=== PATIENT | male | born 1945 | race Caucasian/White ===

== ENCOUNTER 2025-06-20 08:16 | Inpatient (IN) ==
--- NOTE | 2025-06-13 14:26 | Anesthesiology Consultation ---
Date of Service June 13, 2025 Assessment & Plan (1) Encounter for pre-operative examination: - Check BSG DOS - Infectious disease screening: Per assessment on 06/13/25- No known recent infectious disease contacts. 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 Nothing further needed at this time. Chart Review Chart Review: Acceptable Risk for Surgery and Patient NOT seen in Pre Admission Testing History Surgery Operation Date: 06/20/25 09:55 Proposed Procedures p Exploratory Laparotomy, Removal of Infected Mesh, Hernia Repair, Possible Bowel Resection - Arben Dhaliwal MD Height/Weight Height: 5 ft 8 in Weight: 88.451 kg Allergies Allergy/AdvReac Type Severity Reaction Status Date / Time adhesive tape Allergy Unknown Rash with Verified 06/13/25 10:23 extended use Medications Home Medications Medication Instructions Recorded Confirmed Last Taken aspirin 325 mg tablet 325 mg PO QAM 01/21/23 06/13/25 01/25/23 06:00 metformin 500 mg tablet 500 mg PO QAM 01/21/23 06/13/25 01/24/23 22:00 pantoprazole 40 mg tablet,delayed 40 mg PO QAM 01/21/23 06/13/25 01/24/23 06:00 release ascorbic acid (vitamin C) 1,000 mg 1,000 mg PO Q2D 06/13/25 06/13/25 Unknown tablet (Vitamin C) cyanocobalamin (vitamin B-12) 1,000 mcg PO QAM 06/13/25 06/13/25 Unknown 1,000 mcg tablet (Vitamin B-12) empagliflozin 25 mg tablet 25 mg PO QAM 06/13/25 06/13/25 Unknown (Jardiance) losartan 25 mg tablet 25 mg PO QAM 06/13/25 06/13/25 Unknown rosuvastatin 20 mg tablet 20 mg PO QAM 06/13/25 06/13/25 Unknown sildenafil 25 mg tablet 20 mg PO UD PRN sexual activity 06/13/25 06/13/25 Unknown vit C 250 mg-vit E 90 mg-zinc 40 2 tab PO QAM 06/13/25 06/13/25 Unknown mg-copper 1 [id number] capsule (PreserVision AREDS-2) Past Medical History Medical History AAA (abdominal aortic aneurysm) Monitored by PCP US Aorta 08/31/24: Mild aneurysmal dilitation of the proximal abdominal aorta (measures approximately 3.2cm x 2.7 cm) Abd/Pelvis CT 05/17/25: "Aorta: Atherosclerotic changes of the abdominal aorta without aneurysm." 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 (Age 27) "Surgery took care of it" per patient History of colonoscopy History of esophagogastroduodenoscopy (EGD) History of hernia surgery x2 History of surgery (05/2024) Left ulnar nerve repair History of wisdom tooth extraction Social History Smoking Status: Former smoker Do You Dip or Chew Tobacco: No (hx when I was younger social, no current) Smoking End Date: 17 yr ago Hx Alcohol Use: Yes Alcohol type: beer and hard liquor alcohol intake frequency: a few times a month Hx Substance Use: No substance use type: does not use Testing Laboratory Results 06/03/25 WBC H/H PLATELETS SODIUM 141 POTASSIUM 4.8 CHLORIDE 101 CO2 24 BUN 16 CREATININE 0.9 GLUCOSE 143 Electrocardiogram Date: 06/01/25 Findings: + NSR @ (85)
--- NOTE | 2025-06-20 08:42 | History & Physical Bridge Note ---
Date of Service June 20, 2025 History & Physical Bridge Note I have examined the patient, reviewed the History & Physical and in the interval since the performance of the History & Physical I have noted the following changes of clinical significance: no changes noted
[2025-06-20] MEDS: LR 15ML/HR IV SCH (09:14)
[2025-06-20] MEDS ORDERED: MIDAZOLAM HCL 1 MG/ML 2ML VIAL ONE (10:42)
[2025-06-20] MEDS ORDERED: ONDANSETRON INJ 2 MG/ML 2 ML VIAL IV PRN (10:44)
[2025-06-20] MEDS ORDERED: ATROPINE SULFATE 0.1 MG/ML 10ML SYR IV PRN (10:44)
[2025-06-20] MEDS ORDERED: PROMETHAZINE HCL 6.25 MG in SODIUM CHLORIDE 0.9% 50 ML IV PRN (10:44)
[2025-06-20] MEDS ORDERED: LIDOCAINE 2% 2 ML VIAL/AMP(20MG/ML) INFIL ONE (10:51)
[2025-06-20] MEDS ORDERED: PROPOFOL IV EMULSION 10 MG/ML 20 ML VIAL IV ONE (10:51)
[2025-06-20] MEDS ORDERED: ROCURONIUM BROMIDE 10 MG/ML 5 ML VIAL IV ONE ×2 (10:51→11:48)
[2025-06-20] MEDS ORDERED: MoRPHine SULFATE 2 MG/ML CARP ONE (11:17)
[2025-06-20] MEDS ORDERED: DEXAMETHASONE SOD INJ 4 MG/ML VIAL ONE (11:19)
[2025-06-20] MEDS ORDERED: KETOROLAC 30 MG/ML VIAL ONE (11:19)
[2025-06-20] MEDS ORDERED: ONDANSETRON INJ 2 MG/ML 2 ML VIAL ONE (11:19)
[2025-06-20] MEDS ORDERED: SUGAMMADEX SODIUM 200 MG/2 ML VIAL IV ONE (11:34)
--- NOTE | 2025-06-20 12:15 | Post Operative Brief Note ---
Immediate Post Op Note Date of Surgery June 20, 2025 Pre & Post Diagnosis Operation Date: 06/20/25 09:55 Pre-Op Diagnosis: Umbilical Bleeding, Abdominal Wall Mass Post-Op Diagnosis: Umbilical Bleeding, Abdominal Wall Mass I identified the patient and participated in the time-out.: Yes Procedure Operation Date: 06/20/25 09:55 Actual Procedures p Exploratory Laparotomy, Removal of Infected Mesh, Hernia Repair, Bowel Resection(Not Applicable) - Arben Dhaliwal MD Surgeon Arben Dhaliwal MD Development Chemist HARVINDER Mills assisted with tissue retraction, camera op, closure Estimated Blood Loss 10 Findings Consistent with Post-Op Diagnosis
--- NOTE | 2025-06-20 12:21 | Operative Report ---
Post Operative Report Pre & Post Diagnosis Operation Date: 06/20/25 09:55 Pre-Op Diagnosis: Umbilical Bleeding, Abdominal Wall Mass Post-Op Diagnosis: Umbilical Bleeding, Abdominal Wall Mass I identified the patient and participated in the time-out.: Yes Procedure Operation Date: 06/20/25 09:55 Actual Procedures p Exploratory Laparotomy, Removal of Infected Mesh, Hernia Repair, Bowel Resection(Not Applicable) - Arben Dhaliwal MD Surgeon Arben Dhaliwal MD Dictating Transcribing Machine Servicer HARVINDER Mills assisted with tissue retraction, camera op, closure Estimated Blood Loss 10 Findings Consistent with Post-Op Diagnosis loop of bowel adhesed to and eroded through old hernia mesh to the umbilicus resulting in small fistula. Mesh was entirely explanted. Small bowel resection with reanastomosis. hernia repaired with #1 Prolene suture. Specimens Small bowel; explanted mesh Drains none Anesthesia Type General Complications none Description of Procedure patient was taken the operating room, placed supine on the operating table. A timeout was performed, perioperative antibiotics were administered, ST boots were placed. After adequate anesthesia and analgesia was obtained, the abdomen was prepped and draped in a normal sterile fashion. Midline incision was made encompassing the umbilicus and was carried down to the level of the fascia. The umbilical stalk was detached from the fascia and a tract was noted with brownish fluid within it. The fascia was opened below the umbilicus into the preperitoneal space and then subsequently into the peritoneum. We slowly worked cephalad. A loop of small bowel was densely adherent to the undersurface of the mesh just at the umbilical site. This was carefully dissected off of the anterior abdominal wall/mesh with the Metzenbaum scissors and Kitners. It was noted that the loop of bowel had eroded into the mesh. As this was detached, the fistulous tract was identified. The bowel was completely freed from the mesh above. Once this was complete, there was the area of the fistula and another loop of small bowel with a small serosal tear. The small serosal tear was oversewn with interrupted 3-0 silk sutures. Decision was made to resect the small bowel loop with a fistulous tract. This was done with JOLIE stapler. The mesentery was taken with the LigaSure device. A [id number] functional end-to-end anastomosis was created with the JOLIE stapler. The common channel was closed with a TA stapler. The resulting mesenteric defect was closed with 3-0 silk suture. A crotch stitch was placed of 3-0 silk. The wound was zeinab irrigated suctioned free. At this point attention was turned to the anterior abdominal wall. The entire mesh was explanted. Again the wound was zeinab irrigated suctioned free, hemostasis was excellent. The fascia was then reapproximated with a running #1 Prolene suture. The subcutaneous tissue was irrigated. The skin was reapproximated with surgical clips. Betadine soaked packing was placed. Dressings were applied. A binder was applied. He tolerated the procedure without complication, was transferred in stable condition to the PACU. All instrument, needle, sponge counts were correct at the end of the case. My vet assistant was necessary throughout the procedure for tissue retraction, possible camera operation, and closure of the wounds. I understand that section 1842(b)(7)(D) of the Social Security act generally prohibits Medicare physician fee schedule payment for the services of assistants at surgery in teaching hospitals when qualified residents are available to furnish such services. I certify that the services for which payment is claimed were medically necessary and that no qualified resident was available to perform the services. I further understand that these services are subject to postpayment review by the Medicare carrier. I attest to the content of the Intraoperative Record and any orders documented therein. Any exceptions are noted below.
[2025-06-20] MEDS: cefOXitin SOD 1,000 MG VIAL ONE (12:24)
[2025-06-20] MEDS: BUPIVACAINE/EPINEPHRINE 0.25% 1:200,000 30 ML VIAL ONE (12:40)
--- NOTE | 2025-06-20 12:40 | XRay Report ---
KUB HISTORY: INSTRUMENT COUNT COMPARISON STUDY: None FINDINGS: Frontal views of the abdomen and pelvis were obtained in the operating room. Skin jin o verlie the left pelvis. No other radiopaque foreign body or special forces medical sergeant seen at the abdomen or pel vis. There are a few small calcifications at the left abdomen. IMPRESSION: No retained foreign body seen. ACT 112: Negative or not required by law. The above report was generated using voice recognition software. It may contain grammatical, syntax o r spelling errors. Electronically signed by: Arjun Hines M.D. 06/20/2025 12:39 PM
--- NOTE | 2025-06-20 13:25 | Anesthesiology Progress Note ---
Date of Service June 20, 2025 Anesthesia Post Procedure Vital Signs Vital Signs: Temp Pulse Resp BP Pulse Ox O2 Del Method O2 Flow Rate 06/20/25 13:19 36.4 C L 83 18 155/85 H 94 Nasal Cannula 4 06/20/25 13:10 85 24 155/84 H 89 L Nasal Cannula 2 06/20/25 13:00 87 17 171/84 H 86 L Room Air 06/20/25 12:50 90 15 177/97 H 94 Oxymask 6 06/20/25 12:40 36.0 C L 93 H 15 183/99 H 94 Oxymask 10 06/20/25 08:38 36.7 C 62 18 175/94 H 99 Room Air Pain Intensity Abdomen: Pain Intensity: 4 Transfer of Care Handoff Completed per policy Notes Mental Status: alert / awake / arousable Patient Amnestic to Procedure: Yes Nausea / Vomiting: adequately controlled Pain: adequately controlled Airway Patency, RR, SpO2: stable & adequate BP & HR: stable & adequate Hydration State: stable & adequate Anesthetic Complications: no major complications apparent
[2025-06-20] MEDS ORDERED: KETOROLAC 30 MG/ML VIAL IV PRN (14:16)
[2025-06-20] MEDS ORDERED: PROMETHAZINE 12.5 MG/50.5 ML BAG IV PRN (14:16)
[2025-06-20] MEDS ORDERED: MoRPHine SULFATE 2 MG/ML CARP IV PRN (14:16)
[2025-06-20] MEDS: PIPERACILLIN/TAZOBACTAM 4.5 GM/100 ML BAG IV SCH (15:11)
--- NOTE | 2025-06-20 16:17 | Hospitalist Consultation ---
Date of Consultation June 20, 2025 Assessment & Plan (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: (2) DM type 2 (diabetes mellitus, type 2): (3) HTN (hypertension): (4) HLD (hyperlipidemia): Plan This is a 80 y/o male with DM2, diabetic retinopathy, dyslipidemia, GERD, Christiansen's esophagus, HTN, and other history as outlined below who underwent exploratory laparotomy with removal of infected mesh, hernia repair, and bowel resection today by Dr. Dhaliwal and for who we have been consulted to assist with post-operative medical management. Currently pt has no specific complaints. Initial post-operative nausea seems to have improved. #Infected mesh s/p removal, hernia repair, and bowel resection - POD #0 - Pain control, diet per primary service - Labs in AM - CBC, BMP - Agree with continuing IV Zosyn as ordered #Type 2 Diabetes - Holding oral meds for now - Insulin sliding scale - BSG ACHS #Dyslipidemia - Chronic, resume statin once tolerating po #Hypertension - Chronic, resume losartan, monitor BP #GERD - Continue daily PPI DVT prophylaxis: Lovenox Current diet: clear liquids Pt seen and reviewed with collaborating physician, Dr. Johnson. Plan of care discussed and as outlined above. Thank you for this consultation. We will continue to follow this patient with you. A member of the [facility] team is available 28/04. Please don't hesitate to reach out with questions. I spent a total of 68 minutes coordinating, documenting, and providing care for this patient excluding time spent in the performance of separately billed services or time spent by another provider/QHP. Jose Rafael Chavez PA-C Supervising Physician Co-Signing Physician Notes Attending addendum: The patient was seen and examined in medical floor he is status post exploratory laparotomy, removal of infected mesh, hernia repair and bowel resection on 06/20/2025 He has been complaining of some abdominal pain and nausea but no vomiting Denies any chest pain, palpitation or shortness of breath and he mentioned that he gets dehydrated easily On examination Lying in bed with minimal distress Hemodynamically stable with tachycardia of 100/min and requiring 4 L to maintain saturation without any shortness of breath at rest Chestdecreased breath sounds bilaterally without any crackles and wheezing Abdomendistended, tender and bowel sound sluggish HeartS1-S2, regular CNSalert, awake and oriented x 3 His preop labs and imaging studies reviewed Status post laparotomy and removal of infected mesh, hernia repair and bowel resection Management will be as per surgeon Will give cautious amount of intravenous fluid with LR at 80 cc an hour for 2 L His other medical conditions remained stable as managed accordingly as above Agree with assessment and plan as outlined above by Oanh Chavez PA-C and take the full responsibility of care in the hospital Dr Juan Johnson History of Present Illness Reason for Consultation: Post-operative medical management Requesting Physician: Dr. Arben Dhaliwal Attending Physician: Arben Dhaliwal MD History of Present Illness This is a 80 y/o male with DM2, diabetic retinopathy, dyslipidemia, GERD, Christiansen's esophagus, HTN, and other history as outlined below who underwent exploratory laparotomy with removal of infected mesh, hernia repair, and bowel resection today by Dr. Dhaliwal and for who we have been consulted to assist with post-operative medical management. Pt originally had hernia repair at umbilicus done with mesh 15 years ago, but has had issues with drainage from umbilicus over the last several years. He underwent an operation to remove granulation tissue from the area in 2020 but the mesh was left intact. However, he has continued to have drainage from the area so saw Dr. Dhaliwal as an outpatient and had a CT scan showing a small collection at the umbilicus c/w a chronic mesh inf ection for which he underwent today's procedure. His outpatient PCP notes were reviewed to assist with the medical history. His diabetes is managed as an outpatient with metformin and empagliflozin with his last A1c being 8.2 on 02/22/25. Pt reports his blood sugars at home are usually well-controlled (120s). Currently, his main complaint is generalized fatigue. Current incisional pain is 2/10. He had some nausea initially after surgery but reports this has improved, no vomiting. Tolerating sips of water. Denies chest pain, palpitations, dyspnea, CHEW, dizziness. Allergies Allergy/AdvReac Type Severity Reaction Status Date / Time adhesive tape Allergy Unknown Rash with Verified 06/20/25 08:36 extended use Home Medications Medication Instructions Recorded Confirmed Type aspirin 325 mg tablet 325 mg PO QAM 01/21/23 06/20/25 History metformin 500 mg tablet 500 mg PO QAM 01/21/23 06/20/25 History pantoprazole 40 mg tablet,delayed 40 mg PO QAM 01/21/23 06/20/25 History release ascorbic acid (vitamin C) 1,000 mg 1,000 mg PO Q2D 06/13/25 06/20/25 History tablet (Vitamin C) cyanocobalamin (vitamin B-12) 1,000 mcg PO QAM 06/13/25 06/20/25 History 1,000 mcg tablet (Vitamin B-12) empagliflozin 25 mg tablet 25 mg PO QAM 06/13/25 06/20/25 History (Jardiance) losartan 25 mg tablet 25 mg PO QAM 06/13/25 06/20/25 History rosuvastatin 20 mg tablet 20 mg PO QAM 06/13/25 06/20/25 History sildenafil 25 mg tablet 20 mg PO UD PRN sexual activity 06/13/25 06/20/25 History vit C 250 mg-vit E 90 mg-zinc 40 2 tab PO QAM 06/13/25 06/20/25 History mg-copper 1 [id number] capsule (PreserVision AREDS-2) Patient History Medical History (Updated 06/20/25 @ 17:05 by Abigail Chavez PA-C) Ulnar neuropathy at elbow of left upper extremity Carpal tunnel syndrome, left History of Lyme disease x2 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14, no hx locking HLD (hyperlipidemia) Hx borderline AAA (abdominal aortic aneurysm) Monitored by PCP US Aorta 08/31/24: Mild aneurysmal dilitation of the proximal abdominal aorta (measures approximately 3.2cm x 2.7 cm) Abd/Pelvis CT 05/17/25: "Aorta: Atherosclerotic changes of the abdominal aorta without aneurysm." Surgical History History of surgery (05/2024) Left ulnar nerve repair History of wisdom tooth extraction History of hernia surgery x2 History of appendectomy (2011) "Nicked my intestine"- monitored/no additional surgery History of esophagogastroduodenoscopy (EGD) History of colonoscopy 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 (Age 27) "Surgery took care of it" per patient Social History Smoking Status: Former smoker Tobacco Type: Cigarettes, Pipe and Cigars Smoking End Date: 17 yr ago; Second Hand Exposure: Yes (hx); Do You Dip or Chew Tobacco: No (hx when I was younger social, no current); Hx Alcohol Use: Yes Alcohol type: beer and hard liquor Hx Substance Use: No Preferred Language: Korean Communication Ability: Effective Precision Assembly Inspector Required: No Beliefs That Will Affect Care: Zoroastrianism Zoroastrianism Beliefs: Mandaeism Current Living Situation: Spouse Feels Safe at Home: Yes Assistive Devices: Hearing Aid - Bilateral and Other Assistive Devices Comment: readers Review of Systems Review of Systems: All systems reviewed & are unremarkable except as noted in Subjective Physical Exam Physical Exam: General: awake, alert, NAD HEENT: no scleral icterus, moist mucus membranes Neck: supple, trachea midline Heart: RRR Lungs: CTA bilaterally, no W/R/R Abdomen: abdominal binder in place, hypoactive bowel sounds Extremities: no pedal edema, distal pulses intact and equal Neurologic: Ox3, no confusion or dysarthria, moving all extremities, no focal deficits Results & Data Results & Data Vital Signs (Past 12 Hours) Vital Signs Temp Pulse Pulse Resp BP BP Pulse Ox 06/20/25 16:07 36.4 C L 94 H 20 147/82 H 96 06/20/25 15:10 36.8 C 92 H 22 150/88 H 94 06/20/25 14:43 36.3 C L 90 22 147/79 H 94 06/20/25 14:00 06/20/25 14:00 36.8 C 90 22 154/82 H 91 06/20/25 13:50 86 14 155/90 H 93 06/20/25 13:35 81 17 147/89 H 93 06/20/25 13:20 36.4 C L 83 18 155/85 H 94 06/20/25 13:10 85 24 155/84 H 89 L 06/20/25 13:00 87 17 171/84 H 86 L 06/20/25 12:50 90 15 177/97 H 94 06/20/25 12:40 36.0 C L 93 H 15 183/99 H 94 06/20/25 08:38 36.7 C 62 18 175/94 H 99 O2 Del Method O2 Flow Rate 06/20/25 16:07 Nasal Cannula 4 06/20/25 15:10 Nasal Cannula 4 06/20/25 14:43 Nasal Cannula 4 06/20/25 14:00 Nasal Cannula 4 06/20/25 14:00 Nasal Cannula 4 06/20/25 13:50 Nasal Cannula 4 06/20/25 13:35 Nasal Cannula 4 06/20/25 13:20 Nasal Cannula 4 06/20/25 13:10 Nasal Cannula 2 06/20/25 13:00 Room Air 06/20/25 12:50 Oxymask 6 06/20/25 12:40 Oxymask 10 06/20/25 08:38 Room Air Laboratory Results 06/20/25 06/20/25 08:19 09:17 POC Glucose 145 H Blood Type A Positive Antibody Screen NEGATIVE Medications Administered Lactated Ringer's (Lr) 1,000 mls @ 15 mls/hr IV .Q24H AVRIL Stop: 06/21/25 05:59 Last Infusion: 06/20/25 10:45 Dose: Infused Documented By: Admin: 06/20/25 09:14 Dose: 15 mls/hr Documented By: MITRA Cefazolin Sodium (Ancef 2000mg) 2,000 mg in 15 mls @ 3.75 mls/min IV PREOP AVRIL; Protocol Stop: 06/20/25 18:00 Last Admin: 06/20/25 10:48 Dose: 3.75 mls/min Documented By: JAMIN Piperacillin Sod/Tazobactam Sod (Zosyn) 4.5 gm in 100 mls @ 25 mls/hr IV Q8H AVRIL; Protocol Stop: 06/24/25 14:59 Last Admin: 06/20/25 15:11 Dose: 25 mls/hr Documented By: CSE Discontinued Medications Bupivacaine HCl/Epinephrine Bitart (Bupivacaine/Epinephrine 0.25% 1:200,000 30 Ml Vial) Confirm Administered Dose 30 ml .ROUTE .STK-MED ONE Stop: 06/20/25 11:03 Last Admin: 06/20/25 12:40 Dose: 10 ml Documented By: SHEILA Cefoxitin Sodium (Cefoxitin Sod 1,000 Mg Vial) Confirm Administered Dose 2,000 mg .ROUTE .STK-MED ONE Stop: 06/20/25 10:41 Last Admin: 06/20/25 12:24 Dose: 2,000 mg Documented By: GHADA (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 (2) DM type 2 (diabetes mellitus, type 2) Diabetes mellitus complication detail: with diabetic retinopathy Diabetes mellitus complication status: with ophthalmic complications Diabetes mellitus residential insulin use: without meterman use Diabetes mellitus macular edema: macular edema presence unspecified Diabetic retinopathy severity: with unspecified retinopathy severity Laterality: unspecified laterality Qualified Code(s): E11.319 - Type 2 diabetes mellitus with unspecified diabetic retinopathy without macular edema (3) HTN (hypertension) Hypertension type: unspecified Qualified Code(s): I10 - Essential (primary) hypertension (4) HLD (hyperlipidemia) Hyperlipidemia type: unspecified Qualified Code(s): E78.5 - Hyperlipidemia, unspecified
[2025-06-20] MEDS ORDERED: GLUCOSE 40% GEL 15 GM TUBE PO PRN (16:27)
[2025-06-20] MEDS ORDERED: GLUCAGON FOR INJ 1 MG VIAL SQ PRN (16:27)
[2025-06-20] MEDS ORDERED: CARBOHYDRATES FOR HYPOGLYCEMIA PO PRN (16:27)
[2025-06-20] MEDS ORDERED: DEXTROSE 50% 50 ML SYRINGE IV PRN (16:27)
[2025-06-20] MEDS ORDERED: GLUCOSE 10 TAB/TUBE PO PRN (16:27)
[2025-06-20] MEDS: INSULIN ASPART PER UNIT CHARGE SC SCH (17:17)
[2025-06-20] MEDS: LACTATED RINGER'S 1,000 ML IV SCH (19:27)
[2025-06-20] MEDS: ONDANSETRON INJ 2 MG/ML 2 ML VIAL IV PRN (20:45)
[2025-06-20] MEDS: MoRPHine SULFATE 4 MG/ML 1 ML CARP\\VIAL IV PRN (21:31)
[2025-06-20] MEDS: SODIUM CHLORIDE 0.9% 250 ML IV ONE (23:29)
[2025-06-21 00:18] LABS: Hematocrit (blood only) 39.1 % (42.0-52.0); Hemoglobin 12.5 g/dl (14.0-18.0); Immature Granulocytes # (auto) 0.05 K/uL (0.01-0.20); Immature Granulocytes % (auto) 0.4 %; Mean Corpuscular Hemoglobin 30.0 pg (25.0-34.0); Mean Corpuscular Volume 93.8 fL (80.0-100.0); Platelet Count 317 K/uL (130-400); RDW Standard Deviation 44.7 fL (36.4-46.3); Red Blood Count 4.17 M/uL (4.70-6.10); White Blood Count 11.52 K/ul (4.8-10.8)
--- NOTE | 2025-06-21 00:49 | Communication Note ---
Date of Service: June 21, 2025 I was called by the nurse earlier this evening the patient was noted to be hypotensive with a blood pressure of 76/55. She noted that the patient was asymptomatic at that time. Review of chart shows the patient underwent surgery today having undergone an exploratory laparotomy with removal of infected mesh, a bowel resection, and a hernia repair by Dr. Dhaliwal of [facility] surgery. Given the patient's recent surgery I opted to give the patient a 250 cc fluid bolus of normal saline solution and increase his maintenance fluids which were currently running at 80 cc/h to 100 cc/h. After this modality the patient's blood pressure improved to 96/65. Shortly thereafter the nurse notified me that the patient was complaining of difficulty breathing. I reported to the bedside to evaluate the patient. The patient notes that he is having abdominal pain at his surgical incision making it difficult for him to take deep breaths. He did report some radiation of this discomfort into his chest. He also notes that he is having episodes of sweats as well as nausea without vomiting. Patient does report he does not have any history of blood clots and does not take any anticoagulants. On physical exam the patient's abdomen has mild distention and is noted to have expected tenderness from his postoperative state. On auscultation his lungs are clear to auscultation bilaterally without wheezing or rhonchi. Breath sounds were slightly decreased at the bases. I performed a chest x-ray that did not show any evidence of pneumothorax. There also did not appear to be evidence of pneumonia. I did appreciate bilateral basilar atelectasis (I suspect the patient is not taking deep breaths secondary to postoperative pain). An EKG showed sinus tachycardia without changes indicative of acute ischemia. Most recent vitals included a blood pressure of 96/65 and a pulse of 122 which was regular. The patient was noted to be afebrile. His pulse ox was 99% but he was requiring 5 L of oxygen via nasal cannula. (The patient notes he does not use oxygen at home). In light of the events noted above we will obtain a PRP and magnesium as well as a troponin level. In addition, if the patient's creatinine is acceptable we will check a CT scan of the chest to evaluate for possible pulmonary embolism.
--- NOTE | 2025-06-21 01:53 | XRay Report ---
EXAM: XR chest 1V portable CLINICAL HISTORY: SOB TECHNIQUE: An X-ray image of the chest was obtained in the AP projection. COMPARISON: No prior studies are available for comparison. FINDINGS: There is suboptimal inspiratory effort with low lung volumes. Pulmonary Parenchyma: There is a blunted left costophrenic angle, which represents minimal effusion. There is decreased aeration of the left lower zone adjacent to the pleural effusion, which may be due to compression and/or small areas of atelectasis. Otherwise, the lungs are clear bilaterally, without evidence of consolidation, collapse, or focal opacities. No pulmonary nodules are identified. Heart and Mediastinum: The size and shape of the heart are normal. There is no mediastinal widening or masses. There is no hilar or mediastinal lymphadenopathy. Bony Thorax: The bony thorax appears intact without fractures or deformities. Soft Tissues: The soft tissues overlying the chest wall are unremarkable. IMPRESSION: There is a mild left pleural effusion with associated compression findings. Electronically signed by Dustin Simms 06-21-2025 01:52 AM
[2025-06-21 03:25] LABS: Anion Gap 21.0 (3-11); Blood Urea Nitrogen 27.0 mg/dl (6-23); Calcium 8.2 mg/dl (8.6-10.3); Carbon Dioxide 17.0 mmol/L (21-32); Chloride 100.0 mmol/L (98-107); Creatinine Clr Calc Pharmacy 34.1 ml/min; Glucose 381.0 mg/dl (70-99(Fasting)); Magnesium 1.8 mg/dl (1.7-2.4); Potassium 4.4 mmol/L (3.5-5.1); Sodium 138.0 mmol/L (136-145)
--- NOTE | 2025-06-21 03:31 | Communication Note ---
Date of Service: June 21, 2025 Please see previous communication note Initial plan was for patient to undergo CT scan of the chest to evaluate for PE, however results of creatinine have finally come back and his creatinine is elevated at 1.9. Patient was revisited at bedside and appears to be resting comfortably in bed and does not appear to be in any distress, therefore we will hold on getting a CT scan at this time and continue with close clinical monitoring Patient also noted to have elevated blood glucose levels in excess of 300. I have messaged the hospitalist service and asked them to assist with management of this condition as they are on medical consult for this patient. In addition, patient's troponin level noted to be not elevated
[2025-06-21] MEDS: INSULIN ASPART PER UNIT CHARGE SC SCH ×2 (04:47→12:01)
[2025-06-21] MEDS: INSULIN HUMAN REGULAR PER UNIT 4 UNITS in SYRINGE 3.96 ML IV ONE (04:47)
--- NOTE | 2025-06-21 06:57 | Surgery Progress Note ---
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 for now Incentive spirometry and flutter valve for aggressive pulmonary toilet PT/OT evaluation Appreciate medical input for medical issues Admission and Anticipated Discharge Date Admission Date: June 20, 2025 Subjective POD#1 s/p ex lap, removal of infected mesh, bowel resection Some pain and low blood pressures overnight. Blood pressure responded to fluid bolus. Still tachycardic. Complains of significant pain in his abdomen. some nausea. No flatus. Physical Exam Physical Exam: NAD, A&O x 3 NCAT, no scleral icterus Abdomen: Soft, mild TTP, dressing C/D/I Binder in place Results & Data Vital Signs (Past 12 Hours) Vital Signs Temp Pulse Resp BP Pulse Ox O2 Del Method O2 Flow Rate 06/21/25 05:52 36.4 C L 119 H 20 105/73 98 Nasal Cannula 4 06/21/25 02:13 36.4 C L 132 H 20 117/84 96 Nasal Cannula 4 06/20/25 23:59 36.4 C L 122 H 20 96/65 L 99 Nasal Cannula 5 06/20/25 23:07 36.4 C L 118 H 14 76/55 L 96 Nasal Cannula 4 06/20/25 19:25 36.8 C 98 H 14 116/81 94 Room Air Laboratory Results 06/21/25 06/21/25 06/21/25 Range/Units 04:37 04:33 02:31 WBC (4.8-10.8) K/ul RBC (4.70-6.10) M/uL Hgb (14.0-18.0) g/dl Hct (42.0-52.0) % MCV (80.0-100.0) fL MCH (25.0-34.0) pg MCHC (32.0-36.0) g/dL RDW Std Deviation (36.4-46.3) fL RDW Coeff of Jessica (11.5-14.5) % Plt Count (130-400) K/uL MPV (9.4-12.4) fL Immature Gran % (Auto) % Neut % (Auto) % Lymph % (Auto) % Twiggs % (Auto) % Eos % (Auto) % Baso % (Auto) % Neut # (Auto) (1.40-6.50) K/uL Lymph # (Auto) (1.20-3.40) K/uL Twiggs # (Auto) (0.11-0.59) K/uL Eos # (Auto) (0.00-0.50) K/uL Baso # (Auto) (0.00-0.20) K/uL Immature Gran # (Auto) (0.01-0.20) K/uL Sodium 138 (136-145) mmol/L Potassium 4.4 (3.5-5.1) mmol/L Chloride 100 (98-107) mmol/L Carbon Dioxide 17 L (21-32) mmol/L Anion Gap 21 H (3-11) BUN 27 H (6-23) mg/dl Creatinine 1.93 H (0.6-1.4) mg/dl Est Cr Clr Drug Dosing 34.1 ml/min eGFR 35.00 BUN/Creatinine Ratio 14.0 (10-20) Glucose 381 H* (70-99(Fasting)) mg/dl POC Glucose 371 H* 315 H* (70-99) mg/dl Calcium 8.2 L (8.6-10.3) mg/dl Magnesium 1.8 (1.7-2.4) mg/dl Troponin I High Sens 12.2 (0-20) pg/ml Blood Type Antibody Screen 06/20/25 06/20/25 06/20/25 Range/Units 23:35 20:43 20:42 WBC 11.52 H (4.8-10.8) K/ul RBC 4.17 L (4.70-6.10) M/uL Hgb 12.5 L (14.0-18.0) g/dl Hct 39.1 L (42.0-52.0) % MCV 93.8 (80.0-100.0) fL MCH 30.0 (25.0-34.0) pg MCHC 32.0 (32.0-36.0) g/dL RDW Std Deviation 44.7 (36.4-46.3) fL RDW Coeff of Jessica 13.1 (11.5-14.5) % Plt Count 317 (130-400) K/uL MPV 10.7 (9.4-12.4) fL Immature Gran % (Auto) 0.4 % Neut % (Auto) 67.8 % Lymph % (Auto) 24.1 % Twiggs % (Auto) 7.3 % Eos % (Auto) 0.1 % Baso % (Auto) 0.3 % Neut # (Auto) 7.81 H (1.40-6.50) K/uL Lymph # (Auto) 2.78 (1.20-3.40) K/uL Twiggs # (Auto) 0.84 H (0.11-0.59) K/uL Eos # (Auto) 0.01 (0.00-0.50) K/uL Baso # (Auto) 0.03 (0.00-0.20) K/uL Immature Gran # (Auto) 0.05 (0.01-0.20) K/uL Sodium (136-145) mmol/L Potassium (3.5-5.1) mmol/L Chloride (98-107) mmol/L Carbon Dioxide (21-32) mmol/L Anion Gap (3-11) BUN (6-23) mg/dl Creatinine (0.6-1.4) mg/dl Est Cr Clr Drug Dosing ml/min eGFR BUN/Creatinine Ratio (10-20) Glucose (70-99(Fasting)) mg/dl POC Glucose 324 H* 339 H* (70-99) mg/dl Calcium (8.6-10.3) mg/dl Magnesium (1.7-2.4) mg/dl Troponin I High Sens (0-20) pg/ml Blood Type Antibody Screen 06/20/25 06/20/25 06/20/25 Range/Units 16:19 09:17 08:19 WBC (4.8-10.8) K/ul RBC (4.70-6.10) M/uL Hgb (14.0-18.0) g/dl Hct (42.0-52.0) % MCV (80.0-100.0) fL MCH (25.0-34.0) pg MCHC (32.0-36.0) g/dL RDW Std Deviation (36.4-46.3) fL RDW Coeff of Jessica (11.5-14.5) % Plt Count (130-400) K/uL MPV (9.4-12.4) fL Immature Gran % (Auto) % Neut % (Auto) % Lymph % (Auto) % Twiggs % (Auto) % Eos % (Auto) % Baso % (Auto) % Neut # (Auto) (1.40-6.50) K/uL Lymph # (Auto) (1.20-3.40) K/uL Twiggs # (Auto) (0.11-0.59) K/uL Eos # (Auto) (0.00-0.50) K/uL Baso # (Auto) (0.00-0.20) K/uL Immature Gran # (Auto) (0.01-0.20) K/uL Sodium (136-145) mmol/L Potassium (3.5-5.1) mmol/L Chloride (98-107) mmol/L Carbon Dioxide (21-32) mmol/L Anion Gap (3-11) BUN (6-23) mg/dl Creatinine (0.6-1.4) mg/dl Est Cr Clr Drug Dosing ml/min eGFR BUN/Creatinine Ratio (10-20) Glucose (70-99(Fasting)) mg/dl POC Glucose 205 H 145 H (70-99) mg/dl Calcium (8.6-10.3) mg/dl Magnesium (1.7-2.4) mg/dl Troponin I High Sens (0-20) pg/ml Blood Type A Positive Antibody Screen NEGATIVE (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
[2025-06-21] MEDS ORDERED: MoRPHine SULFATE 2 MG/ML CARP IV PRN (07:00)
[2025-06-21] MEDS ORDERED: PHARMACY GLYCEMIC MGMT CONSULT PRN (07:56)
[2025-06-21] MEDS: ACETAMINOPHEN 1,000 MG/100 ML VIAL IV SCH (08:04)
[2025-06-21] MEDS: ROSUVASTATIN CALCIUM 20 MG TAB PO SCH (08:06)
[2025-06-21] MEDS: KETOROLAC 30 MG/ML VIAL IV SCH (08:06)
[2025-06-21] MEDS ORDERED: STAT IV Infusion **Titration per Protocol STA (08:07)
[2025-06-21] MEDS: ENOXAPARIN INJ 40 MG/0.4 ML SYR SQ SCH (08:07)
[2025-06-21] MEDS ORDERED: PENDING D5 1/2NS+20mEq KCL IVF SCH (08:15)
[2025-06-21] MEDS ORDERED: PENDING 1/2NSS+20mEq KCL IVF SCH (08:15)
[2025-06-21] MEDS: LANTUS PER UNIT CHARGE SQ SCH (08:16)
[2025-06-21 08:20] LABS: Hematocrit (blood only) 39.5 % (42.0-52.0); Hemoglobin 12.5 g/dl (14.0-18.0); Mean Corpuscular Hemoglobin 29.6 pg (25.0-34.0); Mean Corpuscular Volume 93.4 fL (80.0-100.0); Platelet Count 286 K/uL (130-400); RDW Standard Deviation 45.1 fL (36.4-46.3); Red Blood Count 4.23 M/uL (4.70-6.10); White Blood Count 13.78 K/ul (4.8-10.8)
[2025-06-21 08:43] LABS: Anion Gap 19.0 (3-11); Blood Urea Nitrogen 32.0 mg/dl (6-23); Calcium 8.4 mg/dl (8.6-10.3); Carbon Dioxide 19.0 mmol/L (21-32); Chloride 101.0 mmol/L (98-107); Creatinine Clr Calc Pharmacy 26.0 ml/min; Glucose 305.0 mg/dl (70-99(Fasting)); Potassium 4.4 mmol/L (3.5-5.1); Sodium 139.0 mmol/L (136-145)
[2025-06-21 08:45] LABS: Magnesium 1.7 mg/dl (1.7-2.4)
[2025-06-21 08:46] LABS: Immature Granulocytes # (auto) 0.05 K/uL (0.01-0.20); Immature Granulocytes % (auto) 0.4 %; Polychromasia 1+
[2025-06-21] MEDS ORDERED: VANCOMYCIN CONSULT ACTIVE PRN (08:46)
[2025-06-21 08:53] LABS: Base Excess VBG -8.1 mEq/L; HCO3 VBG 20 mmol/L; Oxygen Saturation VBG 67.9 %; PCO2 VBG 50 mmHg (38-50); PO2 VBG 43 mmHg; pH VBG 7.21 (7.36-7.41)
[2025-06-21] MEDS: LACTATED RINGER'S 1,000 ML IV ONE (08:58)
[2025-06-21] MEDS ORDERED: LOSARTAN POTASSIUM 25 MG TAB PO SCH (09:00)
[2025-06-21] MEDS: MAGNESIUM SULFATE / D5W 1 GM/100 ML BAG IV SCH (09:02)
[2025-06-21] MEDS: PANTOprazole 40 MG/10 ML SYR IV SCH (09:09)
[2025-06-21 09:30] LABS: Hemoglobin A1C 7.7 % (4.5-5.6)
[2025-06-21] MEDS ORDERED: Nursing to Pharmacy Communication SCH (09:30)
--- NOTE | 2025-06-21 09:30 | Hospitalist Progress Note ---
Date of Service June 21, 2025 Assessment & Plan (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: (2) DM type 2 (diabetes mellitus, type 2): (3) HTN (hypertension): (4) HLD (hyperlipidemia): Plan Mr. Vaca is a 80 y/o male with DM2, diabetic retinopathy, dyslipidemia, GERD, Hcristiansen's esophagus, HTN, and other history as outlined below who underwent exploratory laparotomy with removal of infected mesh, hernia repair, and bowel resection today by Dr. Dhaliwal and for who we have been consulted to assist with post-operative medical management. Patient with noted hyperglycemia, lactic acidosis, and ongoing nausea. Given current metabolic abnormalities, relative hypotension/tachycardia, and increased nursing needs, will transfer to PCU. #Sepsis 2/2 infected mesh (WBC, tachycardia, lactic acidosis) POA #Metabolic acidosis #Infected mesh s/p removal, hernia repair, and bowel resection - POD #1 - Pain control, diet per primary service Noted GAP on labs, lactate 6.9 this am Plan to bolus LR x 1, reassess response to fluids Continue maintenance IVF Continue abx, broaden coverage at this time with vanc/zosyn MRSA nare ordered trend lactate Ordered Blood cultures given c/f sepsis No intraoperative cultures obtained at this time General surgery following #JACINTA baseline Cr. 0.9 likely iso hemodynamic changes given acute illness, perioperative setting hold losartan monitor I&Os consider nephrology if uptrending + drop in UOP #Relative hypotension #Sinus tachycardia #Hypertension hold home losartan iso relatively low BP and JACINTA, resume as able #acute hypergylcemia #Type 2 Diabetes Hold oral meds, A1C 7.7% in lieu of multiple metabolic abnormalities, will order insulin drip and follow labs q4 as high risk for complication to unfold once glucose and abnormalities better controlled, will transition to basal bolus currently NPO glycemic pharm on consult aggressive lyte replacement #Dyslipidemia - Chronic, resume statin once tolerating po #GERD - Continue daily PPI--transitioned to IV given inability to take po DVT prophylaxis: Lovenox Current diet: NPO I spent a total of 65 minutes coordinating, documenting, and providing care for this patient excluding time spent in the performance of separately billed services Admission and Anticipated Discharge Date Admission Date: June 20, 2025 Subjective ongoing nausea and generally feeling poorly denies fevers or chills reports some subjective improvement from what he felt yesterday prior to presenting to ED denies chest pain, sob, palpitations notable tachycardia and relative hypotension on VS Physical Exam Constitutional: weak in appearance, general pallor Respiratory: normal respiratory effort, lungs clear to auscultation Cardiovascular: tachycardic, no murmurs Gastrointestinal (Abdomen): abdominal binder in place Results & Data Results & Data Vital Signs (Past 12 Hours) Vital Signs Temp Pulse Resp BP Pulse Ox O2 Del Method O2 Flow Rate 06/21/25 07:00 36.6 C 113 H 19 108/77 99 Nasal Cannula 06/21/25 05:52 36.4 C L 119 H 20 105/73 98 Nasal Cannula 4 06/21/25 02:13 36.4 C L 132 H 20 117/84 96 Nasal Cannula 4 06/20/25 23:59 36.4 C L 122 H 20 96/65 L 99 Nasal Cannula 5 06/20/25 23:07 36.4 C L 118 H 14 76/55 L 96 Nasal Cannula 4 Laboratory Results Short CBC 06/20/25 06/21/25 Range/Units 23:35 07:09 WBC 11.52 H 13.78 H (4.8-10.8) K/ul Hgb 12.5 L 12.5 L (14.0-18.0) g/dl Hct 39.1 L 39.5 L (42.0-52.0) % Plt Count 317 286 (130-400) K/uL [facility] 06/21/25 06/21/25 02:31 07:09 Sodium 138 139 Potassium 4.4 4.4 Chloride 100 101 Carbon Dioxide 17 L 19 L BUN 27 H 32 H Creatinine 1.93 H 2.53 H D Glucose 381 H* 305 H* Calcium 8.2 L 8.4 L Medications Administered Home Medications Medication Instructions Recorded Confirmed Last Taken aspirin 325 mg tablet 325 mg PO QAM 01/21/23 06/20/25 06/15/25 metformin 500 mg tablet 500 mg PO QAM 01/21/23 06/20/25 06/17/25 pantoprazole 40 mg tablet,delayed 40 mg PO QAM 01/21/23 06/20/25 06/17/25 release ascorbic acid (vitamin C) 1,000 mg 1,000 mg PO Q2D 06/13/25 06/20/25 1 Week Ago tablet (Vitamin C) ~06/13/25 cyanocobalamin (vitamin B-12) 1,000 mcg PO QAM 06/13/25 06/20/25 06/17/25 1,000 mcg tablet (Vitamin B-12) empagliflozin 25 mg tablet 25 mg PO QAM 06/13/25 06/20/25 06/13/25 (Jardiance) losartan 25 mg tablet 25 mg PO QAM 06/13/25 06/20/25 06/17/25 rosuvastatin 20 mg tablet 20 mg PO QAM 06/13/25 06/20/25 06/17/25 sildenafil 25 mg tablet 20 mg PO UD PRN sexual activity 06/13/25 06/20/25 1 Week Ago ~06/13/25 vit C 250 mg-vit E 90 mg-zinc 40 2 tab PO QAM 06/13/25 06/20/25 1 Week Ago mg-copper 1 [id number] ~06/13/25 capsule (PreserVision AREDS-2) Active Medications Generic Name Dose Route Start Last Admin Trade Name Brandie PRN Reason Stop Dose Admin Enoxaparin Sodium 40 mg 06/21/25 08:30 06/21/25 08:07 Enoxaparin Inj 40 Mg/0.4 Ml Syr SQ 07/21/25 08:29 40 mg Q24H AVRIL Administration Piperacillin Sod/Tazobactam Sod 4.5 gm in 100 mls @ 25 mls/hr 06/20/25 15:00 06/21/25 06:12 Zosyn IV 06/24/25 14:59 25 mls/hr Q8H AVRIL Administration Protocol Lactated Ringer's 1,000 mls @ 100 mls/hr 06/20/25 19:15 06/21/25 08:59 Lr IV 06/21/25 16:03 0 mls/hr .Q10H AVRIL Infusion Acetaminophen 1,000 mg in 100 mls @ 400 mls/hr 06/21/25 07:00 06/21/25 08:20 Ofirmev IV 06/24/25 06:59 Infused Q8H AVRIL Infusion Pantoprazole Sodium 40 mg in 10 mls @ 5 mls/min 06/21/25 09:00 06/21/25 09:09 Protonix IV 07/21/25 08:59 5 mls/min BID AVRIL Administration Magnesium Sulfate/Dextrose 1 gm in 100 mls @ 50 mls/hr 06/21/25 09:00 06/21/25 09:02 Magnesium Sulfate / D5w IV 06/21/25 12:59 50 mls/hr Q2H AVRIL Administration Lactated Ringer's 1,000 mls @ 999 mls/hr 06/21/25 08:45 06/21/25 08:58 Lr IV 06/21/25 09:45 999 mls/hr .Q1H1M ONE Administration Ketorolac Tromethamine 15 mg 06/21/25 07:00 06/21/25 08:06 Ketorolac 30 Mg/Ml Vial IV 06/26/25 06:59 15 mg Q6H AVRIL Administration Ondansetron HCl 4 mg 06/20/25 14:16 06/21/25 08:16 Ondansetron Inj 2 Mg/Ml 2 Ml Vial IV 07/20/25 14:15 4 mg Q4H PRN Administration Nausea And Vomiting Oxycodone/Acetaminophen 2 tab 06/20/25 14:16 06/20/25 22:38 Oxycodone/Acetaminophen 5mg/325mg Tab PO 07/04/25 14:15 2 tab Q4H PRN Administration Severe Pain (Scale 7, 8, 9,10) Rosuvastatin Calcium 20 mg 06/21/25 09:00 06/21/25 08:06 Rosuvastatin Calcium 20 Mg Tab PO 07/21/25 08:59 20 mg QAM AVRIL Administration (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 (2) DM type 2 (diabetes mellitus, type 2) Diabetes mellitus complication detail: with diabetic retinopathy Diabetes mellitus complication status: with ophthalmic complications 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
[2025-06-21] MEDS: VANCOMYCIN HCL 1,750 MG in SODIUM CHLORIDE 0.9% 500 ML IV ONE (09:53)
[2025-06-21] MEDS: INSULIN HUMAN REGULAR IV BOLUS 8 UNITS in SYRINGE 0 ML IV ONE (09:53)
[2025-06-21] MEDS: INSULIN REGULAR 250 UNITS in SODIUM CHLORIDE 0.9% 247.5 ML IV SCH (09:54)
[2025-06-21] MEDS: SODIUM CHLOR 0.45% + 20MEQ KCL 20 MEQ/1,000 ML BAG IV SCH (10:30)
--- NOTE | 2025-06-21 10:58 | Pharmacy Report ---
Pharmacy PK ABX Note - Date of Service June 21, 2025 - Assessment and Plan Assessment 80 year old M receiving vancomycin and Zosyn for treatment of sepsis secondary to infected mesh of abdominal wall--s/p mesh removal, hernia repair, and bowel resection (POD #1). * Pertinent microbiologic data includes: MRSA Nasal Swab is pending and blood cultures have been ordered. * Patient with JACINTA (SCr 2.53mg/dL today and baseline SCr 0.9mg/dL) leukocytosis, lactic/metabolic acidosis, and tachycardia. Day # 1 of antimicrobial therapy. Plan Vancomycin * Loading dose: 1750 mg IV x 1 * Maintenance dose: Further dosing will be based on vancomycin levels due to JACINTA * Regimen is predicted to achieve target AUC/JASPREET of 400-600 mg/L.hr * Random level ordered for: 06/22 with AM labs. Pharmacy will continue to follow and will adjust dose/frequency as necessary. Thank you. Pharmacy has transitioned to AUC monitoring for vancomycin. AUC/JASPREET is the preferred PK/PD target and is associated with decreased risk of nephrotoxicity compared to traditional trough targets.
[2025-06-21] MEDS: D5W AND 1/2NSS + 20MEQ KCL 20 MEQ/1,000 ML BAG IV SCH (11:58)
[2025-06-21] MEDS: MoRPHine SULFATE 4 MG/ML 1 ML CARP\\VIAL IV PRN (13:49)
--- NOTE | 2025-06-21 13:57 | Ultrasound Report ---
DOPPLER ULTRASOUND OF THE MESENTERIC VESSELS CLINICAL HISTORY: Concern for bowel ischemia. COMPARISON STUDY: KUB June 20, 2025. TECHNIQUE: Color and duplex Doppler sonography of the abdominal aorta and major mesenteric vessels wa s attempted. FINDINGS: The abdominal aorta was partially obscured. Peak systolic velocity within visualized portio n of the proximal abdominal aorta was 42 cm/s. The celiac axis and superior mesenteric artery were no t visualized due to suboptimal penetration. Incidental note is made of increased hepatic echogenicity . There is trace perihepatic ascites. No gallstones are identified within the gallbladder. There is n o biliary ductal dilatation. IMPRESSION: 1. Nondiagnostic evaluation of the mesenteric vessels due to suboptimal penetration. 2. Hepatic steatosis with trace perihepatic ascites. ACT 112: Negative or not required by law. Electronically signed by: Rafael Alfredo M.D. 06/21/2025 1:56 PM
--- NOTE | 2025-06-21 14:37 | Pharmacy Report ---
Pharmacy Glycemic Short Note 2 - Date of Service June 21, 2025 - Glycemic Short BSG Results (Last 24 hours): 06/20/25 06/20/25 06/20/25 16:19 20:42 20:43 Glucose POC Glucose 205 H 339 H* 324 H* 06/21/25 06/21/25 06/21/25 02:31 04:33 04:37 Glucose 381 H* POC Glucose 315 H* 371 H* 06/21/25 06/21/25 06/21/25 07:09 07:32 07:34 Glucose 305 H* POC Glucose 321 H* 320 H* 06/21/25 06/21/25 06/21/25 09:51 10:58 11:56 Glucose POC Glucose 297 H 205 H 157 H 06/21/25 06/21/25 12:54 14:00 Glucose POC Glucose 165 H 135 H OUTPATIENT ANTIDIABETIC REGIMEN: * empagliflozin 25mg PO Q AM * metformin ER 500mg PO daily HbA1c: 7.7% on 06/21/25 ASSESSMENT: * Jose Ramon is a 80 year old male who was admitted yesterday for sepsis secondary to infected mesh of abdominal wall--s/p mesh removal, hernia repair, and bowel resection (POD #1). Patient with noted hyperglycemia and metabolic acidosis (AG 21 and CO2 17 on 06/20 and AG 19 and CO2 19 with labs this morning). * An insulin drip was started for DKA and pharmacy was consulted to assist with glycemic management this morning. Prior to starting the insulin drip, BSG was 315mg/dL.. Lantus 6 units x 1 was given and 4 units regular insulin iv x 1 was also given. At ~1000 this morning, BSG was still 297mg/dL. An 8 unit regular insulin bolus was given followed by the insulin drip at 8.8units/hr. * Patient remains NPO, and BSGs have been trending down. Pending fluids containing KCL have been ordered. PLAN FOR INPATIENT GLYCEMIC CONTROL: * Hold outpatient oral diabetes medications * Basal insulin * Lantus 6 units SQ x 1 this morning (ordered by provider), then regular insulin drip was started at 8.8units/hr * Bolus insulin * NovoLog per scale ACHS or Q6hrs while NPO * Goal Range: Low 150 mg/dL - High 250 mg/dL * Correction Factor: -- mg/dL/unit * Nutritional / Prandial insulin per carb ratio of 1 unit per -- grams CHO consumed-- None for now since NPO but RN to use "insulin infusion adjustment calculator" to calculate dose when he is ordered a diet.
[2025-06-21 15:04] LABS: Anion Gap 13.0 (3-11); Blood Urea Nitrogen 38.0 mg/dl (6-23); Calcium 8.2 mg/dl (8.6-10.3); Carbon Dioxide 23.0 mmol/L (21-32); Chloride 102.0 mmol/L (98-107); Creatinine Clr Calc Pharmacy 20.2 ml/min; Glucose 170.0 mg/dl (70-99(Fasting)); Magnesium 2.1 mg/dl (1.7-2.4); Potassium 4.6 mmol/L (3.5-5.1); Sodium 138.0 mmol/L (136-145)
[2025-06-21 15:21] LABS: Appearance Urine Clear (Clear); Bacteria Urine Automated None Seen (None Seen); Cast Urine Automated 0-2 /lpf (0-2); Epithelial Cell Urine Auto 0-2 /hpf (0-2); Glucose Urine UA 1+ (Negative); RBC Urine Automated >20 /hpf (0-2); WBC Urine Automated 0-5 /hpf (0-5)
--- NOTE | 2025-06-21 15:43 | Communication Note ---
Date of Service: June 21, 2025 Went to see patient, discussed with patient and . Had a previous discussion with Dr. Patel earlier in the day about patient condition and labor atory values. On exam, he is resting comfortably in bed. Abdomen is soft and nontender to palpation. Incision is clean, dry, intact with jin in place, has Betadine soaked packing in the base of the wound. No bruise or chills. Vitals are stable. Pulse slightly tachycardic in the 90-100 range. Lactate down to 5.3. Mesenteric ultrasound was inconclusive. I do not believe he has ischemic bowel based on his exam. Most likely combination of dehydration, poorly controlled diabetes, weak pulmonary compensatory mechanisms for acidosis. Patient is in PCU currently. Will continue to monitor with serial exams and labs.
[2025-06-21] MEDS: DKA GOAL RANGE 150-250 mg/dl ONE (16:08)
[2025-06-21 20:14] LABS: Anion Gap 15.0 (3-11); Calcium 8.1 mg/dl (8.6-10.3); Carbon Dioxide 18.0 mmol/L (21-32); Chloride 103.0 mmol/L (98-107); Magnesium 2.0 mg/dl (1.7-2.4); Potassium 5.1 mmol/L (3.5-5.1); Sodium 136.0 mmol/L (136-145)
[2025-06-21 20:20] LABS: Blood Urea Nitrogen 42.0 mg/dl (6-23); Creatinine Clr Calc Pharmacy 18.7 ml/min; Glucose 128.0 mg/dl (70-99(Fasting))
[2025-06-22 01:03] LABS: Anion Gap 14.0 (3-11); Blood Urea Nitrogen 45.0 mg/dl (6-23); Calcium 7.9 mg/dl (8.6-10.3); Carbon Dioxide 20.0 mmol/L (21-32); Chloride 101.0 mmol/L (98-107); Creatinine Clr Calc Pharmacy 16.2 ml/min; Glucose 153.0 mg/dl (70-99(Fasting)); Magnesium 1.9 mg/dl (1.7-2.4); Potassium 5.9 mmol/L (3.5-5.1); Sodium 135.0 mmol/L (136-145)
[2025-06-22] MEDS ORDERED: STAT IV/IM STA (01:38)
[2025-06-22] MEDS ORDERED: HYDROmorphone INJ 0.5 MG/0.5 ML SYR IV PRN ×2 (01:45)
[2025-06-22] MEDS: CALCIUM GLUCONATE 1,000 MG/60 ML BAG IV STA (01:58)
[2025-06-22] MEDS: INSULIN HUMAN REGULAR PER UNIT 10 UNITS in SYRINGE 9.9 ML IV ONE (02:21)
[2025-06-22] MEDS: DEXTROSE 50% 50 ML SYRINGE IV ONE (02:21)
[2025-06-22] MEDS: SODIUM BICARBONATE 8.4% 150 MEQ in DEXTROSE 5% 1,000 ML IV SCH (02:25)
--- NOTE | 2025-06-22 02:55 | Communication Note ---
Date of Service: June 22, 2025 I was asked by the hospitalist and water resource project manager service to help evaluate this patient due to persistent lactic acidosis. I was notified at approximate 1:55 AM and reported to bedside immediately. This patient had a recent surgical procedure by Dr. Rigoberto Dhaliwal of [facility] surgery. The patient underwent an exploratory laparotomy with removal of infected mesh, hernia repair, and bowel resection on 06/20/2025. On the evening of his surgery postoperatively this provider was notified the patient was hypotensive and tachycardic. The patient's blood pressure was in the 70s and he was given a fluid bolus and had his intravenous fluids increased to a maintenance rate of 100 cc/h. Patient's blood pressure responded nicely to this maneuver and he became normotensive. A chest x-ray was also performed which showed the patient did not have any evidence of pneumonia but it was noted the patient had a mild left pleural effusion. Laboratories at that time included a CBC were white blood cell count was 11.5. His hemoglobin and hematocrit were 12.5 and 39.1. Platelet count was normal. Chemistry profile showed a sodium and potassium within normal range and his BUN and creatinine were 27 and 1.9. The patient did have persistent tachycardia throughout the evening and throughout most of postoperative day #1. In addition, the patient was noted to have hyperglycemia with blood glucose levels greater than 300s for which the hospitalist service assisted with management of this condition by uterine DKA protocol and intravenous insulin. On postop day #1 the patient was seen by his primary surgeon, Dr. Dhaliwal and a mesenteric ultrasound was performed in order to evaluate for potential ischemic bowel. This study was inconclusive but is felt by Dr. Dhaliwal that the patient did not have ischemic bowel based on his clinical exam and his ongoing issues were likely due to a combination of dehydration, poor pulmonary status to compe nsate for acidosis, and poorly controlled diabetes. Patient was transferred to the PCU for closer monitoring. This provider was notified as noted above the patient had persistent lactic acidosis. At the bedside the water resource project manager service was present and they performed a intra-abdominal bladder pressure via Brooks catheter which was not elevated making the likelihood of abdominal compartment syndrome less likely. Repeat chest x-ray was performed that showed bilateral basilar atelectasis and a left pleural effusion. Patient has had repeat laboratory levels performed the patient was noted to have a chemistry profile with a sodium of 135 and a hyperkalemia with a potassium of 5.9. The patient's BUN and creatinine had risen to 45 and 4.0. The patient did have a persistent elevated lactic acid level which is now 4.4 (the patient's peak value was earlier today at 7.3). Nursing staff did perform a bladder scan at the bedside which revealed minimal urine in the patient's bladder. Patient's Brooks catheter was flushed and irrigated and appeared to be patent. He did have approximately 10 cc of urine which was blood-tinged. Upon visiting the patient at the bedside he says he is slightly short of breath and he does note that he has some minor abdominal pain but does not come plan of any overt abdominal pain at this time. He has not had any nausea or vomiting. On physical exam the patient is noted to be normotensive with a blood pressure of 115/78. His previously noted tachycardia has improved somewhat and his heart rate is now around 100. His respirations are 26 and do not appear labored. He has been afebrile. His pulse ox is 94% on 2 L. The patient's abdomen was examined and his mildly distended. His surgical incision is clean, dry, and intact. Patient has expected postoperative pain with palpation but he does not have pain out of proportion to physical exam. The patient did have palpable femoral popliteal pulses bilaterally and he had faint DP pulses. The patient also had faint radial pulses. The patient's feet and hands are cool but not mottled. The patient is mentating well and is alert and oriented x 3. This patient has a persistent lactic acidosis with unclear explanation. His medications were reviewed and he is not receiving any nephrotoxic medications at this time. He did have an ARB ordered for hypertension but this was discontinued prior to being administered. The patient does take metformin as an outpatient for his diabetes but this was reportedly held approximately 4 days prior to surgery and has not been resumed. The patient did have Toradol ordered for postoperative pain and it appears that the patient only received 1 dose of 15 mg on the morning of 06/21/2025 and this medication has since been discontinued. The cause of patient's persistent metabolic acidosis is uncertain at this time. Will proceed by continuing intravenous fluids for hydration/support. Will continue to avoid nephrotoxic medications. Will plan on getting a CT scan of the abdomen pelvis at this time without intravenous contrast. I discussed the case with the water resource project manager staff as well as the hospitalist. Nephrology has been consulted due to the patient's worsening renal function. The case was discussed with the attending surgeon on-call, Dr. Corado did not have any additional recommendations other than was noted above. He did note that with his current clinical picture ischemic bowel is unlikely as his lactic acid, although elevated has not gotten markedly worse and the patient does not have pain out of proportion to physical exam. Will continue with plan as outlined above monitor the patient closely with additional recommendations to follow. Addenedum: CT scan of the abdomen pelvis was completed without IV contrast (IV contrast could not be used due to worsening renal function). The CT scan shows some scattered intraperitoneal air predominantly along the anterior abdominal wall concerning for pneumoperitoneum. There is also a fluid collection in the left lower quadrant. The clinical significance of this fluid collection is uncertainpossible etiologies include hematoma, seroma, or fluid from anastomotic leak. Case was discussed with Dr. Corado who recommends continued supportive care with intravenous fluids, n.p.o. status, and antibiotics.CBC results noted. Patient's white blood cell count is stable at 13.3. Hemoglobin and hematocrit are 10.4 and 31.7 which is decreased from previous values but does not appear to be an overly precipitous drop and may have some element of hemodilution. Will continue with supportive care as outlined above.
--- NOTE | 2025-06-22 03:01 | Communication Note ---
Date of Service: June 22, 2025 80 YOM POD #2 from exploratory laparotomy with removal of infected mesh, hernia repair, and removal of a small bowel loop that was noted to eroded into the mesh with fistulas track. Patient was recovering on the medical surgical unit until early in the morning on the where he was noted to be hypotensive, tachycardic, with elevated blood sugars, and HCO3 level of 17. He was resuscitated with fluid with improvement in his blood pressures and started on DKA protocol insulin infusion. As the day progressed, patient was noted with worsening of renal function with HARNESS BRUSHER 2.35 now to 4.05 anuric, hyperkalemia, and lactic acidosis. He was evaluated today as well with mesenteric Doppler secondary to acidosis- this was non conclusive but surgical note reports exam not consistent with such. - I was asked by hospitalist Dr. Dailey to assist with evaluation of patient as he was concerned with his hyperkalemia and renal function as well as acidosis. Surgical PA-Gautam Sanchez was also present for review of case. - patient was evaluated with Dr. Dailey and labs reviewed. Potassium containing fluids were removed, and recommend placing on isotonic bicarb for fluid in regards to renal protection as well as hyperkalemia - Patient examined- abd soft but tender around incisions, bladder scan was without urine in bladder, he is warm and perfused, and he is also mentating well - Bladder pressure was requested and performed with ICU nurses- bladder pressure was 13 he was noted with some hematuria following this as well as dried blood around his meatus- likely from previous placement. - Following bladder pressure- we did get 30 cc return, which is what was placed, and he was irrigated with another 50 cc of sterile water and that was irrigated without resistance as well as all volume returned. - Medications reviewed- patient was previously on Metformin and he reports that he thinks he stopped that about 3 days prior to surgical procedure. - Surgical charting as well as postoperative charting reviewed- only noted one period yesterday evening that he had hypotension and this was remedied with volume resuscitation - Following above review and discussion with surgical PA, further discussion was had with surgeon higher education administrator to review any other unexpected complications or rule outs at this time - - CT non con abd/pelvis obtained to rule out any obstructive pathology from a renal perspective as well as look surgical area- defer interpretation and mgmt to surgical experts - Patient IVF have been changed, treatment for his hyperkalemia has been undertaken and volume challenge will be provided - He is not requiring vasopressors at this time, acid base status acceptable, - will follow up repeat labs and urine output with the hospitalist. - If status changes ICU will be available for assistance and transfer to ICU if warranted. It is possible that his lactic acidosis may be associated with metformin, however this would be diagnosis of exclusion and has been downtrending slowly. Continue with IVF support at this time. His increasing renal function is concerning for possibly ATN in setting of hypotension, does not appear to have abdominal compartment syndrome based on abdominal exam as well as bladder pressure and parker catheter does not appear to be obstructed. Nephrology consultation is in place by primary team. Hyperkalemia has been treated, and will follow repeat labs as above. If this becomes refractory would need to discuss real time with nephrology. Supportive care as you are doing for now. Kailash URIARTE (ACNP-BC)
--- NOTE | 2025-06-22 03:19 | XRay Report ---
EXAM: XR chest 1V portable CLINICAL HISTORY: Sob. TECHNIQUE: An X-ray image of the chest is obtained in AP projection. COMPARISON: 06/20/2025 X-ray. FINDINGS: Again evident suboptimal inspiratory effort with low lung volumes. Pulmonary Parenchyma: There is a blunted left costophrenic angle, with lateralization of the diaphragm apex , which represents mild effusion. ( increased compared to the previous ). There is decreased aeration of the left lower zone adjacent to the pleural effusion, which may be due to compression and/or small areas of atelectasis. Otherwise, the lungs are clear bilaterally, without evidence of consolidation, collapse, or focal opacities. No pulmonary nodules are identified. Heart and Mediastinum: Limited assessment of the cardiac size given an AP projection (yet grossly unchanged). There is no mediastinal widening or masses. There is no hilar or mediastinal lymphadenopathy. Bony Thorax: The bony thorax appears intact without fractures or deformities. Soft Tissues: The soft tissues overlying the chest wall are unremarkable. Monitor leads noted. IMPRESSION: Mild left pleural effusion with associated compression findings ( progressive finding / the effusion increased compared to previous ). Electronically signed by Dustin Simms 06-22-2025 03:19 AM
--- NOTE | 2025-06-22 03:49 | CT Scan Report ---
EXAM: CT abd pelvis wo con CLINICAL HISTORY: lactic acidosis TECHNIQUE: Contiguous axial images were obtained from the level of the diaphragm to the lower pole of kidneys without intravenous contrast. Coronal and sagittal reconstructions were likewise performed and indicated to increase the sensitivity for detecting clinically relevant pathology. CT scan was performed according to ALARA (as low as reasonably achievable). COMPARISON: None. FINDINGS: Mild bilateral pleural effusion with basal subsegmental collapse of both lower lobes are seen. Evaluation of the abdominal and pelvic visceral organs is limited without intravenous contrast. Hepatomegaly with hepatic steatosis. The unenhanced spleen, pancreas, and adrenal glands are grossly unremarkable. The gallbladder is present. The kidneys are normal in size and attenuation without obvious calcification. There is no hydronephrosis or perinephric stranding. The visualized ureters are normal in caliber. The aorta is normal in caliber. No aggressive appearing osseous lesions are identified. Fluid filled mildly dilated small bowel loops are seen in upper quadrant - maximum diameter measures up to 2.8 cm. Multiple scattered intraperitoneal air are noted; predominantly along the anterior abdomen - suggestive of pneumoperitoneum. Air foci also seen in abdominal wall anteriorly in the midline with soft tissue thickening and surgical clip in midline suggesting post op changes (laparotomy). Evidence of hypoattenuating fluid collection, measuring about 16 x 6 cm is noted involving left lower quadrant, abuts the adjacent pelvic bowel loops ( bowel loops are not separable from the collection- post-contrast evaluation suggested)- could be hemorrhagic collection or extravasated contrast. Few curvilinear structures seen amongst the bowel loops and fluid, could be surgical sutures. Possibility of anastomotic dehiscence. Mild hypodense fluid /ascites noted in lower abdomen and pelvis. Mild soft tissue thickening with air foci are noted adjacent to the umbilicus in the ventral abdominal wall- possibility of recent intervention changes likely. IMPRESSION: 1. Mild bilateral pleural effusion with basal subsegmental collapse of both lower lobes are seen. 2. Fluid filled mildly dilated small bowel loops are seen in upper quadrant - maximum diameter measures up to 2.8 cm. 3. Multiple scattered intraperitoneal air are noted; predominantly along the anterior abdomen - suggestive of pneumoperitoneum.- possibility of changes of recent intervention /hollow viscus perforation- kindly correlate clinically. 4. Evidence of hypoattenuating fluid collection, measuring about 16 x 6 cm is noted involving left lower quadrant, abuts the adjacent pelvic bowel loops ( bowel loops are not separable from the collection- post-contrast evaluation suggested)- could be hemorrhagic collection or extravasated contrast. Few curvilinear structures seen amongst the bowel loops and fluid, could be surgical sutures. Possibility of anastomotic dehiscence. Advised clinical correlation. 5. Mild hypodense fluid /ascites noted in lower abdomen and pelvis. 6. Mild soft tissue thickening with air foci are noted adjacent to the umbilicus in the ventral abdominal wall- possibility of recent intervention changes likely. Electronically signed by Neal Pennington 06-22-2025 03:48 AM
[2025-06-22 04:24] LABS: Hematocrit (blood only) 31.7 % (42.0-52.0); Hemoglobin 10.4 g/dl (14.0-18.0); Mean Corpuscular Hemoglobin 29.9 pg (25.0-34.0); Mean Corpuscular Volume 91.1 fL (80.0-100.0); Platelet Count 202 K/uL (130-400); RDW Standard Deviation 44.7 fL (36.4-46.3); Red Blood Count 3.48 M/uL (4.70-6.10); White Blood Count 13.35 K/ul (4.8-10.8)
[2025-06-22 04:40] LABS: Anion Gap 15.0 (3-11); Blood Urea Nitrogen 49.0 mg/dl (6-23); Calcium 8.1 mg/dl (8.6-10.3); Carbon Dioxide 20.0 mmol/L (21-32); Chloride 100.0 mmol/L (98-107); Creatinine Clr Calc Pharmacy 14.9 ml/min; Glucose 172.0 mg/dl (70-99(Fasting)); Magnesium 1.9 mg/dl (1.7-2.4); Potassium 5.2 mmol/L (3.5-5.1); Sodium 135.0 mmol/L (136-145)
[2025-06-22 05:09] LABS: Immature Granulocytes # (auto) 0.16 K/uL (0.01-0.20); Immature Granulocytes % (auto) 1.2 %; Polychromasia 1+
[2025-06-22 06:15] LABS: Base Excess VBG -6.4 mEq/L; HCO3 VBG 22 mmol/L; Oxygen Saturation VBG < 60.0 %; PCO2 VBG 55 mmHg (38-50); PO2 VBG < 20 mmHg; pH VBG 7.21 (7.36-7.41)
[2025-06-22 06:49] LABS: Anion Gap 14.0 (3-11); Blood Urea Nitrogen 48.0 mg/dl (6-23); Calcium 8.0 mg/dl (8.6-10.3); Carbon Dioxide 23.0 mmol/L (21-32); Chloride 99.0 mmol/L (98-107); Creatinine Clr Calc Pharmacy 14.3 ml/min; Glucose 177.0 mg/dl (70-99(Fasting)); Magnesium 1.9 mg/dl (1.7-2.4); Potassium 5.7 mmol/L (3.5-5.1); Sodium 136.0 mmol/L (136-145)
--- NOTE | 2025-06-22 08:15 | Pharmacy Report ---
Pharmacy PK ABX Note - Date of Service June 22, 2025 - Assessment and Plan Assessment 80 year old M receiving vancomycin and Zosyn for treatment of sepsis secondary to infected mesh of abdominal wall--s/p mesh removal, hernia repair, and bowel resection (POD #2). * Pertinent microbiologic data includes: MRSA Nasal Swab negative and blood cultures pending. * Patient with JACINTA (SCr 4.60 mg/dL today and baseline SCr 0.9mg/dL) leukocytosis, lactic/metabolic acidosis. Day # 2 of antimicrobial therapy. Plan Vancomycin * Loading dose: 1750 mg IV x 1 (06/21 at 1000) * Random level 06/22 AM was 16.9 * Due to unstable renal function, will dose by levels for further dosing * To maintain goal trough of 15-20, will give dose of 750mg x1 this morning (~8 mg/kg - conservative dosing due to SCr continuing to climb) * Random level ordered for: 06/23 with AM labs Pharmacy will continue to follow and will adjust dose/frequency as necessary. Thank you. Pharmacy has transitioned to AUC monitoring for vancomycin. AUC/JASPREET is the pre ferred PK/PD target and is associated with decreased risk of nephrotoxicity compared to traditional trough targets.
[2025-06-22] MEDS ORDERED: ONDANSETRON INJ 2 MG/ML 2 ML VIAL ONE (08:23)
[2025-06-22] MEDS ORDERED: SUCCINYLCHOLINE CHLORIDE 20 MG/ML 10 ML VIAL IV ONE (08:23)
[2025-06-22] MEDS ORDERED: DEXAMETHASONE SOD INJ 4 MG/ML VIAL ONE (08:23)
[2025-06-22] MEDS ORDERED: PROPOFOL IV EMULSION 10 MG/ML 20 ML VIAL IV ONE (08:23)
[2025-06-22] MEDS ORDERED: ROCURONIUM BROMIDE 10 MG/ML 5 ML VIAL IV ONE (08:23)
--- NOTE | 2025-06-22 08:38 | Communication Note ---
Date of Service: June 22, 2025 Was notified as his labs were getting worse last night. Minimal urine output. K was 5.9, cr 4.05. Patient vitals were ok. Notified ICU. Was evaluated by ICU. Surgery was also notified. ICU Checked bladder pressure and was ok. Changed fluid to bicarb drip, gave ginger gluconate and iv insulin and dextrose. repeat labs k 5.2 but cr worsening. Nephrology already consulted. C abd/pelvis possibly hematoma. Surgery aware of the ct findings . Close follow up of labs. Notified Am providers
--- NOTE | 2025-06-22 08:44 | Surgery Progress Note ---
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 He has worsened overnight in terms of distention and tenderness. Although he has not gotten any narcotic pain medication overnight, his abdominal exam is concerning. Given his laboratory picture as well as his clinical picture, he will require exploratory laparotomy to look for any bowel ischemia or leak. I have discussed this with the ICU staff as well as the patient and his . We are all in agreement. Will take him to the operating room for exploratory laparotomy with washout possible bowel resection at the earliest convenience. Admission and Anticipated Discharge Date Admission Date: June 20, 2025 Subjective POD #2 s/p exploratory laparotomy with removal of infected mesh and small bowel resection and reanastomosis. He continues to do and feel poorly overnight. No fevers or chills. Increasing pain in his abdomen. Of note, he only had IV Tylenol for pain control overnight. Continues with acute kidney injury, creatinine of 4, and uric currently. On IV fluids and insulin drip. Sugars are controlled. Lactate has decreased to 3.6 from a high of 7.3. White blood cell count 13. A CT scan was done overnight which demonstrates a small amount of fluid surrounding the prior anastomosis, consistent with either seroma, hematoma, or possible leak. Physical Exam Physical Exam: Patient in mild distress, breathing quite shallow, alert and oriented x 3 NCAT, no scleral icterus Lungs: Clear to auscultation, diminished at bases Heart regular rate and rhythm Abdomen: Soft, distended, tender to palpation diffusely Incision C/D/I with jin Results & Data Vital Signs (Past 12 Hours) Vital Signs Temp Pulse Pulse Resp BP Pulse Ox O2 Del Method 06/22/25 07:29 36.4 C L 98 H 24 111/77 90 Nasal Cannula 06/22/25 03:34 106 H 26 H 105/71 92 Nasal Cannula 06/22/25 01:16 36.8 C 101 H 26 H 115/78 92 Nasal Cannula 06/22/25 00:16 22 90 Nasal Cannula 06/21/25 22:45 36.4 C L 101 H 18 117/80 90 Nasal Cannula 06/21/25 22:00 100 H O2 Flow Rate 06/22/25 07:29 4 06/22/25 03:34 4 06/22/25 01:16 4 06/22/25 00:16 4 06/21/25 22:45 06/21/25 22:00 Laboratory Results 06/22/25 06/22/25 06/22/25 Range/Units 08:07 07:27 06:31 WBC (4.8-10.8) K/ul RBC (4.70-6.10) M/uL Hgb (14.0-18.0) g/dl Hct (42.0-52.0) % MCV (80.0-100.0) fL MCH (25.0-34.0) pg MCHC (32.0-36.0) g/dL RDW Std Deviation (36.4-46.3) fL RDW Coeff of Jessica (11.5-14.5) % Plt Count (130-400) K/uL MPV (9.4-12.4) fL Immature Gran % (Auto) % Neut % (Auto) % Lymph % (Auto) % [place] % (Auto) % Eos % (Auto) % Baso % (Auto) % Neut # (Auto) (1.40-6.50) K/uL Lymph # (Auto) (1.20-3.40) K/uL [place] # (Auto) (0.11-0.59) K/uL Eos # (Auto) (0.00-0.50) K/uL Baso # (Auto) (0.00-0.20) K/uL Immature Gran # (Auto) (0.01-0.20) K/uL Polychromasia VBG pH (7.36-7.41) VBG pCO2 (38-50) mmHg VBG pO2 mmHg VBG HCO3 mmol/L VBG O2 Saturation % VBG Base Excess mEq/L Sodium (136-145) mmol/L Potassium (3.5-5.1) mmol/L Chloride (98-107) mmol/L Carbon Dioxide (21-32) mmol/L Anion Gap (3-11) BUN (6-23) mg/dl Creatinine (0.6-1.4) mg/dl Est Cr Clr Drug Dosing ml/min eGFR BUN/Creatinine Ratio (10-20) Glucose (70-99(Fasting)) mg/dl POC Glucose 189 H 200 H (70-99) mg/dl Estimat Average Glucose mg/dl Hemoglobin A1c (4.5-5.6) % Lactate 3.6 H* (0.4-2.0) mmol/L Calcium (8.6-10.3) mg/dl Phosphorus (2.5-4.9) mg/dl Magnesium (1.7-2.4) mg/dl Troponin I High Sens (0-20) pg/ml Urine Color Urine Appearance (Clear) Urine pH (4.5-7.5) Ur Specific [place] (1.000-1.030) Urine Protein (Negative) Urine Glucose (UA) (Negative) Urine Ketones (Negative) Urine Blood (Negative) Urine Nitrite (Negative) Urine Bilirubin (Negative) Urine Urobilinogen (Negative) Ur Leukocyte Esterase (Negative) Urine WBC (Auto) (0-5) /hpf Urine RBC (Auto) (0-2) /hpf U Hyaline Cast (Auto) (0-2) /lpf U Epithel Cells (Auto) (0-2) /hpf Urine Bacteria (Auto) (None Seen) Urine Comment Nasal Screen MRSA (PCR) (Negative) Random Vancomycin (10-20) mcg/ml 06/22/25 06/22/25 06/22/25 Range/Units 05:53 05:33 05:11 WBC (4.8-10.8) K/ul RBC (4.70-6.10) M/uL Hgb (14.0-18.0) g/dl Hct (42.0-52.0) % MCV (80.0-100.0) fL MCH (25.0-34.0) pg MCHC (32.0-36.0) g/dL RDW Std Deviation (36.4-46.3) fL RDW Coeff of Jessica (11.5-14.5) % Plt Count (130-400) K/uL MPV (9.4-12.4) fL Immature Gran % (Auto) % Neut % (Auto) % Lymph % (Auto) % [place] % (Auto) % Eos % (Auto) % Baso % (Auto) % Neut # (Auto) (1.40-6.50) K/uL Lymph # (Auto) (1.20-3.40) K/uL [place] # (Auto) (0.11-0.59) K/uL Eos # (Auto) (0.00-0.50) K/uL Baso # (Auto) (0.00-0.20) K/uL Immature Gran # (Auto) (0.01-0.20) K/uL Polychromasia VBG pH 7.21 L (7.36-7.41) VBG pCO2 55 H (38-50) mmHg VBG pO2 < 20 mmHg VBG HCO3 22 mmol/L VBG O2 Saturation < 60.0 % VBG Base Excess -6.4 mEq/L Sodium 136 (136-145) mmol/L Potassium 5.7 H (3.5-5.1) mmol/L Chloride 99 (98-107) mmol/L Carbon Dioxide 23 (21-32) mmol/L Anion Gap 14 H (3-11) BUN 48 H (6-23) mg/dl Creatinine 4.60 H* (0.6-1.4) mg/dl Est Cr Clr Drug Dosing 14.3 ml/min eGFR 12.34 BUN/Creatinine Ratio 10.4 (10-20) Glucose 177 H (70-99(Fasting)) mg/dl POC Glucose 185 H (70-99) mg/dl Estimat Average Glucose mg/dl Hemoglobin A1c (4.5-5.6) % Lactate 4.4 H* (0.4-2.0) mmol/L Calcium 8.0 L (8.6-10.3) mg/dl Phosphorus 4.0 (2.5-4.9) mg/dl Magnesium 1.9 (1.7-2.4) mg/dl Troponin I High Sens (0-20) pg/ml Urine Color Urine Appearance (Clear) Urine pH (4.5-7.5) Ur Specific [place] (1.000-1.030) Urine Protein (Negative) Urine Glucose (UA) (Negative) Urine Ketones (Negative) Urine Blood (Negative) Urine Nitrite (Negative) Urine Bilirubin (Negative) Urine Urobilinogen (Negative) Ur Leukocyte Esterase (Negative) Urine WBC (Auto) (0-5) /hpf Urine RBC (Auto) (0-2) /hpf U Hyaline Cast (Auto) (0-2) /lpf U Epithel Cells (Auto) (0-2) /hpf Urine Bacteria (Auto) (None Seen) Urine Comment Nasal Screen MRSA (PCR) (Negative) Random Vancomycin (10-20) mcg/ml 06/22/25 06/22/25 06/22/25 Range/Units 04:33 04:05 03:30 WBC 13.35 H (4.8-10.8) K/ul RBC 3.48 L (4.70-6.10) M/uL Hgb 10.4 L (14.0-18.0) g/dl Hct 31.7 L (42.0-52.0) % MCV 91.1 (80.0-100.0) fL MCH 29.9 (25.0-34.0) pg MCHC 32.8 (32.0-36.0) g/dL RDW Std Deviation 44.7 (36.4-46.3) fL RDW Coeff of Jessica 13.5 (11.5-14.5) % Plt Count 202 (130-400) K/uL MPV 11.2 (9.4-12.4) fL Immature Gran % (Auto) 1.2 % Neut % (Auto) 68.3 % Lymph % (Auto) 20.8 % [place] % (Auto) 9.3 % Eos % (Auto) 0.0 % Baso % (Auto) 0.4 % Neut # (Auto) 9.11 H (1.40-6.50) K/uL Lymph # (Auto) 2.78 (1.20-3.40) K/uL [place] # (Auto) 1.24 H (0.11-0.59) K/uL Eos # (Auto) 0.00 (0.00-0.50) K/uL Baso # (Auto) 0.06 (0.00-0.20) K/uL Immature Gran # (Auto) 0.16 (0.01-0.20) K/uL Polychromasia 1+ VBG pH 7.26 L (7.36-7.41) VBG pCO2 (38-50) mmHg VBG pO2 mmHg VBG HCO3 mmol/L VBG O2 Saturation % VBG Base Excess mEq/L Sodium 135 L (136-145) mmol/L Potassium 5.2 H (3.5-5.1) mmol/L Chloride 100 (98-107) mmol/L Carbon Dioxide 20 L (21-32) mmol/L Anion Gap 15 H (3-11) BUN 49 H (6-23) mg/dl Creatinine 4.43 H D (0.6-1.4) mg/dl Est Cr Clr Drug Dosing 14.9 ml/min eGFR 12.91 BUN/Creatinine Ratio 11.1 (10-20) Glucose 172 H (70-99(Fasting)) mg/dl POC Glucose 179 H 204 H (70-99) mg/dl Estimat Average Glucose mg/dl Hemoglobin A1c (4.5-5.6) % Lactate (0.4-2.0) mmol/L Calcium 8.1 L (8.6-10.3) mg/dl Phosphorus 3.8 (2.5-4.9) mg/dl Magnesium 1.9 (1.7-2.4) mg/dl Troponin I High Sens 28.3 H (0-20) pg/ml Urine Color Urine Appearance (Clear) Urine pH (4.5-7.5) Ur Specific [place] (1.000-1.030) Urine Protein (Negative) Urine Glucose (UA) (Negative) Urine Ketones (Negative) Urine Blood (Negative) Urine Nitrite (Negative) Urine Bilirubin (Negative) Urine Urobilinogen (Negative) Ur Leukocyte Esterase (Negative) Urine WBC (Auto) (0-5) /hpf Urine RBC (Auto) (0-2) /hpf U Hyaline Cast (Auto) (0-2) /lpf U Epithel Cells (Auto) (0-2) /hpf Urine Bacteria (Auto) (None Seen) Urine Comment Nasal Screen MRSA (PCR) (Negative) Random Vancomycin 16.9 (10-20) mcg/ml 06/22/25 06/22/25 06/22/25 Range/Units 02:38 01:26 00:25 WBC (4.8-10.8) K/ul RBC (4.70-6.10) M/uL Hgb (14.0-18.0) g/dl Hct (42.0-52.0) % MCV (80.0-100.0) fL MCH (25.0-34.0) pg MCHC (32.0-36.0) g/dL RDW Std Deviation (36.4-46.3) fL RDW Coeff of Jessica (11.5-14.5) % Plt Count (130-400) K/uL MPV (9.4-12.4) fL Immature Gran % (Auto) % Neut % (Auto) % Lymph % (Auto) % [place] % (Auto) % Eos % (Auto) % Baso % (Auto) % Neut # (Auto) (1.40-6.50) K/uL Lymph # (Auto) (1.20-3.40) K/uL [place] # (Auto) (0.11-0.59) K/uL Eos # (Auto) (0.00-0.50) K/uL Baso # (Auto) (0.00-0.20) K/uL Immature Gran # (Auto) (0.01-0.20) K/uL Polychromasia VBG pH 7.26 L (7.36-7.41) VBG pCO2 (38-50) mmHg VBG pO2 mmHg VBG HCO3 mmol/L VBG O2 Saturation % VBG Base Excess mEq/L Sodium 135 L (136-145) mmol/L Potassium 5.9 H (3.5-5.1) mmol/L Chloride 101 (98-107) mmol/L Carbon Dioxide 20 L (21-32) mmol/L Anion Gap 14 H (3-11) BUN 45 H (6-23) mg/dl Creatinine 4.05 H D (0.6-1.4) mg/dl Est Cr Clr Drug Dosing 16.2 ml/min eGFR 14.38 BUN/Creatinine Ratio 11.1 (10-20) Glucose 153 H (70-99(Fasting)) mg/dl POC Glucose 254 H 153 H (70-99) mg/dl Estimat Average Glucose mg/dl Hemoglobin A1c (4.5-5.6) % Lactate (0.4-2.0) mmol/L Calcium 7.9 L (8.6-10.3) mg/dl Phosphorus 3.4 (2.5-4.9) mg/dl Magnesium 1.9 (1.7-2.4) mg/dl Troponin I High Sens 29.0 H D (0-20) pg/ml Urine Color Urine Appearance (Clear) Urine pH (4.5-7.5) Ur Specific [place] (1.000-1.030) Urine Protein (Negative) Urine Glucose (UA) (Negative) Urine Ketones (Negative) Urine Blood (Negative) Urine Nitrite (Negative) Urine Bilirubin (Negative) Urine Urobilinogen (Negative) Ur Leukocyte Esterase (Negative) Urine WBC (Auto) (0-5) /hpf Urine RBC (Auto) (0-2) /hpf U Hyaline Cast (Auto) (0-2) /lpf U Epithel Cells (Auto) (0-2) /hpf Urine Bacteria (Auto) (None Seen) Urine Comment Nasal Screen MRSA (PCR) (Negative) Random Vancomycin (10-20) mcg/ml 06/21/25 06/21/25 06/21/25 Range/Units Unknown 23:39 22:37 WBC (4.8-10.8) K/ul RBC (4.70-6.10) M/uL Hgb (14.0-18.0) g/dl Hct (42.0-52.0) % MCV (80.0-100.0) fL MCH (25.0-34.0) pg MCHC (32.0-36.0) g/dL RDW Std Deviation (36.4-46.3) fL RDW Coeff of Jessica (11.5-14.5) % Plt Count (130-400) K/uL MPV (9.4-12.4) fL Immature Gran % (Auto) % Neut % (Auto) % Lymph % (Auto) % [place] % (Auto) % Eos % (Auto) % Baso % (Auto) % Neut # (Auto) (1.40-6.50) K/uL Lymph # (Auto) (1.20-3.40) K/uL [place] # (Auto) (0.11-0.59) K/uL Eos # (Auto) (0.00-0.50) K/uL Baso # (Auto) (0.00-0.20) K/uL Immature Gran # (Auto) (0.01-0.20) K/uL Polychromasia VBG pH (7.36-7.41) VBG pCO2 (38-50) mmHg VBG pO2 mmHg VBG HCO3 mmol/L VBG O2 Saturation % VBG Base Excess mEq/L Sodium (136-145) mmol/L Potassium (3.5-5.1) mmol/L Chloride (98-107) mmol/L Carbon Dioxide (21-32) mmol/L Anion Gap (3-11) BUN (6-23) mg/dl Creatinine (0.6-1.4) mg/dl Est Cr Clr Drug Dosing ml/min eGFR BUN/Creatinine Ratio (10-20) Glucose (70-99(Fasting)) mg/dl POC Glucose 168 H (70-99) mg/dl Estimat Average Glucose mg/dl Hemoglobin A1c (4.5-5.6) % Lactate 4.4 H* 4.1 H* (0.4-2.0) mmol/L Calcium (8.6-10.3) mg/dl Phosphorus (2.5-4.9) mg/dl Magnesium (1.7-2.4) mg/dl Troponin I High Sens (0-20) pg/ml Urine Color Urine Appearance (Clear) Urine pH (4.5-7.5) Ur Specific [place] (1.000-1.030) Urine Protein (Negative) Urine Glucose (UA) (Negative) Urine Ketones (Negative) Urine Blood (Negative) Urine Nitrite (Negative) Urine Bilirubin (Negative) Urine Urobilinogen (Negative) Ur Leukocyte Esterase (Negative) Urine WBC (Auto) (0-5) /hpf Urine RBC (Auto) (0-2) /hpf U Hyaline Cast (Auto) (0-2) /lpf U Epithel Cells (Auto) (0-2) /hpf Urine Bacteria (Auto) (None Seen) Urine Comment Nasal Screen MRSA (PCR) (Negative) Random Vancomycin (10-20) mcg/ml 06/21/25 06/21/25 06/21/25 Range/Units 22:36 21:30 20:45 WBC (4.8-10.8) K/ul RBC (4.70-6.10) M/uL Hgb (14.0-18.0) g/dl Hct (42.0-52.0) % MCV (80.0-100.0) fL MCH (25.0-34.0) pg MCHC (32.0-36.0) g/dL RDW Std Deviation (36.4-46.3) fL RDW Coeff of Jessica (11.5-14.5) % Plt Count (130-400) K/uL MPV (9.4-12.4) fL Immature Gran % (Auto) % Neut % (Auto) % Lymph % (Auto) % [place] % (Auto) % Eos % (Auto) % Baso % (Auto) % Neut # (Auto) (1.40-6.50) K/uL Lymph # (Auto) (1.20-3.40) K/uL [place] # (Auto) (0.11-0.59) K/uL Eos # (Auto) (0.00-0.50) K/uL Baso # (Auto) (0.00-0.20) K/uL Immature Gran # (Auto) (0.01-0.20) K/uL Polychromasia VBG pH (7.36-7.41) VBG pCO2 (38-50) mmHg VBG pO2 mmHg VBG HCO3 mmol/L VBG O2 Saturation % VBG Base Excess mEq/L Sodium (136-145) mmol/L Potassium (3.5-5.1) mmol/L Chloride (98-107) mmol/L Carbon Dioxide (21-32) mmol/L Anion Gap (3-11) BUN (6-23) mg/dl Creatinine (0.6-1.4) mg/dl Est Cr Clr Drug Dosing ml/min eGFR BUN/Creatinine Ratio (10-20) Glucose (70-99(Fasting)) mg/dl POC Glucose 175 H 185 H (70-99) mg/dl Estimat Average Glucose mg/dl Hemoglobin A1c (4.5-5.6) % Lactate 4.6 H* (0.4-2.0) mmol/L Calcium (8.6-10.3) mg/dl Phosphorus (2.5-4.9) mg/dl Magnesium (1.7-2.4) mg/dl Troponin I High Sens (0-20) pg/ml Urine Color Urine Appearance (Clear) Urine pH (4.5-7.5) Ur Specific [place] (1.000-1.030) Urine Protein (Negative) Urine Glucose (UA) (Negative) Urine Ketones (Negative) Urine Blood (Negative) Urine Nitrite (Negative) Urine Bilirubin (Negative) Urine Urobilinogen (Negative) Ur Leukocyte Esterase (Negative) Urine WBC (Auto) (0-5) /hpf Urine RBC (Auto) (0-2) /hpf U Hyaline Cast (Auto) (0-2) /lpf U Epithel Cells (Auto) (0-2) /hpf Urine Bacteria (Auto) (None Seen) Urine Comment Nasal Screen MRSA (PCR) (Negative) Random Vancomycin (10-20) mcg/ml 06/21/25 06/21/25 06/21/25 Range/Units 20:31 19:35 19:25 WBC (4.8-10.8) K/ul RBC (4.70-6.10) M/uL Hgb (14.0-18.0) g/dl Hct (42.0-52.0) % MCV (80.0-100.0) fL MCH (25.0-34.0) pg MCHC (32.0-36.0) g/dL RDW Std Deviation (36.4-46.3) fL RDW Coeff of Jessica (11.5-14.5) % Plt Count (130-400) K/uL MPV (9.4-12.4) fL Immature Gran % (Auto) % Neut % (Auto) % Lymph % (Auto) % [place] % (Auto) % Eos % (Auto) % Baso % (Auto) % Neut # (Auto) (1.40-6.50) K/uL Lymph # (Auto) (1.20-3.40) K/uL [place] # (Auto) (0.11-0.59) K/uL Eos # (Auto) (0.00-0.50) K/uL Baso # (Auto) (0.00-0.20) K/uL Immature Gran # (Auto) (0.01-0.20) K/uL Polychromasia VBG pH 7.36 (7.36-7.41) VBG pCO2 (38-50) mmHg VBG pO2 mmHg VBG HCO3 mmol/L VBG O2 Saturation % VBG Base Excess mEq/L Sodium 136 (136-145) mmol/L Potassium 5.1 (3.5-5.1) mmol/L Chloride 103 (98-107) mmol/L Carbon Dioxide 18 L (21-32) mmol/L Anion Gap 15 H (3-11) BUN 42 H (6-23) mg/dl Creatinine 3.51 H (0.6-1.4) mg/dl Est Cr Clr Drug Dosing 18.7 ml/min eGFR 17.07 BUN/Creatinine Ratio 12.0 (10-20) Glucose 128 H (70-99(Fasting)) mg/dl POC Glucose 147 H 150 H (70-99) mg/dl Estimat Average Glucose mg/dl Hemoglobin A1c (4.5-5.6) % Lactate (0.4-2.0) mmol/L Calcium 8.1 L (8.6-10.3) mg/dl Phosphorus 3.3 (2.5-4.9) mg/dl Magnesium 2.0 (1.7-2.4) mg/dl Troponin I High Sens (0-20) pg/ml Urine Color Urine Appearance (Clear) Urine pH (4.5-7.5) Ur Specific [place] (1.000-1.030) Urine Protein (Negative) Urine Glucose (UA) (Negative) Urine Ketones (Negative) Urine Blood (Negative) Urine Nitrite (Negative) Urine Bilirubin (Negative) Urine Urobilinogen (Negative) Ur Leukocyte Esterase (Negative) Urine WBC (Auto) (0-5) /hpf Urine RBC (Auto) (0-2) /hpf U Hyaline Cast (Auto) (0-2) /lpf U Epithel Cells (Auto) (0-2) /hpf Urine Bacteria (Auto) (None Seen) Urine Comment Nasal Screen MRSA (PCR) (Negative) Random Vancomycin (10-20) mcg/ml 06/21/25 06/21/25 06/21/25 Range/Units 19:18 18:55 18:04 WBC (4.8-10.8) K/ul RBC (4.70-6.10) M/uL Hgb (14.0-18.0) g/dl Hct (42.0-52.0) % MCV (80.0-100.0) fL MCH (25.0-34.0) pg MCHC (32.0-36.0) g/dL RDW Std Deviation (36.4-46.3) fL RDW Coeff of Jessica (11.5-14.5) % Plt Count (130-400) K/uL MPV (9.4-12.4) fL Immature Gran % (Auto) % Neut % (Auto) % Lymph % (Auto) % [place] % (Auto) % Eos % (Auto) % Baso % (Auto) % Neut # (Auto) (1.40-6.50) K/uL Lymph # (Auto) (1.20-3.40) K/uL [place] # (Auto) (0.11-0.59) K/uL Eos # (Auto) (0.00-0.50) K/uL Baso # (Auto) (0.00-0.20) K/uL Immature Gran # (Auto) (0.01-0.20) K/uL Polychromasia VBG pH (7.36-7.41) VBG pCO2 (38-50) mmHg VBG pO2 mmHg VBG HCO3 mmol/L VBG O2 Saturation % VBG Base Excess mEq/L Sodium (136-145) mmol/L Potassium (3.5-5.1) mmol/L Chloride (98-107) mmol/L Carbon Dioxide (21-32) mmol/L Anion Gap (3-11) BUN (6-23) mg/dl Creatinine (0.6-1.4) mg/dl Est Cr Clr Drug Dosing ml/min eGFR BUN/Creatinine Ratio (10-20) Glucose (70-99(Fasting)) mg/dl POC Glucose 132 H 109 H 120 H (70-99) mg/dl Estimat Average Glucose mg/dl Hemoglobin A1c (4.5-5.6) % Lactate (0.4-2.0) mmol/L Calcium (8.6-10.3) mg/dl Phosphorus (2.5-4.9) mg/dl Magnesium (1.7-2.4) mg/dl Troponin I High Sens (0-20) pg/ml Urine Color Urine Appearance (Clear) Urine pH (4.5-7.5) Ur Specific [place] (1.000-1.030) Urine Protein (Negative) Urine Glucose (UA) (Negative) Urine Ketones (Negative) Urine Blood (Negative) Urine Nitrite (Negative) Urine Bilirubin (Negative) Urine Urobilinogen (Negative) Ur Leukocyte Esterase (Negative) Urine WBC (Auto) (0-5) /hpf Urine RBC (Auto) (0-2) /hpf U Hyaline Cast (Auto) (0-2) /lpf U Epithel Cells (Auto) (0-2) /hpf Urine Bacteria (Auto) (None Seen) Urine Comment Nasal Screen MRSA (PCR) (Negative) Random Vancomycin (10-20) mcg/ml 06/21/25 06/21/25 06/21/25 Range/Units 17:03 16:00 14:58 WBC (4.8-10.8) K/ul RBC (4.70-6.10) M/uL Hgb (14.0-18.0) g/dl Hct (42.0-52.0) % MCV (80.0-100.0) fL MCH (25.0-34.0) pg MCHC (32.0-36.0) g/dL RDW Std Deviation (36.4-46.3) fL RDW Coeff of Jessica (11.5-14.5) % Plt Count (130-400) K/uL MPV (9.4-12.4) fL Immature Gran % (Auto) % Neut % (Auto) % Lymph % (Auto) % [place] % (Auto) % Eos % (Auto) % Baso % (Auto) % Neut # (Auto) (1.40-6.50) K/uL Lymph # (Auto) (1.20-3.40) K/uL [place] # (Auto) (0.11-0.59) K/uL Eos # (Auto) (0.00-0.50) K/uL Baso # (Auto) (0.00-0.20) K/uL Immature Gran # (Auto) (0.01-0.20) K/uL Polychromasia VBG pH (7.36-7.41) VBG pCO2 (38-50) mmHg VBG pO2 mmHg VBG HCO3 mmol/L VBG O2 Saturation % VBG Base Excess mEq/L Sodium (136-145) mmol/L Potassium (3.5-5.1) mmol/L Chloride (98-107) mmol/L Carbon Dioxide (21-32) mmol/L Anion Gap (3-11) BUN (6-23) mg/dl Creatinine (0.6-1.4) mg/dl Est Cr Clr Drug Dosing ml/min eGFR BUN/Creatinine Ratio (10-20) Glucose (70-99(Fasting)) mg/dl POC Glucose 134 H 122 H 146 H (70-99) mg/dl Estimat Average Glucose mg/dl Hemoglobin A1c (4.5-5.6) % Lactate (0.4-2.0) mmol/L Calcium (8.6-10.3) mg/dl Phosphorus (2.5-4.9) mg/dl Magnesium (1.7-2.4) mg/dl Troponin I High Sens (0-20) pg/ml Urine Color Urine Appearance (Clear) Urine pH (4.5-7.5) Ur Specific [place] (1.000-1.030) Urine Protein (Negative) Urine Glucose (UA) (Negative) Urine Ketones (Negative) Urine Blood (Negative) Urine Nitrite (Negative) Urine Bilirubin (Negative) Urine Urobilinogen (Negative) Ur Leukocyte Esterase (Negative) Urine WBC (Auto) (0-5) /hpf Urine RBC (Auto) (0-2) /hpf U Hyaline Cast (Auto) (0-2) /lpf U Epithel Cells (Auto) (0-2) /hpf Urine Bacteria (Auto) (None Seen) Urine Comment Nasal Screen MRSA (PCR) (Negative) Random Vancomycin (10-20) mcg/ml 06/21/25 06/21/25 06/21/25 Range/Units 14:22 14:15 14:00 WBC (4.8-10.8) K/ul RBC (4.70-6.10) M/uL Hgb (14.0-18.0) g/dl Hct (42.0-52.0) % MCV (80.0-100.0) fL MCH (25.0-34.0) pg MCHC (32.0-36.0) g/dL RDW Std Deviation (36.4-46.3) fL RDW Coeff of Jessica (11.5-14.5) % Plt Count (130-400) K/uL MPV (9.4-12.4) fL Immature Gran % (Auto) % Neut % (Auto) % Lymph % (Auto) % [place] % (Auto) % Eos % (Auto) % Baso % (Auto) % Neut # (Auto) (1.40-6.50) K/uL Lymph # (Auto) (1.20-3.40) K/uL [place] # (Auto) (0.11-0.59) K/uL Eos # (Auto) (0.00-0.50) K/uL Baso # (Auto) (0.00-0.20) K/uL Immature Gran # (Auto) (0.01-0.20) K/uL Polychromasia VBG pH 7.21 L (7.36-7.41) VBG pCO2 (38-50) mmHg VBG pO2 mmHg VBG HCO3 mmol/L VBG O2 Saturation % VBG Base Excess mEq/L Sodium 138 (136-145) mmol/L Potassium 4.6 (3.5-5.1) mmol/L Chloride 102 (98-107) mmol/L Carbon Dioxide 23 (21-32) mmol/L Anion Gap 13 H (3-11) BUN 38 H (6-23) mg/dl Creatinine 3.26 H D (0.6-1.4) mg/dl Est Cr Clr Drug Dosing 20.2 ml/min eGFR 18.66 BUN/Creatinine Ratio 11.7 (10-20) Glucose 170 H (70-99(Fasting)) mg/dl POC Glucose 135 H (70-99) mg/dl Estimat Average Glucose mg/dl Hemoglobin A1c (4.5-5.6) % Lactate 5.3 H* (0.4-2.0) mmol/L Calcium 8.2 L (8.6-10.3) mg/dl Phosphorus 3.1 D (2.5-4.9) mg/dl Magnesium 2.1 (1.7-2.4) mg/dl Troponin I High Sens (0-20) pg/ml Urine Color Urine Appearance (Clear) Urine pH (4.5-7.5) Ur Specific [place] (1.000-1.030) Urine Protein (Negative) Urine Glucose (UA) (Negative) Urine Ketones (Negative) Urine Blood (Negative) Urine Nitrite (Negative) Urine Bilirubin (Negative) Urine Urobilinogen (Negative) Ur Leukocyte Esterase (Negative) Urine WBC (Auto) (0-5) /hpf Urine RBC (Auto) (0-2) /hpf U Hyaline Cast (Auto) (0-2) /lpf U Epithel Cells (Auto) (0-2) /hpf Urine Bacteria (Auto) (None Seen) Urine Comment Nasal Screen MRSA (PCR) (Negative) Random Vancomycin (10-20) mcg/ml 06/21/25 06/21/25 06/21/25 Range/Units 12:54 12:15 11:56 WBC (4.8-10.8) K/ul RBC (4.70-6.10) M/uL Hgb (14.0-18.0) g/dl Hct (42.0-52.0) % MCV (80.0-100.0) fL MCH (25.0-34.0) pg MCHC (32.0-36.0) g/dL RDW Std Deviation (36.4-46.3) fL RDW Coeff of Jessica (11.5-14.5) % Plt Count (130-400) K/uL MPV (9.4-12.4) fL Immature Gran % (Auto) % Neut % (Auto) % Lymph % (Auto) % [place] % (Auto) % Eos % (Auto) % Baso % (Auto) % Neut # (Auto) (1.40-6.50) K/uL Lymph # (Auto) (1.20-3.40) K/uL [place] # (Auto) (0.11-0.59) K/uL Eos # (Auto) (0.00-0.50) K/uL Baso # (Auto) (0.00-0.20) K/uL Immature Gran # (Auto) (0.01-0.20) K/uL Polychromasia VBG pH (7.36-7.41) VBG pCO2 (38-50) mmHg VBG pO2 mmHg VBG HCO3 mmol/L VBG O2 Saturation % VBG Base Excess mEq/L Sodium (136-145) mmol/L Potassium (3.5-5.1) mmol/L Chloride (98-107) mmol/L Carbon Dioxide (21-32) mmol/L Anion Gap (3-11) BUN (6-23) mg/dl Creatinine (0.6-1.4) mg/dl Est Cr Clr Drug Dosing ml/min eGFR BUN/Creatinine Ratio (10-20) Glucose (70-99(Fasting)) mg/dl POC Glucose 165 H 157 H (70-99) mg/dl Estimat Average Glucose mg/dl Hemoglobin A1c (4.5-5.6) % Lactate (0.4-2.0) mmol/L Calcium (8.6-10.3) mg/dl Phosphorus (2.5-4.9) mg/dl Magnesium (1.7-2.4) mg/dl Troponin I High Sens (0-20) pg/ml Urine Color Yellow Urine Appearance Clear (Clear) Urine pH 5.5 (4.5-7.5) Ur Specific [place] 1.015 (1.000-1.030) Urine Protein Trace H (Negative) Urine Glucose (UA) 1+ H (Negative) Urine Ketones 2+ H (Negative) Urine Blood 2+ H (Negative) Urine Nitrite Negative (Negative) Urine Bilirubin Negative (Negative) Urine Urobilinogen Negative (Negative) Ur Leukocyte Esterase Negative (Negative) Urine WBC (Auto) 0-5 (0-5) /hpf Urine RBC (Auto) >20 H (0-2) /hpf U Hyaline Cast (Auto) 0-2 (0-2) /lpf U Epithel Cells (Auto) 0-2 (0-2) /hpf Urine Bacteria (Auto) None Seen (None Seen) Urine Comment Nasal Screen MRSA (PCR) Negative (Negative) Random Vancomycin (10-20) mcg/ml 06/21/25 06/21/25 06/21/25 Range/Units 10:58 10:46 09:51 WBC (4.8-10.8) K/ul RBC (4.70-6.10) M/uL Hgb (14.0-18.0) g/dl Hct (42.0-52.0) % MCV (80.0-100.0) fL MCH (25.0-34.0) pg MCHC (32.0-36.0) g/dL RDW Std Deviation (36.4-46.3) fL RDW Coeff of Jessica (11.5-14.5) % Plt Count (130-400) K/uL MPV (9.4-12.4) fL Immature Gran % (Auto) % Neut % (Auto) % Lymph % (Auto) % [place] % (Auto) % Eos % (Auto) % Baso % (Auto) % Neut # (Auto) (1.40-6.50) K/uL Lymph # (Auto) (1.20-3.40) K/uL [place] # (Auto) (0.11-0.59) K/uL Eos # (Auto) (0.00-0.50) K/uL Baso # (Auto) (0.00-0.20) K/uL Immature Gran # (Auto) (0.01-0.20) K/uL Polychromasia VBG pH (7.36-7.41) VBG pCO2 (38-50) mmHg VBG pO2 mmHg VBG HCO3 mmol/L VBG O2 Saturation % VBG Base Excess mEq/L Sodium (136-145) mmol/L Potassium (3.5-5.1) mmol/L Chloride (98-107) mmol/L Carbon Dioxide (21-32) mmol/L Anion Gap (3-11) BUN (6-23) mg/dl Creatinine (0.6-1.4) mg/dl Est Cr Clr Drug Dosing ml/min eGFR BUN/Creatinine Ratio (10-20) Glucose (70-99(Fasting)) mg/dl POC Glucose 205 H 297 H (70-99) mg/dl Estimat Average Glucose mg/dl Hemoglobin A1c (4.5-5.6) % Lactate 7.3 H* (0.4-2.0) mmol/L Calcium (8.6-10.3) mg/dl Phosphorus (2.5-4.9) mg/dl Magnesium (1.7-2.4) mg/dl Troponin I High Sens (0-20) pg/ml Urine Color Urine Appearance (Clear) Urine pH (4.5-7.5) Ur Specific [place] (1.000-1.030) Urine Protein (Negative) Urine Glucose (UA) (Negative) Urine Ketones (Negative) Urine Blood (Negative) Urine Nitrite (Negative) Urine Bilirubin (Negative) Urine Urobilinogen (Negative) Ur Leukocyte Esterase (Negative) Urine WBC (Auto) (0-5) /hpf Urine RBC (Auto) (0-2) /hpf U Hyaline Cast (Auto) (0-2) /lpf U Epithel Cells (Auto) (0-2) /hpf Urine Bacteria (Auto) (None Seen) Urine Comment Nasal Screen MRSA (PCR) (Negative) Random Vancomycin (10-20) mcg/ml 06/21/25 06/21/25 06/21/25 Range/Units 08:33 08:33 07:34 WBC (4.8-10.8) K/ul RBC (4.70-6.10) M/uL Hgb (14.0-18.0) g/dl Hct (42.0-52.0) % MCV (80.0-100.0) fL MCH (25.0-34.0) pg MCHC (32.0-36.0) g/dL RDW Std Deviation (36.4-46.3) fL RDW Coeff of Jessica (11.5-14.5) % Plt Count (130-400) K/uL MPV (9.4-12.4) fL Immature Gran % (Auto) % Neut % (Auto) % Lymph % (Auto) % [place] % (Auto) % Eos % (Auto) % Baso % (Auto) % Neut # (Auto) (1.40-6.50) K/uL Lymph # (Auto) (1.20-3.40) K/uL [place] # (Auto) (0.11-0.59) K/uL Eos # (Auto) (0.00-0.50) K/uL Baso # (Auto) (0.00-0.20) K/uL Immature Gran # (Auto) (0.01-0.20) K/uL Polychromasia VBG pH Cancelled 7.21 L (7.36-7.41) VBG pCO2 50 (38-50) mmHg VBG pO2 43 mmHg VBG HCO3 20 mmol/L VBG O2 Saturation 67.9 % VBG Base Excess -8.1 mEq/L Sodium (136-145) mmol/L Potassium (3.5-5.1) mmol/L Chloride (98-107) mmol/L Carbon Dioxide (21-32) mmol/L Anion Gap (3-11) BUN (6-23) mg/dl Creatinine (0.6-1.4) mg/dl Est Cr Clr Drug Dosing ml/min eGFR BUN/Creatinine Ratio (10-20) Glucose (70-99(Fasting)) mg/dl POC Glucose 320 H* (70-99) mg/dl Estimat Average Glucose mg/dl Hemoglobin A1c (4.5-5.6) % Lactate (0.4-2.0) mmol/L Calcium (8.6-10.3) mg/dl Phosphorus (2.5-4.9) mg/dl Magnesium (1.7-2.4) mg/dl Troponin I High Sens (0-20) pg/ml Urine Color Urine Appearance (Clear) Urine pH (4.5-7.5) Ur Specific [place] (1.000-1.030) Urine Protein (Negative) Urine Glucose (UA) (Negative) Urine Ketones (Negative) Urine Blood (Negative) Urine Nitrite (Negative) Urine Bilirubin (Negative) Urine Urobilinogen (Negative) Ur Leukocyte Esterase (Negative) Urine WBC (Auto) (0-5) /hpf Urine RBC (Auto) (0-2) /hpf U Hyaline Cast (Auto) (0-2) /lpf U Epithel Cells (Auto) (0-2) /hpf Urine Bacteria (Auto) (None Seen) Urine Comment Nasal Screen MRSA (PCR) (Negative) Random Vancomycin (10-20) mcg/ml 06/21/25 06/21/25 Range/Units 07:32 07:09 WBC (4.8-10.8) K/ul RBC (4.70-6.10) M/uL Hgb (14.0-18.0) g/dl Hct (42.0-52.0) % MCV (80.0-100.0) fL MCH (25.0-34.0) pg MCHC (32.0-36.0) g/dL RDW Std Deviation (36.4-46.3) fL RDW Coeff of Jessica (11.5-14.5) % Plt Count (130-400) K/uL MPV (9.4-12.4) fL Immature Gran % (Auto) 0.4 % Neut % (Auto) 60.5 % Lymph % (Auto) 28.3 % [place] % (Auto) 10.4 % Eos % (Auto) 0.1 % Baso % (Auto) 0.3 % Neut # (Auto) 8.34 H (1.40-6.50) K/uL Lymph # (Auto) 3.90 H (1.20-3.40) K/uL [place] # (Auto) 1.44 H (0.11-0.59) K/uL Eos # (Auto) 0.01 (0.00-0.50) K/uL Baso # (Auto) 0.04 (0.00-0.20) K/uL Immature Gran # (Auto) 0.05 (0.01-0.20) K/uL Polychromasia 1+ VBG pH (7.36-7.41) VBG pCO2 (38-50) mmHg VBG pO2 mmHg VBG HCO3 mmol/L VBG O2 Saturation % VBG Base Excess mEq/L Sodium (136-145) mmol/L Potassium (3.5-5.1) mmol/L Chloride (98-107) mmol/L Carbon Dioxide (21-32) mmol/L Anion Gap (3-11) BUN (6-23) mg/dl Creatinine (0.6-1.4) mg/dl Est Cr Clr Drug Dosing ml/min eGFR BUN/Creatinine Ratio (10-20) Glucose (70-99(Fasting)) mg/dl POC Glucose 321 H* (70-99) mg/dl Estimat Average Glucose 174 mg/dl Hemoglobin A1c 7.7 H (4.5-5.6) % Lactate (0.4-2.0) mmol/L Calcium (8.6-10.3) mg/dl Phosphorus 4.9 (2.5-4.9) mg/dl Magnesium 1.7 (1.7-2.4) mg/dl Troponin I High Sens (0-20) pg/ml Urine Color Urine Appearance (Clear) Urine pH (4.5-7.5) Ur Specific [place] (1.000-1.030) Urine Protein (Negative) Urine Glucose (UA) (Negative) Urine Ketones (Negative) Urine Blood (Negative) Urine Nitrite (Negative) Urine Bilirubin (Negative) Urine Urobilinogen (Negative) Ur Leukocyte Esterase (Negative) Urine WBC (Auto) (0-5) /hpf Urine RBC (Auto) (0-2) /hpf U Hyaline Cast (Auto) (0-2) /lpf U Epithel Cells (Auto) (0-2) /hpf Urine Bacteria (Auto) (None Seen) Urine Comment Nasal Screen MRSA (PCR) (Negative) Random Vancomycin (10-20) mcg/ml Diagnostic Findings ADDENDUM Addendum Report EXAM: CT abd pelvis wo con ADDENDUM: [facility] ER was called at [phone] at 03:58 AM EST, 06/22/2025, and ALEXANDRA Davis was informed regarding the presence of critical medical findings in the report and she confirmed that they have received the report. Electronically signed by Neal Pennington 06-22-2025 04:08 AM ADDENDUM END ADDENDUM Addendum Report EXAM: CT abd pelvis wo con ADDENDUM: [facility] ER was called at [phone] at 03:58 AM EST, 06/22/2025, and ALEXANDRA Davis was informed regarding the presence of critical medical findings in the report and she confirmed that they have received the report. Electronically signed by Neal Pennington 06-22-2025 04:08 AM ADDENDUM END EXAM: CT abd pelvis wo con CLINICAL HISTORY: lactic acidosis TECHNIQUE: Contiguous axial images were obtained from the level of the diaphragm to the lower pole of kidneys without intravenous contrast. Coronal and sagittal reconstructions were likewise performed and indicated to increase the sensitivity for detecting clinically relevant pathology. CT scan was performed according to ALARA (as low as reasonably achievable). COMPARISON: None. FINDINGS: Mild bilateral pleural effusion with basal subsegmental collapse of both lower lobes are seen. Evaluation of the abdominal and pelvic visceral organs is limited without intravenous contrast. Hepatomegaly with hepatic steatosis. The unenhanced spleen, pancreas, and adrenal glands are grossly unremarkable. The gallbladder is present. The kidneys are normal in size and attenuation without obvious calcification. There is no hydronephrosis or perinephric stranding. The visualized ureters are normal in caliber. The aorta is normal in caliber. No aggressive appearing osseous lesions are identified. Fluid filled mildly dilated small bowel loops are seen in upper quadrant - maximum diameter measures up to 2.8 cm. Multiple scattered intraperitoneal air are noted; predominantly along the anterior abdomen - suggestive of pneumoperitoneum. Air foci also seen in abdominal wall anteriorly in the midline with soft tissue thickening and surgical clip in midline suggesting post op changes (laparotomy). Evidence of hypoattenuating fluid collection, measuring about 16 x 6 cm is noted involving left lower quadrant, abuts the adjacent pelvic bowel loops ( bowel loops are not separable from the collection- post-contrast evaluation suggested)- could be hemorrhagic collection or extravasated contrast. Few curvilinear structures seen amongst the bowel loops and fluid, could be surgical sutures. Possibility of anastomotic dehiscence. Mild hypodense fluid /ascites noted in lower abdomen and pelvis. Mild soft tissue thickening with air foci are noted adjacent to the umbilicus in the ventral abdominal wall- possibility of recent intervention changes likely. IMPRESSION: 1. Mild bilateral pleural effusion with basal subsegmental collapse of both lower lobes are seen. 2. Fluid filled mildly dilated small bowel loops are seen in upper quadrant - maximum diameter measures up to 2.8 cm. 3. Multiple scattered intraperitoneal air are noted; predominantly along the anterior abdomen - suggestive of pneumoperitoneum.- possibility of changes of recent intervention /hollow viscus perforation- kindly correlate clinically. 4. Evidence of hypoattenuating fluid collection, measuring about 16 x 6 cm is noted involving left lower quadrant, abuts the adjacent pelvic bowel loops ( bowel loops are not separable from the collection- post-contrast evaluation suggested)- could be hemorrhagic collection or extravasated contrast. Few curvilinear structures seen amongst the bowel loops and fluid, could be surgical sutures. Possibility of anastomotic dehiscence. Advised clinical correlation. 5. Mild hypodense fluid /ascites noted in lower abdomen and pelvis. 6. Mild soft tissue thickening with air foci are noted adjacent to the umbilicus in the ventral abdominal wall- possibility of recent intervention changes likely. Electronically signed by Neal Pennington 06-22-2025 03:48 AM (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
--- NOTE | 2025-06-22 08:45 | Anesthesiology Consultation ---
Date of Service June 22, 2025 Assessment & Plan Chart Review Chart Review: Acceptable Risk for Surgery and Patient NOT seen in Pre Admission Testing Consults Requested none ASA [id number] Proposed Anesthesia Anesthesia Type: General Anesthesia Line Insertion: Arterial line History Surgery Operation Date: 06/20/25 09:55 Proposed Procedures p Exploratory Laparotomy, Removal of Infected Mesh, Hernia Repair, Possible Bowel Resection - Arben Dhaliwal MD Operation Date: 06/22/25 07:00 Proposed Procedures p Exploratory Laparotomy, Washout of Abdomen, Possible Bowel Resection - Arben Dhaliwal MD Height/Weight Height: 5 ft 8 in Weight: 88.451 kg Allergies Allergy/AdvReac Type Severity Reaction Status Date / Time adhesive tape Allergy Unknown Rash with Verified 06/20/25 08:36 extended use Medications Home Medications Medication Instructions Recorded Confirmed Last Taken aspirin 325 mg tablet 325 mg PO QAM 01/21/23 06/20/25 06/15/25 metformin 500 mg tablet 500 mg PO QAM 01/21/23 06/20/25 06/17/25 pantoprazole 40 mg tablet,delayed 40 mg PO QAM 01/21/23 06/20/25 06/17/25 release ascorbic acid (vitamin C) 1,000 mg 1,000 mg PO Q2D 06/13/25 06/20/25 1 Week Ago tablet (Vitamin C) ~06/13/25 cyanocobalamin (vitamin B-12) 1,000 mcg PO QAM 06/13/25 06/20/25 06/17/25 1,000 mcg tablet (Vitamin B-12) empagliflozin 25 mg tablet 25 mg PO QAM 06/13/25 06/20/25 06/13/25 (Jardiance) losartan 25 mg tablet 25 mg PO QAM 06/13/25 06/20/25 06/17/25 rosuvastatin 20 mg tablet 20 mg PO QAM 06/13/25 06/20/25 06/17/25 sildenafil 25 mg tablet 20 mg PO UD PRN sexual activity 06/13/25 06/20/25 1 Week Ago ~06/13/25 vit C 250 mg-vit E 90 mg-zinc 40 2 tab PO QAM 06/13/25 06/20/25 1 Week Ago mg-copper 1 [id number] ~06/13/25 capsule (PreserVision AREDS-2) Active Medications Generic Name Dose Route Start Last Admin Trade Name Freq PRN Reason Stop Dose Admin Piperacillin Sod/Tazobactam Sod 4.5 gm in 100 mls @ 25 mls/hr 06/20/25 15:00 06/22/25 07:35 Zosyn IV 06/24/25 14:59 25 mls/hr Q8H AVRIL Administration Protocol Acetaminophen 1,000 mg in 100 mls @ 400 mls/hr 06/21/25 07:00 06/22/25 08:28 Ofirmev IV 06/24/25 06:59 Infused Q8H AVRIL Infusion Insulin Human Regular 250 250 mls @ 1 mls/hr 06/21/25 09:00 06/21/25 20:49 units/ Sodium Chloride IV 07/21/25 08:59 1 units/hr .Q24H AVRIL 1 mls/hr Titration Protocol 1 UNITS/HR Pantoprazole Sodium 40 mg in 10 mls @ 5 mls/min 06/21/25 09:00 06/21/25 19:45 Protonix IV 07/21/25 08:59 5 mls/min BID AVRIL Administration Sodium Bicarbonate 150 meq/ 1,150 mls @ 150 mls/hr 06/22/25 02:00 06/22/25 02:25 Dextrose IV 06/25/25 01:59 150 mls/hr .Q7H40M AVRIL Administration Insulin Aspart 0 units 06/21/25 11:30 06/22/25 08:39 Insulin Aspart Per Unit Charge SC 07/21/25 11:29 Not Given ACHS AVRIL Ondansetron HCl 4 mg 06/20/25 14:16 06/21/25 08:16 Ondansetron Inj 2 Mg/Ml 2 Ml Vial IV 07/20/25 14:15 4 mg Q4H PRN Administration Nausea And Vomiting Oxycodone/Acetaminophen 2 tab 06/20/25 14:16 06/20/25 22:38 Oxycodone/Acetaminophen 5mg/325mg Tab PO 07/04/25 14:15 2 tab Q4H PRN Administration Severe Pain (Scale 7, 8, 9,10) Rosuvastatin Calcium 20 mg 06/21/25 09:00 06/21/25 08:06 Rosuvastatin Calcium 20 Mg Tab PO 07/21/25 08:59 20 mg QAM AVRIL Administration NPO Date Last Intake of Fluids: 06/19/25 Time Last Intake of Fluids: 22:00 Date Last Intake of Solids: 06/19/25 Time Last Intake of Solids: 07:00 Past Medical History Medical History Ulnar neuropathy at elbow of left upper extremity Carpal tunnel syndrome, left History of Lyme disease x2 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14, no hx locking HLD (hyperlipidemia) Hx borderline AAA (abdominal aortic aneurysm) Monitored by PCP US Aorta 08/31/24: Mild aneurysmal dilitation of the proximal abdominal aorta (measures approximately 3.2cm x 2.7 cm) Abd/Pelvis CT 05/17/25: "Aorta: Atherosclerotic changes of the abdominal aorta without aneurysm." ASCVD GERD Anemia JACINTA/ARF Exercise / Class Metabolic Activity III < 4 Walking/Shop/Light housework Past Surgical History Surgical History History of surgery (05/2024) Left ulnar nerve repair History of wisdom tooth extraction History of hernia surgery x2 History of appendectomy (2011) "Nicked my intestine"- monitored/no additional surgery History of esophagogastroduodenoscopy (EGD) History of colonoscopy 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 (Age 27) "Surgery took care of it" per patient Past Anesthesia History No Hx of Anesthesia Complications and No Family Hx of Anesthesia Complications History of PONV No Hx of PONV and No Hx of Motion Sickness Social History Smoking Status: Former smoker Do You Dip or Chew Tobacco: No (hx when I was younger social, no current) Smoking End Date: 17 yr ago Hx Alcohol Use: Yes Alcohol type: beer and hard liquor alcohol intake frequency: a few times a month Hx Substance Use: No substance use type: does not use Physical Exam Vital Signs Last Vital Signs Temp 36.4 C L 06/22/25 07:29 Pulse 98 H 06/22/25 07:29 Resp 24 06/22/25 07:29 BP 111/77 06/22/25 07:29 Pulse Ox 90 06/22/25 07:29 O2 Del Method Nasal Cannula 06/22/25 07:29 O2 Flow Rate 4 06/22/25 07:29 Testing Laboratory Results 06/22/25 04:05 06/22/25 05:53 Hemoglobin A1c 7.7 % (4.5-5.6) H 06/21/25 07:09 Urine Color Yellow 06/21/25 12:15 Urine Appearance Clear (Clear) 06/21/25 12:15 Urine pH 5.5 (4.5-7.5) 06/21/25 12:15 Ur Specific [place] 1.015 (1.000-1.030) 06/21/25 12:15 Urine Protein Trace (Negative) H 06/21/25 12:15 Urine Glucose (UA) 1+ (Negative) H 06/21/25 12:15 Urine Ketones 2+ (Negative) H 06/21/25 12:15 Urine Nitrite Negative (Negative) 06/21/25 12:15 Ur Leukocyte Esterase Negative (Negative) 06/21/25 12:15 Urine WBC (Auto) 0-5 /hpf (0-5) 06/21/25 12:15 Urine RBC (Auto) >20 /hpf (0-2) H 06/21/25 12:15 U Hyaline Cast (Auto) 0-2 /lpf (0-2) 06/21/25 12:15 U Epithel Cells (Auto) 0-2 /hpf (0-2) 06/21/25 12:15 Urine Bacteria (Auto) None Seen (None Seen) 06/21/25 12:15 Blood Type A Positive 06/20/25 08:19 Antibody Screen NEGATIVE 06/20/25 08:19 06/22/25 06/22/25 06/22/25 07:27 06:31 05:33 POC Glucose 189 H 200 H 185 H 06/22/25 06/22/25 06/22/25 04:33 03:30 02:38 POC Glucose 179 H 204 H 254 H 06/22/25 06/21/25 06/21/25 01:26 23:39 22:36 POC Glucose 153 H 168 H 175 H 06/21/25 21:30 POC Glucose 185 H Electrocardiogram Date: 06/22/25 Findings: + NSR @ (@ 100) Chest X-Ray Date: 06/22/25 Findings: + pleural effusion (mild left pleural effusion) Echocardiogram Date: 06/21/25 EF: 55% LV Function: normal RWMA: + none Other Findings: + LVH (mild) Valvular Disease: + AI (mild) mild TR Other Testing 11/06/2022-Carotid U/S-<50% B/L
[2025-06-22] MEDS ORDERED: CISATRACURIUM BESYLATE IV SOLN 2 MG/ML 10 ML VIAL IV ONE (08:49)
[2025-06-22] MEDS ORDERED: ENOXAPARIN INJ 30 MG/0.3 ML SYR SQ SCH (09:00)
[2025-06-22] MEDS: cefOXitin SOD 1,000 MG VIAL ONE (10:18)
[2025-06-22 10:42] LABS: Alanine Aminotransferase 27.0 U/L (7-52); Albumin Globulin Ratio 1.4 (0.9-2); Albumin Level 3.1 gm/dl (3.4-5.0); Alkaline Phosphatase 41.0 U/L (34-104); Anion Gap 14.0 (3-11); Bilirubin,Total 1.7 mg/dl (0.2-1.0); Blood Urea Nitrogen 51.0 mg/dl (6-23); Calcium 7.7 mg/dl (8.6-10.3); Carbon Dioxide 23.0 mmol/L (21-32); Chloride 96.0 mmol/L (98-107); Creatinine Clr Calc Pharmacy 13.8 ml/min; Globulin 2.2 gm/dl (2.5-4.0); Glucose 265.0 mg/dl (70-99(Fasting)); Potassium 6.0 mmol/L (3.5-5.1); Sodium 133.0 mmol/L (136-145); Total Protein 5.3 gm/dl (6.0-8.3)
[2025-06-22] MEDS ORDERED: CALCIUM CHLORIDE 10% 10 ML SYR IV ONE (10:42)
--- NOTE | 2025-06-22 10:55 | Nephrology Consultation ---
Date of Consultation June 22, 2025 Assessment & Plan (1) JACINTA (acute kidney injury): Severe stage 3 JACINTA oliguric type from Classic severe ATN. At baseline creat is normal 0.9 as of 05/30 on pre op labs. Then POD 1 was already doubled at 1.9 and then creat has again more than doubled in 24 hrs time period from 1..[address] abdomen few hrs ago showed normal appearing kidneys--no Obstruction. However also has sig Pl eff. he is about 4-5 liters +ve so far. needing lot of o2 also. has high K and lactic acidosis. Given the total picture plan is to do HD catheter either in OR or immediately after and possibly do dialysis later today after he comes form OR. However things are still fluid as we dont know how he will be post op. Case Discussed and plan made regarding post op ICU care and possible dialysis. I will be in touch with ICU throughout the day as well as RN and my Dialysis Nurse. High risk of mortality given Sig issues including JACINTA and post op complications. serial lactic acid check as well as serial LFT to assess for ischemic hepatitis ( Shock liver) dialysis orders will be devised post op based on Clinical status at that time . Currently BP is fine without pressors---will not take any UF. No heparin and no meds otherwise. do 3hrs on 2 k bath. (2) Infected prosthetic mesh of abdominal wall: Reviewed Surgery note preop post op and current status. Plan Case complexity high. Case Discussed with hospitalist and ICU and plan made regarding post op ICU care and possible dialysis. I will be in touch with ICU throughout the day as well as RN and my Dialysis Nurse. High risk of mortality given Sig issues including JACINTA and post op complications. total time spent 81 Mins including bedside visit pre and post surgery History of Present Illness Reason for Consultation: Severe JACINTA from ATN Attending Physician: Arben Dhaliwal MD History of Present Illness 80/M with DM2, normal baseline creat as of 05/2025 on pre op labs, diabetic retinopathy, dyslipidemia, GERD, Christiansen's esophagus, HTN, and other history as outlined below who underwent exploratory laparotomy with removal of infected mesh, hernia repair, and bowel resection on 06/20/2025. Creat was 1.94 POD= 1 and since then been rising and is now 5.4 today with Oliguria. His Condition has declined Post op and now went to OR again. He has worsened overnight in terms of distention and tenderness. also elevated lactic Acid. taken to OR for exploratory laparotomy to look for any bowel ischemia or leak. As of now BP is fine but minimal to no urine output. Post op will be in ICU. baseline creat is normal 0.9 as of 05/30 on pre op labs. Then POD 1 was already doubled at 1.9 and then creat has again more than doubled in 24 hrs time period from 1..[address] abdomen few hrs ago showed normal appearing kidneys. However also has Pl eff. he is about 4-5 liters +ve so far. needing lot of o2 also. Now in ICU post surgery--currently intubated and sedated ROS--Not possible to obtain. patient is too sick. Physical Exam Physical Exam: General: just came from OR-currently intubated and sedated HEENT: no icterus, moist mucus membranes Neck: supple, trachea midline Heart: RRR Lungs: CTA bilaterally, no W/R/R--on vent Abdomen: Diffusely binder in place Extremities: No edema, Neurologic:sedated and on vent Allergies Allergy/AdvReac Type Severity Reaction Status Date / Time adhesive tape Allergy Unknown Rash with Verified 06/20/25 08:36 extended use Home Medications Medication Instructions Recorded Confirmed Type aspirin 325 mg tablet 325 mg PO QAM 01/21/23 06/20/25 History metformin 500 mg tablet 500 mg PO QAM 01/21/23 06/20/25 History pantoprazole 40 mg tablet,delayed 40 mg PO QAM 01/21/23 06/20/25 History release ascorbic acid (vitamin C) 1,000 mg 1,000 mg PO Q2D 06/13/25 06/20/25 History tablet (Vitamin C) cyanocobalamin (vitamin B-12) 1,000 mcg PO QAM 06/13/25 06/20/25 History 1,000 mcg tablet (Vitamin B-12) empagliflozin 25 mg tablet 25 mg PO QAM 06/13/25 06/20/25 History (Jardiance) losartan 25 mg tablet 25 mg PO QAM 06/13/25 06/20/25 History rosuvastatin 20 mg tablet 20 mg PO QAM 06/13/25 06/20/25 History sildenafil 25 mg tablet 20 mg PO UD PRN sexual activity 06/13/25 06/20/25 History vit C 250 mg-vit E 90 mg-zinc 40 2 tab PO QAM 06/13/25 06/20/25 History mg-copper 1 az-fscara-wnlivs capsule (PreserVision AREDS-2) Patient History Medical History Ulnar neuropathy at elbow of left upper extremity Carpal tunnel syndrome, left History of Lyme disease x2 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14, no hx locking HLD (hyperlipidemia) Hx borderline AAA (abdominal aortic aneurysm) Monitored by PCP US Aorta 08/31/24: Mild aneurysmal dilitation of the proximal abdominal aorta (measures approximately 3.2cm x 2.7 cm) Abd/Pelvis CT 05/17/25: "Aorta: Atherosclerotic changes of the abdominal aorta without aneurysm." Surgical History History of surgery (05/2024) Left ulnar nerve repair History of wisdom tooth extraction History of hernia surgery x2 History of appendectomy (2011) "Nicked my intestine"- monitored/no additional surgery History of esophagogastroduodenoscopy (EGD) History of colonoscopy 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 (Age 27) "Surgery took care of it" per patient Social History Smoking Status: Former smoker Tobacco Type: Cigarettes, Pipe and Cigars Smoking End Date: 17 yr ago; Second Hand Exposure: Yes (hx); Do You Dip or Chew Tobacco: No (hx when I was younger social, no current); Hx Alcohol Use: Yes Alcohol type: beer and hard liquor Hx Substance Use: No Preferred Language: Arabic Communication Ability: Effective Social Work Therapist Required: No Beliefs That Will Affect Care: Cheondoism Cheondoism Beliefs: Spiritism Current Living Situation: Spouse Feels Safe at Home: Yes Assistive Devices: Walker Assistive Devices Comment: readers Results & Data Vital Signs (Past 12 Hours) Vital Signs Temp Pulse Resp BP Pulse Ox O2 Del Method O2 Flow Rate 06/22/25 09:18 93 Nasal Cannula 7 06/22/25 08:38 36.7 C 105 H 28 H 115/76 91 Nasal Cannula 6 06/22/25 07:29 36.4 C L 98 H 24 111/77 90 Nasal Cannula 4 06/22/25 03:34 106 H 26 H 105/71 92 Nasal Cannula 4 06/22/25 01:16 36.8 C 101 H 26 H 115/78 92 Nasal Cannula 4 06/22/25 00:16 22 90 Nasal Cannula 4 Laboratory Results CBC, UA and renal panel Diagnostic Findings CXR and CT abdomen (2) Infected prosthetic mesh of abdominal wall Encounter type: initial encounter Qualified Code(s): T85.79XA - Infection and inflammatory reaction due to other internal prosthetic devices, implants and grafts, initial encounter
--- NOTE | 2025-06-22 11:13 | Post Operative Brief Note ---
Immediate Post Op Note Date of Surgery June 22, 2025 Pre & Post Diagnosis Operation Date: 06/22/25 07:00 Pre-Op Diagnosis: sepsis Post-Op Diagnosis: Anastomotic leak I identified the patient and participated in the time-out.: Yes Procedure Operation Date: 06/22/25 07:00 Actual Procedures p Exploratory Laparotomy, Washout of Abdomen, small Bowel Resection(Not Applicable) - Arben Dhaliwal MD Surgeon Arben Dhaliwal MD Criminal Intelligence Specialist HARVINDER Mills assisted with tissue retraction, camera op, closure Estimated Blood Loss 10 Findings Consistent with Post-Op Diagnosis Drains Josse-Connolly Drain (19fr) Anesthesia Type General
[2025-06-22] MEDS ORDERED: ATROPINE SULFATE 0.1 MG/ML 10ML SYR IV PRN (11:21)
--- NOTE | 2025-06-22 11:21 | Operative Report ---
Post Operative Report Pre & Post Diagnosis Operation Date: 06/22/25 07:00 Pre-Op Diagnosis: sepsis Post-Op Diagnosis: Anastomotic leak I identified the patient and participated in the time-out.: Yes Procedure Operation Date: 06/22/25 07:00 Actual Procedures p Exploratory Laparotomy, Washout of Abdomen, small Bowel Resection(Not Applicable) - Arben Dhaliwal MD Surgeon Arben Dhaliwal MD [employer] Manager HARVINDER Mills assisted with tissue retraction, camera op, closure Estimated Blood Loss 10 Findings Consistent with Post-Op Diagnosis anastomotic leak at the base of the anastomosis and the small bowel leading to large hematoma and contamination of the abdominal cavity. The old anastomosis was resected and a new anastomosis was created. No bleeding was noted within the abdomen. The abdomen was washed out with 10 Liters of warm saline. Specimens small bowel; mesentery; cultures of abdominal fluid Drains 19 Icelandic round KRISTA Anesthesia Type General Complications none Description of Procedure patient was taken the operating room, placed supine on the operating table. Timeouts performed, perioperative antibiotics were administered, SCD boots were placed. After adequate anesthesia and analgesia was obtained, the abdomen was prepped and draped in a normal sterile fashion. A-line and central line have been placed. The jin were taken out of the prior incision and the incision was length ened with a 15 blade scalpel. The fascia stitches were clipped and removed, opening the fascia. The fascia was opened to the fullest extent. Entering the abdominal cavity we encountered murky dark fluid as well as gelatinous blood clots. These were removed and suctioned free. They seem to be more pronounced on the left. A large amount of gelatinous old blood was removed from the left side of the abdomen. We began to run the bowel. At the level of the prior anastomosis, at the base of the anastomosis, the staple line had failed and was completely open. Most likely this occurred from a hematoma within the bowel pressing on the staple line. Using JOLIE 80 stapler, site was selected proximally and distally to the anastomosis. The proximal site was proximal to the second loop of bowel that had a serosal tear during the last operation. This site looked okay, but was included within the resection. The bowel was transected in its locations. The mesentery was taken with the LigaSure device. Sent off the field for specimen. Point, we went quadrant by quadrant through the abdomen and meticulously checked the bowel. The bowel was run from ligament of Treitz down to the terminal ileum. The abdomen was copiously washed out and suctioned free with over 10 L of warm saline. We then inspected the 2 sites of bowel. There was no ischemia noted there is no bleeding noted. Although the patient had required small boluses of vasopressin, he was not on a vasopressor drip, and the decision was made to proceed with anastomosis of the small bowel. This was created in a [id number] functional end-to-end fashion with the JOLIE 80 stapler used to create the anastomosis. The common opening was then closed with the TA stapler. The mesenteric defect was reapproximated with 2-0 Vicryl suture. A crotch stitch timesx 2 was placed at the base of the anastomosis of 3-0 silk. Again the abdomen was copiously irrigated and suctioned free. The anastomosis was inspected for any evidence of ischemia or bleeding. No evidence was noted. It was reduced back into the abdominal cavity. NG tube placement was checked and was noted to be in good position. A 19 Icelandic round KRISTA drain was placed through separate stab incision and secured with a 3-0 nylon suture. The fascia was closed with a running #1 Prolene suture. The skin was closed with surgical clips interspersed with Betadine soaked packing. Dressings were applied. He tolerated the procedure in stable condition and was transferred to the ICU intubated. My librarian assistant was necessary throughout the procedure for tissue retraction, possible camera operation, and closure of the wounds. I understand that section 1842(b)(7)(D) of the Social Security act generally prohibits Medicare physician fee schedule payment for the services of assistants at surgery in teaching hospitals when qualified residents are available to furnish such services. I certify that the services for which payment is claimed were medically necessary and that no qualified resident was available to perform the services. I further understand that these services are subject to postpayment review by the Medicare carrier. I attest to the content of the Intraoperative Record and any orders documented therein. Any exceptions are noted below.
[2025-06-22] MEDS ORDERED: STAT IV Infusion **Titration per Protocol STA ×3 (11:35→15:00)
[2025-06-22] MEDS ORDERED: PROPOFOL BOLUS FROM BAG IV PRN (11:35)
--- NOTE | 2025-06-22 11:35 | Procedure Note ---
Procedure Note Date of Service June 22, 2025 Procedure date: Noted above Procedure: Central venous access Pre-procedure indication: Sepsis, need for vasoactive medication administration Post-procedure Diagnosis: same as above Prior to Procedure: Informed Consent: The risks, benefits, indications, potential complications, and alternatives were explained to the patient prior to arrival and operating room and verbal informed consent obtained. Attending Staff: Lanny Hope DO Resident/APC: Not applicable Skin Prep: Chlorhexidine Anesthesia: 4 mL 1% lidocaine without epinephrine The identity of the patient was confirmed and a bedside time out was performed. Description of Procedure: After sterile prep and sterile drape utilizing standard sterile technique the superficial skin of the left internal jugular area was anesthetized. The target vessel was identified and entered with an 18- gauge needle. Dark venous blood return was noted. A guidewire was inserted through the needle and into the vessel. The needle was withdrawn and a skin ellie was made. A tissue dilator was advanced via Seldinger technique and removed. A triple lumen catheter was inserted via Seldinger technique and the guidewire removed. All ports viviana and flushed easily. A Biopatch was placed, and the catheter was secured via silk suture. A sterile dressing was then applied. Complications: None Estimated blood loss: Trace Patient tolerated the procedure well. Procedure Date: Noted Above Procedure: Procedural Ultrasound Indication: Central venous access Attending: Lanny Hope DO Resident/Physician Family Day Carer: Not applicable Artery visualized: Yes Vein visualized: Yes Compressible Vein: Yes Vein patent: Yes Guidewire or Short Catheter seen in vein prior to dilation: Yes Line confirmed in Vein with ultrasound: Yes Lung Sliding on side of attempt (if applicable): NA If no lung sliding or not obtained has CXR been ordered: Yes Impression: Successful central venous access placement Images obtained are saved for permanent record Procedure date: Noted above Procedure: Central venous access Pre-procedure indication: Need for vasoactive medication administration Post-procedure Diagnosis: same as above Prior to Procedure: Informed Consent: The risks, benefits, indications, potential complications, and alternatives were explained to the patient prior to arrival in the operating room and verbal informed consent obtained. Attending Staff: Lanny Hope DO Resident/APC: Not applicable Skin Prep: Chlorhexidine Anesthesia: 4 mL 1% lidocaine without epinephrine The identity of the patient was confirmed and a bedside time out was performed. Description of Procedure: After sterile prep and sterile drape utilizing standard sterile technique the superficial skin of the right subclavian area was anesthetized. 3 needle passes were attempted unable to locate blood vessel despite extreme reverse Trendelenburg, additional provider attempted and further attempts were discontinued Complications: Aborted right sided triple-lumen subclavian catheter attempts Estimated blood loss: Trace Patient tolerated the procedure well. [facility] [place] Codes (Charges) Tubes, Drains, and Vasc Access Procedure 1: Tubes, Drains, and Vasc Access: [id number] Insertion Of Non-tunneled Catheter Age 7 Yrs> (Left-sided procedure) Procedure 2: Tubes, Drains, and Vasc Access: [id number] Insertion Of Non-tunneled Catheter Age 7 Yrs> (Right-sided aborted procedure) Coding CPT Codes Tubes, Drains, and Vasc Access - Tubes, Drains, and Vasc Access: [id number] Insertion Of Non-tunneled Catheter Age 7 Yrs> ([id number]) Tubes, Drains, and Vasc Access - Tubes, Drains, and Vasc Access: [id number] Insertion Of Non-tunneled Catheter Age 7 Yrs> ([id number]) Additional Codes Date of Service ([email or web address])
[2025-06-22] MEDS ORDERED: VASOPRESSIN 20 UNIT/ML VIAL ONE (11:47)
[2025-06-22] MEDS ORDERED: SODIUM CHLORIDE 0.9% 1,000 ML IV PRN (11:50)
--- NOTE | 2025-06-22 11:59 | Anesthesiology Progress Note ---
Date of Service June 22, 2025 Anesthesia Post Procedure Vital Signs Vital Signs: Temp Pulse Pulse Resp BP BP BP 06/22/25 11:45 115/79 06/22/25 11:45 89 16 06/22/25 11:40 132/74 06/22/25 11:40 132/74 06/22/25 11:36 92 H 25 H 06/22/25 11:35 172/79 H 06/22/25 11:35 172/79 H 06/22/25 11:34 165/76 H 06/22/25 09:18 06/22/25 08:38 36.7 C 105 H 28 H 115/76 06/22/25 07:29 36.4 C L 98 H 24 111/77 06/22/25 03:34 106 H 26 H 105/71 06/22/25 01:16 36.8 C 101 H 26 H 115/78 06/22/25 00:16 22 06/21/25 22:45 36.4 C L 101 H 18 117/80 06/21/25 22:00 100 H 06/21/25 20:02 06/21/25 19:23 36.6 C 90 18 111/79 06/21/25 15:00 36.5 C 101 H 22 107/75 06/21/25 14:56 06/21/25 14:18 101 H 06/21/25 14:00 36.5 C 100 H 20 110/74 06/21/25 12:00 36.3 C L 90 20 104/72 Pulse Ox O2 Del Method O2 Flow Rate 06/22/25 11:45 06/22/25 11:45 95 06/22/25 11:40 06/22/25 11:40 06/22/25 11:36 06/22/25 11:35 06/22/25 11:35 06/22/25 11:34 06/22/25 09:18 93 Nasal Cannula 7 06/22/25 08:38 91 Nasal Cannula 6 06/22/25 07:29 90 Nasal Cannula 4 06/22/25 03:34 92 Nasal Cannula 4 06/22/25 01:16 92 Nasal Cannula 4 06/22/25 00:16 90 Nasal Cannula 4 06/21/25 22:45 90 Nasal Cannula 06/21/25 22:00 06/21/25 20:02 Nasal Cannula 4 06/21/25 19:23 92 Nasal Cannula 06/21/25 15:00 92 Nasal Cannula 4 06/21/25 14:56 Nasal Cannula 4 06/21/25 14:18 06/21/25 14:00 92 Nasal Cannula 4 06/21/25 12:00 90 Nasal Cannula 2 Pain Intensity Abdomen: Pain Intensity: 8 Transfer of Care Handoff Completed per policy Notes Mental Status: see notes below Patient Amnestic to Procedure: Yes Nausea / Vomiting: see Notes below Pain: see Notes below Airway Patency, RR, SpO2: see Notes below BP & HR: stable & adequate and see Notes below Hydration State: stable & adequate and see Notes below Anesthetic Complications: no major complications apparent Notes: Pt is critical;pt was taken back to OR for exploratory laparotomy;pt is septic and H/D unstable; Pt was kept intubated and taken back to ICU and placed on a mechanical ventilator.Report was given to Dr Hope.
[2025-06-22 12:01] LABS: iSTAT Art Bld Gas Base Excess -5.0 meg/L (-9-1.8)
[2025-06-22 12:23] LABS: Base Excess VBG -6.1 mEq/L; HCO3 VBG 21 mmol/L; Oxygen Saturation VBG 95.4 %; PCO2 VBG 47 mmHg (38-50); PO2 VBG 70 mmHg; pH VBG 7.26 (7.36-7.41)
[2025-06-22] MEDS: HEPARIN SOD 5,000 UNIT/0.5 ML VIAL SQ SCH (12:26)
[2025-06-22] MEDS: PROPOFOL IV EMULSION 10 MG/ML 100 ML VIAL IV ONE (12:27)
[2025-06-22] MEDS: fentaNYL citrate 2,500 MCG/250 ML BAG IV SCH (12:34)
--- NOTE | 2025-06-22 12:38 | Hospitalist Progress Note ---
Date of Service June 22, 2025 Assessment & Plan (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: (2) DM type 2 (diabetes mellitus, type 2): (3) HTN (hypertension): (4) HLD (hyperlipidemia): Plan Mr. Vaca is a 80 y/o male with DM2, diabetic retinopathy, dyslipidemia, GERD, Christiansen's esophagus, HTN, and other history as outlined below who underwent exploratory laparotomy with removal of infected mesh, hernia repair, and bowel resection 06/[address] Dhaliwal and for who we have been consulted to assist with post-operative medical management. #Sepsis 2/2 infected mesh (WBC, tachycardia, lactic acidosis) POA #Metabolic acidosis #Infected mesh s/p removal, hernia repair, and bowel resection 06/20 -Developed worsening abd pain, rising lactate on 06/21 -CT AP 06/22 b/l small effusions, fluid filled bowels, 16cm fluid collection, likely hematoma Plan -S/p ex lap today by surgery -Transfer to ICU -Appreciate surgery and ICU management -Continue zosyn and vanc -Follow cultures, NGTD #Acute Renal Failure -Baseline Cr. 0.9 -Cr rising daily -Concern for ATN -Oliguric renal failure Plan -Appreciate nephrology input -Eugene placed today for possible HD -Monitor urine output, intake, renal function -Avoid nephrotoxic agents if possible #Acute hypoxic hypercarbic resp failure -Requiring 6L NC today, up from 2L yesterday -CT showing bilateral small effusions, some atelectasis -Suspect multifactorial. he is also taking shallow breaths due to pain Plan -Appreciate pulm/ICU input -Volume management per nephro -Encouraged IS -Wean O2 as tolerated #Anemia -POA. Hgb 12.5 on admission -Down to 10.4 today, -CT showing hematoma -Acute blood loss anemia Plan -Transfuse < 7.0 -Monitor counts #Hyponatremia #Hyperkalemia -Follow. nephrology following #Lactic acidosis #Trop elevation -HS trop mildly high at 28 in setting of acute renal failure -Non specific trop elevation -No s/s ACS #Elevated LFTs -Mildly elevated, recheck in AM #Hypertension hold home losartan #acute hypergylcemia #Type 2 Diabetes Hold oral meds, A1C 7.7% Continue insulin drip for now Monitor BG and electrolytes closely #Dyslipidemia - Chronic, resume statin once tolerating po #GERD - Continue daily PPI--transitioned to IV given inability to take po I spent a total of 55 minutes coordinating, documenting, and providing care for this patient excluding time spent in the performance of separately billed services. This included personally reviewing all current laboratories and imaging studies, medical reconciliation, outpatient chart review and discussion with specialists Admission and Anticipated Discharge Date Admission Date: June 20, 2025 Subjective Patient seen this AM at 720. He is c/o worsening abd pain. difficulty taking a full breath due to abd pain. no f/c cp palp cough wheez SOB. no urine output. D/w dr dhaliwal at bedside Physical Exam Physical Exam: Vitals and labs reviewed General: Well appearing, NAD HEENT: EOMI, PERRLA Neck: Supple Cardiac: RRR no rubs gallops or murmurs Lungs: bibasilar rales. no rhonchi wheezing or resp distress Abd: distended. TTP in all quadrants.. : Deffered MSK: Full ROM. No obvious deformities Ext: trace Edema Skin: Warm, Dry Neuro: AOx3 No focal deficits. Psych: Normal Mood Results & Data Results & Data Vital Signs (Past 12 Hours) Vital Signs Temp Pulse Pulse Resp BP BP Pulse Ox 06/22/25 12:18 86 16 94 06/22/25 11:45 115/79 06/22/25 11:45 89 16 95 06/22/25 11:40 132/74 06/22/25 11:40 132/74 06/22/25 11:36 92 H 25 H 06/22/25 11:35 172/79 H 06/22/25 11:35 172/79 H 06/22/25 11:34 165/76 H 06/22/25 09:18 93 06/22/25 08:38 36.7 C 105 H 28 H 115/76 91 06/22/25 07:29 36.4 C L 98 H 24 111/77 90 06/22/25 03:34 106 H 26 H 105/71 92 06/22/25 01:16 36.8 C 101 H 26 H 115/78 92 O2 Del Method O2 Flow Rate FiO2 06/22/25 12:18 80 06/22/25 11:45 06/22/25 11:45 06/22/25 11:40 06/22/25 11:40 06/22/25 11:36 06/22/25 11:35 06/22/25 11:35 06/22/25 11:34 06/22/25 09:18 Nasal Cannula 7 06/22/25 08:38 Nasal Cannula 6 06/22/25 07:29 Nasal Cannula 4 06/22/25 03:34 Nasal Cannula 4 06/22/25 01:16 Nasal Cannula 4 Laboratory Results Abnormal lab results 06/21/25 06/21/25 06/21/25 Range/Units 12:15 12:54 14:00 WBC (4.8-10.8) K/ul RBC (4.70-6.10) M/uL Hgb (14.0-18.0) g/dl POC Hgb (14.0-18.0) g/dl Hct (42.0-52.0) % POC Hct (42-52) % Neut # (Auto) (1.40-6.50) K/uL [place] # (Auto) (0.11-0.59) K/uL POC pH (7.35-7.45) POC pCO2 (35-46) mmHg POC pO2 (80-95) mmHg POC ABG O2 Sat (90-95) % VBG pH (7.36-7.41) VBG pCO2 (38-50) mmHg POC Sodium (135-144) mmol/L Sodium (136-145) mmol/L POC Potassium (3.3-5.0) mmol/L Potassium (3.5-5.1) mmol/L POC Chloride (101-112) mmol/L Chloride (98-107) mmol/L Carbon Dioxide (21-32) mmol/L POC Total CO2 (24-31) mmol/L Anion Gap (3-11) POC BUN (7-18) mg/dl BUN (6-23) mg/dl Creatinine (0.6-1.4) mg/dl POC Creatinine (0.6-1.3) mg/dl Glucose (70-99(Fasting)) mg/dl POC Glucose 165 H 135 H (70-99) mg/dl POC Glucose (other) (70-99) mg/dl Lactate (0.4-2.0) mmol/L Calcium (8.6-10.3) mg/dl POC Ioniz Calcium [place]ley (1.12-1.32) mmol/l Total Bilirubin (0.2-1.0) mg/dl AST (13-39) U/L Troponin I High Sens (0-20) pg/ml Total Protein (6.0-8.3) gm/dl Albumin (3.4-5.0) gm/dl Globulin (2.5-4.0) gm/dl Urine Protein Trace H (Negative) Urine Glucose (UA) 1+ H (Negative) Urine Ketones 2+ H (Negative) Urine Blood 2+ H (Negative) Urine RBC (Auto) >20 H (0-2) /hpf 06/21/25 06/21/25 06/21/25 Range/Units 14:15 14:22 14:58 WBC (4.8-10.8) K/ul RBC (4.70-6.10) M/uL Hgb (14.0-18.0) g/dl POC Hgb (14.0-18.0) g/dl Hct (42.0-52.0) % POC Hct (42-52) % Neut # (Auto) (1.40-6.50) K/uL [place] # (Auto) (0.11-0.59) K/uL POC pH (7.35-7.45) POC pCO2 (35-46) mmHg POC pO2 (80-95) mmHg POC ABG O2 Sat (90-95) % VBG pH 7.21 L (7.36-7.41) VBG pCO2 (38-50) mmHg POC Sodium (135-144) mmol/L Sodium (136-145) mmol/L POC Potassium (3.3-5.0) mmol/L Potassium (3.5-5.1) mmol/L POC Chloride (101-112) mmol/L Chloride (98-107) mmol/L Carbon Dioxide (21-32) mmol/L POC Total CO2 (24-31) mmol/L Anion Gap 13 H (3-11) POC BUN (7-18) mg/dl BUN 38 H (6-23) mg/dl Creatinine 3.26 H D (0.6-1.4) mg/dl POC Creatinine (0.6-1.3) mg/dl Glucose 170 H (70-99(Fasting)) mg/dl POC Glucose 146 H (70-99) mg/dl POC Glucose (other) (70-99) mg/dl Lactate 5.3 H* (0.4-2.0) mmol/L Calcium 8.2 L (8.6-10.3) mg/dl POC Ioniz Calcium [place] (1.12-1.32) mmol/l Total Bilirubin (0.2-1.0) mg/dl AST (13-39) U/L Troponin I High Sens (0-20) pg/ml Total Protein (6.0-8.3) gm/dl Albumin (3.4-5.0) gm/dl Globulin (2.5-4.0) gm/dl Urine Protein (Negative) Urine Glucose (UA) (Negative) Urine Ketones (Negative) Urine Blood (Negative) Urine RBC (Auto) (0-2) /hpf 06/21/25 06/21/25 06/21/25 Range/Units 16:00 17:03 18:04 WBC (4.8-10.8) K/ul RBC (4.70-6.10) M/uL Hgb (14.0-18.0) g/dl POC Hgb (14.0-18.0) g/dl Hct (42.0-52.0) % POC Hct (42-52) % Neut # (Auto) (1.40-6.50) K/uL [place] # (Auto) (0.11-0.59) K/uL POC pH (7.35-7.45) POC pCO2 (35-46) mmHg POC pO2 (80-95) mmHg POC ABG O2 Sat (90-95) % VBG pH (7.36-7.41) VBG pCO2 (38-50) mmHg POC Sodium (135-144) mmol/L Sodium (136-145) mmol/L POC Potassium (3.3-5.0) mmol/L Potassium (3.5-5.1) mmol/L POC Chloride (101-112) mmol/L Chloride (98-107) mmol/L Carbon Dioxide (21-32) mmol/L POC Total CO2 (24-31) mmol/L Anion Gap (3-11) POC BUN (7-18) mg/dl BUN (6-23) mg/dl Creatinine (0.6-1.4) mg/dl POC Creatinine (0.6-1.3) mg/dl Glucose (70-99(Fasting)) mg/dl POC Glucose 122 H 134 H 120 H (70-99) mg/dl POC Glucose (other) (70-99) mg/dl Lactate (0.4-2.0) mmol/L Calcium (8.6-10.3) mg/dl POC Ioniz Calcium [place] (1.12-1.32) mmol/l Total Bilirubin (0.2-1.0) mg/dl AST (13-39) U/L Troponin I High Sens (0-20) pg/ml Total Protein (6.0-8.3) gm/dl Albumin (3.4-5.0) gm/dl Globulin (2.5-4.0) gm/dl Urine Protein (Negative) Urine Glucose (UA) (Negative) Urine Ketones (Negative) Urine Blood (Negative) Urine RBC (Auto) (0-2) /hpf 06/21/25 06/21/25 06/21/25 Range/Units 18:55 19:18 19:25 WBC (4.8-10.8) K/ul RBC (4.70-6.10) M/uL Hgb (14.0-18.0) g/dl POC Hgb (14.0-18.0) g/dl Hct (42.0-52.0) % POC Hct (42-52) % Neut # (Auto) (1.40-6.50) K/uL [place] # (Auto) (0.11-0.59) K/uL POC pH (7.35-7.45) POC pCO2 (35-46) mmHg POC pO2 (80-95) mmHg POC ABG O2 Sat (90-95) % VBG pH (7.36-7.41) VBG pCO2 (38-50) mmHg POC Sodium (135-144) mmol/L Sodium (136-145) mmol/L POC Potassium (3.3-5.0) mmol/L Potassium (3.5-5.1) mmol/L POC Chloride (101-112) mmol/L Chloride (98-107) mmol/L Carbon Dioxide 18 L (21-32) mmol/L POC Total CO2 (24-31) mmol/L Anion Gap 15 H (3-11) POC BUN (7-18) mg/dl BUN 42 H (6-23) mg/dl Creatinine 3.51 H (0.6-1.4) mg/dl POC Creatinine (0.6-1.3) mg/dl Glucose 128 H (70-99(Fasting)) mg/dl POC Glucose 109 H 132 H (70-99) mg/dl POC Glucose (other) (70-99) mg/dl Lactate (0.4-2.0) mmol/L Calcium 8.1 L (8.6-10.3) mg/dl POC Ioniz Calcium [place] (1.12-1.32) mmol/l Total Bilirubin (0.2-1.0) mg/dl AST (13-39) U/L Troponin I High Sens (0-20) pg/ml Total Protein (6.0-8.3) gm/dl Albumin (3.4-5.0) gm/dl Globulin (2.5-4.0) gm/dl Urine Protein (Negative) Urine Glucose (UA) (Negative) Urine Ketones (Negative) Urine Blood (Negative) Urine RBC (Auto) (0-2) /hpf 06/21/25 06/21/25 06/21/25 Range/Units 19:35 20:31 20:45 WBC (4.8-10.8) K/ul RBC (4.70-6.10) M/uL Hgb (14.0-18.0) g/dl POC Hgb (14.0-18.0) g/dl Hct (42.0-52.0) % POC Hct (42-52) % Neut # (Auto) (1.40-6.50) K/uL [place] # (Auto) (0.11-0.59) K/uL POC pH (7.35-7.45) POC pCO2 (35-46) mmHg POC pO2 (80-95) mmHg POC ABG O2 Sat (90-95) % VBG pH (7.36-7.41) VBG pCO2 (38-50) mmHg POC Sodium (135-144) mmol/L Sodium (136-145) mmol/L POC Potassium (3.3-5.0) mmol/L Potassium (3.5-5.1) mmol/L POC Chloride (101-112) mmol/L Chloride (98-107) mmol/L Carbon Dioxide (21-32) mmol/L POC Total CO2 (24-31) mmol/L Anion Gap (3-11) POC BUN (7-18) mg/dl BUN (6-23) mg/dl Creatinine (0.6-1.4) mg/dl POC Creatinine (0.6-1.3) mg/dl Glucose (70-99(Fasting)) mg/dl POC Glucose 150 H 147 H (70-99) mg/dl POC Glucose (other) (70-99) mg/dl Lactate 4.6 H* (0.4-2.0) mmol/L Calcium (8.6-10.3) mg/dl POC Ioniz Calcium [place] (1.12-1.32) mmol/l Total Bilirubin (0.2-1.0) mg/dl AST (13-39) U/L Troponin I High Sens (0-20) pg/ml Total Protein (6.0-8.3) gm/dl Albumin (3.4-5.0) gm/dl Globulin (2.5-4.0) gm/dl Urine Protein (Negative) Urine Glucose (UA) (Negative) Urine Ketones (Negative) Urine Blood (Negative) Urine RBC (Auto) (0-2) /hpf 06/21/25 06/21/25 06/21/25 Range/Units 21:30 22:36 22:37 WBC (4.8-10.8) K/ul RBC (4.70-6.10) M/uL Hgb (14.0-18.0) g/dl POC Hgb (14.0-18.0) g/dl Hct (42.0-52.0) % POC Hct (42-52) % Neut # (Auto) (1.40-6.50) K/uL [place] # (Auto) (0.11-0.59) K/uL POC pH (7.35-7.45) POC pCO2 (35-46) mmHg POC pO2 (80-95) mmHg POC ABG O2 Sat (90-95) % VBG pH (7.36-7.41) VBG pCO2 (38-50) mmHg POC Sodium (135-144) mmol/L Sodium (136-145) mmol/L POC Potassium (3.3-5.0) mmol/L Potassium (3.5-5.1) mmol/L POC Chloride (101-112) mmol/L Chloride (98-107) mmol/L Carbon Dioxide (21-32) mmol/L POC Total CO2 (24-31) mmol/L Anion Gap (3-11) POC BUN (7-18) mg/dl BUN (6-23) mg/dl Creatinine (0.6-1.4) mg/dl POC Creatinine (0.6-1.3) mg/dl Glucose (70-99(Fasting)) mg/dl POC Glucose 185 H 175 H (70-99) mg/dl POC Glucose (other) (70-99) mg/dl Lactate 4.1 H* (0.4-2.0) mmol/L Calcium (8.6-10.3) mg/dl POC Ioniz Calcium [place] (1.12-1.32) mmol/l Total Bilirubin (0.2-1.0) mg/dl AST (13-39) U/L Troponin I High Sens (0-20) pg/ml Total Protein (6.0-8.3) gm/dl Albumin (3.4-5.0) gm/dl Globulin (2.5-4.0) gm/dl Urine Protein (Negative) Urine Glucose (UA) (Negative) Urine Ketones (Negative) Urine Blood (Negative) Urine RBC (Auto) (0-2) /hpf 06/21/25 06/21/25 06/22/25 Range/Units 23:39 Unknown 00:25 WBC (4.8-10.8) K/ul RBC (4.70-6.10) M/uL Hgb (14.0-18.0) g/dl POC Hgb (14.0-18.0) g/dl Hct (42.0-52.0) % POC Hct (42-52) % Neut # (Auto) (1.40-6.50) K/uL [place] # (Auto) (0.11-0.59) K/uL POC pH (7.35-7.45) POC pCO2 (35-46) mmHg POC pO2 (80-95) mmHg POC ABG O2 Sat (90-95) % VBG pH 7.26 L (7.36-7.41) VBG pCO2 (38-50) mmHg POC Sodium (135-144) mmol/L Sodium 135 L (136-145) mmol/L POC Potassium (3.3-5.0) mmol/L Potassium 5.9 H (3.5-5.1) mmol/L POC Chloride (101-112) mmol/L Chloride (98-107) mmol/L Carbon Dioxide 20 L (21-32) mmol/L POC Total CO2 (24-31) mmol/L Anion Gap 14 H (3-11) POC BUN (7-18) mg/dl BUN 45 H (6-23) mg/dl Creatinine 4.05 H D (0.6-1.4) mg/dl POC Creatinine (0.6-1.3) mg/dl Glucose 153 H (70-99(Fasting)) mg/dl POC Glucose 168 H (70-99) mg/dl POC Glucose (other) (70-99) mg/dl Lactate 4.4 H* (0.4-2.0) mmol/L Calcium 7.9 L (8.6-10.3) mg/dl POC Ioniz Calcium [place] (1.12-1.32) mmol/l Total Bilirubin (0.2-1.0) mg/dl AST (13-39) U/L Troponin I High Sens 29.0 H D (0-20) pg/ml Total Protein (6.0-8.3) gm/dl Albumin (3.4-5.0) gm/dl Globulin (2.5-4.0) gm/dl Urine Protein (Negative) Urine Glucose (UA) (Negative) Urine Ketones (Negative) Urine Blood (Negative) Urine RBC (Auto) (0-2) /hpf 06/22/25 06/22/25 06/22/25 Range/Units 01:26 02:38 03:30 WBC (4.8-10.8) K/ul RBC (4.70-6.10) M/uL Hgb (14.0-18.0) g/dl POC Hgb (14.0-18.0) g/dl Hct (42.0-52.0) % POC Hct (42-52) % Neut # (Auto) (1.40-6.50) K/uL [place] # (Auto) (0.11-0.59) K/uL POC pH (7.35-7.45) POC pCO2 (35-46) mmHg POC pO2 (80-95) mmHg POC ABG O2 Sat (90-95) % VBG pH (7.36-7.41) VBG pCO2 (38-50) mmHg POC Sodium (135-144) mmol/L Sodium (136-145) mmol/L POC Potassium (3.3-5.0) mmol/L Potassium (3.5-5.1) mmol/L POC Chloride (101-112) mmol/L Chloride (98-107) mmol/L Carbon Dioxide (21-32) mmol/L POC Total CO2 (24-31) mmol/L Anion Gap (3-11) POC BUN (7-18) mg/dl BUN (6-23) mg/dl Creatinine (0.6-1.4) mg/dl POC Creatinine (0.6-1.3) mg/dl Glucose (70-99(Fasting)) mg/dl POC Glucose 153 H 254 H 204 H (70-99) mg/dl POC Glucose (other) (70-99) mg/dl Lactate (0.4-2.0) mmol/L Calcium (8.6-10.3) mg/dl POC Ioniz Calcium [place] (1.12-1.32) mmol/l Total Bilirubin (0.2-1.0) mg/dl AST (13-39) U/L Troponin I High Sens (0-20) pg/ml Total Protein (6.0-8.3) gm/dl Albumin (3.4-5.0) gm/dl Globulin (2.5-4.0) gm/dl Urine Protein (Negative) Urine Glucose (UA) (Negative) Urine Ketones (Negative) Urine Blood (Negative) Urine RBC (Auto) (0-2) /hpf 06/22/25 06/22/25 06/22/25 Range/Units 04:05 04:33 05:11 WBC 13.35 H (4.8-10.8) K/ul RBC 3.48 L (4.70-6.10) M/uL Hgb 10.4 L (14.0-18.0) g/dl POC Hgb (14.0-18.0) g/dl Hct 31.7 L (42.0-52.0) % POC Hct (42-52) % Neut # (Auto) 9.11 H (1.40-6.50) K/uL [place] # (Auto) 1.24 H (0.11-0.59) K/uL POC pH (7.35-7.45) POC pCO2 (35-46) mmHg POC pO2 (80-95) mmHg POC ABG O2 Sat (90-95) % VBG pH 7.26 L (7.36-7.41) VBG pCO2 (38-50) mmHg POC Sodium (135-144) mmol/L Sodium 135 L (136-145) mmol/L POC Potassium (3.3-5.0) mmol/L Potassium 5.2 H (3.5-5.1) mmol/L POC Chloride (101-112) mmol/L Chloride (98-107) mmol/L Carbon Dioxide 20 L (21-32) mmol/L POC Total CO2 (24-31) mmol/L Anion Gap 15 H (3-11) POC BUN (7-18) mg/dl BUN 49 H (6-23) mg/dl Creatinine 4.43 H D (0.6-1.4) mg/dl POC Creatinine (0.6-1.3) mg/dl Glucose 172 H (70-99(Fasting)) mg/dl POC Glucose 179 H (70-99) mg/dl POC Glucose (other) (70-99) mg/dl Lactate 4.4 H* (0.4-2.0) mmol/L Calcium 8.1 L (8.6-10.3) mg/dl POC Ioniz Calcium [place] (1.12-1.32) mmol/l Total Bilirubin (0.2-1.0) mg/dl AST (13-39) U/L Troponin I High Sens 28.3 H (0-20) pg/ml Total Protein (6.0-8.3) gm/dl Albumin (3.4-5.0) gm/dl Globulin (2.5-4.0) gm/dl Urine Protein (Negative) Urine Glucose (UA) (Negative) Urine Ketones (Negative) Urine Blood (Negative) Urine RBC (Auto) (0-2) /hpf 06/22/25 06/22/25 06/22/25 Range/Units 05:33 05:53 06:31 WBC (4.8-10.8) K/ul RBC (4.70-6.10) M/uL Hgb (14.0-18.0) g/dl POC Hgb (14.0-18.0) g/dl Hct (42.0-52.0) % POC Hct (42-52) % Neut # (Auto) (1.40-6.50) K/uL [place] # (Auto) (0.11-0.59) K/uL POC pH (7.35-7.45) POC pCO2 (35-46) mmHg POC pO2 (80-95) mmHg POC ABG O2 Sat (90-95) % VBG pH 7.21 L (7.36-7.41) VBG pCO2 55 H (38-50) mmHg POC Sodium (135-144) mmol/L Sodium (136-145) mmol/L POC Potassium (3.3-5.0) mmol/L Potassium 5.7 H (3.5-5.1) mmol/L POC Chloride (101-112) mmol/L Chloride (98-107) mmol/L Carbon Dioxide (21-32) mmol/L POC Total CO2 (24-31) mmol/L Anion Gap 14 H (3-11) POC BUN (7-18) mg/dl BUN 48 H (6-23) mg/dl Creatinine 4.60 H* (0.6-1.4) mg/dl POC Creatinine (0.6-1.3) mg/dl Glucose 177 H (70-99(Fasting)) mg/dl POC Glucose 185 H 200 H (70-99) mg/dl POC Glucose (other) (70-99) mg/dl Lactate (0.4-2.0) mmol/L Calcium 8.0 L (8.6-10.3) mg/dl POC Ioniz Calcium [place] (1.12-1.32) mmol/l Total Bilirubin (0.2-1.0) mg/dl AST (13-39) U/L Troponin I High Sens (0-20) pg/ml Total Protein (6.0-8.3) gm/dl Albumin (3.4-5.0) gm/dl Globulin (2.5-4.0) gm/dl Urine Protein (Negative) Urine Glucose (UA) (Negative) Urine Ketones (Negative) Urine Blood (Negative) Urine RBC (Auto) (0-2) /hpf 06/22/25 06/22/25 06/22/25 Range/Units 07:27 08:07 08:10 WBC (4.8-10.8) K/ul RBC (4.70-6.10) M/uL Hgb (14.0-18.0) g/dl POC Hgb (14.0-18.0) g/dl Hct (42.0-52.0) % POC Hct (42-52) % Neut # (Auto) (1.40-6.50) K/uL [place] # (Auto) (0.11-0.59) K/uL POC pH (7.35-7.45) POC pCO2 (35-46) mmHg POC pO2 (80-95) mmHg POC ABG O2 Sat (90-95) % VBG pH (7.36-7.41) VBG pCO2 (38-50) mmHg POC Sodium (135-144) mmol/L Sodium 133 L (136-145) mmol/L POC Potassium (3.3-5.0) mmol/L Potassium 6.0 H (3.5-5.1) mmol/L POC Chloride (101-112) mmol/L Chloride 96 L (98-107) mmol/L Carbon Dioxide (21-32) mmol/L POC Total CO2 (24-31) mmol/L Anion Gap 14 H (3-11) POC BUN (7-18) mg/dl BUN 51 H (6-23) mg/dl Creatinine 4.77 H* (0.6-1.4) mg/dl POC Creatinine (0.6-1.3) mg/dl Glucose 265 H (70-99(Fasting)) mg/dl POC Glucose 189 H (70-99) mg/dl POC Glucose (other) (70-99) mg/dl Lactate 3.6 H* (0.4-2.0) mmol/L Calcium 7.7 L (8.6-10.3) mg/dl POC Ioniz Calcium [place] (1.12-1.32) mmol/l Total Bilirubin 1.7 H (0.2-1.0) mg/dl AST 67 H (13-39) U/L Troponin I High Sens (0-20) pg/ml Total Protein 5.3 L (6.0-8.3) gm/dl Albumin 3.1 L (3.4-5.0) gm/dl Globulin 2.2 L (2.5-4.0) gm/dl Urine Protein (Negative) Urine Glucose (UA) (Negative) Urine Ketones (Negative) Urine Blood (Negative) Urine RBC (Auto) (0-2) /hpf 06/22/25 06/22/25 06/22/25 Range/Units 08:35 09:41 10:35 WBC (4.8-10.8) K/ul RBC (4.70-6.10) M/uL Hgb (14.0-18.0) g/dl POC Hgb 9.2 L 9.9 L (14.0-18.0) g/dl Hct (42.0-52.0) % POC Hct 27 L 29 L (42-52) % Neut # (Auto) (1.40-6.50) K/uL [place] # (Auto) (0.11-0.59) K/uL POC pH (7.35-7.45) POC pCO2 (35-46) mmHg POC pO2 (80-95) mmHg POC ABG O2 Sat (90-95) % VBG pH (7.36-7.41) VBG pCO2 (38-50) mmHg POC Sodium 132 L 134 L (135-144) mmol/L Sodium (136-145) mmol/L POC Potassium 5.9 H (3.3-5.0) mmol/L Potassium (3.5-5.1) mmol/L POC Chloride 98 L (101-112) mmol/L Chloride (98-107) mmol/L Carbon Dioxide (21-32) mmol/L POC Total CO2 22 L 21 L (24-31) mmol/L Anion Gap (3-11) POC BUN 45 H 52 H (7-18) mg/dl BUN (6-23) mg/dl Creatinine (0.6-1.4) mg/dl POC Creatinine 5.4 H* 4.9 H* (0.6-1.3) mg/dl Glucose (70-99(Fasting)) mg/dl POC Glucose 209 H (70-99) mg/dl POC Glucose (other) 198 H 165 H (70-99) mg/dl Lactate (0.4-2.0) mmol/L Calcium (8.6-10.3) mg/dl POC Ioniz Calcium [place] 1.02 L 0.98 L (1.12-1.32) mmol/l Total Bilirubin (0.2-1.0) mg/dl AST (13-39) U/L Troponin I High Sens (0-20) pg/ml Total Protein (6.0-8.3) gm/dl Albumin (3.4-5.0) gm/dl Globulin (2.5-4.0) gm/dl Urine Protein (Negative) Urine Glucose (UA) (Negative) Urine Ketones (Negative) Urine Blood (Negative) Urine RBC (Auto) (0-2) /hpf 06/22/25 06/22/25 06/22/25 Range/Units 10:42 11:40 12:11 WBC (4.8-10.8) K/ul RBC (4.70-6.10) M/uL Hgb (14.0-18.0) g/dl POC Hgb 12.2 L (14.0-18.0) g/dl Hct (42.0-52.0) % POC Hct 36 L (42-52) % Neut # (Auto) (1.40-6.50) K/uL [place] # (Auto) (0.11-0.59) K/uL POC pH 7.27 L (7.35-7.45) POC pCO2 49 H (35-46) mmHg POC pO2 107 H (80-95) mmHg POC ABG O2 Sat 97.0 H (90-95) % VBG pH 7.26 L (7.36-7.41) VBG pCO2 (38-50) mmHg POC Sodium 134 L (135-144) mmol/L Sodium (136-145) mmol/L POC Potassium 5.1 H (3.3-5.0) mmol/L Potassium (3.5-5.1) mmol/L POC Chloride (101-112) mmol/L Chloride (98-107) mmol/L Carbon Dioxide (21-32) mmol/L POC Total CO2 (24-31) mmol/L Anion Gap (3-11) POC BUN (7-18) mg/dl BUN (6-23) mg/dl Creatinine (0.6-1.4) mg/dl POC Creatinine (0.6-1.3) mg/dl Glucose (70-99(Fasting)) mg/dl POC Glucose 160 H (70-99) mg/dl POC Glucose (other) (70-99) mg/dl Lactate (0.4-2.0) mmol/L Calcium (8.6-10.3) mg/dl POC Ioniz Calcium [place] (1.12-1.32) mmol/l Total Bilirubin (0.2-1.0) mg/dl AST (13-39) U/L Troponin I High Sens (0-20) pg/ml Total Protein (6.0-8.3) gm/dl Albumin (3.4-5.0) gm/dl Globulin (2.5-4.0) gm/dl Urine Protein (Negative) Urine Glucose (UA) (Negative) Urine Ketones (Negative) Urine Blood (Negative) Urine RBC (Auto) (0-2) /hpf Diagnostic Findings Chest X-Ray 06/22/25 01:26 EXAM: XR chest 1V portable CLINICAL HISTORY: Sob. TECHNIQUE: An X-ray image of the chest is obtained in AP projection. COMPARISON: 06/20/2025 X-ray. FINDINGS: Again evident suboptimal inspiratory effort with low lung volumes. Pulmonary Parenchyma: There is a blunted left costophrenic angle, with lateralization of the diaphragm apex , which represents mild effusion. ( increased compared to the previous ). There is decreased aeration of the left lower zone adjacent to the pleural effusion, which may be due to compression and/or small areas of atelectasis. Otherwise, the lungs are clear bilaterally, without evidence of consolidation, collapse, or focal opacities. No pulmonary nodules are identified. Heart and Mediastinum: Limited assessment of the cardiac size given an AP projection (yet grossly unchanged). There is no mediastinal widening or masses. There is no hilar or mediastinal lymphadenopathy. Bony Thorax: The bony thorax appears intact without fractures or deformities. Soft Tissues: The soft tissues overlying the chest wall are unremarkable. Monitor leads noted. IMPRESSION: Mild left pleural effusion with associated compression findings ( progressive finding / the effusion increased compared to previous ). Electronically signed by Dustin Simms 06-22-2025 03:19 AM Abdomen/Pelvis CT 06/22/25 02:30 EXAM: CT abd pelvis wo con CLINICAL HISTORY: lactic acidosis TECHNIQUE: Contiguous axial images were obtained from the level of the diaphragm to the lower pole of kidneys without intravenous contrast. Coronal and sagittal reconstructions were likewise performed and indicated to increase the sensitivity for detecting clinically relevant pathology. CT scan was performed according to ALARA (as low as reasonably achievable). COMPARISON: None. FINDINGS: Mild bilateral pleural effusion with basal subsegmental collapse of both lower lobes are seen. Evaluation of the abdominal and pelvic visceral organs is limited without intravenous contrast. Hepatomegaly with hepatic steatosis. The unenhanced spleen, pancreas, and adrenal glands are grossly unremarkable. The gallbladder is present. The kidneys are normal in size and attenuation without obvious calcification. There is no hydronephrosis or perinephric stranding. The visualized ureters are normal in caliber. The aorta is normal in caliber. No aggressive appearing osseous lesions are identified. Fluid filled mildly dilated small bowel loops are seen in upper quadrant - maximum diameter measures up to 2.8 cm. Multiple scattered intraperitoneal air are noted; predominantly along the anterior abdomen - suggestive of pneumoperitoneum. Air foci also seen in abdominal wall anteriorly in the midline with soft tissue thickening and surgical clip in midline suggesting post op changes (laparotomy). Evidence of hypoattenuating fluid collection, measuring about 16 x 6 cm is noted involving left lower quadrant, abuts the adjacent pelvic bowel loops ( bowel loops are not separable from the collection- post-contrast evaluation suggested)- could be hemorrhagic collection or extravasated contrast. Few curvilinear structures seen amongst the bowel loops and fluid, could be surgical sutures. Possibility of anastomotic dehiscence. Mild hypodense fluid /ascites noted in lower abdomen and pelvis. Mild soft tissue thickening with air foci are noted adjacent to the umbilicus in the ventral abdominal wall- possibility of recent intervention changes likely. IMPRESSION: 1. Mild bilateral pleural effusion with basal subsegmental collapse of both lower lobes are seen. 2. Fluid filled mildly dilated small bowel loops are seen in upper quadrant - maximum diameter measures up to 2.8 cm. 3. Multiple scattered intraperitoneal air are noted; predominantly along the anterior abdomen - suggestive of pneumoperitoneum.- possibility of changes of recent intervention /hollow viscus perforation- kindly correlate clinically. 4. Evidence of hypoattenuating fluid collection, measuring about 16 x 6 cm is noted involving left lower quadrant, abuts the adjacent pelvic bowel loops ( bowel loops are not separable from the collection- post-contrast evaluation suggested)- could be hemorrhagic collection or extravasated contrast. Few curvilinear structures seen amongst the bowel loops and fluid, could be surgical sutures. Possibility of anastomotic dehiscence. Advised clinical correlation. 5. Mild hypodense fluid /ascites noted in lower abdomen and pelvis. 6. Mild soft tissue thickening with air foci are noted adjacent to the umbilicus in the ventral abdominal wall- possibility of recent intervention changes likely. Electronically signed by Neal Pennington 06-22-2025 03:48 AM (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 (2) DM type 2 (diabetes mellitus, type 2) Diabetes mellitus group home insulin use: without group home use Diabetes mellitus complication status: with ophthalmic complications Diabetes mellitus complication detail: with diabetic retinopathy Diabetic retinopathy severity: with unspecified retinopathy severity Diabetes mellitus macular edema: macular edema presence unspecified Laterality: unspecified laterality Qualified Code(s): E11.319 - Type 2 diabetes mellitus with unspecified diabetic retinopathy without macular edema (3) HTN (hypertension) Hypertension type: unspecified Qualified Code(s): I10 - Essential (primary) hypertension (4) HLD (hyperlipidemia) Hyperlipidemia type: unspecified Qualified Code(s): E78.5 - Hyperlipidemia, unspecified
[2025-06-22 12:55] LABS: Anion Gap 11.0 (3-11); Blood Urea Nitrogen 50.0 mg/dl (6-23); Calcium 7.7 mg/dl (8.6-10.3); Carbon Dioxide 23.0 mmol/L (21-32); Chloride 102.0 mmol/L (98-107); Creatinine Clr Calc Pharmacy 13.7 ml/min; Glucose 122.0 mg/dl (70-99(Fasting)); Magnesium 1.9 mg/dl (1.7-2.4); Potassium 5.2 mmol/L (3.5-5.1); Sodium 136.0 mmol/L (136-145)
--- NOTE | 2025-06-22 13:01 | XRay Report ---
XR chest 1V portable CLINICAL HISTORY: lines COMPARISON STUDY: 06/22/2025 FINDINGS: Endotracheal tube tip is at the thoracic inlet. Bilateral central catheter tips are in the SVC. Nasogastric tube tip is off the field of view inferiorly. There is mild cardiomegaly without pul monary vascular congestion. Inspiration is shallow. There is stable stranding opacity in the lung bas es with blunting of the left costophrenic angle. No pneumothorax seen. IMPRESSION: No pneumothorax. Otherwise as described. ACT 112: Negative or not required by law. Electronically signed by: Arjun Hines M.D. 06/22/2025 1:00 PM
[2025-06-22 13:23] LABS: Hematocrit (blood only) 25.7 % (42.0-52.0); Hemoglobin 8.5 g/dl (14.0-18.0); Mean Corpuscular Hemoglobin 30.0 pg (25.0-34.0); Mean Corpuscular Volume 90.8 fL (80.0-100.0); Platelet Count 168 K/uL (130-400); RDW Standard Deviation 44.6 fL (36.4-46.3); Red Blood Count 2.83 M/uL (4.70-6.10); White Blood Count 10.31 K/ul (4.8-10.8)
[2025-06-22 13:26] LABS: Dohle Bodies 1+; Immature Granulocytes # (auto) 0.26 K/uL (0.01-0.20); Immature Granulocytes % (auto) 2.5 %
[2025-06-22] MEDS: VANCOMYCIN 750 MG in SODIUM CHLORIDE 0.9% 250 ML IV ONE (13:30)
[2025-06-22] MEDS: NOREPINEPHRINE/D5W 4 MG/250 ML IV ONE (13:30)
--- NOTE | 2025-06-22 13:50 | Procedure Note ---
Procedure Note Date of Service June 22, 2025 Procedure date: Noted above Procedure: Temporary hemodialysis access Pre-procedure indication: Temporary hemodialysis Post-procedure Diagnosis: same as above Prior to Procedure: Informed Consent: The risks, benefits, indications, potential complications, and alternatives were explained to the patient and verbal informed consent obtained. Attending Staff: Lanny Hope DO Resident/APC: Not applicable Skin Prep: Chlorhexidine Anesthesia: 4 mL 1% lidocaine without epinephrine The identity of the patient was confirmed and a bedside time out was performed. Description of Procedure: After sterile prep and sterile drape utilizing standard sterile technique the superficial skin of the right internal jugular area was anesthetized. The target vessel was identified and entered with an 18- gauge needle. Dark venous blood return was noted. A guidewire was inserted through the needle and into the vessel. The needle was withdrawn and a skin ellie was made. A tissue dilator was advanced via Seldinger technique and removed. A double lumen catheter was inserted via Seldinger technique and the guidewire removed. All ports viviana and flushed easily. A Biopatch was placed, and the catheter was secured via nylon suture. A sterile dressing was then applied. Complications: None Estimated blood loss: Trace Patient tolerated the procedure well. Procedure Date: Noted Above Procedure: Procedural Ultrasound Indication: Central venous access Attending: Lanny Hope DO Resident/Physician Hydro Excavation Operator: Not applicable Artery visualized: Yes Vein visualized: Yes Compressible Vein: Yes Vein patent: Yes Guidewire or Short Catheter seen in vein prior to dilation: Yes Line confirmed in Vein with ultrasound: Yes Lung Sliding on side of attempt (if applicable): NA If no lung sliding or not obtained has CXR been ordered: Yes Impression: Successful central venous access placement Images obtained are saved for permanent record [facility] Procedure Codes (Charges) Tubes, Drains, and Vasc Access Procedure 1: Tubes, Drains, and Vasc Access: [id number] Ultrasound Guidance For Vascular (Right-sided procedure) Procedure 2: Tubes, Drains, and Vasc Access: [id number] Insertion Of Non-tunneled Catheter Age 7 Yrs> (Right-sided procedure) Coding CPT Codes Tubes, Drains, and Vasc Access - Tubes, Drains, and Vasc Access: [id number] Ultrasound Guidance For Vascular ([id number]) Tubes, Drains, and Vasc Access - Tubes, Drains, and Vasc Access: [id number] Insertion Of Non-tunneled Catheter Age 7 Yrs> ([id number]) Additional Codes Date of Service ([facility].SURGERY)
--- NOTE | 2025-06-22 14:07 | Critical Care Consultation ---
Date of Consultation June 22, 2025 Assessment & Plan (1) Sepsis: Reason Critically Ill: 80-year-old male with intra-abdominal sepsis secondary to anastomotic leak secondary to hematoma PLAN: Neuro: Analgesia and sedation - Fentanyl infusion and propofol for sedation Resp: Intubation day 1 - Wean as tolerated, anticipate hemodynamic instability after operating room CV: Sepsis associated hypotension - Vasoactive medication with Levophed as needed Fluids/Renal: Acute renal failure with hyperkalemia - Nephrology consult - Anticipate undergoing hemodialysis today ID: Adeline to continue given wound dehiscence and abdominal contamination Vancomycin: To continue until wound culture speciation - Wound culture pending GI/Nutrition: N.p.o. Postop day 0 Hyperlipidemia - Continue rosuvastatin Heme: Acute blood loss anemia - Consented for blood transfusion DVT prophylaxis: SCDs - Holding chemoprophylaxis of heparin 5000 twice daily: Would strongly consider increasing to 3 times daily Endocrine: ICU hyperglycemia protocol Vascular access: Left internal jugular CVC, right internal jugular temporary HD cath Code Status: Full code Disposition: ICU (2) JACINTA (acute kidney injury): (3) Anastomotic leak of intestine: (4) Infected prosthetic mesh of abdominal wall: (5) Infected umbilical granuloma: Supervising Physician Co-Signing Physician Notes I have personally spent 130 minutes of critical care time in the direct management of this patient. This is a life/limb threatening event. This includes time spent evaluating patient, direct bedside care, chart review, placing orders, interpretation of diagnostic studies, discussion with consultants, patient, and/or family members regarding treatment decisions, as well as other required patient management activities. This time is exclusive of all separately billable procedures, and teaching time and separate from and in addition to any other critical care service time. History of Present Illness Reason for Consultation: Abdominal anastomosis dehiscence Attending Physician: Arben Dhaliwal MD History of Present Illness Patient is a 80-year-old male who has a remote history of what is reported to be a umbilical hernia repair with mesh approximately 2 to 3 years ago since that time he has had recurrent discharge from the area and was ultimately felt to have infected mesh. On June 20 patient underwent exploratory laparotomy with mesh takedown, patient required a partial bowel resection with primary reanastomosis. Patient had been doing okay postop day 1 and then postop day 2 he had progressively worsening abdominal distention, decreased urine production and worsening lab values. During my evaluation the patient was alert oriented complaining of mild to moderate abdominal pain. We discussed the risks and benefits of blood transfusion which she has consented for in the past, we also discussed the risks and benefits of advanced vascular access as well as temporary access for hemodialysis he is both agreeable with those procedures. Subsequently return to the operating room for possible anastomotic leak. In the operating room was found to have significant bleeding at the anastomosis and contamination of the abdominal cavity. Old anastomosis was resected and a new anastomosis was created. The abdomen was also irrigated. Anesthesia medically managed the patient's hyperkalemia which is secondary to acute kidney injury. He has been an uric since this morning. I have already discussed the case with nephrology and we will proceed with hemodialysis secondary to azotemia, hyperkalemia. Patient returned from the operating room intubated however he has underwent primary closure. In the operating room he required intermittent vasoactive medication administration, he has not received additional blood product at this time. Allergies Allergy/AdvReac Type Severity Reaction Status Date / Time adhesive tape Allergy Unknown Rash with Verified 06/20/25 08:36 extended use Home Medications Medication Instructions Recorded Confirmed Type aspirin 325 mg tablet 325 mg PO QAM 01/21/23 06/20/25 History metformin 500 mg tablet 500 mg PO QAM 01/21/23 06/20/25 History pantoprazole 40 mg tablet,delayed 40 mg PO QAM 01/21/23 06/20/25 History release ascorbic acid (vitamin C) 1,000 mg 1,000 mg PO Q2D 06/13/25 06/20/25 History tablet (Vitamin C) cyanocobalamin (vitamin B-12) 1,000 mcg PO QAM 06/13/25 06/20/25 History 1,000 mcg tablet (Vitamin B-12) empagliflozin 25 mg tablet 25 mg PO QAM 06/13/25 06/20/25 History (Jardiance) losartan 25 mg tablet 25 mg PO QAM 06/13/25 06/20/25 History rosuvastatin 20 mg tablet 20 mg PO QAM 06/13/25 06/20/25 History sildenafil 25 mg tablet 20 mg PO UD PRN sexual activity 06/13/25 06/20/25 History vit C 250 mg-vit E 90 mg-zinc 40 2 tab PO QAM 06/13/25 06/20/25 History mg-copper 1 [id number] capsule (PreserVision AREDS-2) Patient History Medical History Ulnar neuropathy at elbow of left upper extremity Carpal tunnel syndrome, left History of Lyme disease x2 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14, no hx locking HLD (hyperlipidemia) Hx borderline AAA (abdominal aortic aneurysm) Monitored by PCP US Aorta 08/31/24: Mild aneurysmal dilitation of the proximal abdominal aorta (measures approximately 3.2cm x 2.7 cm) Abd/Pelvis CT 05/17/25: "Aorta: Atherosclerotic changes of the abdominal aorta without aneurysm." Surgical History History of surgery (05/2024) Left ulnar nerve repair History of wisdom tooth extraction History of hernia surgery x2 History of appendectomy (2011) "Nicked my intestine"- monitored/no additional surgery History of esophagogastroduodenoscopy (EGD) History of colonoscopy 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 (Age 27) "Surgery took care of it" per patient Social History Smoking Status: Former smoker Tobacco Type: Cigarettes, Pipe and Cigars Smoking End Date: 17 yr ago; Second Hand Exposure: Yes (hx); Do You Dip or Chew Tobacco: No (hx when I was younger social, no current); Hx Alcohol Use: Yes Alcohol type: beer and hard liquor Hx Substance Use: No Preferred Language: Portuguese Communication Ability: Effective Archives Director Required: No Beliefs That Will Affect Care: Denominational Denominational Beliefs: Yarsanism Current Living Situation: Spouse Feels Safe at Home: Yes Assistive Devices: Walker Assistive Devices Comment: readers Physical Exam Physical Exam: General: Alert. nontoxic. Oriented x 3 Skin: Warm, dry, Head: Atraumatic Ears, nose, mouth and throat: airway patent Cardiovascular: Normal peripheral perfusion, mild tachycardia on bedside monitor Respiratory: no respiratory distress Gastrointestinal: Moderate distention, mild tympany, mild tenderness with deep palpation, no shadowing on dressings Musculoskeletal: No deformity Results & Data Results & Data Vital Signs (Past 12 Hours) Vital Signs Temp Pulse Pulse Resp BP BP Pulse Ox 06/22/25 12:18 86 16 94 06/22/25 12:00 06/22/25 11:45 115/79 06/22/25 11:45 89 16 95 06/22/25 11:40 132/74 06/22/25 11:40 132/74 06/22/25 11:36 92 H 25 H 06/22/25 11:35 172/79 H 06/22/25 11:35 172/79 H 06/22/25 11:34 165/76 H 06/22/25 09:18 93 06/22/25 08:38 36.7 C 105 H 28 H 115/76 91 06/22/25 07:29 36.4 C L 98 H 24 111/77 90 06/22/25 03:34 106 H 26 H 105/71 92 O2 Del Method O2 Flow Rate FiO2 06/22/25 12:18 80 06/22/25 12:00 Mechanical Vent 80 06/22/25 11:45 06/22/25 11:45 06/22/25 11:40 06/22/25 11:40 06/22/25 11:36 06/22/25 11:35 06/22/25 11:35 06/22/25 11:34 06/22/25 09:18 Nasal Cannula 7 06/22/25 08:38 Nasal Cannula 6 06/22/25 07:29 Nasal Cannula 4 06/22/25 03:34 Nasal Cannula 4 Coding Level of Care Code 73811 CRITICAL CARE 1ST 30-74M Additional Critical Care Time Additional 30min Critical Care Time: Yes - 02847 x 3 (90 addl min) Total Critical Care Time: 130 Diagnoses Sepsis with acute renal failure without septic shock, due to unspecified organism, unspecified acute renal failure type A41.9; R65.20; N17.9 Sepsis type: sepsis due to unspecified organism Sepsis acute organ dysfunction status: with acute organ dysfunction Severe sepsis acute organ dysfunction type: acute renal failure Acute renal failure type: unspecified Severe sepsis shock status: without septic shock JACINTA (acute kidney injury) N17.9 Anastomotic leak of intestine K91.89 Infected prosthetic mesh of abdominal wall, initial encounter T85.79XA Encounter type: initial encounter Infected umbilical granuloma P83.81; B99.9 Additional Codes Critical Care Time - Additional 30min Critical Care Time: Yes - 11478 x 3 (90 addl min) ([id number]) (1) Sepsis Sepsis type: sepsis due to unspecified organism Sepsis acute organ dysfunction status: with acute organ dysfunction Severe sepsis acute organ dysfunction type: acute renal failure Acute renal failure type: unspecified Severe sepsis shock status: without septic shock Qualified Code(s): A41.9 - Sepsis, unspecified organism; R65.20 - Severe sepsis without septic shock; N17.9 - Acute kidney failure, unspecified (4) Infected prosthetic mesh of abdominal wall Encounter type: initial encounter Qualified Code(s): T85.79XA - Infection and inflammatory reaction due to other internal prosthetic devices, implants and grafts, initial encounter
--- NOTE | 2025-06-22 14:08 | Pharmacy Report ---
Pharmacy Glycemic Short Note 2 - Date of Service June 22, 2025 - Glycemic Short BSG Results (Last 24 hours): 06/21/25 06/21/25 06/21/25 14:00 14:22 14:58 Glucose 170 H POC Glucose 135 H 146 H POC Glucose (other) 06/21/25 06/21/25 06/21/25 16:00 17:03 18:04 Glucose POC Glucose 122 H 134 H 120 H POC Glucose (other) 06/21/25 06/21/25 06/21/25 18:55 19:18 19:25 Glucose 128 H POC Glucose 109 H 132 H POC Glucose (other) 06/21/25 06/21/25 06/21/25 19:35 20:31 21:30 Glucose POC Glucose 150 H 147 H 185 H POC Glucose (other) 06/21/25 06/21/25 06/22/25 22:36 23:39 00:25 Glucose 153 H POC Glucose 175 H 168 H POC Glucose (other) 06/22/25 06/22/25 06/22/25 01:26 02:38 03:30 Glucose POC Glucose 153 H 254 H 204 H POC Glucose (other) 06/22/25 06/22/25 06/22/25 04:05 04:33 05:33 Glucose 172 H POC Glucose 179 H 185 H POC Glucose (other) 06/22/25 06/22/25 06/22/25 05:53 06:31 07:27 Glucose 177 H POC Glucose 200 H 189 H POC Glucose (other) 06/22/25 06/22/25 06/22/25 08:10 08:35 09:01 Glucose 265 H Cancelled POC Glucose 209 H POC Glucose (other) 06/22/25 06/22/25 06/22/25 09:41 10:35 11:40 Glucose POC Glucose 160 H POC Glucose (other) 198 H 165 H 06/22/25 12:11 Glucose 122 H POC Glucose POC Glucose (other) OUTPATIENT ANTIDIABETIC REGIMEN: * empagliflozin 25mg PO Q AM * metformin ER 500mg PO daily HbA1c: 7.7% on 06/21/25 ASSESSMENT: 06/22 * Patient remains on insulin infusion @ 1 unit/hour. BSGs have been stable. Returned to OR today for ex lap, washout and was transferred to the ICU following * Patient remains intubated at this time. SCR continues to increase. K 5.2. Bicarb is now 23, lactate 3.6 this morning (on 150 meq NABicarb in D5W @ 150 mL/hr). Anion gap has closed. PH 7.26 * Would continue insulin infusion at this time given critical condition. 06/21 * Jose Ramon is a 80 year old male who was admitted yesterday for sepsis secondary to infected mesh of abdominal wall--s/p mesh removal, hernia repair, and bowel resection (POD #1). Patient with noted hyperglycemia and metabolic acidosis (AG 21 and CO2 17 on 06/20 and AG 19 and CO2 19 with labs this morning). * An insulin drip was started for DKA and pharmacy was consulted to assist with glycemic management this morning. Prior to starting the insulin drip, BSG was 315mg/dL.. Lantus 6 units x 1 was given and 4 units regular insulin iv x 1 was also given. At ~1000 this morning, BSG was still 297mg/dL. An 8 unit regular insulin bolus was given followed by the insulin drip at 8.8units/hr. * Patient remains NPO, and BSGs have been trending down. Pending fluids containing KCL have been ordered. PLAN FOR INPATIENT GLYCEMIC CONTROL: * Hold outpatient oral diabetes medications * Basal insulin * Lantus 6 units SQ x 1 this morning (ordered by provider), then regular insulin drip was started at 8.8units/hr * Bolus insulin * NovoLog per scale ACHS or Q6hrs while NPO * Goal Range: Low 150 mg/dL - High 250 mg/dL * Correction Factor: -- mg/dL/unit * Nutritional / Prandial insulin per carb ratio of 1 unit per -- grams CHO consumed-- None for now since NPO but RN to use "insulin infusion adjustment calculator" to calculate dose when he is ordered a diet.
[2025-06-22] MEDS: Standard Conc; 4mg in 250mL IV SCH (15:00)
[2025-06-22] MEDS ORDERED: NOREPINEPHRINE/D5W 4 MG/250 ML PLCT IV SCH (15:00)
[2025-06-22] MEDS ORDERED: VASOPRESSIN 20 UNITS in SODIUM CHLORIDE 0.9% 100 ML IV SCH (15:00)
[2025-06-22 15:11] LABS: Base Excess VBG -1.8 mEq/L; HCO3 VBG 24 mmol/L; Oxygen Saturation VBG 97.9 %; PCO2 VBG 42 mmHg (38-50); PO2 VBG 78 mmHg; pH VBG 7.36 (7.36-7.41)
[2025-06-22 15:39] LABS: Anion Gap 10.0 (3-11); Blood Urea Nitrogen 39.0 mg/dl (6-23); Calcium 7.5 mg/dl (8.6-10.3); Carbon Dioxide 25.0 mmol/L (21-32); Chloride 100.0 mmol/L (98-107); Creatinine Clr Calc Pharmacy 17.1 ml/min; Glucose 158.0 mg/dl (70-99(Fasting)); Magnesium 1.7 mg/dl (1.7-2.4); Potassium 5.0 mmol/L (3.5-5.1); Sodium 135.0 mmol/L (136-145)
[2025-06-22] MEDS: VASOPRESSION #-# Do NOT Titrate #-# Option IV SCH (16:01)
[2025-06-22] MEDS ORDERED: PHARMACY GLYCEMIC MGMT CONSULT PRN (18:43)
[2025-06-22 20:17] LABS: Base Excess VBG 2.4 mEq/L; HCO3 VBG 27 mmol/L; Oxygen Saturation VBG 99.2 %; PCO2 VBG 42 mmHg (38-50); PO2 VBG 103 mmHg; pH VBG 7.42 (7.36-7.41)
[2025-06-22 20:21] LABS: Anion Gap 10.0 (3-11); Calcium 7.5 mg/dl (8.6-10.3); Carbon Dioxide 27.0 mmol/L (21-32); Chloride 97.0 mmol/L (98-107); Magnesium 1.6 mg/dl (1.7-2.4); Potassium 5.3 mmol/L (3.5-5.1); Sodium 134.0 mmol/L (136-145)
[2025-06-22 20:34] LABS: Blood Urea Nitrogen 29.0 mg/dl (6-23); Creatinine Clr Calc Pharmacy 20.3 ml/min; Glucose 208.0 mg/dl (70-99(Fasting))
[2025-06-22 20:36] LABS: Anion Gap 10.0 (3-11); Calcium 7.4 mg/dl (8.6-10.3); Carbon Dioxide 27.0 mmol/L (21-32); Chloride 97.0 mmol/L (98-107); Magnesium 1.6 mg/dl (1.7-2.4); Potassium 5.4 mmol/L (3.5-5.1); Sodium 134.0 mmol/L (136-145)
[2025-06-22 20:41] LABS: Blood Urea Nitrogen 30.0 mg/dl (6-23); Creatinine Clr Calc Pharmacy 20.0 ml/min; Glucose 213.0 mg/dl (70-99(Fasting))
[2025-06-22] MEDS: PIPERACILLIN/TAZOBACTAM 4.5 GM/100 ML BAG IV SCH (20:42)
[2025-06-22] MEDS: LANTUS PER UNIT CHARGE SC ONE (21:13)
[2025-06-22 22:44] LABS: Hep B Surface Ag with confirm Negative (Negative)
[2025-06-22] MEDS ORDERED: Nursing to Pharmacy Communication SCH (22:45)
[2025-06-22] MEDS: INSULIN ASPART PER UNIT CHARGE SC SCH (23:16)
[2025-06-23 05:39] LABS: Alanine Aminotransferase 21.0 U/L (7-52); Albumin Globulin Ratio 1.3 (0.9-2); Albumin Level 2.5 gm/dl (3.4-5.0); Alkaline Phosphatase 40.0 U/L (34-104); Anion Gap 10.0 (3-11); Bilirubin,Total 1.1 mg/dl (0.2-1.0); Blood Urea Nitrogen 35.0 mg/dl (6-23); Calcium 6.8 mg/dl (8.6-10.3); Carbon Dioxide 30.0 mmol/L (21-32); Chloride 92.0 mmol/L (98-107); Creatinine Clr Calc Pharmacy 15.2 ml/min; Globulin 1.9 gm/dl (2.5-4.0); Glucose 321.0 mg/dl (70-99(Fasting)); Potassium 5.2 mmol/L (3.5-5.1); Sodium 132.0 mmol/L (136-145); Total Protein 4.4 gm/dl (6.0-8.3)
[2025-06-23] MEDS: INSULIN REGULAR 250 UNITS in SODIUM CHLORIDE 0.9% 247.5 ML IV SCH (06:15)
[2025-06-23] MEDS: NovoLIN-R BOLUS FROM BAG IV ONE (06:16)
[2025-06-23 06:23] LABS: iSTAT Art Bld Gas Base Excess 6.0 meg/L (-9-1.8); iSTAT Art Bld Gas pCO2 Correct 43 mmHg (35-46); iSTAT Art Bld Gas pH Corrected 7.453 (7.35-7.45); iSTAT Arterial Blood Gas pO2 C 84
--- NOTE | 2025-06-23 08:02 | Surgery Progress Note ---
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 POD#3 s/p ex lap, removal infected mesh, bowel resection and reanastomosis. intubated/sedated pressor support - wean as tolerated appreciate ICU management track labs - may need transfer for [facility] Admission and Anticipated Discharge Date Admission Date: June 20, 2025 Subjective POD#1 s/p ex lap with washout, small bowel resection, reanastomosis. POD#3 s/p ex lap, removal infected mesh, bowel resection and reanastomosis. intubated and sedated, decreasing vent settings required increasing levo dose, now decreasing to .09 resting comfortably dialysis yesterday Physical Exam Physical Exam: intubated and sedated on pressors, slightly decreased this am abd soft, slight distention KRISTA with serosanguinous drainage minimal urine outpt Results & Data Vital Signs (Past 12 Hours) Vital Signs Temp Pulse Resp BP Pulse Ox FiO2 06/23/25 06:45 121/63 06/23/25 06:45 37.5 C 88 17 97 06/23/25 06:30 37.5 C 83 18 98 06/23/25 06:30 126/63 06/23/25 06:30 126/63 06/23/25 06:30 126/63 06/23/25 06:30 126/63 06/23/25 06:18 37.5 C 85 17 100 06/23/25 06:15 130/59 L 06/23/25 06:15 130/59 L 06/23/25 06:15 130/59 L 06/23/25 06:15 130/59 L 06/23/25 06:12 37.5 C 80 14 97 06/23/25 06:06 37.5 C 81 14 99 06/23/25 06:00 120/88 06/23/25 05:51 37.6 C H 81 14 99 06/23/25 05:45 37.6 C H 78 14 99 06/23/25 05:31 132/47 L 06/23/25 05:31 132/47 L 06/23/25 05:30 37.6 C H 92 H 14 99 06/23/25 05:18 37.5 C 87 14 97 06/23/25 05:15 127/64 06/23/25 05:09 37.5 C 88 14 100 06/23/25 05:03 37.5 C 88 14 99 06/23/25 05:00 134/75 06/23/25 05:00 134/75 06/23/25 05:00 134/75 06/23/25 04:45 123/72 06/23/25 04:45 123/72 06/23/25 04:42 37.5 C 91 H 14 97 06/23/25 04:30 37.5 C 90 14 97 06/23/25 04:30 146/65 H 06/23/25 04:30 146/65 H 06/23/25 04:30 146/65 H 06/23/25 04:15 140/66 06/23/25 04:09 37.5 C 90 17 96 06/23/25 04:03 37.5 C 91 H 14 96 06/23/25 04:00 122/71 06/23/25 03:45 118/75 06/23/25 03:45 37.3 C 97 H 16 92 06/23/25 03:45 118/75 06/23/25 03:37 60 06/23/25 03:30 128/72 06/23/25 03:30 128/72 06/23/25 03:21 36.6 C 91 H 23 91 06/23/25 03:15 36.6 C 93 H 16 96 06/23/25 03:15 135/75 06/23/25 03:03 36.6 C 92 H 16 96 06/23/25 03:00 128/69 06/23/25 03:00 128/69 06/23/25 02:50 96 H 16 95 50 06/23/25 02:45 131/62 06/23/25 02:36 36.8 C 89 16 96 06/23/25 02:33 36.8 C 89 16 97 06/23/25 02:30 126/75 06/23/25 02:30 126/75 06/23/25 02:30 126/75 06/23/25 02:27 36.8 C 90 16 96 06/23/25 02:15 138/69 06/23/25 02:15 36.8 C 89 16 96 06/23/25 02:00 36.6 C 90 16 96 06/23/25 02:00 139/74 06/23/25 02:00 139/74 06/23/25 01:54 36.6 C 93 H 16 96 06/23/25 01:45 121/77 06/23/25 01:33 36.6 C 95 H 16 95 06/23/25 01:30 108/77 06/23/25 01:15 127/75 06/23/25 01:00 36.8 C 92 H 16 100 06/23/25 01:00 143/79 H 06/23/25 00:45 120/75 06/23/25 00:45 120/75 06/23/25 00:45 36.8 C 100 H 16 95 06/23/25 00:30 123/77 06/23/25 00:30 123/77 06/23/25 00:30 123/77 06/23/25 00:30 123/77 06/23/25 00:30 123/77 06/23/25 00:30 36.7 C 96 H 16 96 06/23/25 00:26 105 H 17 95 50 06/23/25 00:15 128/61 06/23/25 00:06 37.1 C 95 H 17 95 06/23/25 00:00 123/73 06/22/25 23:54 37.2 C 96 H 16 96 06/22/25 23:49 50 06/22/25 23:47 104/55 L 06/22/25 23:47 104/55 L 06/22/25 23:45 37.2 C 98 H 16 94 06/22/25 23:30 136/77 06/22/25 23:30 136/77 06/22/25 23:30 136/77 06/22/25 23:30 136/77 06/22/25 23:30 37.2 C 94 H 16 95 06/22/25 23:15 127/81 06/22/25 23:15 37.3 C 98 H 17 95 06/22/25 23:00 114/68 06/22/25 23:00 114/68 06/22/25 23:00 37.3 C 102 H 17 96 06/22/25 22:45 37.0 C 101 H 17 96 06/22/25 22:45 115/76 06/22/25 22:45 115/76 06/22/25 22:45 115/76 06/22/25 22:39 37.1 C 98 H 16 96 06/22/25 22:30 120/82 06/22/25 22:30 120/82 06/22/25 22:24 37.1 C 93 H 16 96 06/22/25 22:16 123/74 06/22/25 22:16 123/74 06/22/25 22:15 37.2 C 77 19 94 06/22/25 22:12 37.2 C 97 H 17 97 06/22/25 22:00 102 H 06/22/25 22:00 123/73 06/22/25 21:57 37.2 C 93 H 20 95 06/22/25 21:45 37.1 C 93 H 16 96 06/22/25 21:45 130/81 06/22/25 21:42 37.1 C 94 H 16 96 06/22/25 21:24 37.2 C 96 H 17 96 06/22/25 21:10 98 H 17 96 50 06/22/25 21:03 37.2 C 95 H 16 97 06/22/25 21:00 118/79 06/22/25 20:54 36.0 C L 92 H 16 97 06/22/25 20:45 129/77 06/22/25 20:45 129/77 06/22/25 20:30 128/80 06/22/25 20:00 60 06/22/25 20:00 97 H 12 96 Laboratory Results 06/23/25 06/23/25 06/23/25 Range/Units 06:08 04:50 03:33 WBC (4.8-10.8) K/ul RBC (4.70-6.10) M/uL Hgb (14.0-18.0) g/dl POC Hgb 8.5 L (14.0-18.0) g/dl Hct (42.0-52.0) % POC Hct 25 L (42-52) % MCV (80.0-100.0) fL MCH (25.0-34.0) pg MCHC (32.0-36.0) g/dL RDW Std Deviation (36.4-46.3) fL RDW Coeff of Jessica (11.5-14.5) % Plt Count (130-400) K/uL MPV (9.4-12.4) fL Immature Gran % (Auto) % Neut % (Auto) % Lymph % (Auto) % [place] % (Auto) % Eos % (Auto) % Baso % (Auto) % Neut # (Auto) (1.40-6.50) K/uL Lymph # (Auto) (1.20-3.40) K/uL [place] # (Auto) (0.11-0.59) K/uL Eos # (Auto) (0.00-0.50) K/uL Baso # (Auto) (0.00-0.20) K/uL Immature Gran # (Auto) (0.01-0.20) K/uL Dohle Bodies Specimen Type Arterial Sample Site Art Line POC pH 7.46 H (7.35-7.45) POC pCO2 42 (35-46) mmHg POC pO2 81 (80-95) mmHg POC HCO3 30 H (19-24) raghu/L POC Base Excess 6.0 H (-9-1.8) raghu/L O2 Sat Pulse Oximetry 99 ABG pH (Temp Correct) 7.453 H (7.35-7.45) ABG pCO2 (Temp Corrct 43 (35-46) mmHg POC ABG pO2 at Pt Temp 84 POC ABG O2 Sat 96.0 H (90-95) % Taj Test NA VBG pH (7.36-7.41) VBG pCO2 (38-50) mmHg VBG pO2 mmHg VBG HCO3 mmol/L VBG O2 Saturation % VBG Base Excess mEq/L O2 Delivery Device Ventilator Vent Mode AC POC FiO2 50 % End Tidal CO2 37 POC Sodium 131 L (135-144) mmol/L Sodium 132 L (136-145) mmol/L POC Potassium 4.8 (3.3-5.0) mmol/L Potassium 5.2 H (3.5-5.1) mmol/L POC Chloride (101-112) mmol/L Chloride 92 L (98-107) mmol/L Carbon Dioxide 30 (21-32) mmol/L POC Total CO2 31 (24-31) mmol/L Anion Gap 10 (3-11) POC Anion Gap (16-25) mmol/L POC BUN (7-18) mg/dl BUN 35 H (6-23) mg/dl Creatinine 4.19 H D (0.6-1.4) mg/dl POC Creatinine (0.6-1.3) mg/dl Est Cr Clr Drug Dosing 15.2 ml/min eGFR 13.81 BUN/Creatinine Ratio 8.4 L (10-20) Glucose 321 H* (70-99(Fasting)) mg/dl POC Glucose (70-99) mg/dl POC Glucose (other) 268 H (70-99) mg/dl Lactate (0.4-2.0) mmol/L Calcium 6.8 L (8.6-10.3) mg/dl POC Ioniz Calcium Hayley (1.12-1.32) mmol/l Phosphorus (2.5-4.9) mg/dl Magnesium (1.7-2.4) mg/dl Total Bilirubin 1.1 H (0.2-1.0) mg/dl AST 41 H (13-39) U/L ALT 21 (7-52) U/L Alkaline Phosphatase 40 (34-104) U/L Total Protein 4.4 L (6.0-8.3) gm/dl Albumin 2.5 L (3.4-5.0) gm/dl Globulin 1.9 L (2.5-4.0) gm/dl Albumin/Globulin Ratio 1.3 (0.9-2) Random Vancomycin 10.5 (10-20) mcg/ml Hep Bs Antigen (Negative) Hep Bs Antibody Hep Bs Antibody, Quant (>or=10mIU/mL Immune) mIU/mL 06/22/25 06/22/25 06/22/25 Range/Units 22:57 19:54 19:50 WBC (4.8-10.8) K/ul RBC (4.70-6.10) M/uL Hgb (14.0-18.0) g/dl POC Hgb (14.0-18.0) g/dl Hct (42.0-52.0) % POC Hct (42-52) % MCV (80.0-100.0) fL MCH (25.0-34.0) pg MCHC (32.0-36.0) g/dL RDW Std Deviation (36.4-46.3) fL RDW Coeff of Jessica (11.5-14.5) % Plt Count (130-400) K/uL MPV (9.4-12.4) fL Immature Gran % (Auto) % Neut % (Auto) % Lymph % (Auto) % [place] % (Auto) % Eos % (Auto) % Baso % (Auto) % Neut # (Auto) (1.40-6.50) K/uL Lymph # (Auto) (1.20-3.40) K/uL [place] # (Auto) (0.11-0.59) K/uL Eos # (Auto) (0.00-0.50) K/uL Baso # (Auto) (0.00-0.20) K/uL Immature Gran # (Auto) (0.01-0.20) K/uL Dohle Bodies Specimen Type Sample Site POC pH (7.35-7.45) POC pCO2 (35-46) mmHg POC pO2 (80-95) mmHg POC HCO3 (19-24) raghu/L POC Base Excess (-9-1.8) raghu/L O2 Sat Pulse Oximetry ABG pH (Temp Correct) (7.35-7.45) ABG pCO2 (Temp Corrct (35-46) mmHg POC ABG pO2 at Pt Temp POC ABG O2 Sat (90-95) % Taj Test VBG pH 7.42 H (7.36-7.41) VBG pCO2 42 (38-50) mmHg VBG pO2 103 mmHg VBG HCO3 27 mmol/L VBG O2 Saturation 99.2 % VBG Base Excess 2.4 mEq/L O2 Delivery Device Vent Mode POC FiO2 % End Tidal CO2 POC Sodium (135-144) mmol/L Sodium 134 L (136-145) mmol/L POC Potassium (3.3-5.0) mmol/L Potassium 5.4 H (3.5-5.1) mmol/L POC Chloride (101-112) mmol/L Chloride 97 L (98-107) mmol/L Carbon Dioxide 27 (21-32) mmol/L POC Total CO2 (24-31) mmol/L Anion Gap 10 (3-11) POC Anion Gap (16-25) mmol/L POC BUN (7-18) mg/dl BUN 30 H (6-23) mg/dl Creatinine 3.29 H (0.6-1.4) mg/dl POC Creatinine (0.6-1.3) mg/dl Est Cr Clr Drug Dosing 20.0 ml/min eGFR 18.45 BUN/Creatinine Ratio 9.1 L (10-20) Glucose 213 H (70-99(Fasting)) mg/dl POC Glucose 235 H (70-99) mg/dl POC Glucose (other) (70-99) mg/dl Lactate (0.4-2.0) mmol/L Calcium 7.4 L (8.6-10.3) mg/dl POC Ioniz Calcium Hayley (1.12-1.32) mmol/l Phosphorus (2.5-4.9) mg/dl Magnesium 1.6 L (1.7-2.4) mg/dl Total Bilirubin (0.2-1.0) mg/dl AST (13-39) U/L ALT (7-52) U/L Alkaline Phosphatase (34-104) U/L Total Protein (6.0-8.3) gm/dl Albumin (3.4-5.0) gm/dl Globulin (2.5-4.0) gm/dl Albumin/Globulin Ratio (0.9-2) Random Vancomycin (10-20) mcg/ml Hep Bs Antigen (Negative) Hep Bs Antibody Hep Bs Antibody, Quant (>or=10mIU/mL Immune) mIU/mL 06/22/25 06/22/25 06/22/25 Range/Units 19:32 18:05 18:04 WBC (4.8-10.8) K/ul RBC (4.70-6.10) M/uL Hgb (14.0-18.0) g/dl POC Hgb (14.0-18.0) g/dl Hct (42.0-52.0) % POC Hct (42-52) % MCV (80.0-100.0) fL MCH (25.0-34.0) pg MCHC (32.0-36.0) g/dL RDW Std Deviation (36.4-46.3) fL RDW Coeff of Jessica (11.5-14.5) % Plt Count (130-400) K/uL MPV (9.4-12.4) fL Immature Gran % (Auto) % Neut % (Auto) % Lymph % (Auto) % [place] % (Auto) % Eos % (Auto) % Baso % (Auto) % Neut # (Auto) (1.40-6.50) K/uL Lymph # (Auto) (1.20-3.40) K/uL [place] # (Auto) (0.11-0.59) K/uL Eos # (Auto) (0.00-0.50) K/uL Baso # (Auto) (0.00-0.20) K/uL Immature Gran # (Auto) (0.01-0.20) K/uL Dohle Bodies Specimen Type Sample Site POC pH (7.35-7.45) POC pCO2 (35-46) mmHg POC pO2 (80-95) mmHg POC HCO3 (19-24) raguh/L POC Base Excess (-9-1.8) raghu/L O2 Sat Pulse Oximetry ABG pH (Temp Correct) (7.35-7.45) ABG pCO2 (Temp Corrct (35-46) mmHg POC ABG pO2 at Pt Temp POC ABG O2 Sat (90-95) % Taj Test VBG pH (7.36-7.41) VBG pCO2 (38-50) mmHg VBG pO2 mmHg VBG HCO3 mmol/L VBG O2 Saturation % VBG Base Excess mEq/L O2 Delivery Device Vent Mode POC FiO2 % End Tidal CO2 POC Sodium (135-144) mmol/L Sodium 134 L (136-145) mmol/L POC Potassium (3.3-5.0) mmol/L Potassium 5.3 H (3.5-5.1) mmol/L POC Chloride (101-112) mmol/L Chloride 97 L (98-107) mmol/L Carbon Dioxide 27 (21-32) mmol/L POC Total CO2 (24-31) mmol/L Anion Gap 10 (3-11) POC Anion Gap (16-25) mmol/L POC BUN (7-18) mg/dl BUN 29 H (6-23) mg/dl Creatinine 3.24 H D (0.6-1.4) mg/dl POC Creatinine (0.6-1.3) mg/dl Est Cr Clr Drug Dosing 20.3 ml/min eGFR 18.80 BUN/Creatinine Ratio 9.0 L (10-20) Glucose 208 H (70-99(Fasting)) mg/dl POC Glucose 91 68 L* (70-99) mg/dl POC Glucose (other) (70-99) mg/dl Lactate (0.4-2.0) mmol/L Calcium 7.5 L (8.6-10.3) mg/dl POC Ioniz Calcium Hayley (1.12-1.32) mmol/l Phosphorus 4.7 D (2.5-4.9) mg/dl Magnesium 1.6 L (1.7-2.4) mg/dl Total Bilirubin (0.2-1.0) mg/dl AST (13-39) U/L ALT (7-52) U/L Alkaline Phosphatase (34-104) U/L Total Protein (6.0-8.3) gm/dl Albumin (3.4-5.0) gm/dl Globulin (2.5-4.0) gm/dl Albumin/Globulin Ratio (0.9-2) Random Vancomycin (10-20) mcg/ml Hep Bs Antigen (Negative) Hep Bs Antibody Hep Bs Antibody, Quant (>or=10mIU/mL Immune) mIU/mL 06/22/25 06/22/25 06/22/25 Range/Units 16:10 14:54 12:14 WBC (4.8-10.8) K/ul RBC (4.70-6.10) M/uL Hgb (14.0-18.0) g/dl POC Hgb (14.0-18.0) g/dl Hct (42.0-52.0) % POC Hct (42-52) % MCV (80.0-100.0) fL MCH (25.0-34.0) pg MCHC (32.0-36.0) g/dL RDW Std Deviation (36.4-46.3) fL RDW Coeff of Jessica (11.5-14.5) % Plt Count (130-400) K/uL MPV (9.4-12.4) fL Immature Gran % (Auto) % Neut % (Auto) % Lymph % (Auto) % [place] % (Auto) % Eos % (Auto) % Baso % (Auto) % Neut # (Auto) (1.40-6.50) K/uL Lymph # (Auto) (1.20-3.40) K/uL [place] # (Auto) (0.11-0.59) K/uL Eos # (Auto) (0.00-0.50) K/uL Baso # (Auto) (0.00-0.20) K/uL Immature Gran # (Auto) (0.01-0.20) K/uL Dohle Bodies Specimen Type Sample Site POC pH (7.35-7.45) POC pCO2 (35-46) mmHg POC pO2 (80-95) mmHg POC HCO3 (19-24) raghu/L POC Base Excess (-9-1.8) raghu/L O2 Sat Pulse Oximetry ABG pH (Temp Correct) (7.35-7.45) ABG pCO2 (Temp Corrct (35-46) mmHg POC ABG pO2 at Pt Temp POC ABG O2 Sat (90-95) % Taj Test VBG pH 7.36 (7.36-7.41) VBG pCO2 42 (38-50) mmHg VBG pO2 78 mmHg VBG HCO3 24 mmol/L VBG O2 Saturation 97.9 % VBG Base Excess -1.8 mEq/L O2 Delivery Device Vent Mode POC FiO2 % End Tidal CO2 POC Sodium (135-144) mmol/L Sodium 135 L (136-145) mmol/L POC Potassium (3.3-5.0) mmol/L Potassium 5.0 (3.5-5.1) mmol/L POC Chloride (101-112) mmol/L Chloride 100 (98-107) mmol/L Carbon Dioxide 25 (21-32) mmol/L POC Total CO2 (24-31) mmol/L Anion Gap 10 (3-11) POC Anion Gap (16-25) mmol/L POC BUN (7-18) mg/dl BUN 39 H (6-23) mg/dl Creatinine 3.84 H D (0.6-1.4) mg/dl POC Creatinine (0.6-1.3) mg/dl Est Cr Clr Drug Dosing 17.1 ml/min eGFR 15.33 BUN/Creatinine Ratio 10.2 (10-20) Glucose 158 H (70-99(Fasting)) mg/dl POC Glucose 144 H (70-99) mg/dl POC Glucose (other) (70-99) mg/dl Lactate (0.4-2.0) mmol/L Calcium 7.5 L (8.6-10.3) mg/dl POC Ioniz Calcium Hayley (1.12-1.32) mmol/l Phosphorus 3.7 D (2.5-4.9) mg/dl Magnesium 1.7 (1.7-2.4) mg/dl Total Bilirubin (0.2-1.0) mg/dl AST (13-39) U/L ALT (7-52) U/L Alkaline Phosphatase (34-104) U/L Total Protein (6.0-8.3) gm/dl Albumin (3.4-5.0) gm/dl Globulin (2.5-4.0) gm/dl Albumin/Globulin Ratio (0.9-2) Random Vancomycin (10-20) mcg/ml Hep Bs Antigen Negative (Negative) Hep Bs Antibody Non-Immune Hep Bs Antibody, Quant < 3.00 (>or=10mIU/mL Immune) mIU/mL 06/22/25 06/22/25 06/22/25 Range/Units 12:11 11:40 10:42 WBC 10.31 (4.8-10.8) K/ul RBC 2.83 L (4.70-6.10) M/uL Hgb 8.5 L (14.0-18.0) g/dl POC Hgb 12.2 L (14.0-18.0) g/dl Hct 25.7 L (42.0-52.0) % POC Hct 36 L (42-52) % MCV 90.8 (80.0-100.0) fL MCH 30.0 (25.0-34.0) pg MCHC 33.1 (32.0-36.0) g/dL RDW Std Deviation 44.6 (36.4-46.3) fL RDW Coeff of Jessica 13.5 (11.5-14.5) % Plt Count 168 (130-400) K/uL MPV 11.5 (9.4-12.4) fL Immature Gran % (Auto) 2.5 % Neut % (Auto) 69.4 % Lymph % (Auto) 18.1 % [place] % (Auto) 9.4 % Eos % (Auto) 0.1 % Baso % (Auto) 0.5 % Neut # (Auto) 7.15 H (1.40-6.50) K/uL Lymph # (Auto) 1.87 (1.20-3.40) K/uL [place] # (Auto) 0.97 H (0.11-0.59) K/uL Eos # (Auto) 0.01 (0.00-0.50) K/uL Baso # (Auto) 0.05 (0.00-0.20) K/uL Immature Gran # (Auto) 0.26 H (0.01-0.20) K/uL Dohle Bodies 1+ Specimen Type Arterial Sample Site POC pH 7.27 L (7.35-7.45) POC pCO2 49 H (35-46) mmHg POC pO2 107 H (80-95) mmHg POC HCO3 22 (19-24) raghu/L POC Base Excess -5.0 (-9-1.8) raghu/L O2 Sat Pulse Oximetry ABG pH (Temp Correct) (7.35-7.45) ABG pCO2 (Temp Corrct (35-46) mmHg POC ABG pO2 at Pt Temp POC ABG O2 Sat 97.0 H (90-95) % Taj Test VBG pH 7.26 L (7.36-7.41) VBG pCO2 47 (38-50) mmHg VBG pO2 70 mmHg VBG HCO3 21 mmol/L VBG O2 Saturation 95.4 % VBG Base Excess -6.1 mEq/L O2 Delivery Device Vent Mode POC FiO2 % End Tidal CO2 POC Sodium 134 L (135-144) mmol/L Sodium 136 (136-145) mmol/L POC Potassium 5.1 H (3.3-5.0) mmol/L Potassium 5.2 H (3.5-5.1) mmol/L POC Chloride (101-112) mmol/L Chloride 102 (98-107) mmol/L Carbon Dioxide 23 (21-32) mmol/L POC Total CO2 24 (24-31) mmol/L Anion Gap 11 (3-11) POC Anion Gap (16-25) mmol/L POC BUN (7-18) mg/dl BUN 50 H (6-23) mg/dl Creatinine 4.80 H* (0.6-1.4) mg/dl POC Creatinine (0.6-1.3) mg/dl Est Cr Clr Drug Dosing 13.7 ml/min eGFR 11.73 BUN/Creatinine Ratio 10.4 (10-20) Glucose 122 H (70-99(Fasting)) mg/dl POC Glucose 160 H (70-99) mg/dl POC Glucose (other) (70-99) mg/dl Lactate (0.4-2.0) mmol/L Calcium 7.7 L (8.6-10.3) mg/dl POC Ioniz Calcium Hayley (1.12-1.32) mmol/l Phosphorus 5.6 H (2.5-4.9) mg/dl Magnesium 1.9 (1.7-2.4) mg/dl Total Bilirubin (0.2-1.0) mg/dl AST (13-39) U/L ALT (7-52) U/L Alkaline Phosphatase (34-104) U/L Total Protein (6.0-8.3) gm/dl Albumin (3.4-5.0) gm/dl Globulin (2.5-4.0) gm/dl Albumin/Globulin Ratio (0.9-2) Random Vancomycin (10-20) mcg/ml Hep Bs Antigen (Negative) Hep Bs Antibody Hep Bs Antibody, Quant (>or=10mIU/mL Immune) mIU/mL 06/22/25 06/22/25 06/22/25 Range/Units 10:35 09:41 09:01 WBC (4.8-10.8) K/ul RBC (4.70-6.10) M/uL Hgb (14.0-18.0) g/dl POC Hgb 9.9 L 9.2 L (14.0-18.0) g/dl Hct (42.0-52.0) % POC Hct 29 L 27 L (42-52) % MCV (80.0-100.0) fL MCH (25.0-34.0) pg MCHC (32.0-36.0) g/dL RDW Std Deviation (36.4-46.3) fL RDW Coeff of Jessica (11.5-14.5) % Plt Count (130-400) K/uL MPV (9.4-12.4) fL Immature Gran % (Auto) % Neut % (Auto) % Lymph % (Auto) % [place] % (Auto) % Eos % (Auto) % Baso % (Auto) % Neut # (Auto) (1.40-6.50) K/uL Lymph # (Auto) (1.20-3.40) K/uL [place] # (Auto) (0.11-0.59) K/uL Eos # (Auto) (0.00-0.50) K/uL Baso # (Auto) (0.00-0.20) K/uL Immature Gran # (Auto) (0.01-0.20) K/uL Dohle Bodies Specimen Type Sample Site POC pH (7.35-7.45) POC pCO2 (35-46) mmHg POC pO2 (80-95) mmHg POC HCO3 (19-24) raghu/L POC Base Excess (-9-1.8) raghu/L O2 Sat Pulse Oximetry ABG pH (Temp Correct) (7.35-7.45) ABG pCO2 (Temp Corrct (35-46) mmHg POC ABG pO2 at Pt Temp POC ABG O2 Sat (90-95) % Taj Test VBG pH (7.36-7.41) VBG pCO2 (38-50) mmHg VBG pO2 mmHg VBG HCO3 mmol/L VBG O2 Saturation % VBG Base Excess mEq/L O2 Delivery Device Vent Mode POC FiO2 % End Tidal CO2 POC Sodium 134 L 132 L (135-144) mmol/L Sodium Cancelled (136-145) mmol/L POC Potassium 5.0 5.9 H (3.3-5.0) mmol/L Potassium Cancelled (3.5-5.1) mmol/L POC Chloride 101 98 L (101-112) mmol/L Chloride Cancelled (98-107) mmol/L Carbon Dioxide Cancelled (21-32) mmol/L POC Total CO2 21 L 22 L (24-31) mmol/L Anion Gap Cancelled (3-11) POC Anion Gap 18.0 20.0 (16-25) mmol/L POC BUN 52 H 45 H (7-18) mg/dl BUN Cancelled (6-23) mg/dl Creatinine Cancelled (0.6-1.4) mg/dl POC Creatinine 4.9 H* 5.4 H* (0.6-1.3) mg/dl Est Cr Clr Drug Dosing Cancelled ml/min eGFR Cancelled BUN/Creatinine Ratio Cancelled (10-20) Glucose Cancelled (70-99(Fasting)) mg/dl POC Glucose (70-99) mg/dl POC Glucose (other) 165 H 198 H (70-99) mg/dl Lactate (0.4-2.0) mmol/L Calcium Cancelled (8.6-10.3) mg/dl POC Ioniz Calcium Hayley 0.98 L 1.02 L (1.12-1.32) mmol/l Phosphorus (2.5-4.9) mg/dl Magnesium (1.7-2.4) mg/dl Total Bilirubin Cancelled (0.2-1.0) mg/dl AST Cancelled (13-39) U/L ALT Cancelled (7-52) U/L Alkaline Phosphatase Cancelled (34-104) U/L Total Protein Cancelled (6.0-8.3) gm/dl Albumin Cancelled (3.4-5.0) gm/dl Globulin Cancelled (2.5-4.0) gm/dl Albumin/Globulin Ratio Cancelled (0.9-2) Random Vancomycin (10-20) mcg/ml Hep Bs Antigen (Negative) Hep Bs Antibody Hep Bs Antibody, Quant (>or=10mIU/mL Immune) mIU/mL 06/22/25 06/22/25 06/22/25 Range/Units 08:35 08:10 08:07 WBC (4.8-10.8) K/ul RBC (4.70-6.10) M/uL Hgb (14.0-18.0) g/dl POC Hgb (14.0-18.0) g/dl Hct (42.0-52.0) % POC Hct (42-52) % MCV (80.0-100.0) fL MCH (25.0-34.0) pg MCHC (32.0-36.0) g/dL RDW Std Deviation (36.4-46.3) fL RDW Coeff of Jessica (11.5-14.5) % Plt Count (130-400) K/uL MPV (9.4-12.4) fL Immature Gran % (Auto) % Neut % (Auto) % Lymph % (Auto) % [place] % (Auto) % Eos % (Auto) % Baso % (Auto) % Neut # (Auto) (1.40-6.50) K/uL Lymph # (Auto) (1.20-3.40) K/uL [place] # (Auto) (0.11-0.59) K/uL Eos # (Auto) (0.00-0.50) K/uL Baso # (Auto) (0.00-0.20) K/uL Immature Gran # (Auto) (0.01-0.20) K/uL Dohle Bodies Specimen Type Sample Site POC pH (7.35-7.45) POC pCO2 (35-46) mmHg POC pO2 (80-95) mmHg POC HCO3 (19-24) raghu/L POC Base Excess (-9-1.8) raghu/L O2 Sat Pulse Oximetry ABG pH (Temp Correct) (7.35-7.45) ABG pCO2 (Temp Corrct (35-46) mmHg POC ABG pO2 at Pt Temp POC ABG O2 Sat (90-95) % Taj Test VBG pH (7.36-7.41) VBG pCO2 (38-50) mmHg VBG pO2 mmHg VBG HCO3 mmol/L VBG O2 Saturation % VBG Base Excess mEq/L O2 Delivery Device Vent Mode POC FiO2 % End Tidal CO2 POC Sodium (135-144) mmol/L Sodium 133 L (136-145) mmol/L POC Potassium (3.3-5.0) mmol/L Potassium 6.0 H (3.5-5.1) mmol/L POC Chloride (101-112) mmol/L Chloride 96 L (98-107) mmol/L Carbon Dioxide 23 (21-32) mmol/L POC Total CO2 (24-31) mmol/L Anion Gap 14 H (3-11) POC Anion Gap (16-25) mmol/L POC BUN (7-18) mg/dl BUN 51 H (6-23) mg/dl Creatinine 4.77 H* (0.6-1.4) mg/dl POC Creatinine (0.6-1.3) mg/dl Est Cr Clr Drug Dosing 13.8 ml/min eGFR 11.82 BUN/Creatinine Ratio 10.7 (10-20) Glucose 265 H (70-99(Fasting)) mg/dl POC Glucose 209 H (70-99) mg/dl POC Glucose (other) (70-99) mg/dl Lactate 3.6 H* (0.4-2.0) mmol/L Calcium 7.7 L (8.6-10.3) mg/dl POC Ioniz Calcium Hayley (1.12-1.32) mmol/l Phosphorus (2.5-4.9) mg/dl Magnesium (1.7-2.4) mg/dl Total Bilirubin 1.7 H (0.2-1.0) mg/dl AST 67 H (13-39) U/L ALT 27 (7-52) U/L Alkaline Phosphatase 41 (34-104) U/L Total Protein 5.3 L (6.0-8.3) gm/dl Albumin 3.1 L (3.4-5.0) gm/dl Globulin 2.2 L (2.5-4.0) gm/dl Albumin/Globulin Ratio 1.4 (0.9-2) Random Vancomycin (10-20) mcg/ml Hep Bs Antigen (Negative) Hep Bs Antibody Hep Bs Antibody, Quant (>or=10mIU/mL Immune) mIU/mL (1) Sepsis Sepsis type: sepsis due to unspecified organism Sepsis acute organ dysfunction status: with acute organ dysfunction Severe sepsis acute organ dysfunction type: acute renal failure Acute renal failure type: unspecified Severe sepsis shock status: without septic shock Qualified Code(s): A41.9 - Sepsis, unspecified organism; R65.20 - Severe sepsis without septic shock; N17.9 - Acute kidney failure, unspecified (3) Infected prosthetic mesh of abdominal wall Encounter type: initial encounter Qualified Code(s): T85.79XA - Infection and inflammatory reaction due to other internal prosthetic devices, implants and grafts, initial encounter
[2025-06-23] MEDS: INSULIN ASPART PER UNIT CHARGE SC SCH (08:23)
[2025-06-23] MEDS: VANCOMYCIN HCL / NSS 1,000 MG/270 ML BAG IV ONE (08:41)
--- NOTE | 2025-06-23 10:17 | Critical Care Progress Note ---
Date of Service June 23, 2025 Assessment & Plan (1) Sepsis: Plan: Reason Critically Ill: 80-year-old male with intra-abdominal sepsis secondary to anastomotic leak secondary to hematoma PLAN: Neuro: Analgesia and sedation - Fentanyl infusion and propofol for sedation Resp: Intubation day 2 - Wean as tolerated - Broached topic of need for tracheostomy 2 weeks if we find ourselves in that position CV: Sepsis associated hypotension - Vasoactive medication Levophed and vasopressin Fluids/Renal: Acute renal failure with hyperkalemia - Nephrology consult - Discussed running short course of dialysis today, give 1 unit packed red blood cells with dialysis ID: Adeline to continue given wound dehiscence and abdominal contamination Vancomycin: To continue until wound culture speciation - Given worsening hypotension we will expand coverage to include caspofungin - Wound culture pending GI/Nutrition: N.p.o. Postop day 1 Hyperlipidemia - Rosuvastatin on hold - Will discuss with general surgery possible trickle feeds for GI tract integrity - Consideration given to prior wound dehiscence Heme: Acute blood loss anemia - 1 unit packed red blood cells today with dialysis DVT prophylaxis: SCDs - Holding chemoprophylaxis of heparin 5000 twice daily: Would strongly consider increasing to 3 times daily Endocrine: ICU hyperglycemia protocol Vascular access: Left internal jugular CVC, right internal jugular temporary HD cath Code Status: Full code Disposition: ICU - Had extensive discussion with surgery and family present at bedside. We discussed risks and benefits of transfer to tertiary [facility] where they have CVVH versus continue with hemodialysis here. Outcomes for CVVH versus traditional HD are equivalent. At this point family felt risks of transport outweigh benefits. 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 This is a life/limb threatening event. This includes time spent evaluating patient, direct bedside care, chart review, placing orders, interpretation of diagnostic studies, discussion with consultants, patient, and/or family members regarding treatment decisions, as well as other required patient management activities. This time is exclusive of all separately billable procedures, and teaching time and separate from and in addition to any other critical care service time. Subjective Overnight patient required reinitiation of vasoactive medications. Physical Exam Physical Exam: General: Sedated. nontoxic. Skin: Warm, dry, Head: Atraumatic Ears, nose, mouth and throat: airway obscured by endotracheal tube Cardiovascular: Normal peripheral perfusion Respiratory: Ventilator settings reviewed Gastrointestinal: Non distended, dressing in place, drain draining serosanguineous fluid, NG tube present Musculoskeletal: No deformity Results & Data Results & Data Vital Signs (Past 12 Hours) Vital Signs Temp Pulse Resp BP BP Pulse Ox FiO2 06/23/25 09:46 111/66 06/23/25 09:45 37.6 C H 87 20 98 06/23/25 09:33 37.6 C H 83 20 99 06/23/25 09:30 123/82 06/23/25 09:30 123/82 06/23/25 09:06 37.6 C H 84 20 98 06/23/25 09:00 119/71 06/23/25 09:00 85/40 L 06/23/25 08:54 37.6 C H 85 20 98 06/23/25 08:45 117/73 06/23/25 08:45 37.5 C 86 20 98 06/23/25 08:30 122/66 06/23/25 08:30 122/66 06/23/25 08:30 37.5 C 85 20 98 06/23/25 08:21 37.6 C H 87 20 98 06/23/25 08:15 120/73 06/23/25 08:00 129/72 06/23/25 07:51 37.5 C 86 20 98 06/23/25 07:45 127/70 06/23/25 07:45 127/70 06/23/25 07:45 37.5 C 85 20 98 06/23/25 07:30 37.5 C 88 20 98 06/23/25 07:30 124/74 06/23/25 07:30 124/74 06/23/25 07:18 37.5 C 87 20 97 06/23/25 07:15 124/70 06/23/25 07:15 124/70 06/23/25 07:09 37.5 C 86 17 97 06/23/25 07:00 37.5 C 85 17 97 06/23/25 07:00 128/69 09/18/25 07:00 128/69 06/23/25 07:00 128/69 06/23/25 07:00 128/69 06/23/25 06:45 121/63 06/23/25 06:45 37.5 C 88 17 97 06/23/25 06:30 37.5 C 83 18 98 06/23/25 06:30 126/63 06/23/25 06:30 126/63 06/23/25 06:30 126/63 06/23/25 06:30 126/63 06/23/25 06:18 37.5 C 85 17 100 06/23/25 06:15 130/59 L 06/23/25 06:15 130/59 L 06/23/25 06:15 130/59 L 06/23/25 06:15 130/59 L 06/23/25 06:12 37.5 C 80 14 97 06/23/25 06:06 37.5 C 81 14 99 06/23/25 06:00 120/88 06/23/25 05:51 37.6 C H 81 14 99 06/23/25 05:45 37.6 C H 78 14 99 06/23/25 05:31 132/47 L 06/23/25 05:31 132/47 L 06/23/25 05:30 37.6 C H 92 H 14 99 06/23/25 05:18 37.5 C 87 14 97 06/23/25 05:15 127/64 06/23/25 05:09 37.5 C 88 14 100 06/23/25 05:03 37.5 C 88 14 99 06/23/25 05:00 134/75 06/23/25 05:00 134/75 06/23/25 05:00 134/75 06/23/25 04:45 123/72 06/23/25 04:45 123/72 06/23/25 04:42 37.5 C 91 H 14 97 06/23/25 04:30 37.5 C 90 14 97 06/23/25 04:30 146/65 H 06/23/25 04:30 146/65 H 06/23/25 04:30 146/65 H 06/23/25 04:15 140/66 06/23/25 04:09 37.5 C 90 17 96 06/23/25 04:03 37.5 C 91 H 14 96 06/23/25 04:00 122/71 06/23/25 03:45 118/75 06/23/25 03:45 37.3 C 97 H 16 92 06/23/25 03:45 118/75 06/23/25 03:37 60 06/23/25 03:30 128/72 06/23/25 03:30 128/72 06/23/25 03:21 36.6 C 91 H 23 91 06/23/25 03:15 36.6 C 93 H 16 96 06/23/25 03:15 135/75 06/23/25 03:03 36.6 C 92 H 16 96 06/23/25 03:00 128/69 06/23/25 03:00 128/69 06/23/25 02:50 96 H 16 95 50 06/23/25 02:45 131/62 06/23/25 02:36 36.8 C 89 16 96 06/23/25 02:33 36.8 C 89 16 97 06/23/25 02:30 126/75 06/23/25 02:30 126/75 06/23/25 02:30 126/75 06/23/25 02:27 36.8 C 90 16 96 06/23/25 02:15 138/69 06/23/25 02:15 36.8 C 89 16 96 06/23/25 02:00 36.6 C 90 16 96 06/23/25 02:00 139/74 06/23/25 02:00 139/74 06/23/25 01:54 36.6 C 93 H 16 96 06/23/25 01:45 121/77 06/23/25 01:33 36.6 C 95 H 16 95 06/23/25 01:30 108/77 06/23/25 01:15 127/75 06/23/25 01:00 36.8 C 92 H 16 100 06/23/25 01:00 143/79 H 06/23/25 00:45 120/75 06/23/25 00:45 120/75 06/23/25 00:45 36.8 C 100 H 16 95 06/23/25 00:30 123/77 06/23/25 00:30 123/77 06/23/25 00:30 123/77 06/23/25 00:30 123/77 06/23/25 00:30 123/77 06/23/25 00:30 36.7 C 96 H 16 96 06/23/25 00:26 105 H 17 95 50 06/23/25 00:15 128/61 06/23/25 00:06 37.1 C 95 H 17 95 06/23/25 00:00 123/73 06/22/25 23:54 37.2 C 96 H 16 96 06/22/25 23:49 50 06/22/25 23:47 104/55 L 06/22/25 23:47 104/55 L 06/22/25 23:45 37.2 C 98 H 16 94 06/22/25 23:30 136/77 06/22/25 23:30 136/77 06/22/25 23:30 136/77 06/22/25 23:30 136/77 06/22/25 23:30 37.2 C 94 H 16 95 06/22/25 23:15 127/81 06/22/25 23:15 37.3 C 98 H 17 95 06/22/25 23:00 114/68 06/22/25 23:00 114/68 06/22/25 23:00 37.3 C 102 H 17 96 06/22/25 22:45 37.0 C 101 H 17 96 06/22/25 22:45 115/76 06/22/25 22:45 115/76 06/22/25 22:45 115/76 06/22/25 22:39 37.1 C 98 H 16 96 06/22/25 22:30 120/82 06/22/25 22:30 120/82 06/22/25 22:24 37.1 C 93 H 16 96 06/22/25 22:16 123/74 06/22/25 22:16 123/74 06/22/25 22:15 37.2 C 77 19 94 Critical Care Results & Data Vital Signs (Past 12 Hours) Vital Signs Temp Pulse Pulse Resp BP BP Pulse Ox 06/23/25 15:00 98 H 20 114/59 L 06/23/25 14:45 100 H 20 120/61 06/23/25 14:45 100 H 120/61 06/23/25 14:30 100 H 104/55 L 06/23/25 14:30 100 H 20 104/55 L 06/23/25 14:23 37.3 C 100 H 20 103/52 L 06/23/25 14:15 100 H 100/53 L 06/23/25 14:00 89 84/45 L 06/23/25 13:52 37.5 C 83 20 111/58 L 100 06/23/25 13:45 74 107/57 L 06/23/25 13:30 61 88/50 L 06/23/25 13:21 37.7 C H 85 20 98 06/23/25 13:20 37.2 C 84 06/23/25 13:15 107/62 06/23/25 13:00 06/23/25 13:00 37.7 C H 84 20 100 06/23/25 12:45 116/63 06/23/25 12:42 37.6 C H 85 20 100 06/23/25 12:30 116/63 06/23/25 12:30 116/63 06/23/25 12:30 116/63 06/23/25 12:18 37.6 C H 85 20 99 06/23/25 12:15 114/67 06/23/25 12:15 114/67 06/23/25 12:12 37.6 C H 84 20 99 06/23/25 12:00 37.5 C 80 20 100 06/23/25 12:00 116/65 06/23/25 12:00 116/65 06/23/25 12:00 116/65 06/23/25 12:00 116/65 06/23/25 11:45 114/59 L 06/23/25 11:45 114/59 L 06/23/25 11:45 114/59 L 06/23/25 11:39 37.6 C H 79 20 99 06/23/25 11:30 113/65 06/23/25 11:27 37.7 C H 86 20 98 06/23/25 11:24 37.7 C H 84 20 98 06/23/25 11:15 117/65 06/23/25 10:55 76 20 98 06/23/25 10:39 37.6 C H 84 20 98 06/23/25 10:30 119/70 06/23/25 10:30 37.6 C H 83 20 98 06/23/25 10:15 37.6 C H 83 20 98 06/23/25 10:15 112/68 06/23/25 10:09 37.6 C H 82 20 98 06/23/25 10:00 118/71 06/23/25 10:00 118/71 06/23/25 09:51 37.6 C H 85 20 99 06/23/25 09:46 111/66 06/23/25 09:45 37.6 C H 87 20 98 06/23/25 09:33 37.6 C H 83 20 99 06/23/25 09:30 123/82 06/23/25 09:30 123/82 06/23/25 09:06 37.6 C H 84 20 98 06/23/25 09:00 06/23/25 09:00 119/71 06/23/25 09:00 85/40 L 06/23/25 08:54 37.6 C H 85 20 98 06/23/25 08:45 117/73 06/23/25 08:45 37.5 C 86 20 98 06/23/25 08:30 122/66 06/23/25 08:30 122/66 06/23/25 08:30 37.5 C 85 20 98 06/23/25 08:21 37.6 C H 87 20 98 06/23/25 08:15 120/73 06/23/25 08:00 06/23/25 08:00 85 06/23/25 08:00 129/72 06/23/25 07:51 37.5 C 86 20 98 06/23/25 07:45 127/70 06/23/25 07:45 127/70 06/23/25 07:45 37.5 C 85 20 98 06/23/25 07:30 37.5 C 88 20 98 06/23/25 07:30 124/74 06/23/25 07:30 124/74 06/23/25 07:26 88 20 97 06/23/25 07:18 37.5 C 87 20 97 06/23/25 07:15 124/70 06/23/25 07:15 124/70 06/23/25 07:09 37.5 C 86 17 97 06/23/25 07:00 37.5 C 85 17 97 06/23/25 07:00 128/69 06/23/25 07:00 128/69 06/23/25 07:00 128/69 06/23/25 07:00 128/69 06/23/25 06:45 121/63 06/23/25 06:45 37.5 C 88 17 97 06/23/25 06:30 37.5 C 83 18 98 06/23/25 06:30 126/63 06/23/25 06:30 126/63 06/23/25 06:30 126/63 06/23/25 06:30 126/63 06/23/25 06:18 37.5 C 85 17 100 06/23/25 06:15 130/59 L 06/23/25 06:15 130/59 L 06/23/25 06:15 130/59 L 06/23/25 06:15 130/59 L 06/23/25 06:12 37.5 C 80 14 97 06/23/25 06:06 37.5 C 81 14 99 06/23/25 06:00 120/88 06/23/25 05:51 37.6 C H 81 14 99 06/23/25 05:45 37.6 C H 78 14 99 06/23/25 05:31 132/47 L 06/23/25 05:31 132/47 L 06/23/25 05:30 37.6 C H 92 H 14 99 06/23/25 05:18 37.5 C 87 14 97 06/23/25 05:15 127/64 06/23/25 05:09 37.5 C 88 14 100 06/23/25 05:03 37.5 C 88 14 99 06/23/25 05:00 134/75 06/23/25 05:00 134/75 06/23/25 05:00 134/75 06/23/25 04:45 123/72 06/23/25 04:45 123/72 06/23/25 04:42 37.5 C 91 H 14 97 06/23/25 04:30 37.5 C 90 14 97 06/23/25 04:30 146/65 H 06/23/25 04:30 146/65 H 06/23/25 04:30 146/65 H 06/23/25 04:15 140/66 06/23/25 04:09 37.5 C 90 17 96 06/23/25 04:03 37.5 C 91 H 14 96 06/23/25 04:00 122/71 06/23/25 03:45 118/75 06/23/25 03:45 37.3 C 97 H 16 92 06/23/25 03:45 118/75 06/23/25 03:37 06/23/25 03:30 128/72 06/23/25 03:30 128/72 O2 Del Method FiO2 06/23/25 15:00 06/23/25 14:45 06/23/25 14:45 06/23/25 14:30 06/23/25 14:30 06/23/25 14:23 06/23/25 14:15 06/23/25 14:00 06/23/25 13:52 06/23/25 13:45 06/23/25 13:30 06/23/25 13:21 06/23/25 13:20 06/23/25 13:15 06/23/25 13:00 40 06/23/25 13:00 06/23/25 12:45 06/23/25 12:42 06/23/25 12:30 06/23/25 12:30 06/23/25 12:30 06/23/25 12:18 06/23/25 12:15 06/23/25 12:15 06/23/25 12:12 06/23/25 12:00 06/23/25 12:00 06/23/25 12:00 06/23/25 12:00 06/23/25 12:00 06/23/25 11:45 06/23/25 11:45 06/23/25 11:45 06/23/25 11:39 06/23/25 11:30 06/23/25 11:27 06/23/25 11:24 06/23/25 11:15 06/23/25 10:55 40 06/23/25 10:39 06/23/25 10:30 06/23/25 10:30 06/23/25 10:15 06/23/25 10:15 06/23/25 10:09 06/23/25 10:00 06/23/25 10:00 06/23/25 09:51 06/23/25 09:46 06/23/25 09:45 06/23/25 09:33 06/23/25 09:30 06/23/25 09:30 06/23/25 09:06 06/23/25 09:00 40 06/23/25 09:00 06/23/25 09:00 06/23/25 08:54 06/23/25 08:45 06/23/25 08:45 06/23/25 08:30 06/23/25 08:30 06/23/25 08:30 06/23/25 08:21 06/23/25 08:15 06/23/25 08:00 Mechanical Vent 35 06/23/25 08:00 06/23/25 08:00 06/23/25 07:51 06/23/25 07:45 06/23/25 07:45 06/23/25 07:45 06/23/25 07:30 06/23/25 07:30 06/23/25 07:30 06/23/25 07:26 40 06/23/25 07:18 06/23/25 07:15 06/23/25 07:15 06/23/25 07:09 06/23/25 07:00 06/23/25 07:00 06/23/25 07:00 06/23/25 07:00 06/23/25 07:00 06/23/25 06:45 06/23/25 06:45 06/23/25 06:30 06/23/25 06:30 06/23/25 06:30 06/23/25 06:30 06/23/25 06:30 06/23/25 06:18 06/23/25 06:15 06/23/25 06:15 06/23/25 06:15 06/23/25 06:15 06/23/25 06:12 06/23/25 06:06 06/23/25 06:00 06/23/25 05:51 06/23/25 05:45 06/23/25 05:31 06/23/25 05:31 06/23/25 05:30 06/23/25 05:18 06/23/25 05:15 06/23/25 05:09 06/23/25 05:03 06/23/25 05:00 06/23/25 05:00 06/23/25 05:00 06/23/25 04:45 06/23/25 04:45 06/23/25 04:42 06/23/25 04:30 06/23/25 04:30 06/23/25 04:30 06/23/25 04:30 06/23/25 04:15 06/23/25 04:09 06/23/25 04:03 06/23/25 04:00 06/23/25 03:45 06/23/25 03:45 06/23/25 03:45 06/23/25 03:37 60 06/23/25 03:30 06/23/25 03:30 Lab & Micro Results (Past 24 Hours) No Data to Display Na 132 mmol/L (136-145) L 06/23/25 K 5.2 mmol/L (3.5-5.1) H 06/23/25 Cl 92 mmol/L (98-107) L 06/23/25 CO2 30 mmol/L (21-32) 06/23/25 Anion Gap 10 (3-11) 06/23/25 BUN 35 mg/dl (6-23) H 06/23/25 Creatinine 4.19 mg/dl (0.6-1.4) H 06/23/25 BUN/Creatinine Ratio 8.4 (10-20) L 06/23/25 Glu 321 mg/dl (70-99(Fasting)) H* 06/23/25 Ca 6.8 mg/dl (8.6-10.3) L 06/23/25 Phosphorus Level 4.7 mg/dl (2.5-4.9) 06/22/25 Total Bilirubin 1.1 mg/dl (0.2-1.0) H 06/23/25 AST 41 U/L (13-39) H 06/23/25 ALT 21 U/L (7-52) 06/23/25 Alkaline Phosphatase 40 U/L (34-104) 06/23/25 TP 4.4 gm/dl (6.0-8.3) L 06/23/25 Albumin 2.5 gm/dl (3.4-5.0) L 06/23/25 Globulin 1.9 gm/dl (2.5-4.0) L 06/23/25 Albumin/Globulin Ratio 1.3 (0.9-2) 06/23/25 Mg 1.6 mg/dl (1.7-2.4) L 06/22/25 19:54 Calcium Level 6.8 mg/dl (8.6-10.3) L 06/23/25 04:50 Venous Blood pH 7.42 (7.36-7.41) H 06/22/25 19:50 Venous Blood Partial Pressure CO2 42 mmHg (38-50) 06/22/25 19:5 0 Venous Blood Partial Pressure O2 103 mmHg 06/22/25 19:50 Venous Blood HCO3 27 mmol/L 06/22/25 19:50 Venous Blood Base Excess 2.4 mEq/L 06/22/25 19:50 Venous Blood Oxygen Saturation 99.2 % 06/22/25 19:50 Taj Test NA 06/23/25 06:08 Microbiology 06/22/25 09:55 Gram Stain - Final Abdomen Aerobic and Anaerobic Culture - Preliminary No growth to date. 06/23/25 10:59 Fungal Smear - Final Blood 06/21/25 10:57 Aerobic Blood Culture - Preliminary Blood No growth in Aerobic bottle after 48 hours. Anaerobic Blood Culture - Preliminary No growth in Anaerobic bottle after 48 hours. 06/21/25 10:46 Aerobic Blood Culture - Preliminary Blood No growth in Aerobic bottle after 48 hours. Anaerobic Blood Culture - Final I & O Totals 24 Hours 06/22/25 06/23/25 06/24/25 06:59 06:59 06:59 Intake Total 5285.095 / 5285.095 4432.098 / 4432.098 3189.503 / 3189.503 Output Total 90 / 90 575 / 575 75 / 75 Balance 5195.095 / 5195.095 3857.098 / 3857.098 3114.503 / 3114.503 Cumulative 06/02/25 09:10 thru 06/23/25 15:19 Intake Total 30564.696 Output Total 1050 Balance 35147.696 RT Ventilator Mngmt (Last Documented) Ventilator Ordered Settings Ventilator Support Mode Assist Control 06/23/25 13:00 Respiratory Rate 20 06/23/25 15:00 Ventilator Tidal Volume 480 06/23/25 13:00 Setting Minute Ventilation 9.6 06/23/25 10:55 Positive End Expiratory 5 06/23/25 13:00 Pressure Fraction of Inspired Oxygen 40 06/23/25 13:00 Peak Inspiratory Flow 48 06/23/25 10:55 Ventilator - PT Measurements Respiratory Rate 20 Exhaled Tidal Volume 480 Minute Ventilation 9.6 Peak Inspiratory Airway 21 Pressure Plateau Pressure 16.2 Respiratory Cycle Inspiratory: 1:4.0 Expiratory Ratio Inspiratory Phase Time 0.80 End-Tidal CO2 28 Static Lung Compliance 42.86 Dynamic Lung Compliance 30.00 Normal Static Lung Compliance 47.00 Coding Level of Care Code 64685 CRITICAL CARE 1ST 30-74M Diagnoses Sepsis with acute renal failure without septic shock, due to unspecified organism, unspecified acute renal failure type A41.9; R65.20; N17.9 Acute renal failure type: unspecified Sepsis acute organ dysfunction status: with acute organ dysfunction Sepsis type: sepsis due to unspecified organism Severe sepsis acute organ dysfunction type: acute renal failure Severe sepsis shock status: without septic shock JACINTA (acute kidney injury) N17.9 Anastomotic leak of intestine K91.89 Infected prosthetic mesh of abdominal wall, initial encounter T85.79XA Encounter type: initial encounter Infected umbilical granuloma P83.81; B99.9 (1) Sepsis Acute renal failure type: unspecified Sepsis acute organ dysfunction status: with acute organ dysfunction Sepsis type: sepsis due to unspecified organism Severe sepsis acute organ dysfunction type: acute renal failure Severe sepsis shock status: without septic shock Qualified Code(s): A41.9 - Sepsis, unspecified organism; R65.20 - Severe sepsis without septic shock; N17.9 - Acute kidney failure, unspecified (4) Infected prosthetic mesh of abdominal wall Encounter type: initial encounter Qualified Code(s): T85.79XA - Infection and inflammatory reaction due to other internal prosthetic devices, implants and grafts, initial encounter
--- NOTE | 2025-06-23 10:32 | Hospitalist Progress Note ---
Date of Service June 23, 2025 Assessment & Plan (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: (2) DM type 2 (diabetes mellitus, type 2): (3) HTN (hypertension): (4) HLD (hyperlipidemia): Plan Mr. Vaca is a 80 y/o male with DM2, diabetic retinopathy, dyslipidemia, GERD, Christiansen's esophagus, HTN, and other history as outlined below who underwent exploratory laparotomy with removal of infected mesh, hernia repair, and bowel resection 06/[address] Dhaliwal and for who we have been consulted to assist with post-operative medical management. #Septic shock #Metabolic acidosis #Infected mesh s/p removal, hernia repair, and bowel resection 06/20 -Developed worsening abd pain, rising lactate on 06/21 -CT AP 06/22 b/l small effusions, fluid filled bowels, 16cm fluid collection, likely hematoma -S/p ex lap 06/22 Plan -Continue pressors per ICU -Appreciate surgery and ICU management -Continue zosyn and vanc -Follow cultures, NGTD #Acute Renal Failure -Baseline Cr. 0.9 -Cr rising daily -Concern for ATN -Oliguric renal failure -HD started 06/22 Plan -Appreciate nephrology input -Monitor urine output, intake, renal function -Avoid nephrotoxic agents if possible #Acute hypoxic hypercarbic resp failure -Requiring intubation -CT showing bilateral small effusions, some atelectasis -Suspect multifactorial. he is also taking shallow breaths due to pain Plan -Appreciate pulm/ICU input -Volume management per nephro -Encouraged IS -Wean O2 as tolerated #Anemia -POA. Hgb 12.5 on admission -Down to 8.5 today, -CT showing hematoma -Acute blood loss anemia Plan -Transfuse < 7.0 -Monitor counts #Hyponatremia #Hyperkalemia -Follow. nephrology following #Lactic acidosis #Trop elevation -HS trop mildly high at 28 in setting of acute renal failure -Non specific trop elevation -No s/s ACS #Elevated LFTs -Mildly elevated, recheck in AM #Hypertension hold home losartan #acute hypergylcemia #Type 2 Diabetes Hold oral meds, A1C 7.7% Continue insulin drip for now Monitor BG and electrolytes closely #Dyslipidemia - Chronic, resume statin once tolerating po #GERD - Continue daily PPI--transitioned to IV given inability to take po I spent a total of 38 minutes coordinating, documenting, and providing care for this patient excluding time spent in the performance of separately billed services. This included personally reviewing all current laboratories and imaging studies, medical reconciliation, outpatient chart review and discussion with specialists Admission and Anticipated Discharge Date Admission Date: June 20, 2025 Subjective seen in icu. intubated and sedated. spoke with at bedside Review of Systems Review of Systems: unable to obtain Physical Exam Physical Exam: Vitals and labs reviewed General: ill appearing, sedated in NAD HEENT: EOMI, PERRLA Neck: Supple Cardiac: RRR no rubs gallops or murmurs Lungs: decreased bs. Abd: distended. bandaged. no BS : Brooks MSK: Full ROM. No obvious deformities Ext: trace Edema Skin: Warm, Dry Neuro: sedated Psych: unable to obtain Results & Data Results & Data Vital Signs (Past 12 Hours) Vital Signs Temp Pulse Resp BP BP Pulse Ox FiO2 06/23/25 09:46 111/66 06/23/25 09:45 37.6 C H 87 20 98 06/23/25 09:33 37.6 C H 83 20 99 06/23/25 09:30 123/82 06/23/25 09:30 123/82 06/23/25 09:06 37.6 C H 84 20 98 06/23/25 09:00 119/71 06/23/25 09:00 85/40 L 06/23/25 08:54 37.6 C H 85 20 98 06/23/25 08:45 117/73 06/23/25 08:45 37.5 C 86 20 98 06/23/25 08:30 122/66 06/23/25 08:30 122/66 06/23/25 08:30 37.5 C 85 20 98 06/23/25 08:21 37.6 C H 87 20 98 06/23/25 08:15 120/73 06/23/25 08:00 129/72 06/23/25 07:51 37.5 C 86 20 98 06/23/25 07:45 127/70 06/23/25 07:45 127/70 06/23/25 07:45 37.5 C 85 20 98 06/23/25 07:30 37.5 C 88 20 98 06/23/25 07:30 124/74 06/23/25 07:30 124/74 06/23/25 07:18 37.5 C 87 20 97 06/23/25 07:15 124/70 06/23/25 07:15 124/70 06/23/25 07:09 37.5 C 86 17 97 06/23/25 07:00 37.5 C 85 17 97 06/23/25 07:00 128/69 06/23/25 07:00 128/69 06/23/25 07:00 128/69 06/23/25 07:00 128/69 06/23/25 06:45 121/63 06/23/25 06:45 37.5 C 88 17 97 06/23/25 06:30 37.5 C 83 18 98 06/23/25 06:30 126/63 06/23/25 06:30 126/63 06/23/25 06:30 126/63 06/23/25 06:30 126/63 06/23/25 06:18 37.5 C 85 17 100 06/23/25 06:15 130/59 L 06/23/25 06:15 130/59 L 06/23/25 06:15 130/59 L 06/23/25 06:15 130/59 L 06/23/25 06:12 37.5 C 80 14 97 06/23/25 06:06 37.5 C 81 14 99 06/23/25 06:00 120/88 06/23/25 05:51 37.6 C H 81 14 99 06/23/25 05:45 37.6 C H 78 14 99 06/23/25 05:31 132/47 L 06/23/25 05:31 132/47 L 06/23/25 05:30 37.6 C H 92 H 14 99 06/23/25 05:18 37.5 C 87 14 97 06/23/25 05:15 127/64 06/23/25 05:09 37.5 C 88 14 100 06/23/25 05:03 37.5 C 88 14 99 06/23/25 05:00 134/75 06/23/25 05:00 134/75 06/23/25 05:00 134/75 06/23/25 04:45 123/72 06/23/25 04:45 123/72 06/23/25 04:42 37.5 C 91 H 14 97 06/23/25 04:30 37.5 C 90 14 97 06/23/25 04:30 146/65 H 06/23/25 04:30 146/65 H 06/23/25 04:30 146/65 H 06/23/25 04:15 140/66 06/23/25 04:09 37.5 C 90 17 96 06/23/25 04:03 37.5 C 91 H 14 96 06/23/25 04:00 122/71 06/23/25 03:45 118/75 06/23/25 03:45 37.3 C 97 H 16 92 06/23/25 03:45 118/75 06/23/25 03:37 60 06/23/25 03:30 128/72 06/23/25 03:30 128/72 06/23/25 03:21 36.6 C 91 H 23 91 06/23/25 03:15 36.6 C 93 H 16 96 06/23/25 03:15 135/75 06/23/25 03:03 36.6 C 92 H 16 96 06/23/25 03:00 128/69 06/23/25 03:00 128/69 06/23/25 02:50 96 H 16 95 50 06/23/25 02:45 131/62 06/23/25 02:36 36.8 C 89 16 96 06/23/25 02:33 36.8 C 89 16 97 06/23/25 02:30 126/75 06/23/25 02:30 126/75 06/23/25 02:30 126/75 06/23/25 02:27 36.8 C 90 16 96 06/23/25 02:15 138/69 06/23/25 02:15 36.8 C 89 16 96 06/23/25 02:00 36.6 C 90 16 96 06/23/25 02:00 139/74 06/23/25 02:00 139/74 06/23/25 01:54 36.6 C 93 H 16 96 06/23/25 01:45 121/77 06/23/25 01:33 36.6 C 95 H 16 95 06/23/25 01:30 108/77 06/23/25 01:15 127/75 06/23/25 01:00 36.8 C 92 H 16 100 06/23/25 01:00 143/79 H 06/23/25 00:45 120/75 06/23/25 00:45 120/75 06/23/25 00:45 36.8 C 100 H 16 95 06/23/25 00:30 123/77 06/23/25 00:30 123/77 06/23/25 00:30 123/77 06/23/25 00:30 123/77 06/23/25 00:30 123/77 06/23/25 00:30 36.7 C 96 H 16 96 06/23/25 00:26 105 H 17 95 50 06/23/25 00:15 128/61 06/23/25 00:06 37.1 C 95 H 17 95 06/23/25 00:00 123/73 06/22/25 23:54 37.2 C 96 H 16 96 06/22/25 23:49 50 06/22/25 23:47 104/55 L 06/22/25 23:47 104/55 L 06/22/25 23:45 37.2 C 98 H 16 94 06/22/25 23:30 136/77 06/22/25 23:30 136/77 06/22/25 23:30 136/77 06/22/25 23:30 136/77 06/22/25 23:30 37.2 C 94 H 16 95 06/22/25 23:15 127/81 06/22/25 23:15 37.3 C 98 H 17 95 06/22/25 23:00 114/68 06/22/25 23:00 114/68 06/22/25 23:00 37.3 C 102 H 17 96 06/22/25 22:45 37.0 C 101 H 17 96 06/22/25 22:45 115/76 06/22/25 22:45 115/76 06/22/25 22:45 115/76 06/22/25 22:39 37.1 C 98 H 16 96 06/22/25 22:30 120/82 06/22/25 22:30 120/82 Laboratory Results Abnormal lab results 06/22/25 06/22/25 06/22/25 Range/Units 08:10 10:35 10:42 RBC (4.70-6.10) M/uL Hgb (14.0-18.0) g/dl POC Hgb 9.9 L 12.2 L (14.0-18.0) g/dl Hct (42.0-52.0) % POC Hct 29 L 36 L (42-52) % Neut # (Auto) (1.40-6.50) K/uL Bourbon # (Auto) (0.11-0.59) K/uL Immature Gran # (Auto) (0.01-0.20) K/uL POC pH 7.27 L (7.35-7.45) POC pCO2 49 H (35-46) mmHg POC pO2 107 H (80-95) mmHg POC HCO3 (19-24) raghu/L POC Base Excess (-9-1.8) raghu/L ABG pH (Temp Correct) (7.35-7.45) POC ABG O2 Sat 97.0 H (90-95) % VBG pH (7.36-7.41) POC Sodium 134 L 134 L (135-144) mmol/L Sodium 133 L (136-145) mmol/L POC Potassium 5.1 H (3.3-5.0) mmol/L Potassium 6.0 H (3.5-5.1) mmol/L Chloride 96 L (98-107) mmol/L POC Total CO2 21 L (24-31) mmol/L Anion Gap 14 H (3-11) POC BUN 52 H (7-18) mg/dl BUN 51 H (6-23) mg/dl Creatinine 4.77 H* (0.6-1.4) mg/dl POC Creatinine 4.9 H* (0.6-1.3) mg/dl BUN/Creatinine Ratio (10-20) Glucose 265 H (70-99(Fasting)) mg/dl POC Glucose (70-99) mg/dl POC Glucose (other) 165 H (70-99) mg/dl Calcium 7.7 L (8.6-10.3) mg/dl POC Ioniz Calcium Hayley 0.98 L (1.12-1.32) mmol/l Phosphorus (2.5-4.9) mg/dl Magnesium (1.7-2.4) mg/dl Total Bilirubin 1.7 H (0.2-1.0) mg/dl AST 67 H (13-39) U/L Total Protein 5.3 L (6.0-8.3) gm/dl Albumin 3.1 L (3.4-5.0) gm/dl Globulin 2.2 L (2.5-4.0) gm/dl 06/22/25 06/22/25 06/22/25 Range/Units 11:40 12:11 14:54 RBC 2.83 L (4.70-6.10) M/uL Hgb 8.5 L (14.0-18.0) g/dl POC Hgb (14.0-18.0) g/dl Hct 25.7 L (42.0-52.0) % POC Hct (42-52) % Neut # (Auto) 7.15 H (1.40-6.50) K/uL Bourbon # (Auto) 0.97 H (0.11-0.59) K/uL Immature Gran # (Auto) 0.26 H (0.01-0.20) K/uL POC pH (7.35-7.45) POC pCO2 (35-46) mmHg POC pO2 (80-95) mmHg POC HCO3 (19-24) raghu/L POC Base Excess (-9-1.8) raghu/L ABG pH (Temp Correct) (7.35-7.45) POC ABG O2 Sat (90-95) % VBG pH 7.26 L (7.36-7.41) POC Sodium (135-144) mmol/L Sodium 135 L (136-145) mmol/L POC Potassium (3.3-5.0) mmol/L Potassium 5.2 H (3.5-5.1) mmol/L Chloride (98-107) mmol/L POC Total CO2 (24-31) mmol/L Anion Gap (3-11) POC BUN (7-18) mg/dl BUN 50 H 39 H (6-23) mg/dl Creatinine 4.80 H* 3.84 H D (0.6-1.4) mg/dl POC Creatinine (0.6-1.3) mg/dl BUN/Creatinine Ratio (10-20) Glucose 122 H 158 H (70-99(Fasting)) mg/dl POC Glucose 160 H (70-99) mg/dl POC Glucose (other) (70-99) mg/dl Calcium 7.7 L 7.5 L (8.6-10.3) mg/dl POC Ioniz Calcium Hayley (1.12-1.32) mmol/l Phosphorus 5.6 H (2.5-4.9) mg/dl Magnesium (1.7-2.4) mg/dl Total Bilirubin (0.2-1.0) mg/dl AST (13-39) U/L Total Protein (6.0-8.3) gm/dl Albumin (3.4-5.0) gm/dl Globulin (2.5-4.0) gm/dl 06/22/25 06/22/25 06/22/25 Range/Units 16:10 18:04 19:32 RBC (4.70-6.10) M/uL Hgb (14.0-18.0) g/dl POC Hgb (14.0-18.0) g/dl Hct (42.0-52.0) % POC Hct (42-52) % Neut # (Auto) (1.40-6.50) K/uL Bourbon # (Auto) (0.11-0.59) K/uL Immature Gran # (Auto) (0.01-0.20) K/uL POC pH (7.35-7.45) POC pCO2 (35-46) mmHg POC pO2 (80-95) mmHg POC HCO3 (19-24) raghu/L POC Base Excess (-9-1.8) raghu/L ABG pH (Temp Correct) (7.35-7.45) POC ABG O2 Sat (90-95) % VBG pH (7.36-7.41) POC Sodium (135-144) mmol/L Sodium 134 L (136-145) mmol/L POC Potassium (3.3-5.0) mmol/L Potassium 5.3 H (3.5-5.1) mmol/L Chloride 97 L (98-107) mmol/L POC Total CO2 (24-31) mmol/L Anion Gap (3-11) POC BUN (7-18) mg/dl BUN 29 H (6-23) mg/dl Creatinine 3.24 H D (0.6-1.4) mg/dl POC Creatinine (0.6-1.3) mg/dl BUN/Creatinine Ratio 9.0 L (10-20) Glucose 208 H (70-99(Fasting)) mg/dl POC Glucose 144 H 68 L* (70-99) mg/dl POC Glucose (other) (70-99) mg/dl Calcium 7.5 L (8.6-10.3) mg/dl POC Ioniz Calcium Hayley (1.12-1.32) mmol/l Phosphorus (2.5-4.9) mg/dl Magnesium 1.6 L (1.7-2.4) mg/dl Total Bilirubin (0.2-1.0) mg/dl AST (13-39) U/L Total Protein (6.0-8.3) gm/dl Albumin (3.4-5.0) gm/dl Globulin (2.5-4.0) gm/dl 06/22/25 06/22/25 06/22/25 Range/Units 19:50 19:54 22:57 RBC (4.70-6.10) M/uL Hgb (14.0-18.0) g/dl POC Hgb (14.0-18.0) g/dl Hct (42.0-52.0) % POC Hct (42-52) % Neut # (Auto) (1.40-6.50) K/uL Bourbon # (Auto) (0.11-0.59) K/uL Immature Gran # (Auto) (0.01-0.20) K/uL POC pH (7.35-7.45) POC pCO2 (35-46) mmHg POC pO2 (80-95) mmHg POC HCO3 (19-24) raghu/L POC Base Excess (-9-1.8) raghu/L ABG pH (Temp Correct) (7.35-7.45) POC ABG O2 Sat (90-95) % VBG pH 7.42 H (7.36-7.41) POC Sodium (135-144) mmol/L Sodium 134 L (136-145) mmol/L POC Potassium (3.3-5.0) mmol/L Potassium 5.4 H (3.5-5.1) mmol/L Chloride 97 L (98-107) mmol/L POC Total CO2 (24-31) mmol/L Anion Gap (3-11) POC BUN (7-18) mg/dl BUN 30 H (6-23) mg/dl Creatinine 3.29 H (0.6-1.4) mg/dl POC Creatinine (0.6-1.3) mg/dl BUN/Creatinine Ratio 9.1 L (10-20) Glucose 213 H (70-99(Fasting)) mg/dl POC Glucose 235 H (70-99) mg/dl POC Glucose (other) (70-99) mg/dl Calcium 7.4 L (8.6-10.3) mg/dl POC Ioniz Calcium Hayley (1.12-1.32) mmol/l Phosphorus (2.5-4.9) mg/dl Magnesium 1.6 L (1.7-2.4) mg/dl Total Bilirubin (0.2-1.0) mg/dl AST (13-39) U/L Total Protein (6.0-8.3) gm/dl Albumin (3.4-5.0) gm/dl Globulin (2.5-4.0) gm/dl 06/23/25 06/23/25 06/23/25 Range/Units 03:33 04:50 06:08 RBC (4.70-6.10) M/uL Hgb (14.0-18.0) g/dl POC Hgb 8.5 L (14.0-18.0) g/dl Hct (42.0-52.0) % POC Hct 25 L (42-52) % Neut # (Auto) (1.40-6.50) K/uL [place] # (Auto) (0.11-0.59) K/uL Immature Gran # (Auto) (0.01-0.20) K/uL POC pH 7.46 H (7.35-7.45) POC pCO2 (35-46) mmHg POC pO2 (80-95) mmHg POC HCO3 30 H (19-24) raghu/L POC Base Excess 6.0 H (-9-1.8) raghu/L ABG pH (Temp Correct) 7.453 H (7.35-7.45) POC ABG O2 Sat 96.0 H (90-95) % VBG pH (7.36-7.41) POC Sodium 131 L (135-144) mmol/L Sodium 132 L (136-145) mmol/L POC Potassium (3.3-5.0) mmol/L Potassium 5.2 H (3.5-5.1) mmol/L Chloride 92 L (98-107) mmol/L POC Total CO2 (24-31) mmol/L Anion Gap (3-11) POC BUN (7-18) mg/dl BUN 35 H (6-23) mg/dl Creatinine 4.19 H D (0.6-1.4) mg/dl POC Creatinine (0.6-1.3) mg/dl BUN/Creatinine Ratio 8.4 L (10-20) Glucose 321 H* (70-99(Fasting)) mg/dl POC Glucose (70-99) mg/dl POC Glucose (other) 268 H (70-99) mg/dl Calcium 6.8 L (8.6-10.3) mg/dl POC Ioniz Calcium Hayley (1.12-1.32) mmol/l Phosphorus (2.5-4.9) mg/dl Magnesium (1.7-2.4) mg/dl Total Bilirubin 1.1 H (0.2-1.0) mg/dl AST 41 H (13-39) U/L Total Protein 4.4 L (6.0-8.3) gm/dl Albumin 2.5 L (3.4-5.0) gm/dl Globulin 1.9 L (2.5-4.0) gm/dl 06/23/25 06/23/25 Range/Units 07:28 08:32 RBC (4.70-6.10) M/uL Hgb (14.0-18.0) g/dl POC Hgb (14.0-18.0) g/dl Hct (42.0-52.0) % POC Hct (42-52) % Neut # (Auto) (1.40-6.50) K/uL [place]bon # (Auto) (0.11-0.59) K/uL Immature Gran # (Auto) (0.01-0.20) K/uL POC pH (7.35-7.45) POC pCO2 (35-46) mmHg POC pO2 (80-95) mmHg POC HCO3 (19-24) raghu/L POC Base Excess (-9-1.8) raghu/L ABG pH (Temp Correct) (7.35-7.45) POC ABG O2 Sat (90-95) % VBG pH (7.36-7.41) POC Sodium (135-144) mmol/L Sodium (136-145) mmol/L POC Potassium (3.3-5.0) mmol/L Potassium (3.5-5.1) mmol/L Chloride (98-107) mmol/L POC Total CO2 (24-31) mmol/L Anion Gap (3-11) POC BUN (7-18) mg/dl BUN (6-23) mg/dl Creatinine (0.6-1.4) mg/dl POC Creatinine (0.6-1.3) mg/dl BUN/Creatinine Ratio (10-20) Glucose (70-99(Fasting)) mg/dl POC Glucose (70-99) mg/dl POC Glucose (other) 287 H 258 H (70-99) mg/dl Calcium (8.6-10.3) mg/dl POC Ioniz Calcium Hayley (1.12-1.32) mmol/l Phosphorus (2.5-4.9) mg/dl Magnesium (1.7-2.4) mg/dl Total Bilirubin (0.2-1.0) mg/dl AST (13-39) U/L Total Protein (6.0-8.3) gm/dl Albumin (3.4-5.0) gm/dl Globulin (2.5-4.0) gm/dl (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 (2) DM type 2 (diabetes mellitus, type 2) Diabetes mellitus superintendent terminal insulin use: without superintendent terminal use Diabetes mellitus complication status: with ophthalmic complications Diabetes mellitus complication detail: with diabetic retinopathy Diabetic retinopathy severity: with unspecified retinopathy severity Diabetes mellitus macular edema: macular edema presence unspecified Laterality: unspecified laterality Qualified Code(s): E11.319 - Type 2 diabetes mellitus with unspecified diabetic retinopathy without macular edema (3) HTN (hypertension) Hypertension type: unspecified Qualified Code(s): I10 - Essential (primary) hypertension (4) HLD (hyperlipidemia) Hyperlipidemia type: unspecified Qualified Code(s): E78.5 - Hyperlipidemia, unspecified
--- NOTE | 2025-06-23 10:42 | Nephrology Progress Note ---
Date of Service June 23, 2025 Assessment & Plan Admission and Anticipated Discharge Date Admission Date: June 20, 2025 Subjective Assessment & Plan (1) JACINTA (acute kidney injury): Severe stage 3 JACINTA oliguric type from Classic severe ATN. At baseline creat is normal 0.9 as of 05/30 on pre op labs. Then POD 1 was already doubled at 1.9 and then creat has again more than doubled in 24 hrs time period from 1..[address] abdomen few hrs ago showed normal appearing kidneys--no Obstruction. However also has sig Pl eff. he is about 4-5 liters +ve so far. needing lot of o2 also. has high K and lactic acidosis. Given the total picture plan is to do HD catheter either in OR or immediately after and possibly do dialysis later today after he comes form OR. However things are still fluid as we dont know how he will be post op. Case Discussed and plan made regarding post op ICU care and possible dialysis. I will be in touch with ICU throughout the day as well as RN and my Dialysis Nurse. High risk of mortality given Sig issues including JACINTA and post op complications. Dialysis was difficult yesterday with BP dropping instantly. BP still low on Pressors. No urine. Discussed in detail with ICU and will do dialysis today for 3 hrs--No UF. get PRBC with dialysis. Check lactic acid again today Discussed in detail with also. total time spent 45 mins (2) Infected prosthetic mesh of abdominal wall: Reviewed Surgery note preop post op and current status. S--Still critically ill. On 2 pressors. BP still low. No urine. On vent ROS--Not possible to obtain. on vent Physical Exam Physical Exam: General: currently intubated and sedated HEENT: no icterus, moist mucus membranes Neck: supple, trachea midline Heart: RRR Lungs: CTA bilaterally, no W/R/R--on vent Abdomen: Diffusely binder in place Extremities: No edema, Neurologic:sedated and on vent Results & Data Vital Signs (Past 12 Hours) Vital Signs Temp Pulse Resp BP BP Pulse Ox FiO2 06/23/25 09:46 111/66 06/23/25 09:45 37.6 C H 87 20 98 06/23/25 09:33 37.6 C H 83 20 99 06/23/25 09:30 123/82 06/23/25 09:30 123/82 06/23/25 09:06 37.6 C H 84 20 98 06/23/25 09:00 119/71 06/23/25 09:00 85/40 L 06/23/25 08:54 37.6 C H 85 20 98 06/23/25 08:45 117/73 06/23/25 08:45 37.5 C 86 20 98 06/23/25 08:30 122/66 06/23/25 08:30 122/66 06/23/25 08:30 37.5 C 85 20 98 06/23/25 08:21 37.6 C H 87 20 98 06/23/25 08:15 120/73 06/23/25 08:00 129/72 06/23/25 07:51 37.5 C 86 20 98 06/23/25 07:45 127/70 06/23/25 07:45 127/70 06/23/25 07:45 37.5 C 85 20 98 06/23/25 07:30 37.5 C 88 20 98 06/23/25 07:30 124/74 06/23/25 07:30 124/74 06/23/25 07:18 37.5 C 87 20 97 06/23/25 07:15 124/70 06/23/25 07:15 124/70 06/23/25 07:09 37.5 C 86 17 97 06/23/25 07:00 37.5 C 85 17 97 06/23/25 07:00 128/69 06/23/25 07:00 128/69 06/23/25 07:00 128/69 06/23/25 07:00 128/69 06/23/25 06:45 121/63 06/23/25 06:45 37.5 C 88 17 97 06/23/25 06:30 37.5 C 83 18 98 06/23/25 06:30 126/63 06/23/25 06:30 126/63 06/23/25 06:30 126/63 06/23/25 06:30 126/63 06/23/25 06:18 37.5 C 85 17 100 06/23/25 06:15 130/59 L 06/23/25 06:15 130/59 L 06/23/25 06:15 130/59 L 06/23/25 06:15 130/59 L 06/23/25 06:12 37.5 C 80 14 97 06/23/25 06:06 37.5 C 81 14 99 06/23/25 06:00 120/88 06/23/25 05:51 37.6 C H 81 14 99 06/23/25 05:45 37.6 C H 78 14 99 06/23/25 05:31 132/47 L 06/23/25 05:31 132/47 L 06/23/25 05:30 37.6 C H 92 H 14 99 06/23/25 05:18 37.5 C 87 14 97 06/23/25 05:15 127/64 06/23/25 05:09 37.5 C 88 14 100 06/23/25 05:03 37.5 C 88 14 99 06/23/25 05:00 134/75 06/23/25 05:00 134/75 06/23/25 05:00 134/75 06/23/25 04:45 123/72 06/23/25 04:45 123/72 06/23/25 04:42 37.5 C 91 H 14 97 06/23/25 04:30 37.5 C 90 14 97 06/23/25 04:30 146/65 H 06/23/25 04:30 146/65 H 06/23/25 04:30 146/65 H 06/23/25 04:15 140/66 06/23/25 04:09 37.5 C 90 17 96 06/23/25 04:03 37.5 C 91 H 14 96 06/23/25 04:00 122/71 06/23/25 03:45 118/75 06/23/25 03:45 37.3 C 97 H 16 92 06/23/25 03:45 118/75 06/23/25 03:37 60 06/23/25 03:30 128/72 06/23/25 03:30 128/72 06/23/25 03:21 36.6 C 91 H 23 91 06/23/25 03:15 36.6 C 93 H 16 96 06/23/25 03:15 135/75 06/23/25 03:03 36.6 C 92 H 16 96 06/23/25 03:00 128/69 06/23/25 03:00 128/69 06/23/25 02:50 96 H 16 95 50 06/23/25 02:45 131/62 06/23/25 02:36 36.8 C 89 16 96 06/23/25 02:33 36.8 C 89 16 97 06/23/25 02:30 126/75 06/23/25 02:30 126/75 06/23/25 02:30 126/75 06/23/25 02:27 36.8 C 90 16 96 06/23/25 02:15 138/69 06/23/25 02:15 36.8 C 89 16 96 06/23/25 02:00 36.6 C 90 16 96 06/23/25 02:00 139/74 06/23/25 02:00 139/74 06/23/25 01:54 36.6 C 93 H 16 96 06/23/25 01:45 121/77 06/23/25 01:33 36.6 C 95 H 16 95 06/23/25 01:30 108/77 06/23/25 01:15 127/75 06/23/25 01:00 36.8 C 92 H 16 100 06/23/25 01:00 143/79 H 06/23/25 00:45 120/75 06/23/25 00:45 120/75 06/23/25 00:45 36.8 C 100 H 16 95 06/23/25 00:30 123/77 06/23/25 00:30 123/77 06/23/25 00:30 123/77 06/23/25 00:30 123/77 06/23/25 00:30 123/77 06/23/25 00:30 36.7 C 96 H 16 96 06/23/25 00:26 105 H 17 95 50 06/23/25 00:15 128/61 06/23/25 00:06 37.1 C 95 H 17 95 06/23/25 00:00 123/73 06/22/25 23:54 37.2 C 96 H 16 96 06/22/25 23:49 50 06/22/25 23:47 104/55 L 06/22/25 23:47 104/55 L 06/22/25 23:45 37.2 C 98 H 16 94 06/22/25 23:30 136/77 06/22/25 23:30 136/77 06/22/25 23:30 136/77 06/22/25 23:30 136/77 06/22/25 23:30 37.2 C 94 H 16 95 06/22/25 23:15 127/81 06/22/25 23:15 37.3 C 98 H 17 95 06/22/25 23:00 114/68 06/22/25 23:00 114/68 06/22/25 23:00 37.3 C 102 H 17 96 06/22/25 22:45 37.0 C 101 H 17 96 06/22/25 22:45 115/76 06/22/25 22:45 115/76 06/22/25 22:45 115/76
[2025-06-23] MEDS ORDERED: SODIUM CHLORIDE 0.9% 1,000 ML IV PRN (10:46)
[2025-06-23] MEDS: SODIUM CHLORIDE 0.9% 500 ML IV ONE (11:09)
[2025-06-23] MEDS: CASPOFUNGIN 70 MG in SODIUM CHLORIDE 0.9% 250 ML IV ONE (11:09)
--- NOTE | 2025-06-23 11:39 | Pharmacy Report ---
Pharmacy Glycemic Short Note 2 - Date of Service June 23, 2025 - Glycemic Short BSG Results (Last 24 hours): 06/22/25 06/22/25 06/22/25 08:10 10:35 11:40 Glucose 265 H POC Glucose 160 H POC Glucose (other) 165 H 06/22/25 06/22/25 06/22/25 12:11 14:54 16:10 Glucose 122 H 158 H POC Glucose 144 H POC Glucose (other) 06/22/25 06/22/25 06/22/25 18:04 18:05 19:32 Glucose 208 H POC Glucose 68 L* 91 POC Glucose (other) 06/22/25 06/22/25 06/23/25 19:54 22:57 03:33 Glucose 213 H POC Glucose 235 H POC Glucose (other) 268 H 06/23/25 06/23/25 06/23/25 04:50 07:28 08:32 Glucose 321 H* POC Glucose POC Glucose (other) 287 H 258 H OUTPATIENT ANTIDIABETIC REGIMEN: * empagliflozin 25mg PO Q AM * metformin ER 500mg PO daily HbA1c: 7.7% on 06/21/25 ASSESSMENT: 06/23 * Hypoglycemia to 68 mg/dL noted yesterday PM with hyperglycemia >300 mg/dL this AM, possibly 2nd overriden dexamethasone in OR yesterday. Insulin drip was initiated this AM. Bicarb drip mixed in dextrose was discontinued this AM. Remains critically ill - intubated and on two pressors. * Discussed at ICU rounds - continue insulin drip for now and then re-evaluate tomorrow AM 06/22 * Patient remains on insulin infusion @ 1 unit/hour. BSGs have been stable. Returned to OR today for ex lap, washout and was transferred to the ICU following * Patient remains intubated at this time. SCR continues to increase. K 5.2. Bicarb is now 23, lactate 3.6 this morning (on 150 meq NABicarb in D5W @ 150 mL/hr). Anion gap has closed. PH 7.26 * Would continue insulin infusion at this time given critical condition. 06/21 * Jose Ramon is a 80 year old male who was admitted yesterday for sepsis secondary to infected mesh of abdominal wall--s/p mesh removal, hernia repair, and bowel resection (POD #1). Patient with noted hyperglycemia and metabolic acidosis (AG 21 and CO2 17 on 06/20 and AG 19 and CO2 19 with labs this morning). * An insulin drip was started for DKA and pharmacy was consulted to assist with glycemic management this morning. Prior to starting the insulin drip, BSG was 315mg/dL.. Lantus 6 units x 1 was given and 4 units regular insulin iv x 1 was also given. At ~1000 this morning, BSG was still 297mg/dL. An 8 unit regular insulin bolus was given followed by the insulin drip at 8.8units/hr. * Patient remains NPO, and BSGs have been trending down. Pending fluids containing KCL have been ordered. PLAN FOR INPATIENT GLYCEMIC CONTROL: * Hold outpatient oral diabetes medications * Basal insulin * Lantus 15 units SQ x 1 given last night. No ongoing basal for now. Will re-evaluate 06/24 AM. * Bolus insulin * NovoLog per scale ACHS * RN to use "insulin infusion adjustment calculator" to calculate dose if/when he is ordered a diet.
--- NOTE | 2025-06-23 11:46 | Pharmacy Report ---
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--s/p mesh removal, hernia repair, and bowel resection (06/20) then abdominal washout 06/22 for anastomotic leak * Pertinent microbiologic data includes: * MRSA Nasal Swab negative and * Blood cultures NGTD * 06/22 abdominal OR culture NGTD * Patient with ongoing JACINTA (baseline SCr 0.9mg/dL) Plan Vancomycin * Random level was 10.5 mcg/mL this AM, which was a trend down from yesterday Am level of 16.9 mcg/mL * Will give one-time dose of vancomycin at slightly higher dose as compared to yesterday (1000 mg today) * Due to unstable renal function, will dose by levels for further dosing * Goal trough of 15-20 mcg/mL * Random level ordered for: 06/24 with AM labs Pharmacy will continue to follow and will adjust dose/frequency as necessary. Thank you. Pharmacy has transitioned to AUC monitoring for vancomycin. AUC/JASPREET is the preferred PK/PD target and is associated with decreased risk of nephrotoxicity compared to traditional trough targets.
[2025-06-23] MEDS ORDERED: SODIUM CHLORIDE 0.9% 100 ML IV PRN ×2 (12:29→13:01)
[2025-06-23] MEDS: EPOETIN ALFA 20,000 UNITS/ML VIAL IV ONE (15:07)
--- NOTE | 2025-06-23 15:55 | Electrocardiogram Report ---
Test Reason : Blood Pressure : */* mmHG Vent. Rate : 123 BPM Atrial Rate : 123 BPM P-R Int : 150 ms QRS Dur : 88 ms QT Int : 318 ms P-R-T Axes : 23 7 22 degrees QTcB Int : 455 ms Sinus tachycardia Nonspecific ST abnormality Abnormal ECG No previous ECGs available Confirmed by Alejandro Ruiz ([id number]) on 06/23/2025 3:55:36 PM Referred By: Arben Dhaliwal Confirmed By: Alejandro Ruiz
--- NOTE | 2025-06-23 16:23 | Electrocardiogram Report ---
Test Reason : Blood Pressure : */* mmHG Vent. Rate : 100 BPM Atrial Rate : 100 BPM P-R Int : 162 ms QRS Dur : 84 ms QT Int : 364 ms P-R-T Axes : 56 -10 34 degrees QTcB Int : 469 ms Normal sinus rhythm Normal ECG When compared with ECG of 21-Jun-2025 00:09, (unconfirmed) ST no longer depressed in Lateral leads Nonspecific T wave abnormality now evident in Lateral leads Confirmed by Alejandro Ruiz ([id number]) on 06/23/2025 4:23:15 PM Referred By: Arben Dhaliwal Confirmed By: Alejandro Ruiz
[2025-06-23 20:48] LABS: Anion Gap 8.0 (3-11); Blood Urea Nitrogen 24.0 mg/dl (6-23); Calcium 7.1 mg/dl (8.6-10.3); Carbon Dioxide 31.0 mmol/L (21-32); Chloride 98.0 mmol/L (98-107); Creatinine Clr Calc Pharmacy 20.2 ml/min; Glucose 160.0 mg/dl (70-99(Fasting)); Magnesium 1.6 mg/dl (1.7-2.4); Potassium 3.7 mmol/L (3.5-5.1); Sodium 137.0 mmol/L (136-145)
[2025-06-23] MEDS ORDERED: INSULIN ASPART PER UNIT CHARGE SC SCH ×2 (21:15→23:00)
[2025-06-23] MEDS: MAGNESIUM SULFATE / D5W 1 GM/100 ML BAG IV SCH (21:54)
[2025-06-24 05:27] LABS: Hematocrit (blood only) 20.6 % (42.0-52.0); Hemoglobin 7.2 g/dl (14.0-18.0); Mean Corpuscular Hemoglobin 30.8 pg (25.0-34.0); Mean Corpuscular Volume 88.0 fL (80.0-100.0); Platelet Count 169 K/uL (130-400); RDW Standard Deviation 42.5 fL (36.4-46.3); Red Blood Count 2.34 M/uL (4.70-6.10); White Blood Count 11.82 K/ul (4.8-10.8)
[2025-06-24] MEDS ORDERED: SODIUM CHLORIDE 0.9% 100 ML IV PRN ×3 (05:36→11:58)
[2025-06-24 05:41] LABS: Alanine Aminotransferase 14.0 U/L (7-52); Albumin Globulin Ratio 0.9 (0.9-2); Albumin Level 2.2 gm/dl (3.4-5.0); Alkaline Phosphatase 56.0 U/L (34-104); Anion Gap 10.0 (3-11); Bilirubin,Total 0.7 mg/dl (0.2-1.0); Blood Urea Nitrogen 31.0 mg/dl (6-23); Calcium 7.1 mg/dl (8.6-10.3); Carbon Dioxide 29.0 mmol/L (21-32); Chloride 97.0 mmol/L (98-107); Creatinine Clr Calc Pharmacy 16.5 ml/min; Globulin 2.4 gm/dl (2.5-4.0); Glucose 131.0 mg/dl (70-99(Fasting)); Magnesium 2.3 mg/dl (1.7-2.4); Potassium 3.4 mmol/L (3.5-5.1); Sodium 136.0 mmol/L (136-145); Total Protein 4.6 gm/dl (6.0-8.3)
[2025-06-24 05:55] LABS: Dohle Bodies 1+; Immature Granulocytes # (auto) 0.19 K/uL (0.01-0.20); Immature Granulocytes % (auto) 1.6 %; Polychromasia 1+
--- NOTE | 2025-06-24 07:48 | Surgery Progress Note ---
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 POD#4 s/p ex lap, removal infected mesh, bowel resection and reanastomosis. intubated/sedated pressor support weaning as tolerated (off vaso) appreciate ICU management track labs start trickle tube feeds today Admission and Anticipated Discharge Date Admission Date: June 20, 2025 Subjective still intubated and sedated. off vasopressin, required levo overnight, now titrating down. Hgb 7.1 this am, receiving one unit PRBC. resting comfortably. no fevers. slightly increased UOP, minimal NG drainage Physical Exam Physical Exam: intubated and sedated on levo, titrating down (0.03) abd soft, slight distention, incision C/D/I removed packing today KRISTA with serosanguinous drainage minimal urine outpt Results & Data Vital Signs (Past 12 Hours) Vital Signs Temp Pulse Resp BP Pulse Ox O2 Del Method O2 Flow Rate 06/24/25 07:23 36.8 C 75 20 112/54 L 99 40 06/24/25 07:15 105/63 06/24/25 07:15 105/63 06/24/25 07:15 105/63 06/24/25 07:15 36.8 C 73 20 98 06/24/25 07:06 36.8 C 76 20 98 06/24/25 06:53 36.8 C 76 20 111/55 L 98 06/24/25 06:38 36.9 C 78 20 107/55 L 99 06/24/25 06:30 95/59 L 06/24/25 06:30 95/59 L 06/24/25 06:30 95/59 L 06/24/25 06:30 36.9 C 75 20 98 06/24/25 06:23 98/60 L 06/24/25 06:23 98/60 L 06/24/25 06:23 98/60 L 06/24/25 06:22 36.9 C 76 20 98/60 L 98 06/24/25 06:09 36.9 C 81 20 99 06/24/25 06:00 37.0 C 81 20 96 06/24/25 06:00 98/64 L 06/24/25 06:00 98/64 L 06/24/25 06:00 98/64 L 06/24/25 05:27 37.0 C 87 20 99 06/24/25 05:19 110/70 06/24/25 05:19 110/70 06/24/25 05:00 06/24/25 04:57 37.0 C 80 23 93 06/24/25 04:30 115/69 06/24/25 04:30 115/69 06/24/25 04:30 115/69 06/24/25 04:24 37.1 C 83 20 98 06/24/25 04:15 111/68 06/24/25 04:12 37.1 C 82 20 92 06/24/25 04:01 110/65 06/24/25 04:01 110/65 06/24/25 04:01 110/65 06/24/25 04:00 80 110/49 L 06/24/25 03:57 37.1 C 83 20 90 06/24/25 03:45 114/67 06/24/25 03:39 37.1 C 81 20 90 06/24/25 03:30 37.1 C 83 20 94 06/24/25 03:30 111/64 06/24/25 03:30 111/64 06/24/25 03:15 112/68 06/24/25 03:15 112/68 06/24/25 03:03 37.1 C 79 20 96 06/24/25 03:00 113/67 06/24/25 03:00 113/67 06/24/25 02:50 76 20 90 06/24/25 02:48 37.2 C 80 20 97 06/24/25 02:45 104/67 06/24/25 02:45 104/67 06/24/25 02:33 37.2 C 80 20 95 06/24/25 02:30 103/64 06/24/25 02:15 128/71 06/24/25 02:00 110/68 06/24/25 01:54 37.2 C 78 20 90 06/24/25 01:45 108/66 06/24/25 01:33 37.2 C 79 20 96 06/24/25 01:30 37.2 C 78 20 96 06/24/25 01:30 105/63 06/24/25 01:27 37.2 C 79 20 94 06/24/25 01:15 108/65 06/24/25 01:00 06/24/25 00:51 37.3 C 82 20 91 06/24/25 00:45 103/64 06/24/25 00:45 37.3 C 80 20 95 06/24/25 00:15 37.3 C 81 20 91 06/24/25 00:15 98/62 L 06/24/25 00:00 84 06/24/25 00:00 102/59 L 06/24/25 00:00 112/49 L 06/23/25 23:51 37.3 C 83 20 95 06/23/25 23:45 103/60 06/23/25 23:42 37.3 C 82 20 96 06/23/25 23:30 106/66 06/23/25 23:27 37.3 C 85 20 96 06/23/25 23:15 105/63 06/23/25 23:12 37.4 C 82 20 96 06/23/25 23:06 37.4 C 86 20 95 06/23/25 23:00 94/59 L 06/23/25 23:00 91 H 20 90 06/23/25 22:45 37.4 C 89 20 93 06/23/25 22:45 102/62 06/23/25 22:30 109/66 06/23/25 22:30 37.4 C 90 20 93 06/23/25 22:00 114/70 06/23/25 22:00 37.5 C 93 H 20 95 06/23/25 21:45 120/81 06/23/25 21:45 37.5 C 92 H 20 91 06/23/25 21:30 120/69 06/23/25 21:27 37.5 C 93 H 20 93 06/23/25 21:15 121/77 06/23/25 21:06 37.4 C 83 21 93 06/23/25 21:00 06/23/25 20:45 37.4 C 95 H 20 95 06/23/25 20:45 108/69 06/23/25 20:45 Nasal Cannula, Mechanical Vent 06/23/25 20:30 37.4 C 95 H 20 92 06/23/25 20:30 121/76 06/23/25 20:15 37.4 C 94 H 20 90 06/23/25 20:15 118/74 06/23/25 20:00 121/69 06/23/25 20:00 37.4 C 95 H 20 94 06/23/25 20:00 138/42 L 06/23/25 20:00 95 H 20 94 FiO2 06/24/25 07:23 06/24/25 07:15 06/24/25 07:15 06/24/25 07:15 06/24/25 07:15 06/24/25 07:06 06/24/25 06:53 06/24/25 06:38 06/24/25 06:30 06/24/25 06:30 06/24/25 06:30 06/24/25 06:30 06/24/25 06:23 06/24/25 06:23 06/24/25 06:23 06/24/25 06:22 06/24/25 06:09 06/24/25 06:00 06/24/25 06:00 06/24/25 06:00 06/24/25 06:00 06/24/25 05:27 06/24/25 05:19 06/24/25 05:19 06/24/25 05:00 40 06/24/25 04:57 06/24/25 04:30 06/24/25 04:30 06/24/25 04:30 06/24/25 04:24 06/24/25 04:15 06/24/25 04:12 06/24/25 04:01 06/24/25 04:01 06/24/25 04:01 06/24/25 04:00 06/24/25 03:57 06/24/25 03:45 06/24/25 03:39 06/24/25 03:30 06/24/25 03:30 06/24/25 03:30 06/24/25 03:15 06/24/25 03:15 06/24/25 03:03 06/24/25 03:00 06/24/25 03:00 06/24/25 02:50 40 06/24/25 02:48 06/24/25 02:45 06/24/25 02:45 06/24/25 02:33 06/24/25 02:30 06/24/25 02:15 06/24/25 02:00 06/24/25 01:54 06/24/25 01:45 06/24/25 01:33 06/24/25 01:30 06/24/25 01:30 06/24/25 01:27 06/24/25 01:15 06/24/25 01:00 40 06/24/25 00:51 06/24/25 00:45 06/24/25 00:45 06/24/25 00:15 06/24/25 00:15 06/24/25 00:00 06/24/25 00:00 06/24/25 00:00 06/23/25 23:51 06/23/25 23:45 06/23/25 23:42 06/23/25 23:30 06/23/25 23:27 06/23/25 23:15 06/23/25 23:12 06/23/25 23:06 06/23/25 23:00 06/23/25 23:00 40 06/23/25 22:45 06/23/25 22:45 06/23/25 22:30 06/23/25 22:30 06/23/25 22:00 06/23/25 22:00 06/23/25 21:45 06/23/25 21:45 06/23/25 21:30 06/23/25 21:27 06/23/25 21:15 06/23/25 21:06 06/23/25 21:00 35 06/23/25 20:45 06/23/25 20:45 06/23/25 20:45 06/23/25 20:30 06/23/25 20:30 06/23/25 20:15 06/23/25 20:15 06/23/25 20:00 06/23/25 20:00 06/23/25 20:00 06/23/25 20:00 35 Laboratory Results 06/24/25 06/24/25 06/24/25 Range/Units 04:41 04:13 02:14 WBC 11.82 H (4.8-10.8) K/ul RBC 2.34 L (4.70-6.10) M/uL Hgb 7.2 L (14.0-18.0) g/dl Hct 20.6 L* (42.0-52.0) % MCV 88.0 (80.0-100.0) fL MCH 30.8 (25.0-34.0) pg MCHC 35.0 (32.0-36.0) g/dL RDW Std Deviation 42.5 (36.4-46.3) fL RDW Coeff of Jessica 13.4 (11.5-14.5) % Plt Count 169 (130-400) K/uL MPV 11.0 (9.4-12.4) fL Immature Gran % (Auto) 1.6 % Neut % (Auto) 69.3 % Lymph % (Auto) 21.1 % [place] % (Auto) 7.4 % Eos % (Auto) 0.5 % Baso % (Auto) 0.1 % Neut # (Auto) 8.19 H (1.40-6.50) K/uL Lymph # (Auto) 2.49 (1.20-3.40) K/uL [place] # (Auto) 0.88 H (0.11-0.59) K/uL Eos # (Auto) 0.06 (0.00-0.50) K/uL Baso # (Auto) 0.01 (0.00-0.20) K/uL Immature Gran # (Auto) 0.19 (0.01-0.20) K/uL Absolute Nucleated RBC 0.08 (0.00-0.12) K/uL Nucleated RBC % (auto) 0.7 % Dohle Bodies 1+ Polychromasia 1+ Sodium 136 (136-145) mmol/L Potassium 3.4 L (3.5-5.1) mmol/L Chloride 97 L (98-107) mmol/L Carbon Dioxide 29 (21-32) mmol/L Anion Gap 10 (3-11) BUN 31 H (6-23) mg/dl Creatinine 3.86 H D (0.6-1.4) mg/dl Est Cr Clr Drug Dosing 16.5 ml/min eGFR 15.23 BUN/Creatinine Ratio 8.0 L (10-20) Glucose 131 H (70-99(Fasting)) mg/dl POC Glucose (70-99) mg/dl POC Glucose (other) 138 H 157 H (70-99) mg/dl Lactate (0.4-2.0) mmol/L Calcium 7.1 L (8.6-10.3) mg/dl Phosphorus 2.6 D (2.5-4.9) mg/dl Magnesium 2.3 (1.7-2.4) mg/dl Total Bilirubin 0.7 (0.2-1.0) mg/dl AST 23 (13-39) U/L ALT 14 (7-52) U/L Alkaline Phosphatase 56 (34-104) U/L Total Protein 4.6 L (6.0-8.3) gm/dl Albumin 2.2 L (3.4-5.0) gm/dl Globulin 2.4 L (2.5-4.0) gm/dl Albumin/Globulin Ratio 0.9 (0.9-2) Random Vancomycin 13.9 (10-20) mcg/ml Blood Type Antibody Screen Crossmatch 06/24/25 06/23/25 06/23/25 Range/Units 00:10 22:14 21:18 WBC (4.8-10.8) K/ul RBC (4.70-6.10) M/uL Hgb (14.0-18.0) g/dl Hct (42.0-52.0) % MCV (80.0-100.0) fL MCH (25.0-34.0) pg MCHC (32.0-36.0) g/dL RDW Std Deviation (36.4-46.3) fL RDW Coeff of Jessica (11.5-14.5) % Plt Count (130-400) K/uL MPV (9.4-12.4) fL Immature Gran % (Auto) % Neut % (Auto) % Lymph % (Auto) % [place] % (Auto) % Eos % (Auto) % Baso % (Auto) % Neut # (Auto) (1.40-6.50) K/uL Lymph # (Auto) (1.20-3.40) K/uL [place] # (Auto) (0.11-0.59) K/uL Eos # (Auto) (0.00-0.50) K/uL Baso # (Auto) (0.00-0.20) K/uL Immature Gran # (Auto) (0.01-0.20) K/uL Absolute Nucleated RBC (0.00-0.12) K/uL Nucleated RBC % (auto) % Dohle Bodies Polychromasia Sodium (136-145) mmol/L Potassium (3.5-5.1) mmol/L Chloride (98-107) mmol/L Carbon Dioxide (21-32) mmol/L Anion Gap (3-11) BUN (6-23) mg/dl Creatinine (0.6-1.4) mg/dl Est Cr Clr Drug Dosing ml/min eGFR BUN/Creatinine Ratio (10-20) Glucose (70-99(Fasting)) mg/dl POC Glucose 164 H (70-99) mg/dl POC Glucose (other) 155 H 147 H (70-99) mg/dl Lactate (0.4-2.0) mmol/L Calcium (8.6-10.3) mg/dl Phosphorus (2.5-4.9) mg/dl Magnesium (1.7-2.4) mg/dl Total Bilirubin (0.2-1.0) mg/dl AST (13-39) U/L ALT (7-52) U/L Alkaline Phosphatase (34-104) U/L Total Protein (6.0-8.3) gm/dl Albumin (3.4-5.0) gm/dl Globulin (2.5-4.0) gm/dl Albumin/Globulin Ratio (0.9-2) Random Vancomycin (10-20) mcg/ml Blood Type Antibody Screen Crossmatch 06/23/25 06/23/25 06/23/25 Range/Units 20:22 20:20 20:17 WBC (4.8-10.8) K/ul RBC (4.70-6.10) M/uL Hgb (14.0-18.0) g/dl Hct (42.0-52.0) % MCV (80.0-100.0) fL MCH (25.0-34.0) pg MCHC (32.0-36.0) g/dL RDW Std Deviation (36.4-46.3) fL RDW Coeff of Jessica (11.5-14.5) % Plt Count (130-400) K/uL MPV (9.4-12.4) fL Immature Gran % (Auto) % Neut % (Auto) % Lymph % (Auto) % [place] % (Auto) % Eos % (Auto) % Baso % (Auto) % Neut # (Auto) (1.40-6.50) K/uL Lymph # (Auto) (1.20-3.40) K/uL [place] # (Auto) (0.11-0.59) K/uL Eos # (Auto) (0.00-0.50) K/uL Baso # (Auto) (0.00-0.20) K/uL Immature Gran # (Auto) (0.01-0.20) K/uL Absolute Nucleated RBC (0.00-0.12) K/uL Nucleated RBC % (auto) % Dohle Bodies Polychromasia Sodium (136-145) mmol/L Potassium (3.5-5.1) mmol/L Chloride (98-107) mmol/L Carbon Dioxide (21-32) mmol/L Anion Gap (3-11) BUN (6-23) mg/dl Creatinine (0.6-1.4) mg/dl Est Cr Clr Drug Dosing ml/min eGFR BUN/Creatinine Ratio (10-20) Glucose (70-99(Fasting)) mg/dl POC Glucose 162 H 158 H 89 (70-99) mg/dl POC Glucose (other) (70-99) mg/dl Lactate (0.4-2.0) mmol/L Calcium (8.6-10.3) mg/dl Phosphorus (2.5-4.9) mg/dl Magnesium (1.7-2.4) mg/dl Total Bilirubin (0.2-1.0) mg/dl AST (13-39) U/L ALT (7-52) U/L Alkaline Phosphatase (34-104) U/L Total Protein (6.0-8.3) gm/dl Albumin (3.4-5.0) gm/dl Globulin (2.5-4.0) gm/dl Albumin/Globulin Ratio (0.9-2) Random Vancomycin (10-20) mcg/ml Blood Type Antibody Screen Crossmatch 06/23/25 06/23/25 06/23/25 Range/Units 20:05 19:19 18:15 WBC (4.8-10.8) K/ul RBC (4.70-6.10) M/uL Hgb (14.0-18.0) g/dl Hct (42.0-52.0) % MCV (80.0-100.0) fL MCH (25.0-34.0) pg MCHC (32.0-36.0) g/dL RDW Std Deviation (36.4-46.3) fL RDW Coeff of Jessica (11.5-14.5) % Plt Count (130-400) K/uL MPV (9.4-12.4) fL Immature Gran % (Auto) % Neut % (Auto) % Lymph % (Auto) % [place] % (Auto) % Eos % (Auto) % Baso % (Auto) % Neut # (Auto) (1.40-6.50) K/uL Lymph # (Auto) (1.20-3.40) K/uL [place] # (Auto) (0.11-0.59) K/uL Eos # (Auto) (0.00-0.50) K/uL Baso # (Auto) (0.00-0.20) K/uL Immature Gran # (Auto) (0.01-0.20) K/uL Absolute Nucleated RBC (0.00-0.12) K/uL Nucleated RBC % (auto) % Dohle Bodies Polychromasia Sodium 137 (136-145) mmol/L Potassium 3.7 D (3.5-5.1) mmol/L Chloride 98 (98-107) mmol/L Carbon Dioxide 31 (21-32) mmol/L Anion Gap 8 (3-11) BUN 24 H (6-23) mg/dl Creatinine 3.15 H D (0.6-1.4) mg/dl Est Cr Clr Drug Dosing 20.2 ml/min eGFR 19.44 BUN/Creatinine Ratio 7.6 L (10-20) Glucose 160 H (70-99(Fasting)) mg/dl POC Glucose 162 H (70-99) mg/dl POC Glucose (other) 121 H (70-99) mg/dl Lactate 1.3 (0.4-2.0) mmol/L Calcium 7.1 L (8.6-10.3) mg/dl Phosphorus (2.5-4.9) mg/dl Magnesium 1.6 L (1.7-2.4) mg/dl Total Bilirubin (0.2-1.0) mg/dl AST (13-39) U/L ALT (7-52) U/L Alkaline Phosphatase (34-104) U/L Total Protein (6.0-8.3) gm/dl Albumin (3.4-5.0) gm/dl Globulin (2.5-4.0) gm/dl Albumin/Globulin Ratio (0.9-2) Random Vancomycin (10-20) mcg/ml Blood Type Antibody Screen Crossmatch 06/23/25 06/23/25 06/23/25 Range/Units 17:14 16:13 15:46 WBC (4.8-10.8) K/ul RBC (4.70-6.10) M/uL Hgb (14.0-18.0) g/dl Hct (42.0-52.0) % MCV (80.0-100.0) fL MCH (25.0-34.0) pg MCHC (32.0-36.0) g/dL RDW Std Deviation (36.4-46.3) fL RDW Coeff of Jessica (11.5-14.5) % Plt Count (130-400) K/uL MPV (9.4-12.4) fL Immature Gran % (Auto) % Neut % (Auto) % Lymph % (Auto) % [place] % (Auto) % Eos % (Auto) % Baso % (Auto) % Neut # (Auto) (1.40-6.50) K/uL Lymph # (Auto) (1.20-3.40) K/uL [place] # (Auto) (0.11-0.59) K/uL Eos # (Auto) (0.00-0.50) K/uL Baso # (Auto) (0.00-0.20) K/uL Immature Gran # (Auto) (0.01-0.20) K/uL Absolute Nucleated RBC (0.00-0.12) K/uL Nucleated RBC % (auto) % Dohle Bodies Polychromasia Sodium (136-145) mmol/L Potassium (3.5-5.1) mmol/L Chloride (98-107) mmol/L Carbon Dioxide (21-32) mmol/L Anion Gap (3-11) BUN (6-23) mg/dl Creatinine (0.6-1.4) mg/dl Est Cr Clr Drug Dosing ml/min eGFR BUN/Creatinine Ratio (10-20) Glucose (70-99(Fasting)) mg/dl POC Glucose (70-99) mg/dl POC Glucose (other) 111 H 90 94 (70-99) mg/dl Lactate (0.4-2.0) mmol/L Calcium (8.6-10.3) mg/dl Phosphorus (2.5-4.9) mg/dl Magnesium (1.7-2.4) mg/dl Total Bilirubin (0.2-1.0) mg/dl AST (13-39) U/L ALT (7-52) U/L Alkaline Phosphatase (34-104) U/L Total Protein (6.0-8.3) gm/dl Albumin (3.4-5.0) gm/dl Globulin (2.5-4.0) gm/dl Albumin/Globulin Ratio (0.9-2) Random Vancomycin (10-20) mcg/ml Blood Type Antibody Screen Crossmatch 06/23/25 06/23/25 06/23/25 Range/Units 14:55 13:31 12:00 WBC (4.8-10.8) K/ul RBC (4.70-6.10) M/uL Hgb (14.0-18.0) g/dl Hct (42.0-52.0) % MCV (80.0-100.0) fL MCH (25.0-34.0) pg MCHC (32.0-36.0) g/dL RDW Std Deviation (36.4-46.3) fL RDW Coeff of Jessica (11.5-14.5) % Plt Count (130-400) K/uL MPV (9.4-12.4) fL Immature Gran % (Auto) % Neut % (Auto) % Lymph % (Auto) % [place] % (Auto) % Eos % (Auto) % Baso % (Auto) % Neut # (Auto) (1.40-6.50) K/uL Lymph # (Auto) (1.20-3.40) K/uL [place] # (Auto) (0.11-0.59) K/uL Eos # (Auto) (0.00-0.50) K/uL Baso # (Auto) (0.00-0.20) K/uL Immature Gran # (Auto) (0.01-0.20) K/uL Absolute Nucleated RBC (0.00-0.12) K/uL Nucleated RBC % (auto) % Dohle Bodies Polychromasia Sodium (136-145) mmol/L Potassium (3.5-5.1) mmol/L Chloride (98-107) mmol/L Carbon Dioxide (21-32) mmol/L Anion Gap (3-11) BUN (6-23) mg/dl Creatinine (0.6-1.4) mg/dl Est Cr Clr Drug Dosing ml/min eGFR BUN/Creatinine Ratio (10-20) Glucose (70-99(Fasting)) mg/dl POC Glucose (70-99) mg/dl POC Glucose (other) 115 H 197 H 196 H (70-99) mg/dl Lactate (0.4-2.0) mmol/L Calcium (8.6-10.3) mg/dl Phosphorus (2.5-4.9) mg/dl Magnesium (1.7-2.4) mg/dl Total Bilirubin (0.2-1.0) mg/dl AST (13-39) U/L ALT (7-52) U/L Alkaline Phosphatase (34-104) U/L Total Protein (6.0-8.3) gm/dl Albumin (3.4-5.0) gm/dl Globulin (2.5-4.0) gm/dl Albumin/Globulin Ratio (0.9-2) Random Vancomycin (10-20) mcg/ml Blood Type Antibody Screen Crossmatch 06/23/25 06/23/25 06/23/25 Range/Units 11:00 10:59 09:38 WBC (4.8-10.8) K/ul RBC (4.70-6.10) M/uL Hgb (14.0-18.0) g/dl Hct (42.0-52.0) % MCV (80.0-100.0) fL MCH (25.0-34.0) pg MCHC (32.0-36.0) g/dL RDW Std Deviation (36.4-46.3) fL RDW Coeff of Jessica (11.5-14.5) % Plt Count (130-400) K/uL MPV (9.4-12.4) fL Immature Gran % (Auto) % Neut % (Auto) % Lymph % (Auto) % [place] % (Auto) % Eos % (Auto) % Baso % (Auto) % Neut # (Auto) (1.40-6.50) K/uL Lymph # (Auto) (1.20-3.40) K/uL [place] # (Auto) (0.11-0.59) K/uL Eos # (Auto) (0.00-0.50) K/uL Baso # (Auto) (0.00-0.20) K/uL Immature Gran # (Auto) (0.01-0.20) K/uL Absolute Nucleated RBC (0.00-0.12) K/uL Nucleated RBC % (auto) % Dohle Bodies Polychromasia Sodium (136-145) mmol/L Potassium (3.5-5.1) mmol/L Chloride (98-107) mmol/L Carbon Dioxide (21-32) mmol/L Anion Gap (3-11) BUN (6-23) mg/dl Creatinine (0.6-1.4) mg/dl Est Cr Clr Drug Dosing ml/min eGFR BUN/Creatinine Ratio (10-20) Glucose (70-99(Fasting)) mg/dl POC Glucose (70-99) mg/dl POC Glucose (other) 225 H 270 H (70-99) mg/dl Lactate 3.2 H* (0.4-2.0) mmol/L Calcium (8.6-10.3) mg/dl Phosphorus (2.5-4.9) mg/dl Magnesium (1.7-2.4) mg/dl Total Bilirubin (0.2-1.0) mg/dl AST (13-39) U/L ALT (7-52) U/L Alkaline Phosphatase (34-104) U/L Total Protein (6.0-8.3) gm/dl Albumin (3.4-5.0) gm/dl Globulin (2.5-4.0) gm/dl Albumin/Globulin Ratio (0.9-2) Random Vancomycin (10-20) mcg/ml Blood Type Antibody Screen Crossmatch 06/23/25 06/23/25 06/22/25 Range/Units 08:32 07:28 20:10 WBC (4.8-10.8) K/ul RBC (4.70-6.10) M/uL Hgb (14.0-18.0) g/dl Hct (42.0-52.0) % MCV (80.0-100.0) fL MCH (25.0-34.0) pg MCHC (32.0-36.0) g/dL RDW Std Deviation (36.4-46.3) fL RDW Coeff of Jessica (11.5-14.5) % Plt Count (130-400) K/uL MPV (9.4-12.4) fL Immature Gran % (Auto) % Neut % (Auto) % Lymph % (Auto) % [place] % (Auto) % Eos % (Auto) % Baso % (Auto) % Neut # (Auto) (1.40-6.50) K/uL Lymph # (Auto) (1.20-3.40) K/uL [place] # (Auto) (0.11-0.59) K/uL Eos # (Auto) (0.00-0.50) K/uL Baso # (Auto) (0.00-0.20) K/uL Immature Gran # (Auto) (0.01-0.20) K/uL Absolute Nucleated RBC (0.00-0.12) K/uL Nucleated RBC % (auto) % Dohle Bodies Polychromasia Sodium (136-145) mmol/L Potassium (3.5-5.1) mmol/L Chloride (98-107) mmol/L Carbon Dioxide (21-32) mmol/L Anion Gap (3-11) BUN (6-23) mg/dl Creatinine (0.6-1.4) mg/dl Est Cr Clr Drug Dosing ml/min eGFR BUN/Creatinine Ratio (10-20) Glucose (70-99(Fasting)) mg/dl POC Glucose (70-99) mg/dl POC Glucose (other) 258 H 287 H 218 H (70-99) mg/dl Lactate (0.4-2.0) mmol/L Calcium (8.6-10.3) mg/dl Phosphorus (2.5-4.9) mg/dl Magnesium (1.7-2.4) mg/dl Total Bilirubin (0.2-1.0) mg/dl AST (13-39) U/L ALT (7-52) U/L Alkaline Phosphatase (34-104) U/L Total Protein (6.0-8.3) gm/dl Albumin (3.4-5.0) gm/dl Globulin (2.5-4.0) gm/dl Albumin/Globulin Ratio (0.9-2) Random Vancomycin (10-20) mcg/ml Blood Type Antibody Screen Crossmatch 06/22/25 Range/Units 04:16 WBC (4.8-10.8) K/ul RBC (4.70-6.10) M/uL Hgb (14.0-18.0) g/dl Hct (42.0-52.0) % MCV (80.0-100.0) fL MCH (25.0-34.0) pg MCHC (32.0-36.0) g/dL RDW Std Deviation (36.4-46.3) fL RDW Coeff of Jessica (11.5-14.5) % Plt Count (130-400) K/uL MPV (9.4-12.4) fL Immature Gran % (Auto) % Neut % (Auto) % Lymph % (Auto) % [place] % (Auto) % Eos % (Auto) % Baso % (Auto) % Neut # (Auto) (1.40-6.50) K/uL Lymph # (Auto) (1.20-3.40) K/uL [place] # (Auto) (0.11-0.59) K/uL Eos # (Auto) (0.00-0.50) K/uL Baso # (Auto) (0.00-0.20) K/uL Immature Gran # (Auto) (0.01-0.20) K/uL Absolute Nucleated RBC (0.00-0.12) K/uL Nucleated RBC % (auto) % Dohle Bodies Polychromasia Sodium (136-145) mmol/L Potassium (3.5-5.1) mmol/L Chloride (98-107) mmol/L Carbon Dioxide (21-32) mmol/L Anion Gap (3-11) BUN (6-23) mg/dl Creatinine (0.6-1.4) mg/dl Est Cr Clr Drug Dosing ml/min eGFR BUN/Creatinine Ratio (10-20) Glucose (70-99(Fasting)) mg/dl POC Glucose (70-99) mg/dl POC Glucose (other) (70-99) mg/dl Lactate (0.4-2.0) mmol/L Calcium (8.6-10.3) mg/dl Phosphorus (2.5-4.9) mg/dl Magnesium (1.7-2.4) mg/dl Total Bilirubin (0.2-1.0) mg/dl AST (13-39) U/L ALT (7-52) U/L Alkaline Phosphatase (34-104) U/L Total Protein (6.0-8.3) gm/dl Albumin (3.4-5.0) gm/dl Globulin (2.5-4.0) gm/dl Albumin/Globulin Ratio (0.9-2) Random Vancomycin (10-20) mcg/ml Blood Type A Positive Antibody Screen NEGATIVE Crossmatch See Detail (1) Sepsis Sepsis type: sepsis due to unspecified organism Sepsis acute organ dysfunction status: with acute organ dysfunction Severe sepsis acute organ dysfunction type: acute renal failure Acute renal failure type: unspecified Severe sepsis shock status: without septic shock Qualified Code(s): A41.9 - Sepsis, unspecified organism; R65.20 - Severe sepsis without septic shock; N17.9 - Acute kidney failure, unspecified (3) Infected prosthetic mesh of abdominal wall Encounter type: initial encounter Qualified Code(s): T85.79XA - Infection and inflammatory reaction due to other internal prosthetic devices, implants and grafts, initial encounter
--- NOTE | 2025-06-24 07:51 | Critical Care Progress Note ---
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 He has been maintaining his BP(MAP>65) Patient now hypertensive into the 170s systolic, patient denies pain heart rate was in the 90s, administered 5 mg IV metoprolol, given previous hematoma intra- abdominal he will treat blood pressures above 160s systolic Fluids/Renal: Acute renal failure with hyperkalemia - Nephrology consult. Appreciate Nephrology recommendations. ID: [email or web address] to continue given wound dehiscence and abdominal contamination Empiric 7-day treatment course of Zosyn from the last OR visit. Empiric 7-day treatment course of caspofungin. Anticipate 72 hours of vancomycin unless culture turns positive requiring continued administration. Continue insulin infusion for additional 24 hours as we are adding small tube feeds - Wound culture pending GI/Nutrition: N.p.o. Postop day 1 Hyperlipidemia - Rosuvastatin on hold - Discussed with general surgery will start trickle feeds to hopefully maintain some gut integrity, - Consideration given to prior wound dehiscence Heme: Acute blood loss anemia - 1 unit packed red blood cells today with dialysis DVT prophylaxis: SCDs - Holding chemoprophylaxis of heparin 5000 twice daily: Would strongly consider increasing to 3 times daily Endocrine: ICU hyperglycemia protocol Vascular access: Left internal jugular CVC, right internal jugular temporary HD cath Code Status: Full code Disposition: ICU - Had extensive discussion with surgery and family present at bedside. We discussed risks and benefits of transfer to tertiary [facility] where they have CVVH versus continue with hemodialysis here. Outcomes for CVVH versus traditional HD are equivalent. At this point family felt risks of transport outweigh benefits. Will undergo trial of dialysis again today Admission and Anticipated Discharge Date Admission Date: June 20, 2025 Supervising Physician Co-Signing Physician Notes Dr. Padilla was resident physician during care of patient. I separately evaluated patient for cui portions of the history and the exam. I was present during the critical portion of medical decision making, and I discussed the case with the resident. I generally agree with the findings and plan. Vasoactives have been intermittently on and off. Will obtain a sedation vacation today. Discussed with general surgery will start trickle feeds to hopefully maintain some gut integrity, overnight/12-hour output NG total was 300, minimal output of surgical drain, nonoliguric renal failure, received 1 unit of packed red blood cells for hemoglobin of 7.2; potassium 3.4 creatinine 3.86 no indication for hemodialysis today. Empiric 7-day treatment course of Zosyn from the last OR visit. Empiric 7-day treatment course of caspofungin. Anticipate 72 hours of vancomycin unless culture turns positive requiring continued administration. Continue insulin infusion for additional 24 hours as we are adding small tube feeds Update 1140, patient has been off vasoactives given sedation holiday following complex commands spontaneous breathing trial adequate. Discussed with family risk benefits of extubation, given that he has had significant improvement I feel it is reasonable to proceed with trial of extubation. Discussed possible needs for reintubation. Patient was able to cough out blood clot presumptively from back of pharynx, patient has not had bloody secretions from airway. Update at 1600: Patient now hypertensive into the 170s systolic, patient denies pain heart rate was in the 90s, administered 5 mg IV metoprolol, given previous hematoma intra-abdominal he will treat blood pressures above 160s systolic Right upper extremity venous duplex was obtained for increased swelling, it is noted the patient has a long segment thrombus within the cephalic vein. We will remove right upper extremity IVs I have personally spent 95 minutes of critical care time in the direct management of this patient. This is a life/limb threatening event. This includes time spent evaluating patient, direct bedside care, chart review, plac ing orders, interpretation of diagnostic studies, discussion with consultants, patient, and/or family members regarding treatment decisions, as well as other required patient management activities. This time is exclusive of all separately billable procedures, and teaching time and separate from and in addition to any other critical care service time. Subjective Patient has been extubated and placed in Oxymax at 5l/min. Review of Systems Review of Systems: As per HPI Physical Exam Physical Exam: Vitals and labs reviewed General: ill appearing, sedated in NAD HEENT: EOMI, PERRLA Neck: Supple Cardiac: RRR no rubs gallops or murmurs Lungs: decreased bs. Abd: NG tube distended. bandaged. no BS : Brooks MSK: Full ROM. No obvious deformities Ext: trace Edema Skin: Warm, Dry Neuro: sedated Psych: unable to obtain Results & Data Results & Data Vital Signs (Past 12 Hours) Vital Signs Temp Pulse Resp BP Pulse Ox O2 Del Method O2 Flow Rate 06/24/25 07:30 36.8 C 74 20 99 06/24/25 07:30 102/60 06/24/25 07:30 102/60 06/24/25 07:30 102/60 06/24/25 07:30 102/60 06/24/25 07:24 36.8 C 75 20 99 06/24/25 07:23 36.8 C 75 20 112/54 L 99 40 06/24/25 07:15 105/63 06/24/25 07:15 105/63 06/24/25 07:15 105/63 06/24/25 07:15 105/63 06/24/25 07:15 105/63 06/24/25 07:15 36.8 C 73 20 98 06/24/25 07:06 36.8 C 76 20 98 06/24/25 06:53 36.8 C 76 20 111/55 L 98 06/24/25 06:38 36.9 C 78 20 107/55 L 99 06/24/25 06:30 95/59 L 06/24/25 06:30 95/59 L 06/24/25 06:30 95/59 L 06/24/25 06:30 36.9 C 75 20 98 06/24/25 06:23 98/60 L 06/24/25 06:23 98/60 L 06/24/25 06:23 98/60 L 06/24/25 06:22 36.9 C 76 20 98/60 L 98 06/24/25 06:09 36.9 C 81 20 99 06/24/25 06:00 37.0 C 81 20 96 06/24/25 06:00 98/64 L 06/24/25 06:00 98/64 L 06/24/25 06:00 98/64 L 06/24/25 05:27 37.0 C 87 20 99 06/24/25 05:19 110/70 06/24/25 05:19 110/70 06/24/25 05:00 06/24/25 04:57 37.0 C 80 23 93 06/24/25 04:30 115/69 06/24/25 04:30 115/69 06/24/25 04:30 115/69 06/24/25 04:24 37.1 C 83 20 98 06/24/25 04:15 111/68 06/24/25 04:12 37.1 C 82 20 92 06/24/25 04:01 110/65 06/24/25 04:01 110/65 06/24/25 04:01 110/65 06/24/25 04:00 80 110/49 L 06/24/25 03:57 37.1 C 83 20 90 06/24/25 03:45 114/67 06/24/25 03:39 37.1 C 81 20 90 06/24/25 03:30 37.1 C 83 20 94 06/24/25 03:30 111/64 06/24/25 03:30 111/64 06/24/25 03:15 112/68 06/24/25 03:15 112/68 06/24/25 03:03 37.1 C 79 20 96 06/24/25 03:00 113/67 06/24/25 03:00 113/67 06/24/25 02:50 76 20 90 06/24/25 02:48 37.2 C 80 20 97 06/24/25 02:45 104/67 06/24/25 02:45 104/67 06/24/25 02:33 37.2 C 80 20 95 06/24/25 02:30 103/64 06/24/25 02:15 128/71 06/24/25 02:00 110/68 06/24/25 01:54 37.2 C 78 20 90 06/24/25 01:45 108/66 06/24/25 01:33 37.2 C 79 20 96 06/24/25 01:30 37.2 C 78 20 96 06/24/25 01:30 105/63 06/24/25 01:27 37.2 C 79 20 94 06/24/25 01:15 108/65 06/24/25 01:00 06/24/25 00:51 37.3 C 82 20 91 06/24/25 00:45 103/64 06/24/25 00:45 37.3 C 80 20 95 06/24/25 00:15 37.3 C 81 20 91 06/24/25 00:15 98/62 L 06/24/25 00:00 84 06/24/25 00:00 102/59 L 06/24/25 00:00 112/49 L 06/23/25 23:51 37.3 C 83 20 95 06/23/25 23:45 103/60 06/23/25 23:42 37.3 C 82 20 96 06/23/25 23:30 106/66 06/23/25 23:27 37.3 C 85 20 96 06/23/25 23:15 105/63 06/23/25 23:12 37.4 C 82 20 96 06/23/25 23:06 37.4 C 86 20 95 06/23/25 23:00 94/59 L 06/23/25 23:00 91 H 20 90 06/23/25 22:45 37.4 C 89 20 93 06/23/25 22:45 102/62 06/23/25 22:30 109/66 06/23/25 22:30 37.4 C 90 20 93 06/23/25 22:00 114/70 06/23/25 22:00 37.5 C 93 H 20 95 06/23/25 21:45 120/81 06/23/25 21:45 37.5 C 92 H 20 91 06/23/25 21:30 120/69 06/23/25 21:27 37.5 C 93 H 20 93 06/23/25 21:15 121/77 06/23/25 21:06 37.4 C 83 21 93 06/23/25 21:00 06/23/25 20:45 37.4 C 95 H 20 95 06/23/25 20:45 108/69 06/23/25 20:45 Nasal Cannula, Mechanical Vent 06/23/25 20:30 37.4 C 95 H 20 92 06/23/25 20:30 121/76 06/23/25 20:15 37.4 C 94 H 20 90 06/23/25 20:15 118/74 06/23/25 20:00 121/69 09/18/25 20:00 37.4 C 95 H 20 94 06/23/25 20:00 138/42 L 06/23/25 20:00 95 H 20 94 FiO2 06/24/25 07:30 06/24/25 07:30 06/24/25 07:30 06/24/25 07:30 06/24/25 07:30 06/24/25 07:24 06/24/25 07:23 06/24/25 07:15 06/24/25 07:15 06/24/25 07:15 06/24/25 07:15 06/24/25 07:15 06/24/25 07:15 06/24/25 07:06 06/24/25 06:53 06/24/25 06:38 06/24/25 06:30 06/24/25 06:30 06/24/25 06:30 06/24/25 06:30 06/24/25 06:23 06/24/25 06:23 06/24/25 06:23 06/24/25 06:22 06/24/25 06:09 06/24/25 06:00 06/24/25 06:00 06/24/25 06:00 06/24/25 06:00 06/24/25 05:27 06/24/25 05:19 06/24/25 05:19 06/24/25 05:00 40 06/24/25 04:57 06/24/25 04:30 06/24/25 04:30 06/24/25 04:30 06/24/25 04:24 06/24/25 04:15 06/24/25 04:12 06/24/25 04:01 06/24/25 04:01 06/24/25 04:01 06/24/25 04:00 06/24/25 03:57 06/24/25 03:45 06/24/25 03:39 06/24/25 03:30 06/24/25 03:30 06/24/25 03:30 06/24/25 03:15 06/24/25 03:15 06/24/25 03:03 06/24/25 03:00 06/24/25 03:00 06/24/25 02:50 40 06/24/25 02:48 06/24/25 02:45 06/24/25 02:45 06/24/25 02:33 06/24/25 02:30 06/24/25 02:15 06/24/25 02:00 06/24/25 01:54 06/24/25 01:45 06/24/25 01:33 06/24/25 01:30 06/24/25 01:30 06/24/25 01:27 06/24/25 01:15 06/24/25 01:00 40 06/24/25 00:51 06/24/25 00:45 06/24/25 00:45 06/24/25 00:15 06/24/25 00:15 06/24/25 00:00 06/24/25 00:00 06/24/25 00:00 06/23/25 23:51 06/23/25 23:45 06/23/25 23:42 06/23/25 23:30 06/23/25 23:27 06/23/25 23:15 06/23/25 23:12 06/23/25 23:06 06/23/25 23:00 06/23/25 23:00 40 06/23/25 22:45 06/23/25 22:45 06/23/25 22:30 06/23/25 22:30 06/23/25 22:00 06/23/25 22:00 06/23/25 21:45 06/23/25 21:45 06/23/25 21:30 06/23/25 21:27 06/23/25 21:15 06/23/25 21:06 06/23/25 21:00 35 06/23/25 20:45 06/23/25 20:45 06/23/25 20:45 06/23/25 20:30 06/23/25 20:30 06/23/25 20:15 06/23/25 20:15 06/23/25 20:00 06/23/25 20:00 06/23/25 20:00 06/23/25 20:00 35 Coding Level of Care Code 90313 CRITICAL CARE 1ST 30-74M Additional Critical Care Time Additional 30min Critical Care Time: Yes - 84602 Diagnoses Thrombosis of right cephalic vein I82.611 Sepsis with acute renal failure without septic shock, due to unspecified o rganism, unspecified acute renal failure type A41.9; R65.20; N17.9 Acute renal failure type: unspecified Sepsis acute organ dysfunction status: with acute organ dysfunction Sepsis type: sepsis due to unspecified organism Severe sepsis acute organ dysfunction type: acute renal failure Severe sepsis shock status: without septic shock Anastomotic leak of intestine K91.89 JACINTA (acute kidney injury) N17.9 Infected prosthetic mesh of abdominal wall, initial encounter T85.79XA Encounter type: initial encounter Infected umbilical granuloma P83.81; B99.9 Additional Codes Critical Care Time - Additional 30min Critical Care Time: Yes - [id number] ([id number]) Resident Activity Tracking Resident Involvement: Resident Care Provided Care Provided: Adult Hospital Medicine (2) Sepsis Acute renal failure type: unspecified Sepsis acute organ dysfunction status: with acute organ dysfunction Sepsis type: sepsis due to unspecified organism Severe sepsis acute organ dysfunction type: acute renal failure Severe sepsis shock status: without septic shock Qualified Code(s): A41.9 - Sepsis, unspecified organism; R65.20 - Severe sepsis without septic shock; N17.9 - Acute kidney failure, unspecified (5) Infected prosthetic mesh of abdominal wall Encounter type: initial encounter Qualified Code(s): T85.79XA - Infection and inflammatory reaction due to other internal prosthetic devices, implants and grafts, initial encounter
[2025-06-24] MEDS: CASPOFUNGIN 50 MG in SODIUM CHLORIDE 0.9% 250 ML IV SCH (08:01)
--- NOTE | 2025-06-24 09:36 | Hospitalist Progress Note ---
Date of Service June 24, 2025 Assessment & Plan (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: (2) DM type 2 (diabetes mellitus, type 2): (3) HTN (hypertension): (4) HLD (hyperlipidemia): Plan Mr. Vaca is a 80 y/o male with DM2, diabetic retinopathy, dyslipidemia, GERD, Christiansen's esophagus, HTN, and other history as outlined below who underwent exploratory laparotomy with removal of infected mesh, hernia repair, and bowel resection 06/[address] Dhaliwal and for who we have been consulted to assist with post-operative medical management. #Septic shock #Metabolic acidosis #Infected mesh s/p removal, hernia repair, and bowel resection 06/20 -Developed worsening abd pain, rising lactate on 06/21 -CT AP 06/22 b/l small effusions, fluid filled bowels, 16cm fluid collection, likely hematoma -S/p ex lap 06/22 Plan -Trickle TF started today by surgery -Continue pressors per ICU -Appreciate surgery and ICU management -Continue zosyn and vanc -Also on caspofungin. Would recommend ID consult -Follow cultures, NGTD #Acute Renal Failure -Baseline Cr. 0.9 -Cr rising daily -Concern for ATN -Oliguric renal failure -HD started 06/22 Plan -Now with hypokalemia. This can be corrected with HD -Appreciate nephrology input -Monitor urine output, intake, renal function -Avoid nephrotoxic agents if possible #Acute hypoxic hypercarbic resp failure -Requiring intubation -CT showing bilateral small effusions, some atelectasis -Suspect multifactorial. he is also taking shallow breaths due to pain Plan -Appreciate pulm/ICU input -Volume management per nephro -Encouraged IS -Wean O2 as tolerated #Anemia -POA. Hgb 12.5 on admission -S/p 1 PRBC 06/23 -CT showing hematoma -Acute blood loss anemia Plan -Another PRBC ordered for today -Transfuse < 7.0 -Monitor counts #Hyponatremia #Hyperkalemia -Follow. nephrology following #Lactic acidosis #Trop elevation -HS trop mildly high at 28 in setting of acute renal failure -Non specific trop elevation -No s/s ACS #Elevated LFTs -Mildly elevated, likely from liver hypoperfusion/shock liver #Hypertension hold home losartan #acute hypergylcemia #Type 2 Diabetes Hold oral meds, A1C 7.7% Continue insulin drip for now Monitor BG and electrolytes closely #Dyslipidemia - Chronic, resume statin once tolerating po #GERD - Continue daily PPI--transitioned to IV given inability to take po I spent a total of 37 minutes coordinating, documenting, and providing care for this patient excluding time spent in the performance of separately billed services. This included personally reviewing all current laboratories and imaging studies, medical reconciliation, outpatient chart review and discussion with specialists Admission and Anticipated Discharge Date Admission Date: June 20, 2025 Subjective remains intubated and sedated Physical Exam Physical Exam: Vitals and labs reviewed General: ill appearing, sedated in NAD HEENT: EOMI, PERRLA Neck: Supple Cardiac: RRR no rubs gallops or murmurs Lungs: decreased bs. Abd: NG tube distended. bandaged. no BS : Brooks MSK: Full ROM. No obvious deformities Ext: trace Edema Skin: Warm, Dry Neuro: sedated Psych: unable to obtain Results & Data Results & Data Vital Signs (Past 12 Hours) Vital Signs Temp Pulse Resp BP Pulse Ox O2 Flow Rate FiO2 06/24/25 09:00 104/60 06/24/25 09:00 40 06/24/25 08:54 36.8 C 72 20 138/59 L 99 06/24/25 08:45 97/61 L 06/24/25 08:42 36.8 C 75 20 99 06/24/25 08:30 105/62 06/24/25 08:30 105/62 06/24/25 08:30 36.8 C 75 20 99 06/24/25 08:27 36.8 C 76 20 98 06/24/25 08:23 36.8 C 73 20 135/56 L 99 06/24/25 08:20 74 20 96 40 06/24/25 08:15 109/60 06/24/25 08:00 36.8 C 76 20 97 06/24/25 07:54 36.8 C 76 20 99 06/24/25 07:30 36.8 C 74 20 99 06/24/25 07:30 102/60 06/24/25 07:30 102/60 06/24/25 07:30 102/60 06/24/25 07:30 102/60 06/24/25 07:24 36.8 C 75 20 99 06/24/25 07:23 36.8 C 75 20 112/54 L 99 40 06/24/25 07:15 105/63 06/24/25 07:15 105/63 06/24/25 07:15 105/63 06/24/25 07:15 105/63 06/24/25 07:15 105/63 06/24/25 07:15 36.8 C 73 20 98 06/24/25 07:06 36.8 C 76 20 98 06/24/25 06:53 36.8 C 76 20 111/55 L 98 06/24/25 06:38 36.9 C 78 20 107/55 L 99 06/24/25 06:30 95/59 L 06/24/25 06:30 95/59 L 06/24/25 06:30 95/59 L 06/24/25 06:30 36.9 C 75 20 98 06/24/25 06:23 98/60 L 06/24/25 06:23 98/60 L 06/24/25 06:23 98/60 L 06/24/25 06:22 36.9 C 76 20 98/60 L 98 06/24/25 06:09 36.9 C 81 20 99 06/24/25 06:00 37.0 C 81 20 96 06/24/25 06:00 98/64 L 06/24/25 06:00 98/64 L 06/24/25 06:00 98/64 L 06/24/25 05:27 37.0 C 87 20 99 06/24/25 05:19 110/70 06/24/25 05:19 110/70 06/24/25 05:00 40 06/24/25 04:57 37.0 C 80 23 93 06/24/25 04:30 115/69 06/24/25 04:30 115/69 06/24/25 04:30 115/69 06/24/25 04:24 37.1 C 83 20 98 06/24/25 04:15 111/68 06/24/25 04:12 37.1 C 82 20 92 06/24/25 04:01 110/65 06/24/25 04:01 110/65 06/24/25 04:01 110/65 06/24/25 04:00 80 110/49 L 06/24/25 03:57 37.1 C 83 20 90 06/24/25 03:45 114/67 06/24/25 03:39 37.1 C 81 20 90 06/24/25 03:30 37.1 C 83 20 94 06/24/25 03:30 111/64 06/24/25 03:30 111/64 06/24/25 03:15 112/68 06/24/25 03:15 112/68 06/24/25 03:03 37.1 C 79 20 96 06/24/25 03:00 113/67 06/24/25 03:00 113/67 06/24/25 02:50 76 20 90 40 06/24/25 02:48 37.2 C 80 20 97 06/24/25 02:45 104/67 06/24/25 02:45 104/67 06/24/25 02:33 37.2 C 80 20 95 06/24/25 02:30 103/64 06/24/25 02:15 128/71 06/24/25 02:00 110/68 06/24/25 01:54 37.2 C 78 20 90 06/24/25 01:45 108/66 06/24/25 01:33 37.2 C 79 20 96 06/24/25 01:30 37.2 C 78 20 96 06/24/25 01:30 105/63 06/24/25 01:27 37.2 C 79 20 94 06/24/25 01:15 108/65 06/24/25 01:00 40 06/24/25 00:51 37.3 C 82 20 91 06/24/25 00:45 103/64 06/24/25 00:45 37.3 C 80 20 95 06/24/25 00:15 37.3 C 81 20 91 06/24/25 00:15 98/62 L 06/24/25 00:00 84 06/24/25 00:00 102/59 L 06/24/25 00:00 112/49 L 06/23/25 23:51 37.3 C 83 20 95 06/23/25 23:45 103/60 06/23/25 23:42 37.3 C 82 20 96 06/23/25 23:30 106/66 06/23/25 23:27 37.3 C 85 20 96 06/23/25 23:15 105/63 06/23/25 23:12 37.4 C 82 20 96 06/23/25 23:06 37.4 C 86 20 95 06/23/25 23:00 94/59 L 06/23/25 23:00 91 H 20 90 40 06/23/25 22:45 37.4 C 89 20 93 06/23/25 22:45 102/62 06/23/25 22:30 109/66 06/23/25 22:30 37.4 C 90 20 93 06/23/25 22:00 114/70 06/23/25 22:00 37.5 C 93 H 20 95 06/23/25 21:45 120/81 06/23/25 21:45 37.5 C 92 H 20 91 Laboratory Results Abnormal lab results 06/22/25 06/22/25 06/23/25 Range/Units 04:16 20:10 09:38 WBC (4.8-10.8) K/ul RBC (4.70-6.10) M/uL Hgb (14.0-18.0) g/dl Hct (42.0-52.0) % Neut # (Auto) (1.40-6.50) K/uL Norman # (Auto) (0.11-0.59) K/uL Potassium (3.5-5.1) mmol/L Chloride (98-107) mmol/L BUN (6-23) mg/dl Creatinine (0.6-1.4) mg/dl BUN/Creatinine Ratio (10-20) Glucose (70-99(Fasting)) mg/dl POC Glucose (70-99) mg/dl POC Glucose (other) 218 H 270 H (70-99) mg/dl Lactate (0.4-2.0) mmol/L Calcium (8.6-10.3) mg/dl Magnesium (1.7-2.4) mg/dl Total Protein (6.0-8.3) gm/dl Albumin (3.4-5.0) gm/dl Globulin (2.5-4.0) gm/dl Crossmatch See Detail 06/23/25 06/23/25 06/23/25 Range/Units 10:59 11:00 12:00 WBC (4.8-10.8) K/ul RBC (4.70-6.10) M/uL Hgb (14.0-18.0) g/dl Hct (42.0-52.0) % Neut # (Auto) (1.40-6.50) K/uL Norman # (Auto) (0.11-0.59) K/uL Potassium (3.5-5.1) mmol/L Chloride (98-107) mmol/L BUN (6-23) mg/dl Creatinine (0.6-1.4) mg/dl BUN/Creatinine Ratio (10-20) Glucose (70-99(Fasting)) mg/dl POC Glucose (70-99) mg/dl POC Glucose (other) 225 H 196 H (70-99) mg/dl Lactate 3.2 H* (0.4-2.0) mmol/L Calcium (8.6-10.3) mg/dl Magnesium (1.7-2.4) mg/dl Total Protein (6.0-8.3) gm/dl Albumin (3.4-5.0) gm/dl Globulin (2.5-4.0) gm/dl Crossmatch 06/23/25 06/23/25 06/23/25 Range/Units 13:31 14:55 17:14 WBC (4.8-10.8) K/ul RBC (4.70-6.10) M/uL Hgb (14.0-18.0) g/dl Hct (42.0-52.0) % Neut # (Auto) (1.40-6.50) K/uL Norman # (Auto) (0.11-0.59) K/uL Potassium (3.5-5.1) mmol/L Chloride (98-107) mmol/L BUN (6-23) mg/dl Creatinine (0.6-1.4) mg/dl BUN/Creatinine Ratio (10-20) Glucose (70-99(Fasting)) mg/dl POC Glucose (70-99) mg/dl POC Glucose (other) 197 H 115 H 111 H (70-99) mg/dl Lactate (0.4-2.0) mmol/L Calcium (8.6-10.3) mg/dl Magnesium (1.7-2.4) mg/dl Total Protein (6.0-8.3) gm/dl Albumin (3.4-5.0) gm/dl Globulin (2.5-4.0) gm/dl Crossmatch 06/23/25 06/23/25 06/23/25 Range/Units 18:15 19:19 20:05 WBC (4.8-10.8) K/ul RBC (4.70-6.10) M/uL Hgb (14.0-18.0) g/dl Hct (42.0-52.0) % Neut # (Auto) (1.40-6.50) K/uL Norman # (Auto) (0.11-0.59) K/uL Potassium (3.5-5.1) mmol/L Chloride (98-107) mmol/L BUN 24 H (6-23) mg/dl Creatinine 3.15 H D (0.6-1.4) mg/dl BUN/Creatinine Ratio 7.6 L (10-20) Glucose 160 H (70-99(Fasting)) mg/dl POC Glucose 162 H (70-99) mg/dl POC Glucose (other) 121 H (70-99) mg/dl Lactate (0.4-2.0) mmol/L Calcium 7.1 L (8.6-10.3) mg/dl Magnesium 1.6 L (1.7-2.4) mg/dl Total Protein (6.0-8.3) gm/dl Albumin (3.4-5.0) gm/dl Globulin (2.5-4.0) gm/dl Crossmatch 06/23/25 06/23/25 06/23/25 Range/Units 20:20 20:22 21:18 WBC (4.8-10.8) K/ul RBC (4.70-6.10) M/uL Hgb (14.0-18.0) g/dl Hct (42.0-52.0) % Neut # (Auto) (1.40-6.50) K/uL Norman # (Auto) (0.11-0.59) K/uL Potassium (3.5-5.1) mmol/L Chloride (98-107) mmol/L BUN (6-23) mg/dl Creatinine (0.6-1.4) mg/dl BUN/Creatinine Ratio (10-20) Glucose (70-99(Fasting)) mg/dl POC Glucose 158 H 162 H 164 H (70-99) mg/dl POC Glucose (other) (70-99) mg/dl Lactate (0.4-2.0) mmol/L Calcium (8.6-10.3) mg/dl Magnesium (1.7-2.4) mg/dl Total Protein (6.0-8.3) gm/dl Albumin (3.4-5.0) gm/dl Globulin (2.5-4.0) gm/dl Crossmatch 06/23/25 06/24/25 06/24/25 Range/Units 22:14 00:10 02:14 WBC (4.8-10.8) K/ul RBC (4.70-6.10) M/uL Hgb (14.0-18.0) g/dl Hct (42.0-52.0) % Neut # (Auto) (1.40-6.50) K/uL Norman # (Auto) (0.11-0.59) K/uL Potassium (3.5-5.1) mmol/L Chloride (98-107) mmol/L BUN (6-23) mg/dl Creatinine (0.6-1.4) mg/dl BUN/Creatinine Ratio (10-20) Glucose (70-99(Fasting)) mg/dl POC Glucose (70-99) mg/dl POC Glucose (other) 147 H 155 H 157 H (70-99) mg/dl Lactate (0.4-2.0) mmol/L Calcium (8.6-10.3) mg/dl Magnesium (1.7-2.4) mg/dl Total Protein (6.0-8.3) gm/dl Albumin (3.4-5.0) gm/dl Globulin (2.5-4.0) gm/dl Crossmatch 06/24/25 06/24/25 06/24/25 Range/Units 04:13 04:41 08:08 WBC 11.82 H (4.8-10.8) K/ul RBC 2.34 L (4.70-6.10) M/uL Hgb 7.2 L (14.0-18.0) g/dl Hct 20.6 L* (42.0-52.0) % Neut # (Auto) 8.19 H (1.40-6.50) K/uL Norman # (Auto) 0.88 H (0.11-0.59) K/uL Potassium 3.4 L (3.5-5.1) mmol/L Chloride 97 L (98-107) mmol/L BUN 31 H (6-23) mg/dl Creatinine 3.86 H D (0.6-1.4) mg/dl BUN/Creatinine Ratio 8.0 L (10-20) Glucose 131 H (70-99(Fasting)) mg/dl POC Glucose 117 H (70-99) mg/dl POC Glucose (other) 138 H (70-99) mg/dl Lactate (0.4-2.0) mmol/L Calcium 7.1 L (8.6-10.3) mg/dl Magnesium (1.7-2.4) mg/dl Total Protein 4.6 L (6.0-8.3) gm/dl Albumin 2.2 L (3.4-5.0) gm/dl Globulin 2.4 L (2.5-4.0) gm/dl Crossmatch (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 (2) DM type 2 (diabetes mellitus, type 2) Diabetes mellitus mcc insulin use: without machine long goods helper use Diabetes mellitus complication status: with ophthalmic complications Diabetes mellitus complication detail: with diabetic retinopathy Diabetic retinopathy severity: with unspecified retinopathy severity Diabetes mellitus macular edema: macular edema presence unspecified Laterality: unspecified laterality Qualified Code(s): E11.319 - Type 2 diabetes mellitus with unspecified diabetic retinopathy without macular edema (3) HTN (hypertension) Hypertension type: unspecified Qualified Code(s): I10 - Essential (primary) hypertension (4) HLD (hyperlipidemia) Hyperlipidemia type: unspecified Qualified Code(s): E78.5 - Hyperlipidemia, unspecified
[2025-06-24] MEDS ORDERED: POTASSIUM CHLORIDE / WTR 20 MEQ/100 ML PLCT IV SCH (09:45)
--- NOTE | 2025-06-24 10:33 | Nephrology Progress Note ---
Date of Service June 24, 2025 Assessment & Plan Admission and Anticipated Discharge Date Admission Date: June 20, 2025 Subjective Assessment & Plan (1) JACINTA (acute kidney injury): Severe stage 3 JACINTA oliguric type from Classic severe ATN. At baseline creat is normal 0.9 as of 05/30 on pre op labs. Then POD 1 was already doubled at 1.9 and then creat has again more than doubled in 24 hrs time period from 1..[address] abdomen few hrs ago showed normal appearing kidneys--no Obstruction. However also has sig Pl eff. he is about 4-5 liters +ve so far. needing lot of o2 also. has high K and lactic acidosis. Given the total picture plan is to do HD catheter either in OR or immediately after and possibly do dialysis later today after he comes form OR. However things are still fluid as we dont know how he will be post op. Case Discussed and plan made regarding post op ICU care and possible dialysis. I will be in touch with ICU throughout the day as well as RN and my Dialysis Nurse. High risk of mortality given Sig issues including JACINTA and post op complications. Dialysis was done yesterday without much problem--no UF done and had PRBC. No dialysis today but will plan for tomorrow K is slightly low at 3.4 so will do 3 K bath tomorrow. also will give 20K procrit tomorrow If BP allows may take some UF but will depend. (2) Infected prosthetic mesh of abdominal wall: Reviewed Surgery note preop post op and current status. S--Still critically ill. No pressors now for almost 2 hrs--BP still good. NO urine Still On vent ROS--Not possible to obtain. on vent Physical Exam Physical Exam: General: currently intubated and sedated HEENT: no icterus, moist mucus membranes Neck: supple, trachea midline Heart: RRR Lungs: CTA bilaterally, no W/R/R--on vent Abdomen: Diffusely binder in place Extremities: No edema, Neurologic:sedated and on vent Results & Data Vital Signs (Past 12 Hours) Vital Signs Temp Pulse Resp BP Pulse Ox O2 Del Method O2 Flow Rate 06/24/25 09:46 Mechanical Vent 06/24/25 09:42 36.8 C 73 20 99 06/24/25 09:18 36.8 C 74 20 98 06/24/25 09:15 104/62 06/24/25 09:15 104/62 06/24/25 09:06 36.8 C 73 20 98 06/24/25 09:00 104/60 06/24/25 09:00 104/60 06/24/25 09:00 06/24/25 08:54 36.8 C 72 20 138/59 L 99 06/24/25 08:45 97/61 L 06/24/25 08:42 36.8 C 75 20 99 06/24/25 08:30 105/62 06/24/25 08:30 105/62 06/24/25 08:30 36.8 C 75 20 99 06/24/25 08:27 36.8 C 76 20 98 06/24/25 08:23 36.8 C 73 20 135/56 L 99 06/24/25 08:20 74 20 96 06/24/25 08:15 109/60 06/24/25 08:00 36.8 C 76 20 97 06/24/25 07:54 36.8 C 76 20 99 06/24/25 07:30 36.8 C 74 20 99 06/24/25 07:30 102/60 06/24/25 07:30 102/60 06/24/25 07:30 102/60 06/24/25 07:30 102/60 06/24/25 07:24 36.8 C 75 20 99 06/24/25 07:23 36.8 C 75 20 112/54 L 99 40 06/24/25 07:15 105/63 06/24/25 07:15 105/63 06/24/25 07:15 105/63 06/24/25 07:15 105/63 06/24/25 07:15 105/63 06/24/25 07:15 36.8 C 73 20 98 06/24/25 07:06 36.8 C 76 20 98 06/24/25 06:53 36.8 C 76 20 111/55 L 98 06/24/25 06:38 36.9 C 78 20 107/55 L 99 06/24/25 06:30 95/59 L 06/24/25 06:30 95/59 L 06/24/25 06:30 95/59 L 06/24/25 06:30 36.9 C 75 20 98 06/24/25 06:23 98/60 L 06/24/25 06:23 98/60 L 06/24/25 06:23 98/60 L 06/24/25 06:22 36.9 C 76 20 98/60 L 98 06/24/25 06:09 36.9 C 81 20 99 06/24/25 06:00 37.0 C 81 20 96 06/24/25 06:00 98/64 L 06/24/25 06:00 98/64 L 06/24/25 06:00 98/64 L 06/24/25 05:27 37.0 C 87 20 99 06/24/25 05:19 110/70 06/24/25 05:19 110/70 06/24/25 05:00 06/24/25 04:57 37.0 C 80 23 93 06/24/25 04:30 115/69 06/24/25 04:30 115/69 06/24/25 04:30 115/69 06/24/25 04:24 37.1 C 83 20 98 06/24/25 04:15 111/68 06/24/25 04:12 37.1 C 82 20 92 06/24/25 04:01 110/65 06/24/25 04:01 110/65 06/24/25 04:01 110/65 06/24/25 04:00 80 110/49 L 06/24/25 03:57 37.1 C 83 20 90 06/24/25 03:45 114/67 06/24/25 03:39 37.1 C 81 20 90 06/24/25 03:30 37.1 C 83 20 94 06/24/25 03:30 111/64 06/24/25 03:30 111/64 06/24/25 03:15 112/68 06/24/25 03:15 112/68 06/24/25 03:03 37.1 C 79 20 96 06/24/25 03:00 113/67 06/24/25 03:00 113/67 06/24/25 02:50 76 20 90 06/24/25 02:48 37.2 C 80 20 97 06/24/25 02:45 104/67 06/24/25 02:45 104/67 06/24/25 02:33 37.2 C 80 20 95 06/24/25 02:30 103/64 06/24/25 02:15 128/71 06/24/25 02:00 110/68 06/24/25 01:54 37.2 C 78 20 90 06/24/25 01:45 108/66 06/24/25 01:33 37.2 C 79 20 96 06/24/25 01:30 37.2 C 78 20 96 06/24/25 01:30 105/63 06/24/25 01:27 37.2 C 79 20 94 06/24/25 01:15 108/65 06/24/25 01:00 06/24/25 00:51 37.3 C 82 20 91 06/24/25 00:45 103/64 06/24/25 00:45 37.3 C 80 20 95 06/24/25 00:15 37.3 C 81 20 91 06/24/25 00:15 98/62 L 06/24/25 00:00 84 06/24/25 00:00 102/59 L 06/24/25 00:00 112/49 L 06/23/25 23:51 37.3 C 83 20 95 06/23/25 23:45 103/60 06/23/25 23:42 37.3 C 82 20 96 06/23/25 23:30 106/66 06/23/25 23:27 37.3 C 85 20 96 06/23/25 23:15 105/63 06/23/25 23:12 37.4 C 82 20 96 06/23/25 23:06 37.4 C 86 20 95 06/23/25 23:00 94/59 L 06/23/25 23:00 91 H 20 90 06/23/25 22:45 37.4 C 89 20 93 06/23/25 22:45 102/62 FiO2 06/24/25 09:46 35 06/24/25 09:42 06/24/25 09:18 06/24/25 09:15 06/24/25 09:15 06/24/25 09:06 06/24/25 09:00 06/24/25 09:00 06/24/25 09:00 40 06/24/25 08:54 06/24/25 08:45 06/24/25 08:42 06/24/25 08:30 06/24/25 08:30 06/24/25 08:30 06/24/25 08:27 06/24/25 08:23 06/24/25 08:20 40 06/24/25 08:15 06/24/25 08:00 06/24/25 07:54 06/24/25 07:30 06/24/25 07:30 06/24/25 07:30 06/24/25 07:30 06/24/25 07:30 06/24/25 07:24 06/24/25 07:23 06/24/25 07:15 06/24/25 07:15 06/24/25 07:15 06/24/25 07:15 06/24/25 07:15 06/24/25 07:15 06/24/25 07:06 06/24/25 06:53 06/24/25 06:38 06/24/25 06:30 06/24/25 06:30 06/24/25 06:30 06/24/25 06:30 06/24/25 06:23 06/24/25 06:23 06/24/25 06:23 06/24/25 06:22 06/24/25 06:09 06/24/25 06:00 06/24/25 06:00 06/24/25 06:00 06/24/25 06:00 06/24/25 05:27 06/24/25 05:19 06/24/25 05:19 06/24/25 05:00 40 06/24/25 04:57 06/24/25 04:30 06/24/25 04:30 06/24/25 04:30 06/24/25 04:24 06/24/25 04:15 06/24/25 04:12 06/24/25 04:01 06/24/25 04:01 06/24/25 04:01 06/24/25 04:00 06/24/25 03:57 06/24/25 03:45 06/24/25 03:39 06/24/25 03:30 06/24/25 03:30 06/24/25 03:30 06/24/25 03:15 06/24/25 03:15 06/24/25 03:03 06/24/25 03:00 06/24/25 03:00 06/24/25 02:50 40 06/24/25 02:48 06/24/25 02:45 06/24/25 02:45 06/24/25 02:33 06/24/25 02:30 06/24/25 02:15 06/24/25 02:00 06/24/25 01:54 06/24/25 01:45 06/24/25 01:33 06/24/25 01:30 06/24/25 01:30 06/24/25 01:27 06/24/25 01:15 06/24/25 01:00 40 06/24/25 00:51 06/24/25 00:45 06/24/25 00:45 06/24/25 00:15 06/24/25 00:15 06/24/25 00:00 06/24/25 00:00 06/24/25 00:00 06/23/25 23:51 06/23/25 23:45 06/23/25 23:42 06/23/25 23:30 06/23/25 23:27 06/23/25 23:15 06/23/25 23:12 06/23/25 23:06 06/23/25 23:00 06/23/25 23:00 40 06/23/25 22:45 06/23/25 22:45
[2025-06-24 10:40] LABS: Hematocrit (blood only) 23.7 % (42.0-52.0); Hemoglobin 7.8 g/dl (14.0-18.0)
[2025-06-24] MEDS ORDERED: Nursing to Pharmacy Communication SCH (11:00)
--- NOTE | 2025-06-24 12:26 | XRay Report ---
KUB HISTORY: NG placement post extubation COMPARISON STUDY: 06/20/2025 FINDINGS: Nasogastric tube tip is in the proximal body of the stomach. There is a dilated left upper quadrant small bowel loop. IMPRESSION: Nasogastric tube as described. ACT 112: Negative or not required by law. The above report was generated using voice recognition software. It may contain grammatical, syntax o r spelling errors. Electronically signed by: Arjun Hines M.D. 06/24/2025 12:25 PM
[2025-06-24] MEDS: TUBE FEEDING WATER FLUSH OG SCH (12:56)
[2025-06-24] MEDS: PEPTAMEN 1.5 CAL 1,000 ML BAG OG SCH (12:56)
--- NOTE | 2025-06-24 14:33 | Pharmacy Report ---
Pharmacy Glycemic Short Note 2 - Date of Service June 24, 2025 - Glycemic Short BSG Results (Last 24 hours): 06/23/25 06/23/25 06/23/25 13:31 14:55 15:46 Glucose POC Glucose POC Glucose (other) 197 H 115 H 94 06/23/25 06/23/25 06/23/25 16:13 17:14 18:15 Glucose POC Glucose POC Glucose (other) 90 111 H 121 H 06/23/25 06/23/25 06/23/25 19:19 20:05 20:17 Glucose 160 H POC Glucose 162 H 89 POC Glucose (other) 06/23/25 06/23/25 06/23/25 20:20 20:22 21:18 Glucose POC Glucose 158 H 162 H 164 H POC Glucose (other) 06/23/25 06/24/25 06/24/25 22:14 00:10 02:14 Glucose POC Glucose POC Glucose (other) 147 H 155 H 157 H 06/24/25 06/24/25 06/24/25 04:13 04:41 08:08 Glucose 131 H POC Glucose 117 H POC Glucose (other) 138 H 06/24/25 12:59 Glucose POC Glucose 122 H POC Glucose (other) OUTPATIENT ANTIDIABETIC REGIMEN: * empagliflozin 25mg PO Q AM * metformin ER 500mg PO daily HbA1c: 7.7% on 06/21/25 ASSESSMENT: 06/24: * Patient well controlled and stable on nsulin infusion today at 0.7 units/hr. * Discussed on multidisciplinary ICU rounds. Given ongoing off/on pressor requirements, stable insulin infusion dosing, and initiation of enteral feeds, will continue with insulin infusion today and reassess opportunities for transition tomorrow morning. 06/23 * Hypoglycemia to 68 mg/dL noted yesterday PM with hyperglycemia >300 mg/dL this AM, possibly 2nd overriden dexamethasone in OR yesterday. Insulin drip was initiated this AM. Bicarb drip mixed in dextrose was discontinued this AM. Remains critically ill - intubated and on two pressors. * Discussed at ICU rounds - continue insulin drip for now and then re-evaluate tomorrow AM 06/22 * Patient remains on insulin infusion @ 1 unit/hour. BSGs have been stable. Returned to OR today for ex lap, washout and was transferred to the ICU following * Patient remains intubated at this time. SCR continues to increase. K 5.2. Bicarb is now 23, lactate 3.6 this morning (on 150 meq NABicarb in D5W @ 150 mL/hr). Anion gap has closed. PH 7.26 * Would continue insulin infusion at this time given critical condition. 06/21 * Jose Ramon is a 80 year old male who was admitted yesterday for sepsis secondary to infected mesh of abdominal wall--s/p mesh removal, hernia repair, and bowel resection (POD #1). Patient with noted hyperglycemia and metabolic acidosis (AG 21 and CO2 17 on 06/20 and AG 19 and CO2 19 with labs this morning). * An insulin drip was started for DKA and pharmacy was consulted to assist with glycemic management this morning. Prior to starting the insulin drip, BSG was 315mg/dL.. Lantus 6 units x 1 was given and 4 units regular insulin iv x 1 was also given. At ~1000 this morning, BSG was still 297mg/dL. An 8 unit regular insulin bolus was given followed by the insulin drip at 8.8units/hr. * Patient remains NPO, and BSGs have been trending down. Pending fluids containing KCL have been ordered. PLAN FOR INPATIENT GLYCEMIC CONTROL: * Hold outpatient oral diabetes medications * Basal insulin * continues on insulin infusion * Bolus insulin * NovoLog per scale ACHS * RN to use "insulin infusion adjustment calculator" to calculate dose if/when he is ordered a diet.
--- NOTE | 2025-06-24 15:03 | Ultrasound Report ---
ULTRASOUND RIGHT UPPER EXTREMITY VENOUS CLINICAL HISTORY: Swelling. COMPARISON STUDY: None. TECHNIQUE: Real-time, grayscale, and color Doppler sonography of the deep veins of the right upper ex tremity is performed. Compression and augmentation were utilized. FINDINGS: There is thrombus in the cephalic vein from the distal aspect of the upper arm to the dista l aspect of the forearm measuring approximately 16 cm in length. No DVT seen at the right upper extre mity. IMPRESSION: 1. Long segment thrombus within the cephalic vein. 2. No DVT seen. ACT 112: Negative or not required by law. Electronically signed by: Arjun Hines M.D. 06/24/2025 3:02 PM
[2025-06-24] MEDS ORDERED: MoRPHine SULFATE 4 MG/ML 1 ML CARP\\VIAL IV PRN (15:36)
[2025-06-24 15:41] LABS: Hematocrit (blood only) 25.5 % (42.0-52.0); Hemoglobin 8.7 g/dl (14.0-18.0)
[2025-06-24] MEDS ORDERED: METOPROLOL TARTRATE 1 MG/ML VIAL IV PRN (15:58)
[2025-06-24] MEDS: METOPROLOL TARTRATE 1 MG/ML VIAL IV ONE (16:05)
[2025-06-24] MEDS: METOPROLOL TARTRATE 1 MG/ML VIAL IV STA (16:19)
[2025-06-24] MEDS: LABETALOL HCL IV 5 MG/ML 20ML IV STA (16:30)
[2025-06-24] MEDS: MoRPHine SULFATE 2 MG/ML CARP IV PRN (19:47)
--- NOTE | 2025-06-24 20:09 | Communication Note ---
Date of Service: June 24, 2025 NGT placed by me in L nares to 60cm without difficulty. Return of some clots, some clear output. KUB shows appropriate position. Clamp for now and restart trickle feeds tonight. Coding Level of Care Code None
[2025-06-24] MEDS ORDERED: ACETAMINOPHEN 1,000 MG/100 ML VIAL IV PRN (20:16)
[2025-06-24 20:17] LABS: Hematocrit (blood only) 25.1 % (42.0-52.0); Hemoglobin 8.2 g/dl (14.0-18.0)
[2025-06-24] MEDS: PANTOprazole 40 MG/10 ML SYR IV SCH (20:35)
--- NOTE | 2025-06-24 21:37 | XRay Report ---
Exam(s): XR KUB EXAM: XR Abdomen, 1 View CLINICAL HISTORY: Reason for exam: NGT. TECHNIQUE: Frontal supine view of the abdomen/pelvis. COMPARISON: 06/23/2025 FINDINGS: Lower thorax: Esophagogastric tube terminates in the stomach. Basilar airspace opacities in the lungs. Gastrointestinal tract: Unremarkable. Nonobstructive bowel gas pattern. IMPRESSION: Esophagogastric tube terminates in the stomach. Electronically signed by: Colby Avalos MD 06/24/25 21:36 PM
[2025-06-25] MEDS ORDERED: GLUCOSE 40% GEL 15 GM TUBE PO PRN (00:06)
[2025-06-25] MEDS ORDERED: GLUCOSE 10 TAB/TUBE PO PRN (00:06)
[2025-06-25] MEDS ORDERED: DEXTROSE 50% 50 ML SYRINGE IV PRN (00:06)
[2025-06-25] MEDS ORDERED: CARBOHYDRATES FOR HYPOGLYCEMIA PO PRN (00:06)
[2025-06-25] MEDS ORDERED: GLUCAGON FOR INJ 1 MG VIAL SQ PRN (00:06)
[2025-06-25] MEDS: INSULIN ASPART PER UNIT CHARGE SC SCH ×2 (00:08→00:24)
[2025-06-25 02:37] LABS: Hematocrit (blood only) 24.5 % (42.0-52.0); Hemoglobin 8.0 g/dl (14.0-18.0); Immature Granulocytes # (auto) 0.32 K/uL (0.01-0.20); Immature Granulocytes % (auto) 2.6 %; Mean Corpuscular Hemoglobin 29.3 pg (25.0-34.0); Mean Corpuscular Volume 89.7 fL (80.0-100.0); Platelet Count 163 K/uL (130-400); RDW Standard Deviation 48.9 fL (36.4-46.3); Red Blood Count 2.73 M/uL (4.70-6.10); White Blood Count 12.49 K/ul (4.8-10.8)
[2025-06-25 02:55] LABS: Anion Gap 12.0 (3-11); Blood Urea Nitrogen 45.0 mg/dl (6-23); Calcium 6.9 mg/dl (8.6-10.3); Carbon Dioxide 27.0 mmol/L (21-32); Chloride 98.0 mmol/L (98-107); Creatinine Clr Calc Pharmacy 12.6 ml/min; Glucose 123.0 mg/dl (70-99(Fasting)); Magnesium 2.2 mg/dl (1.7-2.4); Potassium 3.7 mmol/L (3.5-5.1); Sodium 137.0 mmol/L (136-145)
[2025-06-25] MEDS ORDERED: SODIUM CHLORIDE 0.9% 1,000 ML IV PRN (07:00)
--- NOTE | 2025-06-25 07:46 | Critical Care Progress Note ---
Date of Service June 25, 2025 Assessment & Plan (1) Thrombosis of right cephalic vein: (2) Sepsis: (3) Anastomotic leak of intestine: (4) JACINTA (acute kidney injury): (5) Infected prosthetic mesh of abdominal wall: (6) Infected umbilical granuloma: Plan Reason Critically Ill: 80-year-old male with intra-abdominal sepsis secondary to anastomotic leak secondary to hematoma PLAN: Neuro: Analgesia and sedation - Discontinued Fentanyl infusion and propofol Resp: -Extubated and placed on Oxymask CV: Sepsis associated hypotension on presentation Discontinued Levophed and Vasopressin. He has been maintaining his BP(MAP>65) Fluids/Renal: Acute renal failure with hyperkalemia - Nephrology consult. Appreciate Nephrology recommendations. ID: Zosyn to continue given wound dehiscence and abdominal contamination Empiric 7-day treatment course of Zosyn from the last OR visit. Empiric 7-day treatment course of caspofungin. -Given significant improvement with Zosyn, will discontinue Caspofungin today -Discontinued Insulin Infusion - Wound culture pending GI/Nutrition: N.p.o. Postop day 2 Hyperlipidemia - Rosuvastatin on hold -Continue trickle tube feeds to hopefully maintain some gut integr ity, - Consideration given to prior wound dehiscence Heme: Acute blood loss anemia: will monitor Hand H twice daily DVT prophylaxis: SCDs Superficial thrombophlebitis noted on ultrasound, reinitiate chemoprophylaxis heparin 5000 twice daily. Endocrine: ICU hyperglycemia protocol Vascular access: Left internal jugular CVC, right internal jugular temporary HD cath Code Status: Full code Disposition: ICU Admission and Anticipated Discharge Date Admission Date: June 20, 2025 Supervising Physician Co-Signing Physician Notes Dr. Padilla was resident physician during care of patient. I separately evaluated patient for cui portions of the history and the exam. I was present during the critical portion of medical decision making, and I discussed the case with the resident. I generally agree with the findings and plan. Patient reports that he passed a bowel movement and feels like he has another bowel movement pending. There was blood in this bowel movement, this is to be anticipated., Trend H&H twice daily. Continue trickle tube feeds, hold during dialysis. Worsening creatinine, anticipate dialysis today, patient's potassium within normal limits. Minimal urine output at this time, hopeful there will be renal recovery. Continue Zosyn for 7-day course, given significant improvement will discontinue caspofungin. Discontinued insulin infusion, can use insulin sliding scale if needed. Will still treat systolic blood pressures greater than 160. Superficial thrombophlebitis noted on ultrasound, reinitiate chemoprophylaxis heparin 5000 twice daily. Patient should be in full sit position today, with dialysis going to limit activity however would likely need up out of bed to chair in next 12 to 24 hours. Subjective Successfully extubated.Has been down to 2l via oxymask.When I saw patient this reeseing along with Dr Hope, he reported he passed a Bowel Movement and feels like he has another bowel Movement and has blood in his BM. Review of Systems Review of Systems: As per HPI Physical Exam Physical Exam: Vitals and labs reviewed General: ill appearing, HEENT: EOMI, PERRLA Neck: Supple Cardiac: RRR no rubs gallops or murmurs Lungs: decreased bs. Abd: NG tube distended. bandaged. no BS : Brooks MSK: Full ROM. No obvious deformities Ext: trace Edema Skin: Warm, Dry Neuro: sedated Results & Data Results & Data Vital Signs (Past 12 Hours) Vital Signs Temp Pulse Resp BP Pulse Ox O2 Del Method O2 Flow Rate 06/25/25 07:30 37.0 C 78 20 94 Oxymask 2 06/25/25 07:00 36.9 C 77 22 93 Oxymask 2 06/25/25 06:03 37.0 C 80 23 94 Oxymask 2 06/25/25 05:06 36.9 C 80 25 H 94 Oxymask 2 06/25/25 04:00 78 133/56 L 06/25/25 03:00 36.9 C 78 17 93 Oxymask 2 06/25/25 02:48 36.9 C 80 19 94 Oxymask 2 06/25/25 01:18 36.9 C 81 23 96 Oxymask 3 06/25/25 00:00 36.9 C 81 19 95 Oxymask 3 06/25/25 00:00 83 06/25/25 00:00 85 128/54 L 06/24/25 23:06 37.0 C 82 20 97 Oxymask 3 06/24/25 22:03 37.1 C 84 21 96 Oxymask 3 06/24/25 21:09 37.3 C 85 19 96 Oxymask 3 06/24/25 20:06 37.4 C 88 21 94 Oxymask 3 06/24/25 20:00 Oxymask 3 06/24/25 20:00 82 132/58 L Coding Level of Care Code 17796 SUB INP/OBS CARE 3/50MIN Diagnoses Thrombosis of right cephalic vein I82.611 Sepsis with acute renal failure without septic shock, due to unspecified organism, unspecified acute renal failure type A41.9; R65.20; N17.9 Acute renal failure type: unspecified Sepsis acute organ dysfunction status: with acute organ dysfunction Sepsis type: sepsis due to unspecified organism Severe sepsis acute organ dysfunction type: acute renal failure Severe sepsis shock status: without septic shock Anastomotic leak of intestine K91.89 JACINTA (acute kidney injury) N17.9 Infected prosthetic mesh of abdominal wall, initial encounter T85.79XA Encounter type: initial encounter Infected umbilical granuloma P83.81; B99.9 Resident Activity Tracking Resident Involvement: Resident Care Provided Care Provided: Adult Hospital Medicine (2) Sepsis Acute renal failure type: unspecified Sepsis acute organ dysfunction status: with acute organ dysfunction Sepsis type: sepsis due to unspecified organism Severe sepsis acute organ dysfunction type: acute renal failure Severe sepsis shock status: without septic shock Qualified Code(s): A41.9 - Sepsis, unspecified organism; R65.20 - Severe sepsis without septic shock; N17.9 - Acute kidney failure, unspecified (5) Infected prosthetic mesh of abdominal wall Encounter type: initial encounter Qualified Code(s): T85.79XA - Infection and inflammatory reaction due to other internal prosthetic devices, implants and grafts, initial encounter
[2025-06-25 08:24] LABS: Hematocrit (blood only) 25.4 % (42.0-52.0); Hemoglobin 8.2 g/dl (14.0-18.0)
--- NOTE | 2025-06-25 08:42 | Billing Data ---
Date of Service June 25, 2025 Coding Level of Care Code 96345 SUB INP/OBS CARE MIN
[2025-06-25] MEDS ORDERED: PANTOprazole 40 MG/10 ML SYR IV SCH (09:00)
--- NOTE | 2025-06-25 09:28 | Surgery Progress Note ---
Date of Service June 25, 2025 Assessment & Plan (1) Anastomotic leak of intestine: Plan: Extubated Continues to need dialysis Passing some flatus Continue present care Admission and Anticipated Discharge Date Admission Date: June 20, 2025 Subjective Awake and alert Extubated Urine output improving Pain controlled On tube feeds Review of Systems Constitutional: no fever and no chills Respiratory: no dyspnea Cardiovascular: no chest pain Gastrointestinal: + abdominal pain; no nausea and no vomit ing Neurologic: + generalized weakness Psychiatric: no behavioral changes Physical Exam Constitutional: WD/WN, vitals as above Eyes: no scleral abnormality Respiratory: normal respiratory effort Cardiovascular: Rate/Rhythm: regular rate and regular rhythm Gastrointestinal (Abdomen): Inspection/Auscultation: + abdomen distended and normal bowel sounds Percussion/Palpation: + abdomen tender and abdomen soft Musculoskeletal: Head/Neck/Chest: normocephalic and head atraumatic Skin: no rashes, warm and dry Results & Data Vital Signs (Past 12 Hours) Vital Signs Temp Pulse Resp BP Pulse Ox O2 Del Method O2 Flow Rate 06/25/25 09:00 37.0 C 79 20 95 Oxymask 2 06/25/25 08:30 37.0 C 79 21 94 Oxymask 2 06/25/25 08:00 37.0 C 77 17 94 Oxymask 2 06/25/25 07:30 Oxymask 2 06/25/25 07:30 37.0 C 78 20 94 Oxymask 2 06/25/25 07:00 36.9 C 77 22 93 Oxymask 2 06/25/25 06:03 37.0 C 80 23 94 Oxymask 2 06/25/25 05:06 36.9 C 80 25 H 94 Oxymask 2 06/25/25 04:00 78 133/56 L 06/25/25 03:00 36.9 C 78 17 93 Oxymask 2 06/25/25 02:48 36.9 C 80 19 94 Oxymask 2 06/25/25 01:18 36.9 C 81 23 96 Oxymask 3 06/25/25 00:00 36.9 C 81 19 95 Oxymask 3 06/25/25 00:00 83 06/25/25 00:00 85 128/54 L 06/24/25 23:06 37.0 C 82 20 97 Oxymask 3 06/24/25 22:03 37.1 C 84 21 96 Oxymask 3
--- NOTE | 2025-06-25 09:43 | Hospitalist Progress Note ---
Date of Service June 25, 2025 Assessment & Plan (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: (2) DM type 2 (diabetes mellitus, type 2): (3) HTN (hypertension): (4) HLD (hyperlipidemia): Plan Mr. Vaca is a 80 y/o male with DM2, diabetic retinopathy, dyslipidemia, GERD, Christiansen's esophagus, HTN, and other history as outlined below who underwent exploratory laparotomy with removal of infected mesh, hernia repair, and bowel resection 06/[address] Dhaliwal and for who we have been consulted to assist with post-operative medical management. #Septic shock #Metabolic acidosis #Infected mesh s/p removal, hernia repair, and bowel resection 06/20 -Developed worsening abd pain, rising lactate on 06/21 -CT AP 06/22 b/l small effusions, fluid filled bowels, 16cm fluid collection, likely hematoma -S/p ex lap 06/22 Plan -Off pressors. Diet per surgery -Appreciate surgery and ICU management -Continue zosyn and caspofungin for 7 total days per ICU team -Continue vanc -Follow cultures, NGTD #Acute Renal Failure -Baseline Cr. 0.9 -Concern for ATN -Oliguric renal failure -HD started 06/22 -Urine output improving Plan -Cr jonathan today without HD yesterday. For HD today -Appreciate nephrology input -Monitor urine output, intake, renal function -Avoid nephrotoxic agents if possible #Acute hypoxic hypercarbic resp failure -Requiring intubation -CT showing bilateral small effusions, some atelectasis -Suspect multifactorial. he is also taking shallow breaths due to pain -Extubated 06/24 Plan -Appreciate pulm/ICU input -Volume management per nephro -Encouraged IS -Wean O2 as tolerated #Anemia -POA. Hgb 12.5 on admission -S/p 2 PRBC -CT showing hematoma -Acute blood loss anemia -Hgb stable at 8.2 today Plan -Transfuse < 7.0 -Monitor counts #Hyponatremia #Hyperkalemia -Follow. nephrology following #Lactic acidosis #Trop elevation -HS trop mildly high at 28 in setting of acute renal failure -Non specific trop elevation -No s/s ACS #Elevated LFTs -Mildly elevated, likely from liver hypoperfusion/shock liver #Hypertension hold home losartan #acute hypergylcemia #Type 2 Diabetes Hold oral meds, A1C 7.7% Continue insulin drip for now Monitor BG and electrolytes closely #Dyslipidemia - Chronic, resume statin once tolerating po #GERD - Continue daily PPI--transitioned to IV given inability to take po I spent a total of 49 minutes coordinating, documenting, and providing care for this patient excluding time spent in the performance of separately billed services. This included personally reviewing all current laboratories and imaging studies, medical reconciliation, outpatient chart review and discussion with specialists Admission and Anticipated Discharge Date Admission Date: June 20, 2025 Subjective extubated. responding to some questions and interacting. d/w family at bedside this AM Physical Exam Physical Exam: Vitals and labs reviewed General: ill appearing, NAD HEENT: EOMI, PERRLA Neck: Supple Cardiac: RRR no rubs gallops or murmurs Lungs: decreased bs. no rhonchi wheez or rales Abd: Distended, binder in place. drain in place : Brooks MSK: Full ROM. No obvious deformities Ext: trace Edema Skin: Warm, Dry Neuro: Alert Psych: calm Results & Data Results & Data Vital Signs (Past 12 Hours) Vital Signs Temp Pulse Resp BP Pulse Ox O2 Del Method O2 Flow Rate 06/25/25 09:30 37.0 C 77 20 97 Oxymask 2 06/25/25 09:00 37.0 C 79 20 95 Oxymask 2 06/25/25 08:30 37.0 C 79 21 94 Oxymask 2 06/25/25 08:00 37.0 C 77 17 94 Oxymask 2 06/25/25 07:30 Oxymask 2 06/25/25 07:30 37.0 C 78 20 94 Oxymask 2 06/25/25 07:00 36.9 C 77 22 93 Oxymask 2 06/25/25 06:03 37.0 C 80 23 94 Oxymask 2 06/25/25 05:06 36.9 C 80 25 H 94 Oxymask 2 06/25/25 04:00 78 133/56 L 06/25/25 03:00 36.9 C 78 17 93 Oxymask 2 06/25/25 02:48 36.9 C 80 19 94 Oxymask 2 06/25/25 01:18 36.9 C 81 23 96 Oxymask 3 06/25/25 00:00 36.9 C 81 19 95 Oxymask 3 06/25/25 00:00 83 06/25/25 00:00 85 128/54 L 06/24/25 23:06 37.0 C 82 20 97 Oxymask 3 06/24/25 22:03 37.1 C 84 21 96 Oxymask 3 Laboratory Results Abnormal lab results 06/24/25 06/24/25 06/24/25 Range/Units 10:19 12:59 15:25 WBC (4.8-10.8) K/ul RBC (4.70-6.10) M/uL Hgb 7.8 L 8.7 L (14.0-18.0) g/dl Hct 23.7 L 25.5 L (42.0-52.0) % RDW Std Deviation (36.4-46.3) fL RDW Coeff of Jessica (11.5-14.5) % Neut # (Auto) (1.40-6.50) K/uL Shannon # (Auto) (0.11-0.59) K/uL Immature Gran # (Auto) (0.01-0.20) K/uL Anion Gap (3-11) BUN (6-23) mg/dl Creatinine (0.6-1.4) mg/dl BUN/Creatinine Ratio (10-20) Glucose (70-99(Fasting)) mg/dl POC Glucose 122 H 125 H (70-99) mg/dl Calcium (8.6-10.3) mg/dl Phosphorus (2.5-4.9) mg/dl 06/24/25 06/24/25 06/24/25 Range/Units 20:05 20:19 23:52 WBC (4.8-10.8) K/ul RBC (4.70-6.10) M/uL Hgb 8.2 L (14.0-18.0) g/dl Hct 25.1 L (42.0-52.0) % RDW Std Deviation (36.4-46.3) fL RDW Coeff of Jessica (11.5-14.5) % Neut # (Auto) (1.40-6.50) K/uL Shannon # (Auto) (0.11-0.59) K/uL Immature Gran # (Auto) (0.01-0.20) K/uL Anion Gap (3-11) BUN (6-23) mg/dl Creatinine (0.6-1.4) mg/dl BUN/Creatinine Ratio (10-20) Glucose (70-99(Fasting)) mg/dl POC Glucose 103 H 117 H (70-99) mg/dl Calcium (8.6-10.3) mg/dl Phosphorus (2.5-4.9) mg/dl 06/25/25 06/25/25 06/25/25 Range/Units 02:21 03:57 08:03 WBC 12.49 H (4.8-10.8) K/ul RBC 2.73 L (4.70-6.10) M/uL Hgb 8.0 L (14.0-18.0) g/dl Hct 24.5 L (42.0-52.0) % RDW Std Deviation 48.9 H (36.4-46.3) fL RDW Coeff of Jessica 15.1 H (11.5-14.5) % Neut # (Auto) 8.61 H (1.40-6.50) K/uL Shannon # (Auto) 1.39 H (0.11-0.59) K/uL Immature Gran # (Auto) 0.32 H (0.01-0.20) K/uL Anion Gap 12 H (3-11) BUN 45 H (6-23) mg/dl Creatinine 5.05 H* D (0.6-1.4) mg/dl BUN/Creatinine Ratio 8.9 L (10-20) Glucose 123 H (70-99(Fasting)) mg/dl POC Glucose 137 H 140 H (70-99) mg/dl Calcium 6.9 L (8.6-10.3) mg/dl Phosphorus 5.1 H D (2.5-4.9) mg/dl 06/25/25 Range/Units 08:06 WBC (4.8-10.8) K/ul RBC (4.70-6.10) M/uL Hgb 8.2 L (14.0-18.0) g/dl Hct 25.4 L (42.0-52.0) % RDW Std Deviation (36.4-46.3) fL RDW Coeff of Jessica (11.5-14.5) % Neut # (Auto) (1.40-6.50) K/uL Shannon # (Auto) (0.11-0.59) K/uL Immature Gran # (Auto) (0.01-0.20) K/uL Anion Gap (3-11) BUN (6-23) mg/dl Creatinine (0.6-1.4) mg/dl BUN/Creatinine Ratio (10-20) Glucose (70-99(Fasting)) mg/dl POC Glucose (70-99) mg/dl Calcium (8.6-10.3) mg/dl Phosphorus (2.5-4.9) mg/dl (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 (2) DM type 2 (diabetes mellitus, type 2) Diabetes mellitus half-way insulin use: without half-way use Diabetes mellitus complication status: with ophthalmic complications Diabetes mellitus complication detail: with diabetic retinopathy Diabetic retinopathy severity: with unspecified retinopathy severity Diabetes mellitus macular edema: macular edema presence unspecified Laterality: unspecified laterality Qualified Code(s): E11.319 - Type 2 diabetes mellitus with unspecified diabetic retinopathy without macular edema (3) HTN (hypertension) Hypertension type: unspecified Qualified Code(s): I10 - Essential (primary) hypertension (4) HLD (hyperlipidemia) Hyperlipidemia type: unspecified Qualified Code(s): E78.5 - Hyperlipidemia, unspecified
--- NOTE | 2025-06-25 11:41 | Nephrology Progress Note ---
Date of Service June 25, 2025 Assessment & Plan Admission and Anticipated Discharge Date Admission Date: June 20, 2025 Subjective Assessment & Plan (1) JACINTA (acute kidney injury): Severe stage 3 JACINTA oliguric type from Classic severe ATN. At baseline creat is normal 0.9 as of 05/30 on pre op labs. Then POD 1 was already doubled at 1.9 and then creat has again more than doubled in 24 hrs time period from 1..[address] abdomen few hrs ago showed normal appearing kidneys--no Obstruction. However also has sig Pl eff. he is about 4-5 liters +ve so far. needing lot of o2 also. has high K and lactic acidosis. Overall big improvement from yesterday. BP is good. big increase in urine output. Now extubated Dialysis was done without much problem--no UF done and had PRBC. Will do dialysis today as creat still rising without dialysis. However big improvement in urine output so quite possible he will recover fast. will do 3 K bath today. No UF planned now that making more urine on own. will give 20K procrit (2) Infected prosthetic mesh of abdominal wall: Reviewed Surgery note preop post op and current status. S--Overall big improvement from yesterday. BP is good. big increase in urine output. Now extubated. following command and is very weak. Physical Exam Physical Exam: General:awake and alert. extubated HEENT: no icterus, moist mucus membranes Neck: supple, trachea midline Heart: RRR Lungs: CTA bilaterally, no W/R/R Abdomen: Diffusely binder in place Extremities: No edema, Neurologic:sedated and on vent Results & Data Vital Signs (Past 12 Hours) Vital Signs Temp Pulse Resp BP Pulse Ox O2 Del Method O2 Flow Rate 06/25/25 10:00 37.0 C 78 20 96 Oxymask 2 06/25/25 09:30 37.0 C 77 20 97 Oxymask 2 06/25/25 09:00 37.0 C 79 20 95 Oxymask 2 06/25/25 08:30 37.0 C 79 21 94 Oxymask 2 06/25/25 08:00 37.0 C 77 17 94 Oxymask 2 06/25/25 07:30 Oxymask 2 06/25/25 07:30 37.0 C 78 20 94 Oxymask 2 06/25/25 07:00 36.9 C 77 22 93 Oxymask 2 06/25/25 06:03 37.0 C 80 23 94 Oxymask 2 06/25/25 05:06 36.9 C 80 25 H 94 Oxymask 2 06/25/25 04:00 78 133/56 L 06/25/25 03:00 36.9 C 78 17 93 Oxymask 2 06/25/25 02:48 36.9 C 80 19 94 Oxymask 2 06/25/25 01:18 36.9 C 81 23 96 Oxymask 3 06/25/25 00:00 36.9 C 81 19 95 Oxymask 3 06/25/25 00:00 83 06/25/25 00:00 85 128/54 L
[2025-06-25] MEDS: METOPROLOL TARTRATE 1 MG/ML VIAL IV PRN (13:49)
--- NOTE | 2025-06-25 14:29 | Pharmacy Report ---
Pharmacy Glycemic Short Note 2 - Date of Service June 25, 2025 - Glycemic Short BSG Results (Last 24 hours): 06/24/25 06/24/25 06/24/25 15:25 20:16 :19 Glucose POC Glucose 125 H 99 103 H 06/24/25 06/25/25 06/25/25 23:52 02:21 03:57 Glucose 123 H POC Glucose 117 H 137 H 06/25/25 06/25/25 08:03 11:45 Glucose POC Glucose 140 H 162 H OUTPATIENT ANTIDIABETIC REGIMEN: * empagliflozin 25mg PO Q AM * metformin ER 500mg PO daily HbA1c: 7.7% on 06/21/25 ASSESSMENT: 06/25: * Insulin drip was discontinued by the provider last evening when BSG was 103mg/dL. Patient's condition improved, pressors all off, and fluids containing d5 were discontinued. * Although no basal insulin was ordered last evening, fasting BSG was only 140mg/dL this morning. Trickle tube feeds were also started yesterday. * A weight based bolus insulin regimen with a stress of 2 was started and directions were added to cover carbs in tube feeds. A Lantus scale was added at HS (0, 5, or 10 units depending on BSG). 06/24 * Patient well controlled and stable on nsulin infusion today at 0.7 units/hr. * Discussed on multidisciplinary ICU rounds. Given ongoing off/on pressor requirements, stable insulin infusion dosing, and initiation of enteral feeds, will continue with insulin infusion today and reassess opportunities for transition tomorrow morning. 06/23 * Hypoglycemia to 68 mg/dL noted yesterday PM with hyperglycemia >300 mg/dL this AM, possibly 2nd overriden dexamethasone in OR yesterday. Insulin drip was initiated this AM. Bicarb drip mixed in dextrose was discontinued this AM. Remains critically ill - intubated and on two pressors. * Discussed at ICU rounds - continue insulin drip for now and then re-evaluate tomorrow AM 06/22 * Patient remains on insulin infusion @ 1 unit/hour. BSGs have been stable. Returned to OR today for ex lap, washout and was transferred to the ICU following * Patient remains intubated at this time. SCR continues to increase. K 5.2. Bicarb is now 23, lactate 3.6 this morning (on 150 meq NABicarb in D5W @ 150 mL/hr). Anion gap has closed. PH 7.26 * Would continue insulin infusion at this time given critical condition. 06/21 * Jose Ramon is a 80 year old male who was admitted yesterday for sepsis secondary to infected mesh of abdominal wall--s/p mesh removal, hernia repair, and bowel resection (POD #1). Patient with noted hyperglycemia and metabolic acidosis (AG 21 and CO2 17 on 06/20 and AG 19 and CO2 19 with labs this morning). * An insulin drip was started for DKA and pharmacy was consulted to assist with glycemic management this morning. Prior to starting the insulin drip, BSG was 315mg/dL.. Lantus 6 units x 1 was given and 4 units regular insulin iv x 1 was also given. At ~1000 this morning, BSG was still 297mg/dL. An 8 unit regular insulin bolus was given followed by the insulin drip at 8.8units/hr. * Patient remains NPO, and BSGs have been trending down. Pending fluids containing KCL have been ordered. PLAN FOR INPATIENT GLYCEMIC CONTROL: * Hold outpatient oral diabetes medications * Basal insulin * Lantus scale at HS (0, 5, or 10 units depending on BSG) * Bolus insulin * NovoLog per scale q4 hours * Goal Range: Low 110 mg/dL - High 140 mg/dL * Correction Factor: 25 mg/dL/unit * Nutritional / Prandial insulin per carb ratio of 1 unit per 8 grams CHO consumed--to cover carbs in tube feeds. *
[2025-06-25] MEDS: LABETALOL HCL IV 5 MG/ML 20ML IV STA (16:02)
[2025-06-25 17:07] LABS: Hematocrit (blood only) 26.5 % (42.0-52.0); Hemoglobin 8.5 g/dl (14.0-18.0)
[2025-06-25] MEDS: METOPROLOL TARTRATE 25 MG TAB PO SCH (17:08)
[2025-06-25] MEDS: LANTUS PER UNIT CHARGE SC SCH (20:45)
[2025-06-26 04:54] LABS: Hematocrit (blood only) 25.5 % (42.0-52.0); Hemoglobin 8.2 g/dl (14.0-18.0); Mean Corpuscular Hemoglobin 29.4 pg (25.0-34.0); Mean Corpuscular Volume 91.4 fL (80.0-100.0); Platelet Count 221 K/uL (130-400); RDW Standard Deviation 49.3 fL (36.4-46.3); Red Blood Count 2.79 M/uL (4.70-6.10); White Blood Count 9.87 K/ul (4.8-10.8)
[2025-06-26 05:23] LABS: Immature Granulocytes # (auto) 0.51 K/uL (0.01-0.20); Immature Granulocytes % (auto) 5.2 %; Polychromasia 1+
[2025-06-26 05:25] LABS: Anion Gap 10.0 (3-11); Blood Urea Nitrogen 37.0 mg/dl (6-23); Calcium 7.3 mg/dl (8.6-10.3); Carbon Dioxide 30.0 mmol/L (21-32); Chloride 99.0 mmol/L (98-107); Creatinine Clr Calc Pharmacy 15.7 ml/min; Glucose 137.0 mg/dl (70-99(Fasting)); Magnesium 2.2 mg/dl (1.7-2.4); Potassium 3.8 mmol/L (3.5-5.1); Sodium 139.0 mmol/L (136-145)
--- NOTE | 2025-06-26 08:46 | Critical Care Progress Note ---
Date of Service June 26, 2025 Assessment & Plan (1) Thrombosis of right cephalic vein: (2) Sepsis: (3) Anastomotic leak of intestine: (4) JACINTA (acute kidney injury): (5) Infected prosthetic mesh of abdominal wall: (6) Infected umbilical granuloma: Plan Reason Critically Ill: 80-year-old male with intra-abdominal sepsis secondary to anastomotic leak secondary to hematoma PLAN: Neuro: Analgesia and sedation - Tylenol and morphine Resp: - Small oxygen requirement - Incentive spirometer - Out of bed to chair CV: Sepsis associated hypotension on presentation: Resolved Hypertension: Metoprolol 25 mg twice daily (new medication): Increasing to 37.5 mg, would benefit from last hypertension - Holding home losartan Fluids/Renal: Acute renal failure: Improving - Consider diuretic dose today, patient globally positive ID: Zosyn to continue given wound dehiscence and abdominal contamination Empiric 7-day treatment course of Zosyn from the last OR visit. Empiric 7-day treatment course of caspofungin. - Wound culture: No growth to date GI/Nutrition: Patient tolerated trickle feeds will progress to clears today Postop day 3 Hyperlipidemia - Rosuvastatin on hold Heme: Acute blood loss anemia - No indication for transfusions today, has received 2 units during this hospitalization DVT prophylaxis: SCDs - Holding chemoprophylaxis of heparin 5000 twice daily Superficial thrombus of right cephalic vein - Avoid IV access of right upper extremity Endocrine: ICU hyperglycemia protocol Vascular access: - Left internal jugular CVC: Maintain use of this line - right internal jugular temporary HD cath: Maintain use of this line, possible discontinuation tomorrow if hemodialysis needs have resolved - Discontinue left radial arterial line Activity: Out of bed to chair, physical and Occupational Therapy consults, patient can ambulate Code Status: Full code Disposition: ICU, close observation today and likely downgrade tomorrow Admission and Anticipated Discharge Date Admission Date: June 20, 2025 Subjective No overnight events. Desires to drink fluids. Passing gas, small bowel movements of residual blood. Physical Exam Physical Exam: General: Alert. nontoxic. Skin: Warm, dry, Head: Atraumatic Ears, nose, mouth and throat: airway patent Cardiovascular: Normal peripheral perfusion Respiratory: no respiratory distress Gastrointestinal: Non distended, incision clean dry and intact, drains present Musculoskeletal: No deformity Results & Data Results & Data Vital Signs (Past 12 Hours) Vital Signs Temp Pulse Resp Pulse Ox 06/26/25 07:00 81 15 93 06/26/25 06:33 79 24 97 06/26/25 06:09 78 35 H 96 06/26/25 05:33 75 20 95 06/26/25 05:00 76 18 98 06/26/25 04:30 74 19 99 06/26/25 04:09 75 19 98 06/26/25 03:39 77 23 99 06/26/25 03:00 70 18 100 06/26/25 02:33 77 20 90 06/26/25 02:09 76 18 100 06/26/25 01:30 69 19 100 06/26/25 01:15 76 20 99 06/26/25 00:30 76 19 98 06/26/25 00:06 77 19 97 06/26/25 00:00 36.6 C 06/26/25 00:00 78 06/25/25 23:33 76 21 96 06/25/25 23:09 80 15 98 06/25/25 22:30 75 20 99 06/25/25 22:03 74 20 100 06/25/25 21:39 81 19 99 06/25/25 21:12 76 20 99 Critical Care Results & Data Vital Signs (Past 12 Hours) Vital Signs Temp Pulse Resp Pulse Ox 06/26/25 07:00 81 15 93 06/26/25 06:33 79 24 97 06/26/25 06:09 78 35 H 96 06/26/25 05:33 75 20 95 06/26/25 05:00 76 18 98 06/26/25 04:30 74 19 99 06/26/25 04:09 75 19 98 06/26/25 03:39 77 23 99 06/26/25 03:00 70 18 100 06/26/25 02:33 77 20 90 06/26/25 02:09 76 18 100 06/26/25 01:30 69 19 100 06/26/25 01:15 76 20 99 06/26/25 00:30 76 19 98 06/26/25 00:06 77 19 97 06/26/25 00:00 36.6 C 06/26/25 00:00 78 06/25/25 23:33 76 21 96 06/25/25 23:09 80 15 98 06/25/25 22:30 75 20 99 06/25/25 22:03 74 20 100 06/25/25 21:39 81 19 99 06/25/25 21:12 76 20 99 Lab & Micro Results (Past 24 Hours) RBC 2.79 M/uL (4.70-6.10) L 06/26/25 WBC 9.87 K/ul (4.8-10.8) 06/26/25 Hgb 8.2 g/dl (14.0-18.0) L 06/26/25 Hct 25.5 % (42.0-52.0) L 06/26/25 MCV 91.4 fL (80.0-100.0) 06/26/25 MCH 29.4 pg (25.0-34.0) 06/26/25 MCHC 32.2 g/dL (32.0-36.0) 06/26/25 RDW Standard Deviation 49.3 fL (36.4-46.3) H 06/26/25 RDW Coefficient of Variation 15.0 % (11.5-14.5) H 06/26/25 Plt Count 221 K/uL (130-400) 06/26/25 MPV 10.4 fL (9.4-12.4) 06/26/25 Nucleated Red Blood Cells % (auto) 0.5 % 06/26 Nucleated RBC Absolute Count (auto) 0.05 K/uL (0.00-0.12) 0 06/26/25 Neutrophils (%) (Auto) 59.1 % 06/26/25 Lymphocytes (%) (Auto) 17.5 % 06/26/25 Monocytes # (Auto) 1.51 K/uL (0.11-0.59) H 06/26/25 Eosinophils # (Auto) 0.24 K/uL (0.00-0.50) 06/26/25 Immature Granulocyte % (Auto) 5.2 % 06/26/25 Neutrophils # (Auto) 5.83 K/uL (1.40-6.50) 06/26/25 Lymphocytes # (Auto) 1.73 K/uL (1.20-3.40) 06/26/25 Monocytes # (Auto) 1.51 K/uL (0.11-0.59) H 06/26/25 Eosinophils # (Auto) 0.24 K/uL (0.00-0.50) 06/26/25 Basophils # (Auto) 0.05 K/uL (0.00-0.20) 06/26/25 Immature Granulocyte # (Auto) 0.51 K/uL (0.01-0.20) H 06/26 Polychromasia 1+ 06/26/25 Na 139 mmol/L (136-145) 06/26/25 K 3.8 mmol/L (3.5-5.1) 06/26/25 Cl 99 mmol/L (98-107) 06/26/25 CO2 30 mmol/L (21-32) 06/26/25 Anion Gap 10 (3-11) 06/26/25 BUN 37 mg/dl (6-23) H 06/26/25 Creatinine 4.20 mg/dl (0.6-1.4) H 06/26/25 BUN/Creatinine Ratio 8.8 (10-20) L 06/26/25 Glu 137 mg/dl (70-99(Fasting)) H 06/26/25 Ca 7.3 mg/dl (8.6-10.3) L 06/26/25 Phosphorus Level 5.0 mg/dl (2.5-4.9) H 06/26/25 Mg 2.2 mg/dl (1.7-2.4) 06/26/25 04:16 Calcium Level 7.3 mg/dl (8.6-10.3) L 06/26/25 04:16 Microbiology 06/23/25 10:59 Fungal Smear - Final Blood Fungal Culture - Preliminary No yeast or fungus isolated - Report 1, Additional Report to Follow. I & O Totals 24 Hours 06/25/25 06/26/25 06/27/25 06:59 06:59 06:59 Intake Total 1216.443 / 1216.443 305 / 305 Output Total 1305 / 1305 1243 / 1243 Balance -88.557 / -88.557 -938 / -938 Cumulative 06/02/25 09:10 thru 06/26/25 06:00 Intake Total 70387.709 Output Total 3938 Balance 43820.709 RT Ventilator Mngmt (Last Documented) Ventilator Ordered Settings Ventilator Support Mode CPAP 06/24/25 11:05 Respiratory Rate 15 06/26/25 07:00 Ventilator Tidal Volume 480 06/24/25 09:00 Setting Minute Ventilation 6.5 06/24/25 11:05 Ventilator Positive Pressure 7 06/24/25 11:05 Support Setting Positive End Expiratory 5 06/24/25 11:05 Pressure Fraction of Inspired Oxygen 40 06/24/25 11:05 Peak Inspiratory Flow 48 06/23/25 15:23 Ventilator - PT Measurements Respiratory Rate 15 Exhaled Tidal Volume 452 Minute Ventilation 6.5 Peak Inspiratory Airway 14 Pressure Plateau Pressure 16.3 Respiratory Cycle Inspiratory: 1:2.8 Expiratory Ratio Inspiratory Phase Time 0.8 End-Tidal CO2 36 Static Lung Compliance 42.48 Dynamic Lung Compliance 50.22 Normal Static Lung Compliance 49.00 Coding Level of Care Code 36610 SUB INP/OBS CARE 3/50MIN Diagnoses Thrombosis of right cephalic vein I82.611 Sepsis with acute renal failure without septic shock, due to unspecified organism, unspecified acute renal failure type A41.9; R65.20; N17.9 Sepsis type: sepsis due to unspecified organism Sepsis acute organ dysfunction status: with acute organ dysfunction Severe sepsis acute organ dysfunction type: acute renal failure Acute renal failure type: unspecified Severe sepsis shock status: without septic shock Anastomotic leak of intestine K91.89 JACINTA (acute kidney injury) N17.9 Infected prosthetic mesh of abdominal wall, initial encounter T85.79XA Encounter type: initial encounter Infected umbilical granuloma P83.81; B99.9 (2) Sepsis Sepsis type: sepsis due to unspecified organism Sepsis acute organ dysfunction status: with acute organ dysfunction Severe sepsis acute organ dysfunction type: acute renal failure Acute renal failure type: unspecified Severe sepsis shock status: without septic shock Qualified Code(s): A41.9 - Sepsis, unspecified organism; R65.20 - Severe sepsis without septic shock; N17.9 - Acute kidney failure, unspecified (5) Infected prosthetic mesh of abdominal wall Encounter type: initial encounter Qualified Code(s): T85.79XA - Infection and inflammatory reaction due to other internal prosthetic devices, implants and grafts, initial encounter
--- NOTE | 2025-06-26 10:23 | Surgery Progress Note ---
Date of Service June 26, 2025 Assessment & Plan (1) Anastomotic leak of intestine: Plan: out of ICU begin clears progress Admission and Anticipated Discharge Date Admission Date: June 20, 2025 Subjective pain controlled bowel function returning HD yesterday Review of Systems Constitutional: no fever and no chills Respiratory: no dyspnea Cardiovascular: no chest pain Gastrointestinal: + abdominal pain; no nausea and no vomit ing Neurologic: + generalized weakness Psychiatric: no behavioral changes Physical Exam Constitutional: WD/WN, vitals as above Respiratory: normal respiratory effort Cardiovascular: Rate/Rhythm: regular rate and regular rhythm Gastrointestinal (Abdomen): Percussion/Palpation: + abdomen tender and abdomen soft Musculoskeletal: Head/Neck/Chest: normocephalic and head atraumatic Skin: no rashes, warm and dry Results & Data Vital Signs (Past 12 Hours) Vital Signs Temp Pulse Resp Pulse Ox 06/26/25 07:00 81 15 93 06/26/25 06:33 79 24 97 06/26/25 06:09 78 35 H 96 06/26/25 05:33 75 20 95 06/26/25 05:00 76 18 98 06/26/25 04:30 74 19 99 06/26/25 04:09 75 19 98 06/26/25 03:39 77 23 99 06/26/25 03:00 70 18 100 06/26/25 02:33 77 20 90 06/26/25 02:09 76 18 100 06/26/25 01:30 69 19 100 06/26/25 01:15 76 20 99 06/26/25 00:30 76 19 98 06/26/25 00:06 77 19 97 06/26/25 00:00 36.6 C 06/26/25 00:00 78 06/25/25 23:33 76 21 96 06/25/25 23:09 80 15 98 06/25/25 22:30 75 20 99
--- NOTE | 2025-06-26 11:02 | Hospitalist Progress Note ---
Date of Service June 26, 2025 Assessment & Plan (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: (2) DM type 2 (diabetes mellitus, type 2): (3) HTN (hypertension): (4) HLD (hyperlipidemia): Plan Mr. Vaca is a 80 y/o male with DM2, diabetic retinopathy, dyslipidemia, GERD, Christiansen's esophagus, HTN, and other history as outlined below who underwent exploratory laparotomy with removal of infected mesh, hernia repair, and bowel resection 06/[address] Dhaliwal and for who we have been consulted to assist with post-operative medical management. #Septic shock #Metabolic acidosis #Infected mesh s/p removal, hernia repair, and bowel resection 06/20 -Developed worsening abd pain, rising lactate on 06/21 -CT AP 06/22 b/l small effusions, fluid filled bowels, 16cm fluid collection, likely hematoma -S/p ex lap 06/22 Plan -Trial of CLD -Appreciate surgery and ICU management -Continue zosyn for 7 total days per ICU team -D/w ICU team, DC caspofungin -Follow cultures, NGTD #Acute Renal Failure -Baseline Cr. 0.9 -Concern for ATN -Oliguric renal failure -HD started 06/22 -Urine output improving Plan -HD per nephrology -Appreciate nephrology input -Monitor urine output, intake, renal function -Avoid nephrotoxic agents if possible #Acute hypoxic hypercarbic resp failure -Requiring intubation -CT showing bilateral small effusions, some atelectasis -Suspect multifactorial. he is also taking shallow breaths due to pain -Extubated 06/24 Plan -Appreciate pulm/ICU input -Volume management per nephro -Encouraged IS -Wean O2 as tolerated #Anemia -POA. Hgb 12.5 on admission -S/p 2 PRBC -CT showing hematoma -Acute blood loss anemia -Hgb stable at 8.2 today Plan -Transfuse < 7.0 -Monitor counts #Hyponatremia #Hyperkalemia -Follow. nephrology following #Lactic acidosis #Trop elevation -HS trop mildly high at 28 in setting of acute renal failure -Non specific trop elevation -No s/s ACS #Elevated LFTs -Mildly elevated, likely from liver hypoperfusion/shock liver #Hypertension hold home losartan #acute hypergylcemia #Type 2 Diabetes Hold oral meds, A1C 7.7% Monitor BG and electrolytes closely #Dyslipidemia - Chronic, resume statin once tolerating po #GERD - Continue daily PPI--transitioned to IV given inability to take po I spent a total of 42 minutes coordinating, documenting, and providing care for this patient excluding time spent in the performance of separately billed services. This included personally reviewing all current laboratories and imaging studies, medical reconciliation, outpatient chart review and discussion with specialists Admission and Anticipated Discharge Date Admission Date: June 20, 2025 Subjective Seen in ICU. sitting in his chair working with therapy. feeling very well. no pain. d/w family at bedside Physical Exam Physical Exam: Vitals and labs reviewed General: ill appearing, NAD HEENT: EOMI, PERRLA Neck: Supple Cardiac: RRR no rubs gallops or murmurs Lungs: decreased bs. no rhonchi wheez or rales Abd: Distended, binder in place. drain in place : Brooks MSK: Full ROM. No obvious deformities Ext: trace Edema Skin: Warm, Dry Neuro: Alert Psych: calm Results & Data Results & Data Vital Signs (Past 12 Hours) Vital Signs Temp Pulse Resp Pulse Ox 06/26/25 07:00 81 15 93 06/26/25 06:33 79 24 97 06/26/25 06:09 78 35 H 96 06/26/25 05:33 75 20 95 06/26/25 05:00 76 18 98 06/26/25 04:30 74 19 99 06/26/25 04:09 75 19 98 06/26/25 03:39 77 23 99 06/26/25 03:00 70 18 100 06/26/25 02:33 77 20 90 06/26/25 02:09 76 18 100 06/26/25 01:30 69 19 100 06/26/25 01:15 76 20 99 06/26/25 00:30 76 19 98 06/26/25 00:06 77 19 97 06/26/25 00:00 36.6 C 06/26/25 00:00 78 06/25/25 23:33 76 21 96 06/25/25 23:09 80 15 98 Laboratory Results Abnormal lab results 06/25/25 06/25/25 06/25/25 Range/Units 11:45 16:08 16:39 RBC (4.70-6.10) M/uL Hgb 8.5 L (14.0-18.0) g/dl Hct 26.5 L (42.0-52.0) % RDW Std Deviation (36.4-46.3) fL RDW Coeff of Jessica (11.5-14.5) % [place] # (Auto) (0.11-0.59) K/uL Immature Gran # (Auto) (0.01-0.20) K/uL BUN (6-23) mg/dl Creatinine (0.6-1.4) mg/dl BUN/Creatinine Ratio (10-20) Glucose (70-99(Fasting)) mg/dl POC Glucose 162 H 132 H (70-99) mg/dl Calcium (8.6-10.3) mg/dl Phosphorus (2.5-4.9) mg/dl 06/25/25 06/26/25 06/26/25 Range/Units 20:14 00:38 04:16 RBC 2.79 L (4.70-6.10) M/uL Hgb 8.2 L (14.0-18.0) g/dl Hct 25.5 L (42.0-52.0) % RDW Std Deviation 49.3 H (36.4-46.3) fL RDW Coeff of Jessica 15.0 H (11.5-14.5) % [place] # (Auto) 1.51 H (0.11-0.59) K/uL Immature Gran # (Auto) 0.51 H (0.01-0.20) K/uL BUN 37 H (6-23) mg/dl Creatinine 4.20 H D (0.6-1.4) mg/dl BUN/Creatinine Ratio 8.8 L (10-20) Glucose 137 H (70-99(Fasting)) mg/dl POC Glucose 166 H 148 H (70-99) mg/dl Calcium 7.3 L (8.6-10.3) mg/dl Phosphorus 5.0 H (2.5-4.9) mg/dl 06/26/25 Range/Units 07:48 RBC (4.70-6.10) M/uL Hgb (14.0-18.0) g/dl Hct (42.0-52.0) % RDW Std Deviation (36.4-46.3) fL RDW Coeff of Jessica (11.5-14.5) % [place] # (Auto) (0.11-0.59) K/uL Immature Gran # (Auto) (0.01-0.20) K/uL BUN (6-23) mg/dl Creatinine (0.6-1.4) mg/dl BUN/Creatinine Ratio (10-20) Glucose (70-99(Fasting)) mg/dl POC Glucose 167 H (70-99) mg/dl Calcium (8.6-10.3) mg/dl Phosphorus (2.5-4.9) mg/dl (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 (2) DM type 2 (diabetes mellitus, type 2) 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 use: without alf use Diabetes mellitus complication status: with ophthalmic complications Diabetes mellitus complication detail: with diabetic retinopathy Diabetic retinopathy severity: with unspecified retinopathy severity Diabetes mellitus macular edema: macular edema presence unspecified Laterality: unspecified laterality Qualified Code(s): E11.319 - Type 2 diabetes mellitus with unspecified diabetic retinopathy without macular edema (3) HTN (hypertension) Hypertension type: unspecified Qualified Code(s): I10 - Essential (primary) h ypertension (4) HLD (hyperlipidemia) Hyperlipidemia type: unspecified Qualified Code(s): E78.5 - Hyperlipidemia, unspecified
[2025-06-26] MEDS: METOPROLOL TARTRATE 25 MG TAB PO SCH (11:49)
--- NOTE | 2025-06-26 13:02 | Nephrology Progress Note ---
Date of Service June 26, 2025 Assessment & Plan Admission and Anticipated Discharge Date Admission Date: June 20, 2025 Subjective Assessment & Plan (1) JACINTA (acute kidney injury): Severe stage 3 JACINTA oliguric type from Classic severe ATN. At baseline creat is normal 0.9 as of 05/30 on pre op labs. Then POD 1 was already doubled at 1.9 and then creat has again more than doubled in 24 hrs time period from 1..[address] abdomen few hrs ago showed normal appearing kidneys--no Obstruction. However also has sig Pl eff. he is about 4-5 liters +ve so far. needing lot of o2 also. has high K and lactic acidosis. Overall big improvement from 2 days ago. BP is good. big increase in urine output. Now extubated Dialysis was done and then Friday-no UF done and had PRBC. Some issues with Clotting at the ends Will do dialysis likely tomorrow, If creat still rising without dialysis. However big improvement in urine output so quite possible he will recover and may not even dialysis from now on. Dialysis orders will be done tomorrow AM based on his status. NG tube is out and he failed swallow test. However he did get lot of fluid before so dont think he necessarily needs iv fluid. Also do CXR x 1 view. (2) Infected prosthetic mesh of abdominal wall: Reviewed Surgery note preop post op and current status. S--Overall big improvement . BP is good. big increase in urine output. Now extubated. Out of bed and surrounded by family members. NG tube is out and he failed swallow test Physical Exam Physical Exam: General:awake and alert. extubated HEENT: no icterus, moist mucus membranes Neck: supple, trachea midline Heart: RRR Lungs: CTA bilaterally, no W/R/R Abdomen: Diffusely binder in place Extremities: 1+ edema Results & Data Vital Signs (Past 12 Hours) Vital Signs Pulse Resp BP Pulse Ox 06/26/25 12:12 79 17 135/78 06/26/25 11:18 77 16 06/26/25 10:50 140/68 06/26/25 10:24 140/77 06/26/25 10:15 74 19 06/26/25 09:06 73 20 93 06/26/25 08:21 78 28 H 95 09/21/25 07:00 81 15 93 06/26/25 06:33 79 24 97 06/26/25 06:09 78 35 H 96 06/26/25 05:33 75 20 95 06/26/25 05:00 76 18 98 06/26/25 04:30 74 19 99 06/26/25 04:09 75 19 98 06/26/25 03:39 77 23 99 06/26/25 03:00 70 18 100 06/26/25 02:33 77 20 90 06/26/25 02:09 76 18 100 06/26/25 01:30 69 19 100 06/26/25 01:15 76 20 99
--- NOTE | 2025-06-26 15:09 | XRay Report ---
Chest radiograph, one view History: CHF. Comparison: June 22, 2025. Findings: There appears to be mild reversal of normal lordosis. This limits portions of the exam. Interval exchanged for a dual-lumen right-sided central venous catheter. Tip projects over the expected level of the mid superior vena cava. Left-sided central venous catheter with tip oriented somewhat horizontal. This may cannulate the azygos vein. This may be projectional. Mild calcified atherosclerotic changes thoracic aorta. Lateralization lateral hemidiaphragms with poorly defined costophrenic angles. Mild obscuration hemidiaphragms and descending thoracic aorta. Pulmonary vasculature is within normal limits. Decreased lung volumes with bronchovascular crowding. Interval removal of the endotracheal tube and gastric intubation tube. Impression: 1. Interval exchange right sided central venous catheter with dual-lumen catheter tip at the expected level of the mid superior vena cava. 2. Left-sided central venous catheter with tip somewhat oriented horizontally. Azygous vein cannulation not excluded. 3. Decreased lung volumes with bronchovascular crowding and nonspecific bibasilar subsegmental atelectasis and likely small effusions. No jaguar failure. Please see above for details. Electronically signed by Adiel Garcia 06-26-2025 3:09 PM
[2025-06-27] MEDS ORDERED: INSULIN ASPART PER UNIT CHARGE SC SCH
[2025-06-27] MEDS: INSULIN ASPART PER UNIT CHARGE SC SCH ×2 (00:19→18:12)
[2025-06-27 04:45] LABS: Hematocrit (blood only) 25.9 % (42.0-52.0); Hemoglobin 8.6 g/dl (14.0-18.0); Mean Corpuscular Hemoglobin 30.4 pg (25.0-34.0); Mean Corpuscular Volume 91.5 fL (80.0-100.0); Platelet Count 286 K/uL (130-400); RDW Standard Deviation 49.1 fL (36.4-46.3); Red Blood Count 2.83 M/uL (4.70-6.10); White Blood Count 11.51 K/ul (4.8-10.8)
[2025-06-27 05:08] LABS: Anion Gap 11.0 (3-11); Blood Urea Nitrogen 50.0 mg/dl (6-23); Calcium 7.5 mg/dl (8.6-10.3); Carbon Dioxide 29.0 mmol/L (21-32); Chloride 99.0 mmol/L (98-107); Creatinine Clr Calc Pharmacy 13.2 ml/min; Glucose 125.0 mg/dl (70-99(Fasting)); Magnesium 2.2 mg/dl (1.7-2.4); Potassium 3.6 mmol/L (3.5-5.1); Sodium 139.0 mmol/L (136-145)
[2025-06-27 05:10] LABS: Dohle Bodies 1+; Immature Granulocytes # (auto) 0.67 K/uL (0.01-0.20); Immature Granulocytes % (auto) 5.8 %; Polychromasia 2+; Toxic Granulation 2+
--- NOTE | 2025-06-27 08:50 | Nephrology Progress Note ---
Date of Service June 27, 2025 Assessment & Plan (1) JACINTA (acute kidney injury): Plan: Severe 3 JACINTA previously anuric ATN. At baseline creat is normal 0.9 as of 05/30 on pre op labs. Then POD 1 was already doubled at 1.9 and then creat again more than doubled in 24 hrs time period from 1.[address] abdomen showed normal appearing kidneys--no Obstruction. However also has sig Pl eff. he is per I/O over 11 L +ve so far. but down to 2L 02nc high K and lactic acidosis resolved; off pressors/extubated; downgraded from icu status 06/26 Had HD 06/23, 06/25 oligoanuria resolved; made 1.2 L urine yesterday but still creatinine rising fast w/o HD; CXR still w/ significant fluid >little point to checking iron stores after pRBC; monitor for need for epo >>HD today, 3.5 hr; will use mini heparin on tx since he clotted off last run w/o heparin still improvement in UOP is hopeful and continue to hope for recovery -continue strict I/O -daily bmp -eval daily for dialysis needs > likely to need again Fri or Th if needed at all (2) Infected prosthetic mesh of abdominal wall: Plan: Reviewed Surgery note preop post op and current status. >>recommend avoiding morphine given its renal clearance; suggest hydromorphone or fentanyl > sent TText to surgery provider Admission and Anticipated Discharge Date Admission Date: June 20, 2025 Subjective failed swallow study yesterday; took another this am > says he passed. no sob, no N; occasional dry cough Review of Systems 2 Review of Systems: All systems reviewed & are unremarkable except as noted in Subjective Physical Exam 2 Constitutional: well developed (on RA), well nourished and cooperative Eyes: EOM intact bilaterally ENMT: Ears: no external ear abnormality Nose: no external nose abnormality Mouth: + dry oral mucous membranes Neck: no nuchal rigidity Respiratory: normal respiratory effort Auscultation: + diminished lung sounds Cardiovascular: RRR, no murmur, no edema Gastrointestinal (Abdomen): Inspection/Auscultation: normal bowel sounds P ercussion/Palpation: abdomen soft; abdomen nontender Musculoskeletal: Extremities: strength 5/5 throughout Skin: no rashes, warm and dry Neurologic: salagdo, fluent speech, no tremor Results & Data Vital Signs (Past 12 Hours) Vital Signs Temp Pulse Resp BP Pulse Ox O2 Del Method O2 Flow Rate 06/27/25 02:06 36.8 C 79 17 142/65 H 94 Nasal Cannula 2 06/27/25 00:00 81 06/26/25 23:27 83 19 90 06/26/25 23:16 36.6 C 163/79 H 06/26/25 23:12 88 22 91 Laboratory Results 06/27/25 04:18 06/27/25 04:18 Diagnostic Findings cxr (images personally reviewed/interpreted) BL pleural effusions john L difficult, prominent vascular fullness, bibasilar atelectasis > somewhat but not not significantly improved from prior exam (2) Infected prosthetic mesh of abdominal wall Encounter type: initial encounter Qualified Code(s): T85.79XA - Infection and inflammatory reaction due to other internal prosthetic devices, implants and grafts, initial encounter
--- NOTE | 2025-06-27 09:19 | Surgery Progress Note ---
Date of Service June 27, 2025 Assessment & Plan (1) Anastomotic leak of intestine: Plan: advance to fulls stop IV morphine and switch to po still on HD; making urine Admission and Anticipated Discharge Date Admission Date: June 20, 2025 Subjective no complaints did OK on clears Review of Systems Constitutional: no fever and no chills Respiratory: no dyspnea Cardiovascular: no chest pain Gastrointestinal: + abdominal pain; no nausea and no vomit ing Neurologic: no localized weakness Psychiatric: no behavioral changes Physical Exam Constitutional: WD/WN, vitals as above Eyes: no scleral abnormality Respiratory: normal respiratory effort, lungs clear to auscultation Cardiovascular: RRR, no murmur, no edema Gastrointestinal (Abdomen): Inspection/Auscultation: abdomen normal to inspection, + abdomen distended, normal bowel sounds and + abdominal surgical incision (some drainage from open spots) Percussion/Palpation: abdomen soft; abdomen nontender Skin: no rashes, warm and dry Results & Data Vital Signs (Past 12 Hours) Vital Signs Temp Pulse Resp BP Pulse Ox O2 Del Method O2 Flow Rate 06/27/25 08:58 Room Air 06/27/25 08:03 78 20 168/81 H 96 Room Air 2 06/27/25 02:06 36.8 C 79 17 142/65 H 94 Nasal Cannula 2 06/27/25 00:00 81 06/26/25 23:27 83 19 90 06/26/25 23:16 36.6 C 163/79 H 06/26/25 23:12 88 22 91
--- NOTE | 2025-06-27 09:52 | Hospitalist Progress Note ---
Date of Service June 27, 2025 Assessment & Plan (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: (2) DM type 2 (diabetes mellitus, type 2): (3) HTN (hypertension): (4) HLD (hyperlipidemia): Plan Mr. Vaca is a 80 y/o male with DM2, diabetic retinopathy, dyslipidemia, GERD, Christiansen's esophagus, HTN, and other history as outlined below who underwent exploratory laparotomy with removal of infected mesh, hernia repair, and bowel resection 06/[address] Dhaliwal and for who we have been consulted to assist with post-operative medical management. #Septic shock #Metabolic acidosis #Infected mesh s/p removal, hernia repair, and bowel resection 06/20 -Developed worsening abd pain, rising lactate on 06/21 -CT AP 06/22 b/l small effusions, fluid filled bowels, 16cm fluid collection, likely hematoma -S/p ex lap 06/22 Plan -Surgery advanced to full liquid diet today. 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 0.9 -Concern for ATN -Oliguric renal failure -HD started 06/22 -Urine output improving -Cr worsening without HD Plan -HD per nephrology. Another HD session today -Appreciate nephrology input -Monitor urine output, intake, renal function -Avoid nephrotoxic agents if possible #Acute hypoxic hypercarbic resp failure -Requiring intubation -CT showing bilateral small effusions, some atelectasis -Suspect multifactorial. he is also taking shallow breaths due to pain -Extubated 06/24 Plan -Volume management per nephro -Encouraged IS -Wean O2 as tolerated #Anemia -POA. Hgb 12.5 on admission -S/p 2 PRBC -CT showing hematoma -Acute blood loss anemia -Hgb stable at 8.6 today Plan -Transfuse < 7.0 -Monitor counts #Hyponatremia #Hyperkalemia -Follow. nephrology following #Lactic acidosis #Trop elevation -HS trop mildly high at 28 in setting of acute renal failure -Non specific trop elevation -No s/s ACS #Elevated LFTs -Mildly elevated, likely from liver hypoperfusion/shock liver #Hypertension hold home losartan #acute hypergylcemia #Type 2 Diabetes Hold oral meds, A1C 7.7% Monitor BG and electrolytes closely #Dyslipidemia - Chronic, resume statin once tolerating po #GERD - Continue daily PPI--transitioned to IV given inability to take po I spent a total of 49 minutes coordinating, documenting, and providing care for this patient excluding time spent in the performance of separately billed services. This included personally reviewing all current laboratories and imaging studies, medical reconciliation, outpatient chart review and discussion with specialists Admission and Anticipated Discharge Date Admission Date: June 20, 2025 Subjective Seen this AM in ICU. feeling very well. he has no specific complaints other than being hungry. Physical Exam Physical Exam: Vitals and labs reviewed General: ill appearing, NAD HEENT: EOMI, PERRLA Neck: Supple Cardiac: RRR no rubs gallops or murmurs Lungs: decreased bs. no rhonchi wheez or rales Abd: Distended, binder in place. drain in place : Brooks MSK: Full ROM. No obvious deformities Ext: trace Edema Skin: Warm, Dry Neuro: Alert Psych: calm Results & Data Results & Data Vital Signs (Past 12 Hours) Vital Signs Temp Pulse Resp BP Pulse Ox O2 Del Method O2 Flow Rate 06/27/25 08:58 Room Air 06/27/25 08:03 78 20 168/81 H 96 Room Air 2 06/27/25 02:06 36.8 C 79 17 142/65 H 94 Nasal Cannula 2 06/27/25 00:00 81 06/26/25 23:27 83 19 90 06/26/25 23:16 36.6 C 163/79 H 06/26/25 23:12 88 22 91 Laboratory Results Abnormal lab results 06/26/25 06/26/25 06/26/25 Range/Units 12:10 16:55 21:18 WBC (4.8-10.8) K/ul RBC (4.70-6.10) M/uL Hgb (14.0-18.0) g/dl Hct (42.0-52.0) % RDW Std Deviation (36.4-46.3) fL RDW Coeff of Jessica (11.5-14.5) % Neut # (Auto) (1.40-6.50) K/uL [place] # (Auto) (0.11-0.59) K/uL Immature Gran # (Auto) (0.01-0.20) K/uL BUN (6-23) mg/dl Creatinine (0.6-1.4) mg/dl Glucose (70-99(Fasting)) mg/dl POC Glucose 176 H 130 H 138 H (70-99) mg/dl Calcium (8.6-10.3) mg/dl Phosphorus (2.5-4.9) mg/dl 06/27/25 06/27/25 06/27/25 Range/Units 00:01 04:08 04:18 WBC 11.51 H (4.8-10.8) K/ul RBC 2.83 L (4.70-6.10) M/uL Hgb 8.6 L (14.0-18.0) g/dl Hct 25.9 L (42.0-52.0) % RDW Std Deviation 49.1 H (36.4-46.3) fL RDW Coeff of Jessica 14.6 H (11.5-14.5) % Neut # (Auto) 6.51 H (1.40-6.50) K/uL [place] # (Auto) 1.52 H (0.11-0.59) K/uL Immature Gran # (Auto) 0.67 H (0.01-0.20) K/uL BUN 50 H (6-23) mg/dl Creatinine 5.00 H* D (0.6-1.4) mg/dl Glucose 125 H (70-99(Fasting)) mg/dl POC Glucose 148 H 125 H (70-99) mg/dl Calcium 7.5 L (8.6-10.3) mg/dl Phosphorus 5.1 H (2.5-4.9) mg/dl 06/27/25 Range/Units 07:46 WBC (4.8-10.8) K/ul RBC (4.70-6.10) M/uL Hgb (14.0-18.0) g/dl Hct (42.0-52.0) % RDW Std Deviation (36.4-46.3) fL RDW Coeff of Jessica (11.5-14.5) % Neut # (Auto) (1.40-6.50) K/uL [place] # (Auto) (0.11-0.59) K/uL Immature Gran # (Auto) (0.01-0.20) K/uL BUN (6-23) mg/dl Creatinine (0.6-1.4) mg/dl Glucose (70-99(Fasting)) mg/dl POC Glucose 133 H (70-99) mg/dl Calcium (8.6-10.3) mg/dl Phosphorus (2.5-4.9) mg/dl (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 (2) DM type 2 (diabetes mellitus, type 2) Diabetes mellitus usp insulin use: without superintendent marine oil terminal use Diabetes mellitus complication status: with ophthalmic complications Diabetes mellitus complication detail: with diabetic retinopathy Diabetic retinopathy severity: with unspecified retinopathy severity Diabetes mellitus macular edema: macular edema presence unspecified Laterality: unspecified laterality Qualified Code(s): E11.319 - Type 2 diabetes mellitus with unspecified diabetic retinopathy without macular edema (3) HTN (hypertension) Hypertension type: unspecified Qualified Code(s): I10 - Essential (primary) hypertension (4) HLD (hyperlipidemia) Hyperlipidemia type: unspecified Qualified Code(s): E78.5 - Hyperlipidemia, unspecified
--- NOTE | 2025-06-27 12:34 | Pharmacy Report ---
Pharmacy Glycemic Short Note 2 - Date of Service June 27, 2025 - Glycemic Short BSG Results (Last 24 hours): 06/26/25 06/26/25 06/27/25 16:55 21: 00:01 Glucose POC Glucose 130 H 138 H 148 H 06/27/25 06/27/25 06/27/25 04:08 04:18 07:46 Glucose 125 H POC Glucose 125 H 133 H OUTPATIENT ANTIDIABETIC REGIMEN: * empagliflozin 25mg PO Q AM * metformin ER 500mg PO daily HbA1c: 7.7% on 06/21/25 ASSESSMENT: 06/27: * Patient has not required any basal insulin since coming off the insulin drip. BSGs have been well controlled. * Currently in dialysis. Tube feeds are stopped. Diet was advanced to clear liquids for now. Will change Novolog to ACHS. * Continue with basal scale at HS. 06/25: * Insulin drip was discontinued by the provider last evening when BSG was 103mg/dL. Patient's condition improved, pressors all off, and fluids containing d5 were discontinued. * Although no basal insulin was ordered last evening, fasting BSG was only 140mg/dL this morning. Trickle tube feeds were also started yesterday. * A weight based bolus insulin regimen with a stress of 2 was started and directions were added to cover carbs in tube feeds. A Lantus scale was added at HS (0, 5, or 10 units depending on BSG). 06/24 * Patient well controlled and stable on nsulin infusion today at 0.7 units/hr. * Discussed on multidisciplinary ICU rounds. Given ongoing off/on pressor requirements, stable insulin infusion dosing, and initiation of enteral feeds, will continue with insulin infusion today and reassess opportunities for transition tomorrow morning. 06/23 * Hypoglycemia to 68 mg/dL noted yesterday PM with hyperglycemia >300 mg/dL this AM, possibly 2nd overriden dexamethasone in OR yesterday. Insulin drip was in itiated this AM. Bicarb drip mixed in dextrose was discontinued this AM. Remains critically ill - intubated and on two pressors. * Discussed at ICU rounds - continue insulin drip for now and then re-evaluate tomorrow AM 06/22 * Patient remains on insulin infusion @ 1 unit/hour. BSGs have been stable. Returned to OR today for ex lap, washout and was transferred to the ICU following * Patient remains intubated at this time. SCR continues to increase. K 5.2. Bicarb is now 23, lactate 3.6 this morning (on 150 meq NABicarb in D5W @ 150 mL/hr). Anion gap has closed. PH 7.26 * Would continue insulin infusion at this time given critical condition. 06/21 * Jose Ramon is a 80 year old male who was admitted yesterday for sepsis secondary to infected mesh of abdominal wall--s/p mesh removal, hernia repair, and bowel resection (POD #1). Patient with noted hyperglycemia and metabolic acidosis (AG 21 and CO2 17 on 06/20 and AG 19 and CO2 19 with labs this morning). * An insulin drip was started for DKA and pharmacy was consulted to assist with glycemic management this morning. Prior to starting the insulin drip, BSG was 315mg/dL.. Lantus 6 units x 1 was given and 4 units regular insulin iv x 1 was also given. At ~1000 this morning, BSG was still 297mg/dL. An 8 unit regular insulin bolus was given followed by the insulin drip at 8.8units/hr. * Patient remains NPO, and BSGs have been trending down. Pending fluids containing KCL have been ordered. PLAN FOR INPATIENT GLYCEMIC CONTROL: * Hold outpatient oral diabetes medications * Basal insulin * Lantus scale at HS (0, 5, or 10 units depending on BSG) * Bolus insulin * NovoLog per scale q4 hours * Goal Range: Low 110 mg/dL - High 140 mg/dL * Correction Factor: 25 mg/dL/unit * Nutritional / Prandial insulin per carb ratio of 1 unit per 8 grams CHO consumed *
[2025-06-28 08:37] LABS: Hematocrit (blood only) 26.4 % (42.0-52.0); Hemoglobin 8.8 g/dl (14.0-18.0); Immature Granulocytes # (auto) 0.54 K/uL (0.01-0.20); Immature Granulocytes % (auto) 4.4 %; Mean Corpuscular Hemoglobin 30.2 pg (25.0-34.0); Mean Corpuscular Volume 90.7 fL (80.0-100.0); Platelet Count 412 K/uL (130-400); RDW Standard Deviation 46.8 fL (36.4-46.3); Red Blood Count 2.91 M/uL (4.70-6.10); White Blood Count 12.31 K/ul (4.8-10.8)
[2025-06-28 08:55] LABS: Anion Gap 11.0 (3-11); Blood Urea Nitrogen 34.0 mg/dl (6-23); Calcium 7.6 mg/dl (8.6-10.3); Carbon Dioxide 28.0 mmol/L (21-32); Chloride 101.0 mmol/L (98-107); Creatinine Clr Calc Pharmacy 19.0 ml/min; Potassium 3.4 mmol/L (3.5-5.1); Sodium 140.0 mmol/L (136-145)
--- NOTE | 2025-06-28 09:43 | Hospitalist Progress Note ---
Date of Service June 28, 2025 Assessment & Plan (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: (2) DM type 2 (diabetes mellitus, type 2): (3) HTN (hypertension): (4) HLD (hyperlipidemia): Plan Mr. Vaca is a 80 y/o male with DM2, diabetic retinopathy, dyslipidemia, GERD, Christiansen's esophagus, HTN, and other history as outlined below who underwent exploratory laparotomy with removal of infected mesh, hernia repair, and bowel resection 06/[address] Dhaliwal and for who we have been consulted to assist with post-operative medical management. #Septic shock #Metabolic acidosis #Infected mesh s/p removal, hernia repair, and bowel resection 06/20 -Developed worsening abd pain, rising lactate on 06/21 -CT AP 06/22 b/l small effusions, fluid filled bowels, 16cm fluid collection, likely hematoma -S/p ex lap 06/22 -Cultures negative Plan -Tolerating full liquid diet. Advance as tolerated -KRISTA drain per surgery -Appreciate surgery input -Continue zosyn through 06/29 which is a 7 day course. -Follow cultures, NGTD #Acute Renal Failure -Baseline Cr. 0.9 -Concern for ATN -Oliguric renal failure -HD started 06/22 -Urine output improving -S/p HD 06/27 Plan -HD per nephrology. -Appreciate nephrology input -Monitor urine output, intake, renal function -Avoid nephrotoxic agents if possible #Acute hypoxic hypercarbic resp failure -Requiring intubation -CT showing bilateral small effusions, some atelectasis -Suspect multifactorial. he is also taking shallow breaths due to pain -Extubated 06/24 -On room air. resolved #Anemia -POA. Hgb 12.5 on admission -S/p 2 PRBC -CT showing hematoma -Acute blood loss anemia -Hgb stable at 8.8 today Plan -Transfuse < 7.0 -Monitor counts #Hyponatremia #Hypokalemia- replace and follow #Lactic acidosis #Trop elevation -HS trop mildly high at 28 in setting of acute renal failure -Non specific trop elevation -No s/s ACS #Elevated LFTs -Mildly elevated, likely from liver hypoperfusion/shock liver #Hypertension hold home losartan #acute hypergylcemia #Type 2 Diabetes Hold oral meds, A1C 7.7% Monitor BG and electrolytes closely #Dyslipidemia - Chronic, resume statin once tolerating po #GERD - Continue daily PPI--transitioned to IV given inability to take po I spent a total of 42 minutes coordinating, documenting, and providing care for this patient excluding time spent in the performance of separately billed services. This included personally reviewing all current laboratories and imaging studies, medical reconciliation, outpatient chart review and discussion with specialists Admission and Anticipated Discharge Date Admission Date: June 20, 2025 Subjective Feeling well today. no major complaints. Patient denies F/C, CP, palpitations, SOB, dyspnea, abd pain, N/V/D Physical Exam Physical Exam: Vitals and labs reviewed General:well appearing, NAD HEENT: EOMI, PERRLA Neck: Supple Cardiac: RRR no rubs gallops or murmurs Lungs: CTA no distress Abd: Distended, binder in place. drain in place : Brooks MSK: Full ROM. No obvious deformities Ext: trace Edema Skin: Warm, Dry Neuro: Alert Psych: calm Results & Data Results & Data Vital Signs (Past 12 Hours) Vital Signs Temp Pulse Pulse Pulse Resp BP BP 06/28/25 07:47 37.1 C 72 16 06/28/25 07:22 77 06/28/25 03:42 37.4 C 77 18 143/63 H 06/27/25 23:39 37.2 C 65 16 143/72 H 06/27/25 22:15 83 BP Pulse Ox O2 Del Method 06/28/25 07:47 175/49 H 92 Room Air 06/28/25 07:22 06/28/25 03:42 91 Room Air 06/27/25 23:39 91 Room Air 06/27/25 22:15 Laboratory Results Abnormal lab results 06/27/25 06/27/25 06/27/25 Range/Units 15:07 17:16 20:15 WBC (4.8-10.8) K/ul RBC (4.70-6.10) M/uL Hgb (14.0-18.0) g/dl Hct (42.0-52.0) % RDW Std Deviation (36.4-46.3) fL Plt Count (130-400) K/uL Neut # (Auto) (1.40-6.50) K/uL Patrick # (Auto) (0.11-0.59) K/uL Immature Gran # (Auto) (0.01-0.20) K/uL Potassium (3.5-5.1) mmol/L BUN (6-23) mg/dl Creatinine (0.6-1.4) mg/dl POC Glucose 137 H 146 H 162 H (70-99) mg/dl Fasting Glucose (70-99) mg/dl Calcium (8.6-10.3) mg/dl 06/28/25 06/28/25 Range/Units 08:00 08:06 WBC 12.31 H (4.8-10.8) K/ul RBC 2.91 L (4.70-6.10) M/uL Hgb 8.8 L (14.0-18.0) g/dl Hct 26.4 L (42.0-52.0) % RDW Std Deviation 46.8 H (36.4-46.3) fL Plt Count 412 H (130-400) K/uL Neut # (Auto) 7.62 H (1.40-6.50) K/uL Patrick # (Auto) 1.35 H (0.11-0.59) K/uL Immature Gran # (Auto) 0.54 H (0.01-0.20) K/uL Potassium 3.4 L (3.5-5.1) mmol/L BUN 34 H (6-23) mg/dl Creatinine 3.54 H D (0.6-1.4) mg/dl POC Glucose 164 H (70-99) mg/dl Fasting Glucose 153 H (70-99) mg/dl Calcium 7.6 L (8.6-10.3) mg/dl (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 (2) DM type 2 (diabetes mellitus, type 2) Diabetes mellitus care home insulin use: without care home use Diabetes mellitus complication status: with ophthalmic complications Diabetes mellitus complication detail: with diabetic retinopathy Diabetic retinopathy severity: with unspecified retinopathy severity Diabetes mellitus macular edema: macular edema presence unspecified Laterality: unspecified laterality Qualified Code(s): E11.319 - Type 2 diabetes mellitus with unspecified diabetic retinopathy without macular edema (3) HTN (hypertension) Hypertension type: unspecified Qualified Code(s): I10 - Essential (primary) hypertension (4) HLD (hyperlipidemia) Hyperlipidemia type: unspecified Qualified Code(s): E78.5 - Hyperlipidemia, unspecified
--- NOTE | 2025-06-28 10:46 | Nephrology Progress Note ---
Date of Service June 28, 2025 Assessment & Plan (1) JACINTA (acute kidney injury): Plan: Severe 3 JACINTA previously anuric ATN, currently dialysis dependent but hopeful he will recover in days/weeks not to need HD At baseline creat is normal 0.9 as of 05/30 on pre op labs. Then POD 1 was already doubled at 1.9 and then creat again more than doubled in 24 hrs time period from 1.[address] abdomen showed normal appearing kidneys--no Obstruction. However also has sig Pl eff. he is per I/O over 11 L +ve so far. but down to 2L 02nc high K and lactic acidosis resolved; off pressors/extubated; downgraded from icu status 06/26 Had HD 06/23, 06/25, 06/27 > no UF past 2 txs oligoanuria resolved; made 1 L urine yesterday >little point to checking iron stores after pRBC; monitor for need for epo creatinine today reflects dialysis yesterda >>will have dialysis cath removed >> it's 6 days old and worry about infection risk; if he needs further HD will need to decide temp versus TDC > but likely TDC; will consult vascular today so that we can get him on OR schedule for Fri at latest (can cancel if not needed; trying to shorten LOS as appropriate) >depending on d/c dispo, if further dialysis needed after d/c could be done at [facility] or even as OP in [place] as JACINTA status >>evaluate for HD daily >> none needed today; hopefully not again before /Friday if at all level of UOP is hopeful and continue to hope for recovery -continue strict I/O -daily bmp Care coordinated w/ Dr Richard by phone re overall d/c dispo, clinical status, dialysis/renal status and access; also coordinated w/ ICU ISA for line removal. (2) Infected prosthetic mesh of abdominal wall: Plan: Reviewed Surgery note preop post op and current status. Still w/ KRISTA drain (3) Dialysis patient: Plan: currently dialysis dependent JACINTA; unclear yet if will need retirement acceess Admission and Anticipated Discharge Date Admission Date: June 20, 2025 Subjective T max 37.7 yesterday but no f/c. ambulating and did a few stairs today; anxious for d/c. anxious for solid food; no sob, no n/v, no edema, no uncontrolled pain Review of Systems 2 Review of Systems: All systems reviewed & are unremarkable except as noted in Subjective Physical Exam 2 Constitutional: well developed (on RA sitting up in chair), well nourished and cooperative Eyes: EOM intact bilaterally ENMT: Ears: no external ear abnormality Nose: no external nose abnormality Mouth: + muffled voice (hoarse) and + dry oral mucous membranes Neck: no nuchal rigidity Respiratory: normal respiratory effort and able to speak in complete sentences (but slightly sob w/ speech) Auscultation: + diminished lung sounds Cardiovascular: RRR, no murmur, no edema Gastrointestinal (Abdomen): Inspection/Auscultation: normal bowel sounds and + abdominal surgical drain present Percussion/Palpation: abdomen soft; abdomen nontender Musculoskeletal: Extremities: strength 5/5 throughout Skin: no rashes, warm and dry Results & Data Vital Signs (Past 12 Hours) Vital Signs Temp Pulse Pulse Pulse Resp BP BP 06/28/25 07:47 37.1 C 72 16 06/28/25 07:22 77 06/28/25 03:42 37.4 C 77 18 143/63 H 06/27/25 23:39 37.2 C 65 16 143/72 H BP Pulse Ox O2 Del Method 06/28/25 07:47 175/49 H 92 Room Air 06/28/25 07:22 06/28/25 03:42 91 Room Air 06/27/25 23:39 91 Room Air Laboratory Results 06/28/25 08:06 06/28/25 08:06 (2) Infected prosthetic mesh of abdominal wall Encounter type: initial encounter Qualified Code(s): T85.79XA - Infection and inflammatory reaction due to other internal prosthetic devices, implants and grafts, initial encounter
[2025-06-28] MEDS: POTASSIUM CHLORIDE CRTAB 20 MEQ TABCR PO STA (11:06)
--- NOTE | 2025-06-28 12:56 | Pharmacy Report ---
Pharmacy Glycemic Short Note 2 - Date of Service June 28, 2025 - Glycemic Short BSG Results (Last 24 hours): 06/27/25 06/27/25 06/27/25 15:07 17:16 20:15 POC Glucose 137 H 146 H 162 H Fasting Glucose 06/28/25 06/28/25 06/28/25 08:00 08:06 11:58 POC Glucose 164 H 143 H Fasting Glucose 153 H OUTPATIENT ANTIDIABETIC REGIMEN: * empagliflozin 25mg PO Q AM * metformin ER 500mg PO daily HbA1c: 7.7% on 06/21/25 ASSESSMENT: 06/28 * Jose Ramon only required 5 units of insulin yesterday, all were bolus. BSGs were mostly in goal range through the day. * Fasting BSG was 164mg/dL this morning. Diet has been advance to full liquid. Will continue basal insulin scale at HS in case BSGs continue to rise with diet advancement. * Will continue bolus insulin regimen without change. 06/27: * Patient has not required any basal insulin since coming off the insulin drip. BSGs have been well controlled. * Currently in dialysis. Tube feeds are stopped. Diet was advanced to clear liquids for now. Will change Novolog to ACHS. * Continue with basal scale at HS. 06/25: * Insulin drip was discontinued by the provider last evening when BSG was 103mg/dL. Patient's condition improved, pressors all off, and fluids containing d5 were discontinued. * Although no basal insulin was ordered last evening, fasting BSG was only 140mg/dL this morning. Trickle tube feeds were also started yesterday. * A weight based bolus insulin regimen with a stress of 2 was started and directions were added to cover carbs in tube feeds. A Lantus scale was added at HS (0, 5, or 10 units depending on BSG). 06/24 * Patient well controlled and stable on nsulin infusion today at 0.7 units/hr. * Discussed on multidisciplinary ICU rounds. Given ongoing off/on pressor requirements, stable insulin infusion dosing, and initiation of enteral feeds, will continue with insulin infusion today and reassess opportunities for transition tomorrow morning. 06/23 * Hypoglycemia to 68 mg/dL noted yesterday PM with hyperglycemia >300 mg/dL this AM, possibly 2nd overriden dexamethasone in OR yesterday. Insulin drip was initiated this AM. Bicarb drip mixed in dextrose was discontinued this AM. Remains critically ill - intubated and on two pressors. * Discussed at ICU rounds - continue insulin drip for now and then re-evaluate tomorrow AM 06/22 * Patient remains on insulin infusion @ 1 unit/hour. BSGs have been stable. Returned to OR today for ex lap, washout and was transferred to the ICU following * Patient remains intubated at this time. SCR continues to increase. K 5.2. Bicarb is now 23, lactate 3.6 this morning (on 150 meq NABicarb in D5W @ 150 mL/hr). Anion gap has closed. PH 7.26 * Would continue insulin infusion at this time given critical condition. 06/21 * Jose Ramon is a 80 year old male who was admitted yesterday for sepsis secondary to infected mesh of abdominal wall--s/p mesh removal, hernia repair, and bowel resection (POD #1). Patient with noted hyperglycemia and metabolic acidosis (AG 21 and CO2 17 on 06/20 and AG 19 and CO2 19 with labs this morning). * An insulin drip was started for DKA and pharmacy was consulted to assist with glycemic management this morning. Prior to starting the insulin drip, BSG was 315mg/dL.. Lantus 6 units x 1 was given and 4 units regular insulin iv x 1 was also given. At ~1000 this morning, BSG was still 297mg/dL. An 8 unit regular insulin bolus was given followed by the insulin drip at 8.8units/hr. * Patient remains NPO, and BSGs have been trending down. Pending fluids containing KCL have been ordered. PLAN FOR INPATIENT GLYCEMIC CONTROL: * Hold outpatient oral diabetes medications * Basal insulin * Lantus scale at HS (0, 5, or 10 units depending on BSG) * Bolus insulin * NovoLog per scale q4 hours * Goal Range: Low 110 mg/dL - High 140 mg/dL * Correction Factor: 25 mg/dL/unit * Nutritional / Prandial insulin per carb ratio of 1 unit per 8 grams CHO consumed *
--- NOTE | 2025-06-28 15:56 | Surgery Progress Note ---
Date of Service June 28, 2025 Assessment & Plan (1) Anastomotic leak of intestine: Plan: advance to soft diet PT/OT still on HD; making urine Admission and Anticipated Discharge Date Admission Date: June 20, 2025 Subjective doing better; tolerating fulls; no nausea/vomiting; + flatus and diarrhea; no fevers Physical Exam Physical Exam: NAD A&Ox3 NCAT, no scleral icterus Abd soft, NTND incision C/D/I with jin some serous drainage Brooks with clear urine Results & Data Vital Signs (Past 12 Hours) Vital Signs Temp Pulse Pulse Resp BP Pulse Ox O2 Del Method 06/28/25 15:28 37.2 C 78 16 131/79 94 Room Air 06/28/25 13:44 81 06/28/25 11:42 37.2 C 83 20 131/74 98 Room Air 06/28/25 11:20 Room Air 06/28/25 07:47 37.1 C 72 16 175/49 H 92 Room Air 06/28/25 07:22 77 Laboratory Results 06/28/25 06/28/25 06/28/25 Range/Units 11:58 08:06 08:00 WBC 12.31 H (4.8-10.8) K/ul RBC 2.91 L (4.70-6.10) M/uL Hgb 8.8 L (14.0-18.0) g/dl Hct 26.4 L (42.0-52.0) % MCV 90.7 (80.0-100.0) fL MCH 30.2 (25.0-34.0) pg MCHC 33.3 (32.0-36.0) g/dL RDW Std Deviation 46.8 H (36.4-46.3) fL RDW Coeff of Jessica 14.4 (11.5-14.5) % Plt Count 412 H (130-400) K/uL MPV 10.1 (9.4-12.4) fL Immature Gran % (Auto) 4.4 % Neut % (Auto) 61.8 % Lymph % (Auto) 19.7 % [place] % (Auto) 11.0 % Eos % (Auto) 2.7 % Baso % (Auto) 0.4 % Neut # (Auto) 7.62 H (1.40-6.50) K/uL Lymph # (Auto) 2.42 (1.20-3.40) K/uL [place] # (Auto) 1.35 H (0.11-0.59) K/uL Eos # (Auto) 0.33 (0.00-0.50) K/uL Baso # (Auto) 0.05 (0.00-0.20) K/uL Immature Gran # (Auto) 0.54 H (0.01-0.20) K/uL Sodium 140 (136-145) mmol/L Potassium 3.4 L (3.5-5.1) mmol/L Chloride 101 (98-107) mmol/L Carbon Dioxide 28 (21-32) mmol/L Anion Gap 11 (3-11) BUN 34 H (6-23) mg/dl Creatinine 3.54 H D (0.6-1.4) mg/dl Est Cr Clr Drug Dosing 19.0 ml/min eGFR 16.90 POC Glucose 143 H 164 H (70-99) mg/dl Fasting Glucose 153 H (70-99) mg/dl Calcium 7.6 L (8.6-10.3) mg/dl 06/27/25 06/27/25 Range/Units 20:15 17:16 WBC (4.8-10.8) K/ul RBC (4.70-6.10) M/uL Hgb (14.0-18.0) g/dl Hct (42.0-52.0) % MCV (80.0-100.0) fL MCH (25.0-34.0) pg MCHC (32.0-36.0) g/dL RDW Std Deviation (36.4-46.3) fL RDW Coeff of Jessica (11.5-14.5) % Plt Count (130-400) K/uL MPV (9.4-12.4) fL Immature Gran % (Auto) % Neut % (Auto) % Lymph % (Auto) % [place] % (Auto) % Eos % (Auto) % Baso % (Auto) % Neut # (Auto) (1.40-6.50) K/uL Lymph # (Auto) (1.20-3.40) K/uL [place] # (Auto) (0.11-0.59) K/uL Eos # (Auto) (0.00-0.50) K/uL Baso # (Auto) (0.00-0.20) K/uL Immature Gran # (Auto) (0.01-0.20) K/uL Sodium (136-145) mmol/L Potassium (3.5-5.1) mmol/L Chloride (98-107) mmol/L Carbon Dioxide (21-32) mmol/L Anion Gap (3-11) BUN (6-23) mg/dl Creatinine (0.6-1.4) mg/dl Est Cr Clr Drug Dosing ml/min eGFR POC Glucose 162 H 146 H (70-99) mg/dl Fasting Glucose (70-99) mg/dl Calcium (8.6-10.3) mg/dl
[2025-06-28] MEDS: LANTUS PER UNIT CHARGE SC SCH (20:25)
[2025-06-28] MEDS: diphenhydrAMINE Capsule 25 MG CAP PO PRN (23:42)
[2025-06-29] MEDS ORDERED: ALBUT/IPRATROP 3MG/0.5MG NEB 3 ML VIAL NEB PRN (03:47)
[2025-06-29] MEDS: ALBUT/IPRATROP 3MG/0.5MG NEB 3 ML VIAL NEB STA (03:57)
[2025-06-29 04:49] LABS: Albumin Level 2.9 gm/dl (3.4-5.0); Anion Gap 13.0 (3-11); Bilirubin,Total 0.6 mg/dl (0.2-1.0); Calcium 7.7 mg/dl (8.6-10.3); Carbon Dioxide 24.0 mmol/L (21-32); Chloride 101.0 mmol/L (98-107); Potassium 3.6 mmol/L (3.5-5.1); Sodium 138.0 mmol/L (136-145)
[2025-06-29 04:55] LABS: Alanine Aminotransferase 7.0 U/L (7-52); Albumin Globulin Ratio 1.0 (0.9-2); Alkaline Phosphatase 134.0 U/L (34-104); Blood Urea Nitrogen 35.0 mg/dl (6-23); Creatinine Clr Calc Pharmacy 17.8 ml/min; Globulin 3.0 gm/dl (2.5-4.0); Glucose 135.0 mg/dl (70-99(Fasting)); Total Protein 5.9 gm/dl (6.0-8.3)
[2025-06-29 04:55] LABS: Appearance Urine Clear (Clear); Bacteria Urine Automated None Seen (None Seen); Cast Urine Automated 0-2 /lpf (0-2); Epithelial Cell Urine Auto 0-2 /hpf (0-2); Glucose Urine UA Negative (Negative); WBC Urine Automated 0-5 /hpf (0-5)
--- NOTE | 2025-06-29 05:02 | XRay Report ---
EXAM: XR chest 1V portable CLINICAL HISTORY: wheeze TECHNIQUE: An X-ray image of the chest was obtained in an AP projection. COMPARISON: Compared to the last available study dated 06/26/2025. FINDINGS: Pulmonary Parenchyma: There is an interval increase in the degree of left costophrenic angle obliteration with associated collapse. The right costophrenic angle obliteration is stable or slightly reduced, which may represent a positional variation. There is an interval new elevation of the left hemidiaphragm, which may be positional. Heart and Mediastinum: Possible cardiomegaly continues to be noted. There is no mediastinal widening or mass. No hilar or mediastinal lymphadenopathy is seen. Bony Thorax: The bony thorax appears intact without fractures or deformities. Soft Tissues: Soft tissues overlying the chest wall are unremarkable. IMPRESSION: 1. Interval increase in the degree of left pleural effusion with associated collapse. 2. Possible cardiomegaly continues to be noted. 3. The right costophrenic angle obliteration is stable or slightly reduced, which may be a positional variation. 4. There is an interval new elevation of the left hemidiaphragm, which may be positional. Electronically signed by Dustin Simms 06-29-2025 05:02 AM
[2025-06-29 06:23] LABS: Hematocrit (blood only) 26.4 % (42.0-52.0); Hemoglobin 8.4 g/dl (14.0-18.0); Immature Granulocytes # (auto) 0.38 K/uL (0.01-0.20); Immature Granulocytes % (auto) 3.0 %; Mean Corpuscular Hemoglobin 29.1 pg (25.0-34.0); Mean Corpuscular Volume 91.3 fL (80.0-100.0); Platelet Count 486 K/uL (130-400); RDW Standard Deviation 47.2 fL (36.4-46.3); Red Blood Count 2.89 M/uL (4.70-6.10); White Blood Count 12.49 K/ul (4.8-10.8)
--- NOTE | 2025-06-29 07:56 | Nephrology Progress Note ---
Date of Service June 29, 2025 Assessment & Plan (1) JACINTA (acute kidney injury): Plan: Severe 3 JACINTA previously anuric ATN, was dialysis dependent but hopeful he will recover in days/weeks not to need HD At baseline creat is normal 0.9 as of 05/30 on pre op labs. Then POD 1 was already doubled at 1.9 and then creat again more than doubled in 24 hrs time period from 1.[address] abdomen showed normal appearing kidneys--no Obstruction. However also has sig Pl eff. he is per I/O over 11 L +ve so far. but down to 2L 02nc high K and lactic acidosis resolved; off pressors/extubated; downgraded from icu status 06/26 Had HD 06/23, 06/25, 06/27 > no UF past 2 txs oligoanuria resolved; made 2 L urine yesterday >little point to checking iron stores after pRBC; monitor for need for epo -temp dialysis cath removed 06/28; vascular eval pending so he has OR time later this week if needed >>>no indication for dialysis today; creat jonathan post HD but not markedly so as it had been; at 3.7 today >if further dialysis needed after d/c could be done at [facility] or even as OP in [place] as JACINTA status >>evaluate for HD daily >> none needed today; hopefully not again before /Friday if at all hgb 8.4 today > plateau'd mid 8's > monitor closely level of UOP is hopeful and continue to hope for recovery -continue strict I/O -daily bmp >d/c [place] today Care coordinated w/ Dr White in person re overall d/c dispo, clinical status, dialysis/renal status and access. (2) Infected prosthetic mesh of abdominal wall: Plan: Reviewed Surgery note preop post op and current status. Still w/ KRISTA drain (3) Dialysis patient: Plan: currently dialysis dependent JACINTA; unclear yet if will need [facility] access but hoping not Admission and Anticipated Discharge Date Admission Date: June 20, 2025 Subjective again poor sleep; no sob; no n/v; 2 L UOP; no edema Review of Systems 2 Review of Systems: All systems reviewed & are unremarkable except as noted in Subjective Physical Exam 2 Constitutional: well developed (on RA in bed), well nourished and cooperative Eyes: EOM intact bilaterally ENMT: Ears: no external ear abnormality Nose: no external nose abnormality Mouth: + muffled voice (hoarse) and + dry oral mucous membranes Neck: no nuchal rigidity Respiratory: normal respiratory effort and able to speak in complete sentences (but today not obviously sob w/ speech) Auscultation: + diminished lung sounds Cardiovascular: RRR, no murmur, no edema Gastrointestinal (Abdomen): Inspection/Auscultation: normal bowel sounds and + abdominal surgical drain present Percussion/Palpation: abdomen soft; abdomen nontender Musculoskeletal: Extremities: strength 5/5 throughout Skin: no rashes, warm and dry Results & Data Vital Signs (Past 12 Hours) Vital Signs Temp Pulse Pulse Pulse Resp BP Pulse Ox 06/29/25 07:39 36.4 C L 69 16 144/78 H 94 06/29/25 07:10 83 06/29/25 03:58 70 18 91 06/29/25 03:28 36.8 C 63 18 154/77 H 94 06/28/25 23:18 37.1 C 76 18 152/78 H 93 06/28/25 21:58 70 06/28/25 20:30 O2 Del Method 06/29/25 07:39 Room Air 06/29/25 07:10 06/29/25 03:58 Room Air 06/29/25 03:28 Room Air 06/28/25 23:18 Room Air 06/28/25 21:58 06/28/25 20:30 Room Air Laboratory Results 06/29/25 05:50 06/29/25 04:16 (2) Infected prosthetic mesh of abdominal wall Encounter type: initial encounter Qualified Code(s): T85.79XA - Infection and inflammatory reaction due to other internal prosthetic devices, implants and grafts, initial encounter
--- NOTE | 2025-06-29 09:47 | Surgery Progress Note ---
Date of Service June 29, 2025 Assessment & Plan (1) Anastomotic leak of intestine: Plan: OOB ambulate; continue diet PT/OT monitor labs and UOP; hopefully will not need HD discharge planning for Rehab/SNF Admission and Anticipated Discharge Date Admission Date: June 20, 2025 Subjective doing better; tolerating solid food; no nausea/vomiting; + flatus and diarrhea; no fevers Physical Exam Physical Exam: NAD A&Ox3 NCAT, no scleral icterus Abd soft, NTND incision C/D/I with jin some serous drainage form incision and KRISTA Brooks with increased clear urine Results & Data Vital Signs (Past 12 Hours) Vital Signs Temp Pulse Pulse Pulse Resp BP Pulse Ox 06/29/25 07:39 36.4 C L 69 16 144/78 H 94 06/29/25 07:10 83 06/29/25 03:58 70 18 91 06/29/25 03:28 36.8 C 63 18 154/77 H 94 06/28/25 23:18 37.1 C 76 18 152/78 H 93 06/28/25 21:58 70 O2 Del Method 06/29/25 07:39 Room Air 06/29/25 07:10 06/29/25 03:58 Room Air 06/29/25 03:28 Room Air 06/28/25 23:18 Room Air 06/28/25 21:58 Laboratory Results 06/29/25 06/29/25 06/29/25 Range/Units 08:04 05:50 04:30 WBC 12.49 H RBC 2.89 L Hgb 8.4 L Hct 26.4 L MCV 91.3 MCH 29.1 MCHC 31.8 L RDW Std Deviation 47.2 H RDW Coeff of Jessica 14.1 Plt Count 486 H MPV 10.0 Immature Gran % (Auto) 3.0 Neut % (Auto) 64.6 Lymph % (Auto) 20.1 Ward % (Auto) 8.5 Eos % (Auto) 3.3 Baso % (Auto) 0.5 Neut # (Auto) 8.07 H Lymph # (Auto) 2.51 Ward # (Auto) 1.06 H Eos # (Auto) 0.41 Baso # (Auto) 0.06 Immature Gran # (Auto) 0.38 H Absolute Nucleated RBC Nucleated RBC % (auto) Neutrophils % (Manual) Band Neutrophils % Lymphocytes % (Manual) Prolymphocyte % Reactive Lymphs % (Man) Monocytes % (Manual) Eosinophils % (Manual) Basophils % (Manual) Metamyelocytes % (Man) Myelocytes % (Man) Promyelocytes % (Man) Blast Cells % (Manual) Plasma Cell % (Manual) Other Cells % Nucleated RBC % Neutrophils # (Manual) Band Neutrophils # Total Absolute Neuts Lymphocytes # (Manual) Prolymphocyte # Reactive Lymphs # Total Abs Lymphocytes Monocytes # (Manual) Eosinophils # (Manual) Basophils # (Manual) Metamyelocytes # (Man) Myelocytes # (Manual) Promyelocytes # (Man) Blast Cells # (Man) Plasma Cell # (Manual) Other Cells # Nucleated RBCs # (Man) Hypersegmented Neuts Hyposegmented Neuts Hypogranular Neuts Large Granular Lymphs # Lrg Granular Lymphs Hairy Cells Smudge Cells Toxic Granulation Toxic Vacuolation Dohle Bodies Octavio Rods Platelet Estimate Hypogranular Platelets Giant Platelets Platelet Satelliting RBC Morphology Polychromasia Hypochromasia Poikilocytosis Basophilic Stippling Anisocytosis Microcytosis Macrocytosis Spherocytes Pappenheimer Bodies Sickle Cells Target Cells Tear Drop Cells Ovalocytes Stomatocytes [place] Bodies Echinocytes Acanthocytes (Spur) Rouleaux RBC Agglutinates Schistocytes Sezary Cell Sodium (136-145) mmol/L Potassium (3.5-5.1) mmol/L Chloride (98-107) mmol/L Carbon Dioxide (21-32) mmol/L Anion Gap (3-11) BUN (6-23) mg/dl Creatinine (0.6-1.4) mg/dl Est Cr Clr Drug Dosing ml/min eGFR BUN/Creatinine Ratio (10-20) Glucose (70-99(Fasting)) mg/dl POC Glucose 146 H (70-99) mg/dl Calcium (8.6-10.3) mg/dl Total Bilirubin (0.2-1.0) mg/dl AST (13-39) U/L ALT (7-52) U/L Alkaline Phosphatase (34-104) U/L Ammonia (18-72) umol/L Total Protein (6.0-8.3) gm/dl Albumin (3.4-5.0) gm/dl Globulin (2.5-4.0) gm/dl Albumin/Globulin Ratio (0.9-2) Urine Color Yellow Urine Appearance Clear (Clear) Urine pH 6.0 (4.5-7.5) Ur Specific [place] 1.010 (1.000-1.030) Urine Protein 1+ H (Negative) Urine Glucose (UA) Negative (Negative) Urine Ketones 1+ H (Negative) Urine Blood 2+ H (Negative) Urine Nitrite Negative (Negative) Urine Bilirubin Negative (Negative) Urine Urobilinogen Negative (Negative) Ur Leukocyte Esterase Negative (Negative) Urine WBC (Auto) 0-5 (0-5) /hpf Urine RBC (Auto) 11-20 H (0-2) /hpf U Hyaline Cast (Auto) 0-2 (0-2) /lpf U Epithel Cells (Auto) 0-2 (0-2) /hpf Urine Bacteria (Auto) None Seen (None Seen) Urine Comment Blood Parasites ID 06/29/25 06/29/25 06/28/25 Range/Units 04:16 03:56 20:13 WBC Cancelled RBC Cancelled Hgb Cancelled Hct Cancelled MCV Cancelled MCH Cancelled MCHC Cancelled RDW Std Deviation Cancelled RDW Coeff of Jessica Cancelled Plt Count Cancelled MPV Cancelled Immature Gran % (Auto) Cancelled Neut % (Auto) Cancelled Lymph % (Auto) Cancelled Ward % (Auto) Cancelled Eos % (Auto) Cancelled Baso % (Auto) Cancelled Neut # (Auto) Cancelled Lymph # (Auto) Cancelled Ward # (Auto) Cancelled Eos # (Auto) Cancelled Baso # (Auto) Cancelled Immature Gran # (Auto) Cancelled Absolute Nucleated RBC Cancelled Nucleated RBC % (auto) Cancelled Neutrophils % (Manual) Cancelled Band Neutrophils % Cancelled Lymphocytes % (Manual) Cancelled Prolymphocyte % Cancelled Reactive Lymphs % (Man) Cancelled Monocytes % (Manual) Cancelled Eosinophils % (Manual) Cancelled Basophils % (Manual) Cancelled Metamyelocytes % (Man) Cancelled Myelocytes % (Man) Cancelled Promyelocytes % (Man) Cancelled Blast Cells % (Manual) Cancelled Plasma Cell % (Manual) Cancelled Other Cells % Cancelled Nucleated RBC % Cancelled Neutrophils # (Manual) Cancelled Band Neutrophils # Cancelled Total Absolute Neuts Cancelled Lymphocytes # (Manual) Cancelled Prolymphocyte # Cancelled Reactive Lymphs # Cancelled Total Abs Lymphocytes Cancelled Monocytes # (Manual) Cancelled Eosinophils # (Manual) Cancelled Basophils # (Manual) Cancelled Metamyelocytes # (Man) Cancelled Myelocytes # (Manual) Cancelled Promyelocytes # (Man) Cancelled Blast Cells # (Man) Cancelled Plasma Cell # (Manual) Cancelled Other Cells # Cancelled Nucleated RBCs # (Man) Cancelled Hypersegmented Neuts Cancelled Hyposegmented Neuts Cancelled Hypogranular Neuts Cancelled Large Granular Lymphs Cancelled # Lrg Granular Lymphs Cancelled Hairy Cells Cancelled Smudge Cells Cancelled Toxic Granulation Cancelled Toxic Vacuolation Cancelled Dohle Bodies Cancelled Octavio Rods Cancelled Platelet Estimate Cancelled Hypogranular Platelets Cancelled Giant Platelets Cancelled Platelet Satelliting Cancelled RBC Morphology Cancelled Polychromasia Cancelled Hypochromasia Cancelled Poikilocytosis Cancelled Basophilic Stippling Cancelled Anisocytosis Cancelled Microcytosis Cancelled Macrocytosis Cancelled Spherocytes Cancelled Pappenheimer Bodies Cancelled Sickle Cells Cancelled Target Cells Cancelled Tear Drop Cells Cancelled Ovalocytes Cancelled Stomatocytes Cancelled [place] Bodies Cancelled Echinocytes Cancelled Acanthocytes (Spur) Cancelled Rouleaux Cancelled RBC Agglutinates Cancelled Schistocytes Cancelled Sezary Cell Cancelled Sodium 138 (136-145) mmol/L Potassium 3.6 (3.5-5.1) mmol/L Chloride 101 (98-107) mmol/L Carbon Dioxide 24 (21-32) mmol/L Anion Gap 13 H (3-11) BUN 35 H (6-23) mg/dl Creatinine 3.71 H (0.6-1.4) mg/dl Est Cr Clr Drug Dosing 17.8 ml/min eGFR 15.98 BUN/Creatinine Ratio 9.4 L (10-20) Glucose 135 H (70-99(Fasting)) mg/dl POC Glucose 146 H 144 H (70-99) mg/dl Calcium 7.7 L (8.6-10.3) mg/dl Total Bilirubin 0.6 (0.2-1.0) mg/dl AST 12 L (13-39) U/L ALT 7 (7-52) U/L Alkaline Phosphatase 134 H (34-104) U/L Ammonia 31.0 (18-72) umol/L Total Protein 5.9 L (6.0-8.3) gm/dl Albumin 2.9 L (3.4-5.0) gm/dl Globulin 3.0 (2.5-4.0) gm/dl Albumin/Globulin Ratio 1.0 (0.9-2) Urine Color Urine Appearance (Clear) Urine pH (4.5-7.5) Ur Specific [place] (1.000-1.030) Urine Protein (Negative) Urine Glucose (UA) (Negative) Urine Ketones (Negative) Urine Blood (Negative) Urine Nitrite (Negative) Urine Bilirubin (Negative) Urine Urobilinogen (Negative) Ur Leukocyte Esterase (Negative) Urine WBC (Auto) (0-5) /hpf Urine RBC (Auto) (0-2) /hpf U Hyaline Cast (Auto) (0-2) /lpf U Epithel Cells (Auto) (0-2) /hpf Urine Bacteria (Auto) (None Seen) Urine Comment Blood Parasites ID Cancelled 06/28/25 06/28/25 Range/Units 17:25 11:58 WBC RBC Hgb Hct MCV MCH MCHC RDW Std Deviation RDW Coeff of Jessica Plt Count MPV Immature Gran % (Auto) Neut % (Auto) Lymph % (Auto) Ward % (Auto) Eos % (Auto) Baso % (Auto) Neut # (Auto) Lymph # (Auto) Ward # (Auto) Eos # (Auto) Baso # (Auto) Immature Gran # (Auto) Absolute Nucleated RBC Nucleated RBC % (auto) Neutrophils % (Manual) Band Neutrophils % Lymphocytes % (Manual) Prolymphocyte % Reactive Lymphs % (Man) Monocytes % (Manual) Eosinophils % (Manual) Basophils % (Manual) Metamyelocytes % (Man) Myelocytes % (Man) Promyelocytes % (Man) Blast Cells % (Manual) Plasma Cell % (Manual) Other Cells % Nucleated RBC % Neutrophils # (Manual) Band Neutrophils # Total Absolute Neuts Lymphocytes # (Manual) Prolymphocyte # Reactive Lymphs # Total Abs Lymphocytes Monocytes # (Manual) Eosinophils # (Manual) Basophils # (Manual) Metamyelocytes # (Man) Myelocytes # (Manual) Promyelocytes # (Man) Blast Cells # (Man) Plasma Cell # (Manual) Other Cells # Nucleated RBCs # (Man) Hypersegmented Neuts Hyposegmented Neuts Hypogranular Neuts Large Granular Lymphs # Lrg Granular Lymphs Hairy Cells Smudge Cells Toxic Granulation Toxic Vacuolation Dohle Bodies Octavio Rods Platelet Estimate Hypogranular Platelets Giant Platelets Platelet Satelliting RBC Morphology Polychromasia Hypochromasia Poikilocytosis Basophilic Stippling Anisocytosis Microcytosis Macrocytosis Spherocytes Pappenheimer Bodies Sickle Cells Target Cells Tear Drop Cells Ovalocytes Stomatocytes [place] Bodies Echinocytes Acanthocytes (Spur) Rouleaux RBC Agglutinates Schistocytes Sezary Cell Sodium (136-145) mmol/L Potassium (3.5-5.1) mmol/L Chloride (98-107) mmol/L Carbon Dioxide (21-32) mmol/L Anion Gap (3-11) BUN (6-23) mg/dl Creatinine (0.6-1.4) mg/dl Est Cr Clr Drug Dosing ml/min eGFR BUN/Creatinine Ratio (10-20) Glucose (70-99(Fasting)) mg/dl POC Glucose 103 H 143 H (70-99) mg/dl Calcium (8.6-10.3) mg/dl Total Bilirubin (0.2-1.0) mg/dl AST (13-39) U/L ALT (7-52) U/L Alkaline Phosphatase (34-104) U/L Ammonia (18-72) umol/L Total Protein (6.0-8.3) gm/dl Albumin (3.4-5.0) gm/dl Globulin (2.5-4.0) gm/dl Albumin/Globulin Ratio (0.9-2) Urine Color Urine Appearance (Clear) Urine pH (4.5-7.5) Ur Specific [place] (1.000-1.030) Urine Protein (Negative) Urine Glucose (UA) (Negative) Urine Ketones (Negative) Urine Blood (Negative) Urine Nitrite (Negative) Urine Bilirubin (Negative) Urine Urobilinogen (Negative) Ur Leukocyte Esterase (Negative) Urine WBC (Auto) (0-5) /hpf Urine RBC (Auto) (0-2) /hpf U Hyaline Cast (Auto) (0-2) /lpf U Epithel Cells (Auto) (0-2) /hpf Urine Bacteria (Auto) (None Seen) Urine Comment Blood Parasites ID
--- NOTE | 2025-06-29 12:31 | Pharmacy Report ---
Pharmacy Glycemic Short Note 2 - Date of Service June 29, 2025 - Glycemic Short BSG Results (Last 24 hours): 06/28/25 06/28/25 06/29/25 17:25 20:13 03:56 Glucose POC Glucose 103 H 144 H 146 H 06/29/25 06/29/25 06/29/25 04:16 08:04 12:08 Glucose 135 H POC Glucose 146 H 153 H OUTPATIENT ANTIDIABETIC REGIMEN: * empagliflozin 25mg PO Q AM * metformin ER 500mg PO daily HbA1c: 7.7% on 06/21/25 ASSESSMENT: 06/29: * Jose Ramon received 13 units of bolus insulin yesterday. * Fasting BSG this AM acceptable, will continue with basal scale today. Diet advanced to T2DM/Renal yesterday and appears to be tolerating. * No changes to NovoLog at this time. He continues on Zosyn. 06/28 * Jose Ramon only required 5 units of insulin yesterday, all were bolus. BSGs were mostly in goal range through the day. * Fasting BSG was 164mg/dL this morning. Diet has been advance to full liquid. Will continue basal insulin scale at HS in case BSGs continue to rise with diet advancement. * Will continue bolus insulin regimen without change. 06/27: * Patient has not required any basal insulin since coming off the insulin drip. BSGs have been well controlled. * Currently in dialysis. Tube feeds are stopped. Diet was advanced to clear liquids for now. Will change Novolog to ACHS. * Continue with basal scale at HS. 06/25: * Insulin drip was discontinued by the provider last evening when BSG was 103mg/dL. Patient's condition improved, pressors all off, and fluids containing d5 were discontinued. * Although no basal insulin was ordered last evening, fasting BSG was only 140mg/dL this morning. Trickle tube feeds were also started yesterday. * A weight based bolus insulin regimen with a stress of 2 was started and directions were added to cover carbs in tube feeds. A Lantus scale was added at HS (0, 5, or 10 units depending on BSG). 06/24 * Patient well controlled and stable on nsulin infusion today at 0.7 units/hr. * Discussed on multidisciplinary ICU rounds. Given ongoing off/on pressor requirements, stable insulin infusion dosing, and initiation of enteral feeds, will continue with insulin infusion today and reassess opportunities for transition tomorrow morning. 06/23 * Hypoglycemia to 68 mg/dL noted yesterday PM with hyperglycemia >300 mg/dL this AM, possibly 2nd overriden dexamethasone in OR yesterday. Insulin drip was initiated this AM. Bicarb drip mixed in dextrose was discontinued this AM. Remains critically ill - intubated and on two pressors. * Discussed at ICU rounds - continue insulin drip for now and then re-evaluate tomorrow AM 06/22 * Patient remains on insulin infusion @ 1 unit/hour. BSGs have been stable. Returned to OR today for ex lap, washout and was transferred to the ICU following * Patient remains intubated at this time. SCR continues to increase. K 5.2. Bicarb is now 23, lactate 3.6 this morning (on 150 meq NABicarb in D5W @ 150 mL/hr). Anion gap has closed. PH 7.26 * Would continue insulin infusion at this time given critical condition. 06/21 * Jose Ramon is a 80 year old male who was admitted yesterday for sepsis secondary to infected mesh of abdominal wall--s/p mesh removal, hernia repair, and bowel resection (POD #1). Patient with noted hyperglycemia and metabolic acidosis (AG 21 and CO2 17 on 06/20 and AG 19 and CO2 19 with labs this morning). * An insulin drip was started for DKA and pharmacy was consulted to assist with glycemic management this morning. Prior to starting the insulin drip, BSG was 315mg/dL.. Lantus 6 units x 1 was given and 4 units regular insulin iv x 1 was also given. At ~1000 this morning, BSG was still 297mg/dL. An 8 unit regular insulin bolus was given followed by the insulin drip at 8.8units/hr. * Patient remains NPO, and BSGs have been trending down. Pending fluids containing KCL have been ordered. PLAN FOR INPATIENT GLYCEMIC CONTROL: * Hold outpatient oral diabetes medications * Basal insulin * Lantus scale at HS (0, 5, or 10 units depending on BSG) * Bolus insulin * NovoLog per scale q4 hours * Goal Range: Low 110 mg/dL - High 140 mg/dL * Correction Factor: 25 mg/dL/unit * Nutritional / Prandial insulin per carb ratio of 1 unit per 8 grams CHO consumed *
--- NOTE | 2025-06-29 13:27 | Hospitalist Progress Note ---
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 Vaca is a 80 y/o male with DM2, diabetic retinopathy, dyslipidemia, GERD, Christiansen's esophagus, HTN, and other history as outlined below who underwent exploratory laparotomy with removal of infected mesh, hernia repair, and bowel resection 06/[address] Dhaliwal and for who we have been consulted to assist with post-operative medical management. #Septic shock #Metabolic acidosis #Infected mesh s/p removal, hernia repair, and bowel resection 06/20 -Developed worsening abd pain, rising lactate on 06/21 -CT AP 06/22 b/l small effusions, fluid filled bowels, 16cm fluid collection, likely hematoma -S/p ex lap 06/22 -Cultures negative Plan -Tolerating normal diet without any issues. monitor -KRISTA drain per surgery -Appreciate surgery input -Continue zosyn through 06/29 which is a 7 day course. -Follow cultures, NGTD #Acute Renal Failure -Baseline Cr. 0.9 -Concern for ATN -Oliguric renal failure -HD started 06/22 -Urine output improving -S/p HD 06/27 Plan -Urine output reassuring. No plans for HD for now. -Appreciate nephrology input -Monitor urine output, intake, renal function -Avoid nephrotoxic agents if possible Superficial Vein thrombosis of right cephalic vein- noted in venous duplex from 06/24; plan to repeat venous duplex to monitor progression. no plans of anticoagulation unless patient is symptomatic or progressed into DVT. #Acute hypoxic hypercarbic resp failure -Requiring intubation -CT showing bilateral small effusions, some atelectasis -Suspect multifactorial. he is also taking shallow breaths due to pain -Extubated 06/24 -On room air. resolved #Anemia -POA. Hgb 12.5 on admission -S/p 2 PRBC -Hb stable #Hyponatremia #Hypokalemia- replace and follow #Lactic acidosis #Trop elevation -HS trop mildly high at 28 in setting of acute renal failure -Non specific trop elevation -No s/s ACS #Elevated LFTs -Mildly elevated, likely from liver hypoperfusion/shock liver #Hypertension hold home losartan #acute hypergylcemia #Type 2 Diabetes Hold oral meds, A1C 7.7% Monitor BG and electrolytes closely Plan to discontinue metformin if kidney function doesn't return back to baseline #Dyslipidemia - Chronic, resume statin once tolerating po #GERD - Continue daily PPI--transitioned to IV given inability to take po Time spent evaluating patient, direct bedside care, chart review, placing orders, interpretation of diagnostic studies, discussion with consultants, patient, and family members, as well as other required patient management activities is 50 minutes Time spent evaluating patient, direct bedside care, chart review, placing orders, interpretation of diagnostic studies, discussion with consultants, patient, and family members, as well as other required patient management activities is Admission and Anticipated Discharge Date Admission Date: June 20, 2025 Subjective Patient seen and examined at bedside. He is sitting up on a chair comfortably; not in distress. Denies any pain or discomfort No significant overnight Review of Systems Review of Systems: All systems reviewed & are unremarkable except as noted in Subjective Physical Exam Physical Exam: Constitutional: AO X 3, not in any distress Respiratory: normal respiratory effort, lungs clear to auscultation, no wheeze, rales, rhonchi. Normal insp/exp effort, no accessory muscle use Cardiovascular: RRR, no murmur, no edema Vessels: no JVD or carotid bruit Chest: normal inspection of chest Abdomen: no soakage over the bandage, soft, non-tender Musculoskeletal: no cyanosis or clubbing, extremities motor strength 5/5. right arm swelling present, sensenstion and pulse intact Skin: no rashes, warm and dry normal turgor Neurologic: PERRL, EOMI, accommodation nl, no face palsy, no dysarthria CN's II- XI intact bilaterally and moves all extremities Psychiatric: A+Ox3, euthymic affect Results & Data Results & Data Vital Signs (Past 12 Hours) Vital Signs Temp Pulse Pulse Pulse Resp BP Pulse Ox 06/29/25 11:15 06/29/25 11:12 36.8 C 78 17 103/67 96 06/29/25 07:39 36.4 C L 69 16 144/78 H 94 06/29/25 07:10 83 06/29/25 03:58 70 18 91 06/29/25 03:28 36.8 C 63 18 154/77 H 94 O2 Del Method 06/29/25 11:15 Room Air 06/29/25 11:12 Room Air 06/29/25 07:39 Room Air 06/29/25 07:10 06/29/25 03:58 Room Air 06/29/25 03:28 Room Air (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 (2) DM type 2 (diabetes mellitus, type 2) Diabetes mellitus congregational care pastor insulin use: without congregational care pastor use Diabetes mellitus complication status: with ophthalmic complications Diabetes mellitus complication detail: with diabetic retinopathy Diabetic retinopathy severity: with unspecified retinopathy severity Diabetes mellitus macular edema: macular edema presence unspecified Laterality: unspecified laterality Qualified Code(s): E11.319 - Type 2 diabetes mellitus with unspecified diabetic retinopathy without macular edema (3) HTN (hypertension) Hypertension type: unspecified Qualified Code(s): I10 - Essential (primary) hypertension (4) HLD (hyperlipidemia) Hyperlipidemia type: unspecified Qualified Code(s): E78.5 - Hyperlipidemia, unspecified
--- NOTE | 2025-06-29 14:47 | Ultrasound Report ---
ULTRASOUND RIGHT UPPER EXTREMITY VENOUS CLINICAL HISTORY: Acute pain and swelling of the right upper arm. COMPARISON STUDY: 06/24/2025. TECHNIQUE: Real-time, grayscale, and color Doppler sonography of the deep veins of the right upper ex tremity is performed. Compression and augmentation were utilized. FINDINGS: Noncompressible thrombus within the right internal jugular vein measures up to 2.5 cm in le ngth, not seen on the prior study. Occlusive thrombus within the basilic vein measures up to 7.5 cm i n length, also not seen on the prior study. Subcutaneous edema. Long segment thrombus in the cephalic vein measuring approximately 15 cm in length similar to prior. IMPRESSION: Progressive deep and superficial venous thrombi as above with subcutaneous edema. ACT 112: Negative or not required by law. Electronically signed by: Nilesh Asencio M.D. 06/29/2025 2:46 PM
[2025-06-29] MEDS ORDERED: HEPARIN 25000 UNIT/500 ML D5W 25,000 UNITS/500 ML BAG IV SCH (16:15)
--- NOTE | 2025-06-29 16:21 | Communication Note ---
Date of Service: June 29, [address] TDC on Friday, 07/01, if still needed. Will place NPO order for Friday in preparation.
[2025-06-29] MEDS: Heparin IV Adult Wt-Based Standard *NO* INITIAL Bolus Protocol IV STA (16:31)
[2025-06-29] MEDS: HEPARIN SOD (PORCINE) 1000 UNIT/ML IV ONE (16:38)
[2025-06-29] MEDS: Heparin IV Adult Wt-Based Standard w/ INITIAL Bolus Protocol IV STA (16:39)
[2025-06-29] MEDS: HEPARIN 25000 UNIT/500 ML D5W 25,000 UNITS/500 ML BAG IV SCH (16:43)
[2025-06-29 23:44] LABS: ANTI-Xa, UFH(UnfractionatedHep < 0.10 IU/ml (0.3-0.7)
[2025-06-30] MEDS: HEPARIN SOD (PORCINE) 1000 UNIT/ML IV ONE ×3 (00:40→23:47)
[2025-06-30 06:46] LABS: Hematocrit (blood only) 26.5 % (42.0-52.0); Hemoglobin 8.8 g/dl (14.0-18.0); Immature Granulocytes # (auto) 0.29 K/uL (0.01-0.20); Immature Granulocytes % (auto) 2.2 %; Mean Corpuscular Hemoglobin 30.0 pg (25.0-34.0); Mean Corpuscular Volume 90.4 fL (80.0-100.0); Platelet Count 571 K/uL (130-400); RDW Standard Deviation 46.4 fL (36.4-46.3); Red Blood Count 2.93 M/uL (4.70-6.10); White Blood Count 13.03 K/ul (4.8-10.8)
[2025-06-30 07:23] LABS: ANTI-Xa, UFH(UnfractionatedHep < 0.10 IU/ml (0.3-0.7)
[2025-06-30 07:41] LABS: Anion Gap 14.0 (3-11); Blood Urea Nitrogen 37.0 mg/dl (6-23); Calcium 7.3 mg/dl (8.6-10.3); Carbon Dioxide 24.0 mmol/L (21-32); Chloride 99.0 mmol/L (98-107); Creatinine Clr Calc Pharmacy 18.9 ml/min; Glucose 215.0 mg/dl (70-99(Fasting)); Potassium 3.3 mmol/L (3.5-5.1); Sodium 137.0 mmol/L (136-145)
--- NOTE | 2025-06-30 09:49 | Hospitalist Progress Note ---
Date of Service June 30, 2025 Assessment & Plan (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: (2) DM type 2 (diabetes mellitus, type 2): (3) HTN (hypertension): (4) HLD (hyperlipidemia): Plan Mr. Vaca is a 80 y/o male with DM2, diabetic retinopathy, dyslipidemia, GERD, Christiansen's esophagus, HTN, and other history as outlined below who underwent exploratory laparotomy with removal of infected mesh, hernia repair, and bowel resection 06/[address] Dhaliwal and for who we have been consulted to assist with post-operative medical management. #Septic shock #Metabolic acidosis #Infected mesh s/p removal, hernia repair, and bowel resection 06/20 -Developed worsening abd pain, rising lactate on 06/21 -CT AP 06/22 b/l small effusions, fluid filled bowels, 16cm fluid collection, likely hematoma -S/p ex lap 06/22 -Cultures negative Plan -Tolerating normal diet without any issues. monitor -KRISTA drain per surgery -Appreciate surgery input -completed zosyn through 06/29 which is a 7 day course. #Acute Renal Failure -Baseline Cr. 0.9 -Oliguric renal failure -HD started 06/22 -Urine output improving -S/p HD 06/27 Plan -Urine output reassuring. No plans for HD for now. -Appreciate nephrology input -Monitor urine output, intake, renal function -Avoid nephrotoxic agents if possible Superficial Vein thrombosis of right cephalic vein Acute DVT of right internal jugular Venous duplex done on 06/29 shows progressive deep and superficial venous thrombus in right upper extremity. Heparin is started without bolus as per discussion with surgery Depending on renal function; will plan to transition to DOAC or Coumadin. Will need anticoagulation for at least 3 months. #Acute hypoxic hypercarbic resp failure -Requiring intubation -CT showing bilateral small effusions, some atelectasis -Suspect multifactorial. he is also taking shallow breaths due to pain -Extubated 06/24 -On room air. resolved #Anemia -POA. Hgb 12.5 on admission -S/p 2 PRBC -Hb stable #Hyponatremia #Hypokalemia- replace and follow #Trop elevation -HS trop mildly high at 28 in setting of acute renal failure -Non specific trop elevation -No s/s ACS #Elevated LFTs -Mildly elevated, likely from liver hypoperfusion/shock liver #Hypertension hold home losartan #acute hypergylcemia #Type 2 Diabetes Hold oral meds, A1C 7.7% Monitor BG and electrolytes closely Plan to discontinue metformin if kidney function doesn't return back to baseline #Dyslipidemia - on rosuvastatin,continue #GERD - Continue daily PPI Time spent evaluating patient, direct bedside care, chart review, placing orders, interpretation of diagnostic studies, discussion with consultants, patient, and family members, as well as other required patient management activities is 50 minutes Time spent evaluating patient, direct bedside care, chart review, placing orders, interpretation of diagnostic studies, discussion with consultants, patient, and family members, as well as other required patient management activities is Admission and Anticipated Discharge Date Admission Date: June 20, 2025 Subjective Patient seen and examined at bedside. He is lying in the bed comfortably; denies any pain or discomfort. Urine output in the last 24 hours of 1805 mL Review of Systems Review of Systems: All systems reviewed & are unremarkable except as noted in Subjective Physical Exam Physical Exam: Constitutional: AO X 3, not in any distress Respiratory: Decreased breath sounds at bilateral lower lung field Cardiovascular: RRR, no murmur, no edema Vessels: no JVD or carotid bruit Chest: normal inspection of chest Abdomen: no soakage over the bandage, soft, non-tender Musculoskeletal: no cyanosis or clubbing, extremities motor strength 5/5. right arm swelling present, sensenstion and pulse intact Skin: no rashes, warm and dry normal turgor Neurologic: PERRL, EOMI, accommodation nl, no face palsy, no dysarthria CN's II- XI intact bilaterally and moves all extremities Psychiatric: A+Ox3, euthymic affect Results & Data Results & Data Vital Signs (Past 12 Hours) Vital Signs Temp Pulse Pulse Pulse Resp BP Pulse Ox 06/30/25 07:30 80 06/30/25 07:28 36.6 C 86 16 126/65 97 06/30/25 03:43 37.3 C 94 H 18 120/67 94 06/29/25 23:08 36.6 C 90 18 114/72 94 06/29/25 21:47 70 O2 Del Method 06/30/25 07:30 06/30/25 07:28 Room Air 06/30/25 03:43 Room Air 06/29/25 23:08 Room Air 06/29/25 21:47 (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 (2) DM type 2 (diabetes mellitus, type 2) 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 insulin use: without termite control service representative use Diabetes mellitus complication status: with ophthalmic complications Diabetes mellitus complication detail: with diabetic retinopathy Diabetic retinopathy severity: with unspecified retinopathy severity Diabetes mellitus macular edema: macular edema presence unspecified Laterality: unspecified laterality Qualified Code(s): E11.319 - Type 2 diabetes mellitus with unspecified diabetic retinopathy without macular edema (3) HTN (hypertension) Hypertension type: unspecified Qualified Code(s): I10 - Essential (primary) hypertension (4) HLD (hyperlipidemia) Hyperlipidemia type: unspecified Qualified Code(s): E78.5 - Hyperlipidemia, unspecified
--- NOTE | 2025-06-30 11:41 | Nephrology Progress Note ---
Date of Service June 30, 2025 Assessment & Plan (1) JACINTA (acute kidney injury): Plan: Severe 3 JACINTA previously anuric ATN, was dialysis dependent but hopeful he will recover in days/weeks not to need HD At baseline creat is normal 0.9 as of 05/30 on pre op labs. Then POD 1 was already doubled at 1.9 and then creat again more than doubled in 24 hrs time period from 1.[address] abdomen showed normal appearing kidneys--no Obstruction. However also has sig Pl eff. he is per I/O over 11 L +ve so far. but down to 2L 02nc high K and lactic acidosis resolved; off pressors/extubated; downgraded from icu status 06/26 Had HD 06/23, 06/25, 06/27 > no UF past 2 txs oligoanuria resolved; made 1.8 L urine yesterday >little point to checking iron stores after pRBC; monitor for need for epo -temp dialysis cath removed 06/28; vascular has OR time Fri if needed >>>no indication for dialysis today; creat jonathan post HD but not so markedly as it had been AND improved today slightly at 3.4 >if further dialysis needed after d/c could be done at [facility] or even as OP in [place] as JACINTA status >>evaluate for HD daily >> no dialysis needed today; would NOT plan for TDC tomorrow since he's recovering a bit though cannot r/o need in future, including this hospital stay hgb 8.8 today > improving > monitor closely on heparin gtt now level of UOP is hopeful and continue to hope for recovery -continue strict I/O -daily bmp >d/c [place] when feasible Care coordinated w/ Dr White via TText re overall d/c dispo, clinical status, dialysis/renal status and access. (2) Infected prosthetic mesh of abdominal wall: Plan: Reviewed Surgery note preop post op and current status. Still w/ KRISTA drain/binder (3) Dialysis patient: Plan: currently dialysis dependent JACINTA but w/ clear e/o renal recovery and cautiously hopeful will not need shelter dialysis access Admission and Anticipated Discharge Date Admission Date: June 20, 2025 Subjective no interval events clinically; note he has OR slot for TDC in AM if needed. started on heparin gtt yesterday after RUE doppler showed progressive deep and superficial DVT. no sob, not bothered by edema; no cp; continues brisk UOP in [place] Review of Systems 2 Review of Systems: All systems reviewed & are unremarkable except as noted in Subjective Physical Exam 2 Constitutional: well developed (on RA in chair), well nourished and cooperative Eyes: EOM intact bilaterally ENMT: Ears: no external ear abnormality Nose: no external nose abnormality Mouth: + muffled voice (hoarse) and + dry oral mucous membranes Neck: no nuchal rigidity Respiratory: normal respiratory effort and able to speak in complete sentences (less sob than 48 hrs back) Auscultation: + diminished lung sounds Cardiovascular: Rate/Rhythm: regular rate and regular rhythm Extremities: + edema (1-2+ distal BLE) Gastrointestinal (Abdomen): Inspection/Auscultation: normal bowel sounds and + abdominal surgical drain present Percussion/Palpation: abdomen soft; abdomen nontender Musculoskeletal: Extremities: strength 5/5 throughout Skin: no rashes, warm and dry Results & Data Vital Signs (Past 12 Hours) Vital Signs Temp Pulse Pulse Pulse Resp BP BP 06/30/25 11:18 36.9 C 85 18 107/66 06/30/25 07:30 80 06/30/25 07:28 36.6 C 86 16 126/65 06/30/25 03:43 37.3 C 94 H 18 120/67 Pulse Ox O2 Del Method 06/30/25 11:18 95 Room Air 06/30/25 07:30 06/30/25 07:28 97 Room Air 06/30/25 03:43 94 Room Air Laboratory Results 06/30/25 06:09 06/30/25 06:09 (2) Infected prosthetic mesh of abdominal wall Encounter type: initial encounter Qualified Code(s): T85.79XA - Infection and inflammatory reaction due to other internal prosthetic devices, implants and grafts, initial encounter
--- NOTE | 2025-06-30 13:10 | Communication Note ---
Date of Service: June 30, 2025 I cancelled the consult being patient not needing dialysis at this time. Please call if dialysis is needed and we can see him and place permcath. kasi
--- NOTE | 2025-06-30 14:54 | Surgery Progress Note ---
Date of Service June 30, 2025 Assessment & Plan (1) Anastomotic leak of intestine: Plan: OOB ambulate; continue diet PT/OT monitor labs and UOP; hopefully will not need HD discharge planning for Rehab/SNF Admission and Anticipated Discharge Date Admission Date: June 20, 2025 Subjective doing well today; tolerating diet; Creatinine decreasing; good UOP Physical Exam Physical Exam: NAD A&Ox3 NCAT, no scleral icterus Abd soft, NTND incision C/D/I with jin some serous drainage form incision and KRISTA Brooks with increased clear urine Results & Data Vital Signs (Past 12 Hours) Vital Signs Temp Pulse Pulse Pulse Resp BP BP 06/30/25 11:18 36.9 C 85 18 107/66 06/30/25 07:30 80 06/30/25 07:28 36.6 C 86 16 126/65 06/30/25 03:43 37.3 C 94 H 18 120/67 Pulse Ox O2 Del Method 06/30/25 11:18 95 Room Air 06/30/25 07:30 06/30/25 07:28 97 Room Air 06/30/25 03:43 94 Room Air Laboratory Results 06/30/25 06/30/25 06/30/25 Range/Units 12:01 08:31 06:09 WBC 13.03 H (4.8-10.8) K/ul RBC 2.93 L (4.70-6.10) M/uL Hgb 8.8 L (14.0-18.0) g/dl Hct 26.5 L (42.0-52.0) % MCV 90.4 (80.0-100.0) fL MCH 30.0 (25.0-34.0) pg MCHC 33.2 (32.0-36.0) g/dL RDW Std Deviation 46.4 H (36.4-46.3) fL RDW Coeff of Jessica 14.1 (11.5-14.5) % Plt Count 571 H (130-400) K/uL MPV 9.9 (9.4-12.4) fL Immature Gran % (Auto) 2.2 % Neut % (Auto) 66.6 % Lymph % (Auto) 20.6 % [place] % (Auto) 6.5 % Eos % (Auto) 3.5 % Baso % (Auto) 0.6 % Neut # (Auto) 8.68 H (1.40-6.50) K/uL Lymph # (Auto) 2.68 (1.20-3.40) K/uL [place] # (Auto) 0.85 H (0.11-0.59) K/uL Eos # (Auto) 0.45 (0.00-0.50) K/uL Baso # (Auto) 0.08 (0.00-0.20) K/uL Immature Gran # (Auto) 0.29 H (0.01-0.20) K/uL Heparin Anti-Xa, Unfract < 0.10 L (0.3-0.7) IU/ml Sodium 137 (136-145) mmol/L Potassium 3.3 L (3.5-5.1) mmol/L Chloride 99 (98-107) mmol/L Carbon Dioxide 24 (21-32) mmol/L Anion Gap 14 H (3-11) BUN 37 H (6-23) mg/dl Creatinine 3.43 H (0.6-1.4) mg/dl Est Cr Clr Drug Dosing 18.9 ml/min eGFR 17.55 BUN/Creatinine Ratio 10.8 (10-20) Glucose 215 H (70-99(Fasting)) mg/dl POC Glucose 161 H 160 H (70-99) mg/dl Calcium 7.3 L (8.6-10.3) mg/dl 06/29/25 06/29/25 06/29/25 Range/Units 22:53 20:14 17:10 WBC (4.8-10.8) K/ul RBC (4.70-6.10) M/uL Hgb (14.0-18.0) g/dl Hct (42.0-52.0) % MCV (80.0-100.0) fL MCH (25.0-34.0) pg MCHC (32.0-36.0) g/dL RDW Std Deviation (36.4-46.3) fL RDW Coeff of Jessica (11.5-14.5) % Plt Count (130-400) K/uL MPV (9.4-12.4) fL Immature Gran % (Auto) % Neut % (Auto) % Lymph % (Auto) % [place] % (Auto) % Eos % (Auto) % Baso % (Auto) % Neut # (Auto) (1.40-6.50) K/uL Lymph # (Auto) (1.20-3.40) K/uL [place] # (Auto) (0.11-0.59) K/uL Eos # (Auto) (0.00-0.50) K/uL Baso # (Auto) (0.00-0.20) K/uL Immature Gran # (Auto) (0.01-0.20) K/uL Heparin Anti-Xa, Unfract < 0.10 L (0.3-0.7) IU/ml Sodium (136-145) mmol/L Potassium (3.5-5.1) mmol/L Chloride (98-107) mmol/L Carbon Dioxide (21-32) mmol/L Anion Gap (3-11) BUN (6-23) mg/dl Creatinine (0.6-1.4) mg/dl Est Cr Clr Drug Dosing ml/min eGFR BUN/Creatinine Ratio (10-20) Glucose (70-99(Fasting)) mg/dl POC Glucose 167 H 150 H (70-99) mg/dl Calcium (8.6-10.3) mg/dl
[2025-06-30 15:46] LABS: ANTI-Xa, UFH(UnfractionatedHep 0.34 IU/ml (0.3-0.7)
--- NOTE | 2025-06-30 15:57 | CT Scan Report ---
CT chest diagnostic wo con CT DOSE: 916.98 mGy.cm CLINICAL HISTORY: 80 years-old Male with evaluation of pleural effusion. Acute shortness of breath TECHNIQUE: Multiaxial CT images of the chest were performed without contrast. A dose lowering techni que was utilized adhering to the principles of ALARA. COMPARISON: Chest radiograph 06/29/2025, CT abdomen and pelvis 06/22/2025, duplex venous Doppler study of the right upper extremity 06/29/2025. FINDINGS: No thyroid nodule. Subcutaneous/deep tissue edema within the right axilla and subpectoral t issues without discrete fluid collection. Mild cardiomegaly with decreased attenuation of the cardiac blood pool suggestive of anemia. Mild coronary artery calcifications. Moderate atherosclerosis of th e aorta which measures 4.5 x 4.5 cm at the level of the main pulmonary artery. Small pleural effusions, right greater than left are again noted. The left pleural effusion is slight ly increased in size compared to 06/22/2025. No pneumothorax. Mild to moderate pulmonary emphysema. Re spiratory motion artifact limits evaluation of the lungs. Bronchial wall thickening with mild bibasil ar mucous plugging. Right lower lobe consolidation with mild volume loss again seen. Mid to distal esophageal wall thickening again noted. Hepatic steatosis with hepatomegaly. Subtle nod ular foci again noted within the left upper quadrant omentum. A few small persistent foci of pneumope ritoneum are again seen. Gaseous distention of the stomach. No acute fracture. IMPRESSION: 1. Small pleural effusions with right basilar predominant consolidation/atelectasis redemonstrated. T he left pleural effusion has slightly increased in size from 06/22/2025. 2. Pulmonary emphysema. 3. Small amount of upper pneumoperitoneum, decreased from the prior study. 4. Dilation of the ascending thoracic aorta, 4.5 cm. 5. Nonspecific mid to distal esophageal wall thickening is nonspecific and may represent esophagitis. ACT 112: Negative or not required by law. Electronically signed by: Nilesh Asencio M.D. 06/30/2025 3:56 PM
--- NOTE | 2025-06-30 16:12 | Ultrasound Report ---
Technique: Venous ultrasound evaluation was performed utilizing grayscale, color Doppler and wave form evaluation. Images were also obtained with and without compression Findings: The bilateral common femoral, superficial femoral, popliteal, and visualized calf veins demonstrate normal anechoic lumens with full compressibility. Normal flow is seen on color Doppler images. Expected waveforms were produced with augmentation maneuvers Impression: No evidence of deep venous thrombosis Electronically signed by Marcial Parra 06-30-2025 4:11 PM
[2025-06-30 22:28] LABS: ANTI-Xa, UFH(UnfractionatedHep 0.11 IU/ml (0.3-0.7)
[2025-07-01 07:09] LABS: Hematocrit (blood only) 26.5 % (42.0-52.0); Hemoglobin 8.4 g/dl (14.0-18.0); Immature Granulocytes # (auto) 0.16 K/uL (0.01-0.20); Immature Granulocytes % (auto) 1.3 %; Mean Corpuscular Hemoglobin 28.7 pg (25.0-34.0); Mean Corpuscular Volume 90.4 fL (80.0-100.0); Platelet Count 619 K/uL (130-400); RDW Standard Deviation 46.3 fL (36.4-46.3); Red Blood Count 2.93 M/uL (4.70-6.10); White Blood Count 12.58 K/ul (4.8-10.8)
[2025-07-01 08:02] LABS: Anion Gap 11.0 (3-11); Blood Urea Nitrogen 37.0 mg/dl (6-23); Calcium 7.5 mg/dl (8.6-10.3); Carbon Dioxide 25.0 mmol/L (21-32); Chloride 101.0 mmol/L (98-107); Creatinine Clr Calc Pharmacy 21.7 ml/min; Glucose 149.0 mg/dl (70-99(Fasting)); Potassium 3.3 mmol/L (3.5-5.1); Sodium 137.0 mmol/L (136-145)
[2025-07-01 08:04] LABS: ANTI-Xa, UFH(UnfractionatedHep 0.68 IU/ml (0.3-0.7)
--- NOTE | 2025-07-01 09:22 | Nephrology Progress Note ---
Date of Service July 01, 2025 Assessment & Plan (1) JACINTA (acute kidney injury): Plan: Improving but still severe 3 JACINTA previously anuric ATN, was dialysis dependent; more confident today that barring clinical setbacks he will recover in days/weeks not to need HD At baseline creat is normal 0.9 as of 05/30 on pre op labs. Then POD 1 was already doubled at 1.9 and then creat again more than doubled in 24 hrs time period from 1.[address] abdomen showed normal appearing kidneys--no Obstruction. However also has sig Pl eff. he is per I/O over 11 L +ve so far. but down to 2L 02nc high K and lactic acidosis resolved; off pressors/extubated; downgraded from icu status 06/26 Had HD 06/23, 06/25, 06/27 > no UF past 2 txs oligoanuria resolved; made 1.2 L urine yesterday >little point to checking iron stores after pRBC; monitor for need for epo -temp dialysis cath removed 06/28; no further dialysis access neded >if further dialysis needed after d/c could be done at [facility] or even as OP in [place] as JACINTA status >> no dialysis needed today and do not believe he will need it barring unexpected clinical setbacks hgb 8.4 today > improving > monitor closely on heparin gtt now K 3.3 today >> ordered 40 mEq po x 1 - Avoid Lasix unless in respiratory distress; please manage edema conservatively level of UOP is hopeful and continue to anticipate recovery -continue strict I/O -daily bmp Will sign off Diagnosis: 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, clinically improving and now off dialysis with no dialysis access currently Moderate anemia Prescriptions: At discharge will need to continue to hold losartan, metformin, Jardiance Review with his outpatient neurologist ([facility]) whether full dose aspirin is required: Favor 81 mg daily instead Avoid all other NSAIDs Other follow-up care: Weekly basic metabolic panel and hemoglobin to be ordered by PCP x 3 weeks Nephrology nurse to order urinalysis with microscopy, spot protein to creatinine ratio to be done the week before nephrology follow-up Follow-up appointment: Hospital discharge appointment with [facility] preferred Care coordinated w/ Dr White via TText re overall d/c dispo, clinical status, f/u recommendations (2) Infected prosthetic mesh of abdominal wall: Plan: Reviewed Surgery note preop post op and current status. Still w/ KRISTA drain/binder (3) Dialysis patient: Plan: resolving dialysis dependent JACINTA w/ clear e/o renal recovery and cautiously hopeful will not need snf dialysis access Admission and Anticipated Discharge Date Admission Date: June 20, 2025 Subjective no acute interval events; d/w vascular yesterday. Did PT yesterday and was quite tired afterward but no uncontrolled or new pain, no shortness of breath, not bothered by mild lower extremity edema, no orthopnea, no cough, no new or worrisome voiding concerns Review of Systems 2 Review of Systems: All systems reviewed & are unremarkable except as noted in Subjective Physical Exam 2 Constitutional: well developed (on RA in chair), well nourished and cooperative Eyes: EOM intact bilaterally ENMT: Ears: no external ear abnormality Nose: no external nose abnormality Mouth: + muffled voice (hoarse) and + dry oral mucous membranes Neck: no nuchal rigidity Respiratory: normal respiratory effort and able to speak in complete sentences (less sob than 48 hrs back) Auscultation: + diminished lung sounds Cardiovascular: RRR, no murmur, no edema Rate/Rhythm: regular rate and regular rhythm Extremities: + edema (1-2+ distal BLE) Gastrointestinal (Abdomen): Inspection/Auscultation: normal bowel sounds and + abdominal surgical drain present Percussion/Palpation: abdomen soft; abdomen nontender Musculoskeletal: Extremities: strength 5/5 throughout Skin: no rashes, warm and dry Results & Data Vital Signs (Past 12 Hours) Vital Signs Temp Pulse Pulse Pulse Resp BP Pulse Ox 07/01/25 07:22 36.7 C 84 16 116/69 96 07/01/25 07:12 81 07/01/25 03:52 36.8 C 74 18 122/62 97 06/30/25 23:26 36.9 C 77 18 130/67 97 06/30/25 21:37 83 O2 Del Method 07/01/25 07:22 Room Air 07/01/25 07:12 07/01/25 03:52 Room Air 06/30/25 23:26 Room Air 06/30/25 21:37 Laboratory Results 07/01/25 06:34 07/01/25 06:[address] chest no con (images personally reviewed > small R pl effusion) LE DOpplers > no DVT (2) Infected prosthetic mesh of abdominal wall Encounter type: initial encounter Qualified Code(s): T85.79XA - Infection and inflammatory reaction due to other internal prosthetic devices, implants and grafts, initial encounter
[2025-07-01] MEDS: POTASSIUM CHLORIDE CRTAB 20 MEQ TABCR PO ONE (10:37)
--- NOTE | 2025-07-01 12:17 | Pharmacy Report ---
Pharmacy Glycemic Sign Off Nt - Date of Service July 01, 2025 - Assessment & Plan ASSESSMENT: * Pharmacy was consulted by Dr Patel on 06/21 for glycemic control and to write orders per [facility] inpatient glycemic control protocol. * Major changes made by pharmacy to antidiabetic regimen include: * added novolog scale * Patient has been receiving/requiring ~20 units of insulin per day for adequate glycemic control * BSGs <180 mg/dL * Regimen has not required any adjustments over the past 48hrs to achieve this level of control PLAN FOR INPATIENT GLYCEMIC CONTROL: * No basal insulin currently warranted * Continue NovoLog per scale ACHS/Q6hrs while NPO * Goal range = 110-140 mg/dl * CF = 25 mg/dl/unit * CR = 1 unit for ever 8 g CHO consumed * Pharmacy is signing off of glycemic consult and will no longer be making adjustments to inpatient regimen. Please feel free to re-consult if needed. Thank you.
--- NOTE | 2025-07-01 12:49 | Hospitalist Progress Note ---
Date of Service July 01, 2025 Assessment & Plan (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: (2) DM type 2 (diabetes mellitus, type 2): (3) HTN (hypertension): (4) HLD (hyperlipidemia): Plan Mr. Vaca is a 80 y/o male with DM2, diabetic retinopathy, dyslipidemia, GERD, Christiansen's esophagus, HTN, and other history as outlined below who underwent exploratory laparotomy with removal of infected mesh, hernia repair, and bowel resection 06/[address] Dhaliwal and for who we have been consulted to assist with post-operative medical management. #Septic shock #Metabolic acidosis #Infected mesh s/p removal, hernia repair, and bowel resection 06/20 -Developed worsening abd pain, rising lactate on 06/21 -CT AP 06/22 b/l small effusions, fluid filled bowels, 16cm fluid collection, likely hematoma -S/p ex lap 06/22 -Cultures negative Plan -Tolerating normal diet without any issues. monitor -KRISTA drain per surgery -Appreciate surgery input -completed zosyn through 06/29, total of 7 days. #Acute Renal Failure -Baseline Cr. 0.9 -Oliguric renal failure -HD started 06/22 -Urine output improving -S/p HD 06/27 Plan -Urine output reassuring. No plans for HD for now. -Appreciate nephrology input -Monitor urine output, intake, renal function -Avoid nephrotoxic agents if possible -Nephrology recommended holding losartan, metformin and Jardiance. Weekly BMP X 3 weeks, outpatient follow up. Superficial Vein thrombosis of right cephalic vein Acute DVT of right internal jugular Venous duplex done on 06/29 shows progressive deep and superficial venous thrombus in right upper extremity. Heparin is started without bolus as per discussion with surgery Depending on renal function; will plan to transition to DOAC or Coumadin. Will need anticoagulation for at least 3 months. #Acute hypoxic hypercarbic resp failure -Requiring intubation -CT showing bilateral small effusions, some atelectasis -Suspect multifactorial. he is also taking shallow breaths due to pain -Extubated 06/24 -On room air. resolved #Anemia -POA. Hgb 12.5 on admission -S/p 2 PRBC -Hb stable #Hyponatremia #Hypokalemia- replace and follow #Trop elevation -HS trop mildly high at 28 in setting of acute renal failure -Non specific trop elevation -No s/s ACS #Elevated LFTs -Mildly elevated, likely from liver hypoperfusion/shock liver #Hypertension hold home losartan #acute hypergylcemia #Type 2 Diabetes Hold oral meds, A1C 7.7% Monitor BG and electrolytes closely Plan to discontinue metformin if kidney function doesn't return back to baseline #Dyslipidemia - on rosuvastatin,continue #GERD - Continue daily PPI Time spent evaluating patient, direct bedside care, chart review, placing orders, interpretation of diagnostic studies, discussion with consultants, patient, and family members, as well as other required patient management ruddy mckeon is 50 minutes Admission and Anticipated Discharge Date Admission Date: June 20, 2025 Subjective Patient seen and examined at bedside. He is comfortable, not in any distress. Denies fever, chills, chest pain, shortness of breath or urinary symptoms. Review of Systems Review of Systems: All systems reviewed & are unremarkable except as noted in Subjective Physical Exam Physical Exam: Constitutional: AO X 3, not in any distress Respiratory: Decreased breath sounds at bilateral lower lung field Cardiovascular: RRR, no murmur, no edema Vessels: no JVD or carotid bruit Chest: normal inspection of chest Abdomen: no soakage over the bandage, soft, non-tender Musculoskeletal: no cyanosis or clubbing, extremities motor strength 5/5. right arm swelling present, sensenstion and pulse intact Skin: no rashes, warm and dry normal turgor Neurologic: PERRL, EOMI, accommodation nl, no face palsy, no dysarthria CN's II- XI intact bilaterally and moves all extremities Psychiatric: A+Ox3, euthymic affect Results & Data Results & Data Vital Signs (Past 12 Hours) Vital Signs Temp Pulse Pulse Resp BP Pulse Ox O2 Del Method 07/01/25 11:42 36.5 C 84 18 110/69 94 Room Air 07/01/25 09:48 Room Air 07/01/25 07:22 36.7 C 84 16 116/69 96 Room Air 07/01/25 07:12 81 07/01/25 03:52 36.8 C 74 18 122/62 97 Room Air (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 (2) DM type 2 (diabetes mellitus, type 2) Diabetes mellitus termite control representative insulin use: without shelter use Diabetes mellitus complication status: with ophthalmic complications Diabetes mellitus complication detail: with diabetic retinopathy Diabetic retinopathy severity: with unspecified retinopathy severity Diabetes mellitus macular edema: macular edema presence unspecified Laterality: unspecified laterality Qualified Code(s): E11.319 - Type 2 diabetes mellitus with unspecified diabetic retinopathy without macular edema (3) HTN (hypertension) Hypertension type: unspecified Qualified Code(s): I10 - Essential (primary) hypertension (4) HLD (hyperlipidemia) Hyperlipidemia type: unspecified Qualified Code(s): E78.5 - Hyperlipidemia, unspecified
--- NOTE | 2025-07-01 13:09 | Surgery Progress Note ---
Date of Service July 01, 2025 Assessment & Plan (1) Anastomotic leak of intestine: Plan: Continue diet as tolerated Kidney function improving today, adequate UOP KRISTA drain to remain in place for now and can be d/c on Friday prior to potential discharge to SNF OOB and PT/OT through the weekend Medical management per primary team, surgery will continue to follow Admission and Anticipated Discharge Date Admission Date: June 20, 2025 Supervising Physician Co-Signing Physician Notes I have seen and examined this patient. I agree with this plan Subjective Patient seen and evaluated this afternoon, doing well Tolerating diet without any issues WBC 12.5, afebrile Cr downtrending today to 2.9 from 3.[address] with 40cc output recorded Physical Exam Constitutional: WD/WN, vitals as above Respiratory: normal respiratory effort, lungs clear to auscultation Cardiovascular: Rate/Rhythm: regular rate Gastrointestinal (Abdomen): Abdomen soft, nondistended, nontender Surgical site is c/d/i without any signs of infection KRISTA drain in place with serous output Skin: no rashes, warm and dry Results & Data Vital Signs (Past 12 Hours) Vital Signs Temp Pulse Pulse Resp BP Pulse Ox O2 Del Method 07/01/25 11:42 36.5 C 84 18 110/69 94 Room Air 07/01/25 09:48 Room Air 07/01/25 07:22 36.7 C 84 16 116/69 96 Room Air 07/01/25 07:12 81 07/01/25 03:52 36.8 C 74 18 122/62 97 Room Air PG Care Time/CCT Total # of Minutes Spent Total Time Spent with Patient: Total time spent is greater than 50% in coordination of care (as documented) at patient's floor/unit and/or counseling patient: [place] [address] Post Operative Follow-Up Patient Type Established Medical Decision Making Straight Forward Diagnoses Anastomotic leak of intestine K91.89
[2025-07-01] MEDS: INFLUENZA VACC TS2025-26(65y+)/PF (IIV3) 0.5mL Syr IM ONE (15:18)
--- NOTE | 2025-07-02 05:54 | Surgery Progress Note ---
Date of Service July 02, 2025 Assessment & Plan (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: Plan: Patient is status post removal of infected abdominal mesh on 06/20/2025 (postop day #12) and status post abdominal washout secondary to anastomotic leak on 06/22/2025 (postop day #10) Patient clinically improved since second operation Continue diet as tolerated He is noted to have improvement of renal function and is making urine; nephrology following and is hopeful patient will not require dialysis Continue KRISTA drain to self suction Encourage ambulation Patient is currently receiving intravenous heparin for DVT of right internal jugular vein (medicine is indicated patient require 3 months of anticoagulation Check a.m. labs and available Plans are in place for patient to potentially be discharged to a group home facility on 07/04/2025 Admission and Anticipated Discharge Date Admission Date: June 20, 2025 Supervising Physician Co-Signing Physician Notes I have seen and examined this patient, I agree with this plan Subjective Patient is resting comfortably in bed. He notes that he has little in the way of abdominal pain. He notes he is tolerating diet without exacerbating of any abdominal pain. He notes he is able to void without difficulty. I discussed with the nurse attending the patient. She notes the patient has not had any fevers. She verifies that he is voiding without difficulty and reports no issues overnight Physical Exam Gastrointestinal (Abdomen): Abdomen has minimal distention and is overall soft. There is minimal to no pain with palpation. Patient's incision is intact with jin. There is a small amount of serous drainage on the dressings. KRISTA drain is in place and is draining serous fluid. Results & Data Vital Signs (Past 12 Hours) Vital Signs Temp Pulse Pulse Resp BP BP Pulse Ox 07/02/25 04:00 37.2 C 67 14 125/68 93 07/02/25 01:09 88 07/02/25 00:00 36.8 C 59 L 14 123/73 94 07/01/25 20:00 36.8 C 96 H 16 129/71 96 07/01/25 19:15 O2 Del Method 07/02/25 04:00 Room Air 07/02/25 01:09 07/02/25 00:00 Room Air 07/01/25 20:00 Room Air 07/01/25 19:15 Room Air PG Care Time/CCT Total # of Minutes Spent Total Time Spent with Patient: Total time spent is greater than 50% in coordination of care (as documented) at patient's floor/unit and/or counseling patient: Coding Level of Care Code 88813 Post Operative Follow-Up Diagnoses Infected prosthetic mesh of abdominal wall, initial encounter T85.79XA Encounter type: initial encounter (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
[2025-07-02 08:27] LABS: Hematocrit (blood only) 26.3 % (42.0-52.0); Hemoglobin 8.3 g/dl (14.0-18.0); Immature Granulocytes # (auto) 0.12 K/uL (0.01-0.20); Immature Granulocytes % (auto) 1.0 %; Mean Corpuscular Hemoglobin 28.8 pg (25.0-34.0); Mean Corpuscular Volume 91.3 fL (80.0-100.0); Platelet Count 669 K/uL (130-400); RDW Standard Deviation 47.0 fL (36.4-46.3); Red Blood Count 2.88 M/uL (4.70-6.10); White Blood Count 11.70 K/ul (4.8-10.8)
[2025-07-02 08:43] LABS: Anion Gap 10.0 (3-11); Blood Urea Nitrogen 36.0 mg/dl (6-23); Calcium 7.8 mg/dl (8.6-10.3); Carbon Dioxide 29.0 mmol/L (21-32); Chloride 100.0 mmol/L (98-107); Creatinine Clr Calc Pharmacy 24.9 ml/min; Glucose 165.0 mg/dl (70-99(Fasting)); Potassium 3.7 mmol/L (3.5-5.1); Sodium 139.0 mmol/L (136-145)
[2025-07-02 08:55] LABS: ANTI-Xa, UFH(UnfractionatedHep 0.50 IU/ml (0.3-0.7)
--- NOTE | 2025-07-02 12:11 | Hospitalist Progress Note ---
Date of Service July 02, 2025 Assessment & Plan (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: (2) DM type 2 (diabetes mellitus, type 2): (3) HTN (hypertension): (4) HLD (hyperlipidemia): Plan Mr. Vaca is a 80 y/o male with DM2, diabetic retinopathy, dyslipidemia, GERD, Christiansen's esophagus, HTN, and other history as outlined below who underwent exploratory laparotomy with removal of infected mesh, hernia repair, and bowel resection 06/[address] Dhaliwal and for who we have been consulted to assist with post-operative medical management. #Septic shock #Metabolic acidosis #Infected mesh s/p removal, hernia repair, and bowel resection 06/20 -Developed worsening abd pain, rising lactate on 06/21 -CT AP 06/22 b/l small effusions, fluid filled bowels, 16cm fluid collection, likely hematoma -S/p ex lap 06/22 -Cultures negative Plan -Tolerating normal diet without any issues. monitor -KRISTA drain per surgery -Appreciate surgery input -completed zosyn through 06/29, total of 7 days. #Acute Renal Failure -Baseline Cr. 0.9 -Oliguric renal failure -HD started 06/22 -Urine output improving -S/p HD 06/27 Plan -Urine output reassuring. No plans for HD for now. -Appreciate nephrology input -Monitor urine output, intake, renal function -Avoid nephrotoxic agents if possible -Nephrology recommended holding losartan, metformin and Jardiance. Weekly BMP X 3 weeks, outpatient follow up. Superficial Vein thrombosis of right cephalic vein Acute DVT of right internal jugular Venous duplex done on 06/29 shows progressive deep and superficial venous thrombus in right upper extremity. Heparin is started without bolus as per discussion with surgery Depending on renal function; will plan to transition to DOAC or Coumadin. Will need anticoagulation for at least 3 months. #Acute hypoxic hypercarbic resp failure -Requiring intubation -CT showing bilateral small effusions, some atelectasis -Suspect multifactorial. he is also taking shallow breaths due to pain -Extubated 06/24 -On room air. resolved Patient will need CT chest in about 4 weeks time to ensure resolution effusion/atelectasis #Anemia -POA. Hgb 12.5 on admission -S/p 2 PRBC -Hb stable #Hyponatremia #Hypokalemia- replace and follow #Trop elevation -HS trop mildly high at 28 in setting of acute renal failure -Non specific trop elevation -No s/s ACS #Elevated LFTs -Mildly elevated, likely from liver hypoperfusion/shock liver #Hypertension hold home losartan #acute hypergylcemia #Type 2 Diabetes Hold oral meds, A1C 7.7% Monitor BG and electrolytes closely Plan to discontinue metformin if kidney function doesn't return back to baseline #Dyslipidemia - on rosuvastatin,continue #GERD - Continue daily PPI Full code DVT prophylaxis heparin drip Time spent evaluating patient, direct bedside care, chart review, placing orders, interpretation of diagnostic studies, discussion with consultants, patient, and family members, as well as other required patient management activities is 50 minutes Admission and Anticipated Discharge Date Admission Date: June 20, 2025 Subjective Patient reports poor sleep during the night due to disturbances. He denies any fever, chills, chest pain, shortness of breath or abdominal pain. He is voiding without any issues. Review of Systems Review of Systems: All systems reviewed & are unremarkable except as noted in Subjective Physical Exam Physical Exam: Constitutional: AO X 3, not in any distress Respiratory: Decreased breath sounds at bilateral lower lung field Cardiovascular: RRR, no murmur, no edema Vessels: no JVD or carotid bruit Chest: normal inspection of chest Abdomen: no soakage over the bandage, soft, non-tender Musculoskeletal: no cyanosis or clubbing, extremities motor strength 5/5. right arm swelling present, sensenstion and pulse intact Skin: no rashes, warm and dry normal turgor Neurologic: PERRL, EOMI, accommodation nl, no face palsy, no dysarthria CN's II- XI intact bilaterally and moves all extremities Psychiatric: A+Ox3, euthymic affect Results & Data Results & Data Vital Signs (Past 12 Hours) Vital Signs Temp Pulse Pulse Pulse Resp BP BP 07/02/25 11:52 36.8 C 91 H 16 123/69 07/02/25 08:14 79 07/02/25 08:06 36.7 C 84 16 113/66 07/02/25 04:00 37.2 C 67 14 125/68 07/02/25 01:09 88 Pulse Ox O2 Del Method 07/02/25 11:52 96 Room Air 07/02/25 08:14 07/02/25 08:06 95 Room Air 07/02/25 04:00 93 Room Air 07/02/25 01:09 (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 (2) DM type 2 (diabetes mellitus, type 2) Diabetes mellitus adjunct faculty for medical terminology insulin use: without long-term use Diabetes mellitus complication status: with ophthalmic complications Diabetes mellitus complication detail: with diabetic retinopathy Diabetic retinopathy severity: with unspecified retinopathy severity Diabetes mellitus macular edema: macular edema presence unspecified Laterality: unspecified laterality Qualified Code( s): E11.319 - Type 2 diabetes mellitus with unspecified diabetic retinopathy without macular edema (3) HTN (hypertension) Hypertension type: unspecified Qualified Code(s): I10 - Essential (primary) hypertension (4) HLD (hyperlipidemia) Hyperlipidemia type: unspecified Qualified Code(s): E78.5 - Hyperlipidemia, unspecified
--- NOTE | 2025-07-03 05:15 | Surgery Progress Note ---
Date of Service July 03, 2025 Assessment & Plan (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: Plan: Patient is status post removal of infected abdominal mesh on 06/20/2025 (postop day #13) and status post abdominal washout secondary to anastomotic leak on 06/22/2025 (postop day #11) Clinical improvement continues since patient's most recent operation Continue diet as tolerated Renal function continues to improve the patient continues to make urine; nephrology following and is hopeful patient will not require dialysis Continue KRISTA drain to self suction Encourage ambulation Patient is currently receiving intravenous heparin for DVT of right internal jugular vein (medicine is indicated patient require 3 months of anticoagulation) Check a.m. labs when available Plans are in place for patient to be discharged to rehab when bed available/ medically stable Admission and Anticipated Discharge Date Admission Date: June 20, 2025 Supervising Physician Co-Signing Physician Notes I have seen and examined this patient this am. Pt c/o some abdominal cramping overnight for which he states he required pain medication. H/H is significantly decreased this am without evidence for bleeding in his KRISTA when I evaluated this am. Recommend consider repeating the HH. Decrease risk of ileus. Replete K, was at 3.2 this am. F/U a repeat H/H, if less than 7, transfuse 1 UPRBC F/U am WBC, if continues to increase, may require repeat CT tomorrow Subjective Patient sitting up at bedside at time of my encounter this morning. He notes that he feels comfortable and is markedly improved since his surgical procedures. He notes he is tolerating diet without exacerbating abdominal pain. He notes he is urinating without difficulty. He denies any nausea or vomiting. He denies fevers, shakes, or chills. Physical Exam Gastrointestinal (Abdomen): Abdomen is noted to have minimal distention. There is expected tenderness near her surgical incision which appears intact with jin. KRISTA drain is in place draining serosanguineous fluid. Results & Data Vital Signs (Past 12 Hours) Vital Signs Temp Pulse Resp BP BP Pulse Ox O2 Del Method 07/02/25 22:00 37.1 C 88 18 148/77 H 94 Room Air 07/02/25 18:50 Room Air 07/02/25 18:33 36.7 C 87 18 123/78 95 Room Air PG Care Time/CCT Total # of Minutes Spent Total Time Spent with Patient: Total time spent is greater than 50% in coordination of care (as documented) at patient's floor/unit and/or counseling patient: Coding Level of Care Code 54320 Post Operative Follow-Up Diagnoses Infected prosthetic mesh of abdominal wall, initial encounter T85.79XA Encounter type: initial encounter (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
[2025-07-03 06:38] LABS: Hematocrit (blood only) 21.7 % (42.0-52.0); Hemoglobin 6.8 g/dl (14.0-18.0); Mean Corpuscular Hemoglobin 28.7 pg (25.0-34.0); Mean Corpuscular Volume 91.6 fL (80.0-100.0); Platelet Count 500 K/uL (130-400); RDW Standard Deviation 46.2 fL (36.4-46.3); Red Blood Count 2.37 M/uL (4.70-6.10); White Blood Count 13.01 K/ul (4.8-10.8)
[2025-07-03 06:48] LABS: Immature Granulocytes # (auto) 0.10 K/uL (0.01-0.20); Immature Granulocytes % (auto) 0.8 %; Polychromasia 1+
[2025-07-03 06:51] LABS: Anion Gap 10.0 (3-11); Blood Urea Nitrogen 34.0 mg/dl (6-23); Calcium 7.7 mg/dl (8.6-10.3); Carbon Dioxide 28.0 mmol/L (21-32); Chloride 101.0 mmol/L (98-107); Creatinine Clr Calc Pharmacy 28.4 ml/min; Glucose 169.0 mg/dl (70-99(Fasting)); Potassium 3.2 mmol/L (3.5-5.1); Sodium 139.0 mmol/L (136-145)
[2025-07-03 06:52] LABS: ANTI-Xa, UFH(UnfractionatedHep 0.49 IU/ml (0.3-0.7)
[2025-07-03] MEDS ORDERED: SODIUM CHLORIDE 0.9% 100 ML IV PRN (07:32)
--- NOTE | 2025-07-03 11:43 | Hospitalist Progress Note ---
Date of Service July 03, 2025 Assessment & Plan (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: (2) DM type 2 (diabetes mellitus, type 2): (3) HTN (hypertension): (4) HLD (hyperlipidemia): Plan Mr. Vaca is a 80 y/o male with DM2, diabetic retinopathy, dyslipidemia, GERD, Christiansen's esophagus, HTN, and other history as outlined below who underwent exploratory laparotomy with removal of infected mesh, hernia repair, and bowel resection 06/[address] Dhaliwal and for who we have been consulted to assist with post-operative medical management. #Septic shock #Metabolic acidosis #Infected mesh s/p removal, hernia repair, and bowel resection 06/20 -Developed worsening abd pain, rising lactate on 06/21 -CT AP 06/22 b/l small effusions, fluid filled bowels, 16cm fluid collection, likely hematoma -S/p ex lap 06/22 -Cultures negative Plan -Tolerating normal diet without any issues. monitor -KRISTA drain per surgery -Appreciate surgery input -completed zosyn through 06/29, total of 7 days. #Acute Renal Failure -Baseline Cr. 0.9 -Oliguric renal failure -HD started 06/22 -Urine output improving -S/p HD 06/27 Plan -Urine output reassuring. No plans for HD for now. -Appreciate nephrology input -Monitor urine output, intake, renal function -Avoid nephrotoxic agents if possible -Nephrology recommended holding losartan, metformin and Jardiance. Weekly BMP X 3 weeks, outpatient follow up. Superficial Vein thrombosis of right cephalic vein Acute DVT of right internal jugular Venous duplex done on 06/29 shows progressive deep and superficial venous thrombus in right upper extremity. Heparin is started without bolus as per discussion with surgery can switch to Lovenox if discharging to rehab, then eventually transition to DOAC. #Acute hypoxic hypercarbic resp failure -Requiring intubation -CT showing bilateral small effusions, some atelectasis -Suspect multifactorial. he is also taking shallow breaths due to pain -Extubated 06/24 -On room air. resolved Patient will need CT chest in about 4 weeks time to ensure resolution effusion/atelectasis #Anemia -POA. Hgb 12.5 on admission -S/p 2 PRBC -Hb downtrended to 6.8 g/dl on 07/03 - s/p 1unit of packed RBCs on 07/03 #Hyponatremia #Hypokalemia- replace and follow #Trop elevation -HS trop mildly high at 28 in setting of acute renal failure -Non specific trop elevation -No s/s ACS #Elevated LFTs -Mildly elevated, likely from liver hypoperfusion/shock liver #Hypertension hold home losartan #acute hypergylcemia #Type 2 Diabetes Hold oral meds, A1C 7.7% Monitor BG and electrolytes closely Plan to discontinue metformin if kidney function doesn't return back to baseline #Dyslipidemia - on rosuvastatin,continue #GERD - Continue daily PPI Full code DVT prophylaxis heparin drip Time spent evaluating patient, direct bedside care, chart review, placing orders, interpretation of diagnostic studies, discussion with consultants, patient, and family members, as well as other required patient management activities is 50 minutes Admission and Anticipated Discharge Date Admission Date: June 20, 2025 Subjective Patient seen and examined at bedside. He reports that he is feeling better; denies any pain or discomfort. He has been afebrile; no significant events overnight. Review of Systems Review of Systems: All systems reviewed & are unremarkable except as noted in Subjective Physical Exam Physical Exam: Constitutional: AO X 3, not in any distress Respiratory: Decreased breath sounds at bilateral lower lung field Cardiovascular: RRR, no murmur, no edema Vessels: no JVD or carotid bruit Chest: normal inspection of chest Abdomen: no soakage over the bandage, soft, non-tender Musculoskeletal: no cyanosis or clubbing, extremities motor strength 5/5. right arm swelling present, sensenstion and pulse intact Skin: no rashes, warm and dry normal turgor Neurologic: PERRL, EOMI, accommodation nl, no face palsy, no dysarthria CN's II- XI intact bilaterally and moves all extremities Psychiatric: A+Ox3, euthymic affect Results & Data Results & Data Vital Signs (Past 12 Hours) Vital Signs Temp Pulse Pulse Resp BP BP Pulse Ox 07/03/25 11:15 36.4 C L 77 16 120/68 96 07/03/25 11:00 36.5 C 69 16 112/63 98 07/03/25 10:45 36.7 C 84 16 104/68 99 07/03/25 10:31 36.7 C 86 16 104/68 96 07/03/25 07:16 36.5 C 79 18 106/66 92 O2 Del Method 07/03/25 11:15 07/03/25 11:00 07/03/25 10:45 07/03/25 10:31 07/03/25 07:16 Room Air (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 (2) DM type 2 (diabetes mellitus, type 2) Diabetes mellitus termite technician insulin use: without termite technician use Diabetes mellitus complication status: with ophthalmic complications Diabetes mellitus complication detail: with diabetic retinopathy Diabetic retinopathy severity: with unspecified retinopathy severity Diabetes mellitus macular edema: macular edema presence unspecified Laterality: unspecified laterality Qualified Code(s): E11.319 - Type 2 diabetes mellitus with unspecified diabetic retinopathy without macular edema (3) HTN (hypertension) Hypertension type: unspecified Qualified Code(s): I10 - Essential (primary) hypertension (4) HLD (hyperlipidemia) Hyperlipidemia type: unspecified Qualified Code(s): E78.5 - Hyperlipidemia, unspecified
[2025-07-03] MEDS: POTASSIUM CHLORIDE / WTR 10 MEQ/100 ML PLCT IV SCH (13:51)
[2025-07-03] MEDS: ACETAMINOPHEN 325 MG TAB PO ONE (19:25)
[2025-07-04 06:38] LABS: ANTI-Xa, UFH(UnfractionatedHep 0.51 IU/ml (0.3-0.7)
[2025-07-04 08:56] LABS: Hematocrit (blood only) 22.1 % (42.0-52.0); Hemoglobin 7.0 g/dl (14.0-18.0); Immature Granulocytes # (auto) 0.07 K/uL (0.01-0.20); Immature Granulocytes % (auto) 0.6 %; Mean Corpuscular Hemoglobin 29.2 pg (25.0-34.0); Mean Corpuscular Volume 92.1 fL (80.0-100.0); Platelet Count 555 K/uL (130-400); RDW Standard Deviation 48.3 fL (36.4-46.3); Red Blood Count 2.40 M/uL (4.70-6.10); White Blood Count 11.56 K/ul (4.8-10.8)
[2025-07-04 08:57] LABS: Anion Gap 6.0 (3-11); Blood Urea Nitrogen 30.0 mg/dl (6-23); Calcium 7.5 mg/dl (8.6-10.3); Carbon Dioxide 29.0 mmol/L (21-32); Chloride 102.0 mmol/L (98-107); Creatinine Clr Calc Pharmacy 29.4 ml/min; Glucose 151.0 mg/dl (70-99(Fasting)); Potassium 3.7 mmol/L (3.5-5.1); Sodium 137.0 mmol/L (136-145)
[2025-07-04 09:40] LABS: Polychromasia 1+
--- NOTE | 2025-07-04 10:00 | Surgery Progress Note ---
Date of Service July 04, 2025 Assessment & Plan (1) Anastomotic leak of intestine: Plan: POD # 14 ex lap, removal of abdominal mesh, small bowel resection POD # 12 ex lap, repair of anastomotic leak avss hgb 7.0 (after 1 units PRBCs today) Leukocytosis of 11.5 (13 yesterday) creatinine continues to improve, good urine output Plan: another unit of PRBC per Hospitalist given hgb borderline at 7.0 after 1 unit yesterday. If stable after transfusion can be discharged to [facility] from medical standpoint. continue edd drain until discharge jin will be removed in office, postop visit changed to Sunday 07/[address] Isra TURNER ambulate continue diet PT/OT scds Heparin per medicine discharge planning for Rehab/SNF Dr. Khan has seen and examined patient, agrees with above. Admission and Anticipated Discharge Date Admission Date: June 20, 2025 Subjective feeling good no nausea, vomiting no chest pain or shortness of breath no dizziness last bowel movement yesterday, passed gas this morning urinating ambulating with walker tolerating diet no fevers, chills, sweats Physical Exam Constitutional: WD/WN, vitals as above cooperative and comfortable; no acute distress and not ill appearing Respiratory: normal respiratory effort; no respiratory distress and no labored breathing Gastrointestinal (Abdomen): Inspection/Auscultation: abdomen normal to inspection and + abdominal surgical incision (c/d/i with jin); abdomen not distended Percussion/Palpation: + abdomen tender (mild at midline incision, appropriate postop) and abdomen soft; no guarding, abdomen not rigid and abdomen not firm Skin: no rashes, warm and dry Psychiatric: Orientation: alert and oriented x 3 Results & Data Vital Signs (Past 12 Hours) Vital Signs Temp Pulse Resp BP Pulse Ox O2 Del Method 07/04/25 08:13 36.6 C 86 16 148/83 H 96 Room Air Laboratory Results 07/04/25 07/04/25 07/04/25 Range/Units 07:48 05:50 05:41 WBC 11.56 H (4.8-10.8) K/ul RBC 2.40 L (4.70-6.10) M/uL Hgb 7.0 L (14.0-18.0) g/dl Hct 22.1 L (42.0-52.0) % MCV 92.1 (80.0-100.0) fL MCH 29.2 (25.0-34.0) pg MCHC 31.7 L (32.0-36.0) g/dL RDW Std Deviation 48.3 H (36.4-46.3) fL RDW Coeff of Jessica 14.3 (11.5-14.5) % Plt Count 555 H (130-400) K/uL MPV 10.8 (9.4-12.4) fL Immature Gran % (Auto) 0.6 % Neut % (Auto) 64.6 % Lymph % (Auto) 21.8 % Fountain % (Auto) 9.8 % Eos % (Auto) 2.6 % Baso % (Auto) 0.6 % Neut # (Auto) 7.47 H (1.40-6.50) K/uL Lymph # (Auto) 2.52 (1.20-3.40) K/uL Fountain # (Auto) 1.13 H (0.11-0.59) K/uL Eos # (Auto) 0.30 (0.00-0.50) K/uL Baso # (Auto) 0.07 (0.00-0.20) K/uL Immature Gran # (Auto) 0.07 (0.01-0.20) K/uL Polychromasia 1+ Heparin Anti-Xa, Unfract 0.51 (0.3-0.7) IU/ml Sodium 137 (136-145) mmol/L Potassium 3.7 (3.5-5.1) mmol/L Chloride 102 (98-107) mmol/L Carbon Dioxide 29 (21-32) mmol/L Anion Gap 6 (3-11) BUN 30 H (6-23) mg/dl Creatinine 2.17 H (0.6-1.4) mg/dl Est Cr Clr Drug Dosing 29.4 ml/min eGFR 30.41 BUN/Creatinine Ratio 13.8 (10-20) Glucose 151 H (70-99(Fasting)) mg/dl POC Glucose 147 H (70-99) mg/dl Calcium 7.5 L (8.6-10.3) mg/dl Blood Type Antibody Screen Crossmatch 09/28/25 09/28/25 09/28/25 Range/Units 20:21 16:23 11:22 WBC (4.8-10.8) K/ul RBC (4.70-6.10) M/uL Hgb (14.0-18.0) g/dl Hct (42.0-52.0) % MCV (80.0-100.0) fL MCH (25.0-34.0) pg MCHC (32.0-36.0) g/dL RDW Std Deviation (36.4-46.3) fL RDW Coeff of Jessica (11.5-14.5) % Plt Count (130-400) K/uL MPV (9.4-12.4) fL Immature Gran % (Auto) % Neut % (Auto) % Lymph % (Auto) % Fountain % (Auto) % Eos % (Auto) % Baso % (Auto) % Neut # (Auto) (1.40-6.50) K/uL Lymph # (Auto) (1.20-3.40) K/uL Fountain # (Auto) (0.11-0.59) K/uL Eos # (Auto) (0.00-0.50) K/uL Baso # (Auto) (0.00-0.20) K/uL Immature Gran # (Auto) (0.01-0.20) K/uL Polychromasia Heparin Anti-Xa, Unfract (0.3-0.7) IU/ml Sodium (136-145) mmol/L Potassium (3.5-5.1) mmol/L Chloride (98-107) mmol/L Carbon Dioxide (21-32) mmol/L Anion Gap (3-11) BUN (6-23) mg/dl Creatinine (0.6-1.4) mg/dl Est Cr Clr Drug Dosing ml/min eGFR BUN/Creatinine Ratio (10-20) Glucose (70-99(Fasting)) mg/dl POC Glucose 175 H 103 H 207 H (70-99) mg/dl Calcium (8.6-10.3) mg/dl Blood Type Antibody Screen Crossmatch 07/03/25 Range/Units 08:29 WBC (4.8-10.8) K/ul RBC (4.70-6.10) M/uL Hgb (14.0-18.0) g/dl Hct (42.0-52.0) % MCV (80.0-100.0) fL MCH (25.0-34.0) pg MCHC (32.0-36.0) g/dL RDW Std Deviation (36.4-46.3) fL RDW Coeff of Jessica (11.5-14.5) % Plt Count (130-400) K/uL MPV (9.4-12.4) fL Immature Gran % (Auto) % Neut % (Auto) % Lymph % (Auto) % Fountain % (Auto) % Eos % (Auto) % Baso % (Auto) % Neut # (Auto) (1.40-6.50) K/uL Lymph # (Auto) (1.20-3.40) K/uL Fountain # (Auto) (0.11-0.59) K/uL Eos # (Auto) (0.00-0.50) K/uL Baso # (Auto) (0.00-0.20) K/uL Immature Gran # (Auto) (0.01-0.20) K/uL Polychromasia Heparin Anti-Xa, Unfract (0.3-0.7) IU/ml Sodium (136-145) mmol/L Potassium (3.5-5.1) mmol/L Chloride (98-107) mmol/L Carbon Dioxide (21-32) mmol/L Anion Gap (3-11) BUN (6-23) mg/dl Creatinine (0.6-1.4) mg/dl Est Cr Clr Drug Dosing ml/min eGFR BUN/Creatinine Ratio (10-20) Glucose (70-99(Fasting)) mg/dl POC Glucose (70-99) mg/dl Calcium (8.6-10.3) mg/dl Blood Type A Positive Antibody Screen NEGATIVE Crossmatch See Detail
[2025-07-04] MEDS: FUROSEMIDE 40 MG/4 ML VIAL IV ONE ×2 (10:15→16:39)
[2025-07-04] MEDS: SODIUM CHLORIDE 0.9% 100 ML IV PRN (10:22)
[2025-07-04] MEDS ORDERED: ENOXAPARIN 1 MG/KG SC SCH (10:45)
--- NOTE | 2025-07-04 10:48 | Hospitalist Progress Note ---
Date of Service July 04, 2025 Assessment & Plan (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: (2) DM type 2 (diabetes mellitus, type 2): (3) HTN (hypertension): (4) HLD (hyperlipidemia): Plan Mr. Vaca is a 80 y/o male with DM2, diabetic retinopathy, dyslipidemia, GERD, Christiansen's esophagus, HTN, and other history as outlined below who underwent exploratory laparotomy with removal of infected mesh, hernia repair, and bowel resection 06/[address] Dhaliwal and for who we have been consulted to assist with post-operative medical management. #Septic shock #Metabolic acidosis #Infected mesh s/p removal, hernia repair, and bowel resection 06/20 -Developed worsening abd pain, rising lactate on 06/21 -CT AP 06/22 b/l small effusions, fluid filled bowels, 16cm fluid collection, likely hematoma -S/p ex lap 06/22 -Cultures negative Plan -Tolerating normal diet without any issues. monitor -KRISTA drain per surgery -Appreciate surgery input -completed zosyn through 06/29, total of 7 days. #Acute Renal Failure -Baseline Cr. 0.9 -Oliguric renal failure -HD started 06/22 -Urine output improving -S/p HD 06/27 Plan -Urine output reassuring. No plans for HD for now. -Appreciate nephrology input -Monitor urine output, intake, renal function -Avoid nephrotoxic agents if possible -Nephrology recommended holding losartan, metformin and Jardiance. Weekly BMP X 3 weeks, outpatient follow up. Given lasix on 07/04 40mg X 2 Superficial Vein thrombosis of right cephalic vein Acute DVT of right internal jugular Venous duplex done on 06/29 shows progressive deep and superficial venous thrombus in right upper extremity. Heparin is started without bolus as per discussion with surgery switched over to lovenox on 07/04. plan to continue it in rehab, will eventual transition to DOACs at discharge. needs 3 months of Anticoagulation. #Acute hypoxic hypercarbic resp failure -Requiring intubation -CT showing bilateral small effusions, some atelectasis -Suspect multifactorial. he is also taking shallow breaths due to pain -Extubated 06/24 -On room air. resolved Patient will need CT chest in about 4 weeks time to ensure resolution effusion/atelectasis #Anemia -POA. Hgb 12.5 on admission -S/p 2 PRBC -Hb downtrended to 6.8 g/dl on 07/03 - s/p 1unit of packed RBCs on 07/03 -s/p 1 more unit of packed RBCs on 07/04. - Hb is borderline and patient is currently on anticoagulation. #Hyponatremia #Hypokalemia- replace and follow #Trop elevation -HS trop mildly high at 28 in setting of acute renal failure -Non specific trop elevation -No s/s ACS #Elevated LFTs -Mildly elevated, likely from liver hypoperfusion/shock liver #Hypertension hold home losartan #acute hypergylcemia #Type 2 Diabetes Hold oral meds, A1C 7.7% Monitor BG and electrolytes closely Plan to discontinue metformin if kidney function doesn't return back to baseline #Dyslipidemia - on rosuvastatin,continue #GERD - Continue daily PPI Full code DVT prophylaxis lovenox Time spent evaluating patient, direct bedside care, chart review, placing order s, interpretation of diagnostic studies, discussion with consultants, patient, and family members, as well as other required patient management activities is 50 minutes Admission and Anticipated Discharge Date Admission Date: June 20, 2025 Subjective Patient continues to feel better. He is having regular bowel movements; pain is well controlled. Denies any chest pain, shortness of breath, fever or chills Review of Systems Review of Systems: All systems reviewed & are unremarkable except as noted in Subjective Physical Exam Physical Exam: Constitutional: AO X 3, not in any distress Respiratory: Decreased breath sounds at bilateral lower lung field Cardiovascular: RRR, no murmur, no edema Vessels: no JVD or carotid bruit Chest: normal inspection of chest Abdomen: no soakage over the bandage, soft, non-tender Musculoskeletal: no cyanosis or clubbing, extremities motor strength 5/5. right arm swelling present, sensenstion and pulse intact Skin: no rashes, warm and dry normal turgor Neurologic: PERRL, EOMI, accommodation nl, no face palsy, no dysarthria CN's II- XI intact bilaterally and moves all extremities Psychiatric: A+Ox3, euthymic affect Results & Data Results & Data Vital Signs (Past 12 Hours) Vital Signs Temp Pulse Pulse Resp BP BP Pulse Ox 07/04/25 10:35 36.8 C 75 18 124/74 95 07/04/25 08:13 36.6 C 86 16 148/83 H 96 O2 Del Method 07/04/25 10:35 07/04/25 08:13 Room Air (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 (2) DM type 2 (diabetes mellitus, type 2) Diabetes mellitus salvage determiner insulin use: without salvage determiner use Diabetes mellitus complication status: with ophthalmic complications Diabetes mellitus complication detail: with diabetic retinopathy Diabetic retinopathy severity: with unspecified retinopathy severity Diabetes mellitus macular edema: macular edema presence unspecified Laterality: unspecified laterality Qualified Code(s): E11.319 - Type 2 diabetes mellitus with unspecified diabetic retinopathy without macular edema (3) HTN (hypertension) Hypertension type: unspecified Qualified Code(s): I10 - Essential (primary) hypertension (4) HLD (hyperlipidemia) Hyperlipidemia type: unspecified Qualified Code(s): E78.5 - Hyperlipidemia, unspecified
[2025-07-04] MEDS: ENOXAPARIN 100 MG/1ML SYR SQ SCH (11:33)
--- NOTE | 2025-07-04 11:39 | Nephrology Progress Note ---
Date of Service July 04, 2025 Assessment & Plan Admission and Anticipated Discharge Date Admission Date: June 20, 2025 Subjective Assessment & Plan (1) JACINTA (acute kidney injury): Plan: Improving but still severe 3 JACINTA previously anuric ATN, was dialysis dependent; more confident today that barring clinical setbacks he will recover in days/weeks not to need HD At baseline creat is normal 0.9 as of 05/30 on pre op labs. Then POD 1 was already doubled at 1.9 and then creat again more than doubled in 24 hrs time period from 1.[address] abdomen showed normal appearing kidneys--no Obstruction. However also has sig Pl eff. he is per I/O over 11 L +ve so far. but down to 2L 02nc high K and lactic acidosis resolved; off pressors/extubated; downgraded from icu status 06/26 Had HD 06/23, 06/25, 06/27 > no UF past 2 txs oligoanuria resolved temp dialysis cath removed 06/28; no further dialysis access neded if further dialysis needed after d/c could be done at [facility] or even as OP in [facility] as JACINTA status no dialysis needed today and do not believe he will need it barring unexpected clinical setbacks had lasix 40 iv x 1 earlier. Agree with that. Increase to 40 bid given that Urine out still low and is 11+ liters +ve. hgb is low at 7. 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, clinically improving and now off dialysis with no dialysis access currently Severe anemia--use EPO 20K Prescriptions: At discharge will need to continue to hold losartan, metformin, Jardiance Review with his outpatient neurologist ([facility] physician group) whether full dose aspirin is required: Favor 81 mg daily instead Avoid all other NSAIDs Other follow-up care: Weekly basic metabolic panel and hemoglobin to be ordered by PCP x 3 weeks Nephrology nurse to order urinalysis with microscopy, spot protein to creatinine ratio to be done the week before nephrology follow-up Follow-up appointment: Hospital discharge appointment with me. [facility] preferred (2) Infected prosthetic mesh of abdominal wall: Plan: Reviewed Surgery note preop post op and current status. Still w/ KRISTA drain/binder Subjective no acute interval events. no shortness of breath, has lower extremity edema, no orthopnea, no cough, no new or worrisome voiding concerns. urine not very vigorous Review of Systems Review of Systems: All systems reviewed & are unremarkable except as noted in Subjective Physical Exam Constitutional: well developed (on RA in chair), well nourished and cooperative Eyes: EOM intact bilaterally ENMT: Ears: no external ear abnormality Nose: no external nose abnormality Mouth: + muffled voice (hoarse) and + dry oral mucous membranes Neck: no nuchal rigidity Respiratory: normal respiratory effort and able to speak in complete sentences (less sob than 48 hrs back) Auscultation: + diminished lung sounds Cardiovascular: RRR, no murmur, no edema Rate/Rhythm: regular rate and regular rhythm Extremities: + edema (1-2+ distal BLE) Gastrointestinal (Abdomen): Inspection/Auscultation: normal bowel sounds and + abdominal surgical drain present Percussion/Palpation: abdomen soft; abdomen nontender Musculoskeletal: Extremities: strength 5/5 throughout Skin: no rashes, warm and dry Results & Data Vital Signs (Past 12 Hours) Vital Signs Temp Pulse Pulse Resp BP BP Pulse Ox 07/04/25 11:10 36.6 C 82 18 118/75 95 07/04/25 10:55 37.1 C 88 18 143/76 H 99 07/04/25 10:35 36.8 C 75 18 124/74 95 07/04/25 08:13 36.6 C 86 16 148/83 H 96 O2 Del Method 07/04/25 11:10 07/04/25 10:55 07/04/25 10:35 07/04/25 08:13 Room Air
[2025-07-04] MEDS: FUROSEMIDE 40 MG/4 ML VIAL IV SCH (12:21)
[2025-07-04] MEDS: EPOETIN ALFA 20,000 UNITS/ML VIAL SQ ONE (13:05)
[2025-07-05 07:43] LABS: Hematocrit (blood only) 27.5 % (42.0-52.0); Hemoglobin 8.7 g/dl (14.0-18.0); Immature Granulocytes # (auto) 0.06 K/uL (0.01-0.20); Immature Granulocytes % (auto) 0.6 %; Mean Corpuscular Hemoglobin 28.8 pg (25.0-34.0); Mean Corpuscular Volume 91.1 fL (80.0-100.0); Platelet Count 504 K/uL (130-400); RDW Standard Deviation 47.1 fL (36.4-46.3); Red Blood Count 3.02 M/uL (4.70-6.10); White Blood Count 10.59 K/ul (4.8-10.8)
[2025-07-05 08:00] LABS: Anion Gap 9.0 (3-11); Blood Urea Nitrogen 32.0 mg/dl (6-23); Calcium 8.0 mg/dl (8.6-10.3); Carbon Dioxide 30.0 mmol/L (21-32); Chloride 101.0 mmol/L (98-107); Creatinine Clr Calc Pharmacy 32.4 ml/min; Glucose 142.0 mg/dl (70-99(Fasting)); Potassium 3.8 mmol/L (3.5-5.1); Sodium 140.0 mmol/L (136-145)
--- NOTE | 2025-07-05 08:44 | Surgery Progress Note ---
Date of Service July 05, 2025 Assessment & Plan (1) Anastomotic leak of intestine: Plan: POD # 15 ex lap, removal of abdominal mesh, small bowel resection POD # 13 ex lap, repair of anastomotic leak patients vital signs are stable. wbc 10.5 hbg 8.7 (7), cr 1.9 (2). did receive 1 unit pRBC yesterday pt feels clinically well. pain controlled. diet tolerated. voiding and + bowel function wearing abdominal binder. continue daily and as needed dressing changes to midline with gauze/ABD/medipore tape plan to remove KRISTA drain today (order in for RNs to pull) continue to encourage OOB/pulmonary toilet, PT/OT on board if stable per medicine and nephrology we are okay for discharge to rehab today needs f/u with dr. caraballo in the office this upcoming friday and plan for possible staple removal at that time Admission and Anticipated Discharge Date Admission Date: June 20, 2025 Subjective Patient reports feeling well. Tolerating a diet, no n/v. pain controlled. he is voiding and passing gas. reports last bm 2 days ago Physical Exam Physical Exam: awake/alert, no distress Respiratory: normal respiratory effort Gastrointestinal (Abdomen): midline incision with jin, mild serous leakage on dressing. some mild separation at 2 points of incision superficially at the skin. no signs of infection. KRISTA drain serous. wearing abdominal binder Results & Data Vital Signs (Past 12 Hours) Vital Signs Temp Pulse Resp BP Pulse Ox O2 Del Method 07/05/25 05:33 98.4 F 77 14 137/85 94 Room Air 07/04/25 21:58 98.2 F 85 14 137/89 97 Room Air 07/04/25 21:48 98.2 F 85 14 137/89 97 Room Air PG Care Time/CCT Total # of Minutes Spent Total Time Spent with Patient: Total time spent is greater than 50% in coordination of care (as documented) at patient's floor/unit and/or counseling patient: Coding Level of Care Code 12619 SUB INP/OBS CARE 10/30MIN Diagnoses Anastomotic leak of intestine K91.89
--- NOTE | 2025-07-05 10:01 | Nephrology Progress Note ---
Date of Service July 05, 2025 Assessment & Plan Admission and Anticipated Discharge Date Admission Date: June 20, 2025 Subjective Assessment & Plan (1) JACINTA (acute kidney injury): Plan: Improving but still severe 3 JACINTA previously anuric ATN, was dialysis dependent; more confident today that barring clinical setbacks he will recover in days/weeks not to need HD At baseline creat is normal 0.9 as of 05/30 on pre op labs. Then POD 1 was already doubled at 1.9 and then creat again more than doubled in 24 hrs time period from 1.[address] abdomen showed normal appearing kidneys--no Obstruction. However also has sig Pl eff. he is per I/O over 11 L +ve so far. but down to 2L 02nc high K and lactic acidosis resolved; off pressors/extubated; downgraded from icu status 06/26 Had HD 06/23, 06/25, 06/27 > no UF past 2 txs oligoanuria resolved temp dialysis cath removed 06/28; no further dialysis access neded made lot of urine and creat still better today. 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 --Do torsemide 20 bid while at rehab hospital. --renal panel at rehab hospital on friday. Rehab doc can decide whether to continue Demadex further or not base on daily rounds and labs Review with his outpatient neurologist ([facility] physician [facility]) whether full dose aspirin is required: Favor 81 mg daily instead Avoid all other NSAIDs Other follow-up care: Weekly basic metabolic panel and hemoglobin to be ordered by PCP x 3 weeks fter he gets discharged from rehab hospital. Nephrology nurse to order urinalysis with microscopy, spot protein to creatinine ratio to be done the week before nephrology follow-up Follow-up appointment: Hospital discharge appointment with me. (2) Infected prosthetic mesh of abdominal wall: Plan: Reviewed Surgery note preop post op and current status. Still w/ KRISTA drain/binder Subjective no acute interval events. lot of urine with lasix. feels better and eager to go to rehab hospital. Review of Systems Review of Systems: All systems reviewed & are unremarkable except as noted in Subjective Physical Exam Constitutional: well developed (on RA in chair), well nourished and cooperative Eyes: EOM intact bilaterally ENMT: Ears: no external ear abnormality Nose: no external nose abnormality Mouth: + muffled voice (hoarse) and + dry oral mucous membranes Neck: no nuchal rigidity Respiratory: normal respiratory effort and able to speak in complete sentences (less sob than 48 hrs back) Auscultation: + diminished lung sounds Cardiovascular: RRR, no murmur, no edema Rate/Rhythm: regular rate and regular rhythm Extremities: + edema (1-2+ distal BLE) Gastrointestinal (Abdomen): Inspection/Auscultation: normal bowel sounds and + abdominal surgical drain present Percussion/Palpation: abdomen soft; abdomen nontender Musculoskeletal: Extremities: strength 5/5 throughout Skin: no rashes, warm and dry Results & Data Vital Signs (Past 12 Hours) Vital Signs Temp Pulse Resp BP Pulse Ox O2 Del Method 07/05/25 09:00 36.5 C 95 H 18 133/74 96 Room Air 07/05/25 05:33 36.9 C 77 14 137/85 94 Room Air 07/04/25 21:58 36.8 C 85 14 137/89 97 Room Air
--- NOTE | 2025-07-05 11:03 | Hospitalist Progress Note ---
Date of Service July 05, 2025 Assessment & Plan (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: (2) DM type 2 (diabetes mellitus, type 2): (3) HTN (hypertension): (4) HLD (hyperlipidemia): Plan Mr. Vaca is a 80 y/o male with DM2, diabetic retinopathy, dyslipidemia, GERD, Christiansen's esophagus, HTN, and other history as outlined below who underwent exploratory laparotomy with removal of infected mesh, hernia repair, and bowel resection 06/[address] Dhaliwal and for who we have been consulted to assist with post-operative medical management. #Septic shock #Metabolic acidosis #Infected mesh s/p removal, hernia repair, and bowel resection 06/20 -Developed worsening abd pain, rising lactate on 06/21 -CT AP 06/22 b/l small effusions, fluid filled bowels, 16cm fluid collection, likely hematoma -S/p ex lap 06/22 -Cultures negative Plan -Tolerating normal diet without any issues. monitor -KRISTA drain per surgery -Appreciate surgery input -completed zosyn through 06/29, total of 7 days. #Acute Renal Failure -Baseline Cr. 0.9 -Oliguric renal failure -HD started 06/22 -Urine output improving -S/p HD 06/27 Plan -Urine output reassuring. No plans for HD for now. -Appreciate nephrology input -Monitor urine output, intake, renal function -Avoid nephrotoxic agents if possible -Nephrology recommended holding losartan, metformin and Jardiance. Weekly BMP X 3 weeks, outpatient follow up. currently on lasix 40mg bid for LE edema Superficial Vein thrombosis of right cephalic vein Acute DVT of right internal jugular Venous duplex done on 06/29 shows progressive deep and superficial venous th rombus in right upper extremity. Heparin is started without bolus as per discussion with surgery switched over to lovenox on 07/04. plan to continue it in rehab, will eventual transition to DOACs at discharge from rehab. needs 3 months of Anticoagulation. #Acute hypoxic hypercarbic resp failure -Requiring intubation -CT showing bilateral small effusions, some atelectasis -Suspect multifactorial. he is also taking shallow breaths due to pain -Extubated 06/24 -On room air. resolved Patient will need CT chest in about 4 weeks time to ensure resolution effusion/atelectasis #Anemia -POA. Hgb 12.5 on admission -S/p 2 PRBC -Hb downtrended to 6.8 g/dl on 07/03 - s/p 1unit of packed RBCs on 07/03 -s/p 1 more unit of packed RBCs on 07/04. - Hb is borderline and patient is currently on anticoagulation. #Hypertension- discontinue losartan #acute hypergylcemia #Type 2 Diabetes Hold oral meds, A1C 7.7% Monitor BG and electrolytes closely glargine 10U once a day at discharge. #Dyslipidemia - on rosuvastatin,continue #GERD - Continue daily PPI Full code DVT prophylaxis lovenox Time spent evaluating patient, direct bedside care, chart review, placing orders, interpretation of diagnostic studies, discussion with consultants, patient, and family members, as well as other required patient management activities is 50 minutes Admission and Anticipated Discharge Date Admission Date: June 20, 2025 Subjective Patient seen and examined at bedside. Comfortable; not in distress. Denies fever, chills, chest pain, shortness of breath, abdominal pain or urinary symptoms. No significant overnight events Review of Systems Review of Systems: All systems reviewed & are unremarkable except as noted in Subjective Physical Exam Physical Exam: Constitutional: AO X 3, not in any distress Respiratory: Decreased breath sounds at bilateral lower lung field Cardiovascular: RRR, no murmur, no edema Vessels: no JVD or carotid bruit Chest: normal inspection of chest Abdomen: no soakage over the bandage, soft, non-tender Musculoskeletal: no cyanosis or clubbing, extremities motor strength 5/5. right arm swelling present, sensenstion and pulse intact. 1+ pitting edema present Skin: no rashes, warm and dry normal turgor Neurologic: PERRL, EOMI, accommodation nl, no face palsy, no dysarthria CN's II- XI intact bilaterally and moves all extremities Psychiatric: A+Ox3, euthymic affect Results & Data Results & Data Vital Signs (Past 12 Hours) Vital Signs Temp Pulse Resp BP Pulse Ox O2 Del Method 07/05/25 09:00 36.5 C 95 H 18 133/74 96 Room Air 07/05/25 05:33 36.9 C 77 14 137/85 94 Room Air (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 (2) DM type 2 (diabetes mellitus, type 2) Diabetes mellitus complication detail: with diabetic retinopathy Diabetes mellitus complication status: with ophthalmic complications Diabetes mellitus termite technician insulin use: without termite technician use Diabetes mellitus macular edema: macular edema presence unspecified Diabetic retinopathy severity: with unspecified retinopathy severity Laterality: unspecified laterality Qualified Code(s): E11.319 - Type 2 diabetes mellitus with unspecified diabetic retinopathy without macular edema (3) HTN (hypertension) Hypertension type: unspecified Qualified Code(s): I10 - Essential (primary) hypertension (4) HLD (hyperlipidemia) Hyperlipidemia type: unspecified Qualified Code(s): E78.5 - Hyperlipidemia, unspecified
[2025-07-05] MEDS: FUROSEMIDE 40 MG/4 ML VIAL IV SCH (14:14)
[2025-07-06] MEDS: ENOXAPARIN 100 MG/1ML SYR SQ SCH (00:25)
--- NOTE | 2025-07-06 11:00 | Surgery Progress Note ---
Date of Service July 06, 2025 Assessment & Plan (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: Plan: placement today F/U Dr Dhaliwal 07/08 Admission and Anticipated Discharge Date Admission Date: June 20, 2025 Subjective no complaints Results & Data Vital Signs (Past 12 Hours) Vital Signs Temp Pulse Resp BP BP Pulse Ox O2 Del Method 07/06/25 07:37 36.4 C L 80 18 126/74 94 Room Air 07/06/25 00:30 36.8 C 81 14 128/75 96 Room Air (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
--- NOTE | 2025-07-06 12:25 | Hospitalist Progress Note ---
Date of Service July 06, 2025 Assessment & Plan (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: (2) DM type 2 (diabetes mellitus, type 2): (3) HTN (hypertension): (4) HLD (hyperlipidemia): Plan Mr. Vaca is a 80 y/o male with DM2, diabetic retinopathy, dyslipidemia, ZHAO D, Christiansen's esophagus, HTN, and other history as outlined below who underwent exploratory laparotomy with removal of infected mesh, hernia repair, and bowel resection 06/[address] Dhaliwal and for who we have been consulted to assist with post-operative medical management. #Septic shock #Metabolic acidosis #Infected mesh s/p removal, hernia repair, and bowel resection 06/20 -Developed worsening abd pain, rising lactate on 06/21 -CT AP 06/22 b/l small effusions, fluid filled bowels, 16cm fluid collection, likely hematoma -S/p ex lap 06/22 -Cultures negative Plan -Tolerating normal diet without any issues. monitor -KRISTA drain per surgery -Appreciate surgery input -completed zosyn through 06/29, total of 7 days. #Acute Renal Failure -Baseline Cr. 0.9 -Oliguric renal failure -HD started 06/22 -Urine output improving -S/p HD 06/27 Plan -Urine output reassuring. No plans for HD for now. -Appreciate nephrology input -Monitor urine output, intake, renal function -Avoid nephrotoxic agents if possible -Nephrology recommended holding losartan, metformin and Jardiance. Weekly BMP X 3 weeks, outpatient follow up. currently on lasix 40mg bid for LE edema, on torsemide 20 mg bid on discharge per nephro recs. Superficial Vein thrombosis of right cephalic vein Acute DVT of right internal jugular Venous duplex done on 06/29 shows progressive deep and superficial venous thrombus in right upper extremity. Heparin is started without bolus as per discussion with surgery switched over to lovenox on 07/04. plan to continue it in rehab, will eventual transition to DOACs at discharge from rehab. needs 3 months of Anticoagulation. #Acute hypoxic hypercarbic resp failure -Requiring intubation -CT showing bilateral small effusions, some atelectasis -Suspect multifactorial. he is also taking shallow breaths due to pain -Extubated 06/24 -On room air. resolved Patient will need CT chest in about 4 weeks time to ensure resolution effusion/atelectasis #Anemia -POA. Hgb 12.5 on admission -S/p 2 PRBC -Hb downtrended to 6.8 g/dl on 07/03 - s/p 1unit of packed RBCs on 07/03 -s/p 1 more unit of packed RBCs on 07/04. - Hb is borderline and patient is currently on anticoagulation. #Hypertension- discontinue losartan #acute hypergylcemia #Type 2 Diabetes Hold oral meds, A1C 7.7% Monitor BG and electrolytes closely glargine 10U once a day at discharge. #Dyslipidemia - on rosuvastatin,continue #GERD - Continue daily PPI Full code DVT prophylaxis lovenox Time spent evaluating patient, direct bedside care, chart review, placing orders, interpretation of diagnostic studies, discussion with consultants, patient, and family members, as well as other required patient management activities is 50 minutes Admission and Anticipated Discharge Date Admission Date: June 20, 2025 Subjective Patient seen and examined at bedside. Comfortable; not in distress. Denies fever, chills, chest pain, shortness of breath, abdominal pain or urinary symptoms. No significant overnight events Physical Exam Physical Exam: Constitutional: AO X 3, not in any distress Respiratory: Decreased breath sounds at bilateral lower lung field Cardiovascular: RRR, no murmur, no edema Vessels: no JVD or carotid bruit Chest: normal inspection of chest Abdomen: no soakage over the bandage, soft, non-tender, KRISTA drain w/ minimal serosanguinous collection. Musculoskeletal: no cyanosis or clubbing, extremities motor strength 5/5. right arm swelling present, sensenstion and pulse intact. 1+ pitting edema present Skin: no rashes, warm and dry normal turgor Neurologic: PERRL, EOMI, accommodation nl, no face palsy, no dysarthria CN's II- XI intact bilaterally and moves all extremities Psychiatric: A+Ox3, euthymic affect Results & Data Results & Data Vital Signs (Past 12 Hours) Vital Signs Temp Pulse Resp BP BP Pulse Ox O2 Del Method 07/06/25 07:37 36.4 C L 80 18 126/74 94 Room Air 07/06/25 00:30 36.8 C 81 14 128/75 96 Room Air (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 (2) DM type 2 (diabetes mellitus, type 2) Diabetes mellitus penitentiary insulin use: without penitentiary use Diabetes mellitus complication status: with ophthalmic complications Diabetes mellitus complication detail: with diabetic retinopathy Diabetic retinopathy severity: with unspecified retinopathy severity Diabetes mellitus macular edema: macular edema presence unspecified Laterality: unspecified laterality Qualified Code(s): E11.319 - Type 2 diabetes mellitus with unspecified diabetic retinopathy without macular edema (3) HTN (hypertension) Hypertension type: unspecified Qualified Code(s): I10 - Essential (primary) hypertension (4) HLD (hyperlipidemia) Hyperlipidemia type: unspecified Qualified Code(s): E78.5 - Hyperlipidemia, unspecified
--- NOTE | 2025-07-08 12:34 | Discharge Summary ---
Date of Service July 08, 2025 Admission HPI Per Admitting Provider Patient presented to [facility] for outpatient elective exploratory laparotomy with removal of abdominal wall mesh due to history of hernia repair 15 years ago at OSH with recurrent drainage from incision . Principal Diagnosis Infected abdominal wall mesh Chronic wound drainage Discharge Data Allergies Allergy/AdvReac Type Severity Reaction Status Date / Time adhesive tape Allergy Unknown Rash with Verified 06/20/25 08:36 extended use Consultations 06/20/25 14:16 Consult Hospitalist Routine 06/21/25 15:28 Consult Nephrology Routine 06/22/25 12:13 Consult Lithopone Mill Worker Stat Procedures Performed Operation Date: 06/22/25 07:00 Actual Procedures p Exploratory Laparotomy, Washout of Abdomen, small Bowel Resection(Not Applicable) - Arben Dhaliwal MD Ordered Studies 06/21/25 11:20 US Mesentary Duplex [US duplex mesenteric] Urgent 06/22/25 02:30 CT abd pelvis wo con Stat 06/22/25 11:35 US point of care ultrasound Routine 06/24/25 05:19 US venous doppler UE RT Urgent 06/29/25 10:22 US venous doppler UE RT Urgent 06/30/25 11:59 CT chest diagnostic wo con Routine US venous duplex leg [US venous doppler LE BI] Routine Hospital Course (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: (2) Anastomotic leak of intestine: (3) Sepsis: (4) JACINTA (acute kidney injury): (5) Thrombosis of right cephalic vein: (6) Dialysis patient: Plan Patient was taken to operating room on Friday06/20/2025 for elective ex lap with removal of mesh. Patient was found to have small bowel adhered and eroded through mesh with fistula tract requiring small bowel resection, small bowel anastomosis and explantation of mesh. Patient was transferred to med/surg for postop care. In the late evening of operative day patient became hypotensive and tachycardic with shortness of breath. His bp responded to fluid bolus and pain better controlled. He was found to have Jacinta with creatinine of 1.9 and blood glucose also elevated in 300s. Hospitalist services was on board for medical management. POD # 1 patient was still relatively hypotensive and tachycardic and lactate was 6.9 ad decreased to 5 with fluid resuscitation . mesenteric ultrasound inconclusive but abdominal examination was not consistent with ischemia. Patient continued to have increasing abdominal distention and worsening creatinine in evening of POD #1. Noncontrast ct scan of abd/pelvis showed some pneumoperitoneum and fluid in LLQ which could be hematoma vs anastomotic leak. patient was taken back to operating room on 06/22/25 for ex lap and was found to have small bowel anastomotic leak at base of anastomosis due to hematoma. Small bowel was resected and reanastomosis performed. Patient went to ICU postoperatively intubated. He required dialysis postoperatively. H e was extubated on 06/24/2025. Required dialysis x3. Required blood transfusions due to severe anemia. Patients diet was slowly advanced to low fiber diet. His creatinine improved to where he required no further dialysis and dialysis catheter removed on 06/28/25. Patient was discharged home on 07/06/2025 to [facility] for rehab. Rio drain was discontinued prior to discharge. He finished course of IV abx during hospital stay. #Septic shock #Metabolic acidosis #Infected mesh s/p removal, hernia repair, and bowel resection 06/20, ex lap small bowel resection for anastomotic leak on 06/22 #Acute Renal Failure -Monitor urine output, intake, renal function -Avoid nephrotoxic agents if possible -Nephrology recommended holding losartan, metformin and Jardiance. Weekly BMP X 3 weeks, outpatient follow up. currently on lasix 40mg bid for LE edema, on torsemide 20 mg bid on discharge per nephro recs. Superficial Vein thrombosis of right cephalic vein Acute DVT of right internal jugular Venous duplex done on 06/29 shows progressive deep and superficial venous thrombus in right upper extremity. switched over to lovenox on 07/04. plan to continue it in rehab, will eventual transition to DOACs at discharge from rehab. needs 3 months of Anticoagulation. #Acute hypoxic hypercarbic resp failure -Requiring intubation -CT showing bilateral small effusions, some atelectasis -Suspect multifactorial. he is also taking shallow breaths due to pain -Extubated 06/24 -On room air. resolved Patient will need CT chest in about 4 weeks time to ensure resolution effusion/atelectasis #Anemia -POA. Hgb 12.5 on admission -S/p 2 PRBC -Hb downtrended to 6.8 g/dl on 07/03 - s/p 1unit of packed RBCs on 07/03 -s/p 1 more unit of packed RBCs on 9/29. - Hb is borderline and patient is currently on anticoagulation. #Hypertension- discontinue losartan #acute hypergylcemia #Type 2 Diabetes glargine 10U once a day at discharge. #Dyslipidemia - on rosuvastatin,continue #GERD - Continue daily PPI Total Time Total Time Spent Total Time Spent (In Minutes): 20 Total Time Includes: Examination of the Patient, Discharge Planning, Medication Reconciliation and Communication With Other Providers Discharge Plan Discharge Items Patient Disposition: Transfer Inpatient Rehab Fac Reason For Visit: Umbilical Bleeding, Abdominal Wall Mass Discharge Diagnosis: Infected abdominal wall mesh postoperative bowel anastomotic leak Superficial Vein thrombosis of right cephalic vein Acute DVT of right internal jugular Acute renal failure Activity: Per Instructions section Non-emergency contact: Primary Care Provider and Surgeon Call non-emergency contact if: you have any medication questions, your pain is not controlled, your pain is concerning for you, you have a fever, your temperature is above 101, your wound has increased redness, your wound has increased drainage and your wound pain has increased Follow-up/Referrals: Arben Dhaliwal MD [Physician] - 07/08/25 2:45 pm Jonas Herrera MD [Surgeon] - (The office will call you for a follow up appointment.) Mookie Reid MD [Primary Care Provider] - Diet: Dialysis Renal and Low Fiber Addtl Attending Provider Instructions: Following changes have been made to your medication STOP JARDIANCE, LOSARTAN, METFORMIN. Start Lovenox 90mg sc bid.. At discharge from rehab, place on eliquisor xarelto for total of 3 months. Also, you are started on Torsemide 20mg twice a day for LE edema. Dosage should be adjusted based on renal function and LE edema based on repeat BMP on Friday. Discuss with rehab nursing tech at rehab. Repeat CT chest in 4 weeks. Post-Surgical ~Discharge Instructions Activity Recommendations: - lifting limitation: (10 pounds for at least 6 weeks), - exercise/sex/sports limit: (nonstrenuous for at least 6 weeks), - driving or machine use limit: (none for 1 week), - Shower/bathe limit: (may shower , no submerging underwater until cleared by surgeon) Diet: - Low fiber, dialysis diet SPECIAL CARE INSTRUCTIONS: - May shower Let water run over area and pat dry. - Surgical jin will be removed in office - Wear abdominal binder daily for support and compression. - Keep small dressing over jin and replace daily - Prior drain site will heal on its own. Change dressing daily or as needed to keep clean and dry. You may have drainage from drain site for a few days which is normal after drain removal. - Call the surgeon's office with any questions or concerns - - (ex. temperature higher than 101 degrees F, excessive bleeding or pain). MEDICATIONS: - Resume previous medications unless instructed otherwise by your surgeon/doctor. - Percocet 1 every 6 hours, as needed for moderate to severe pain - Can take daily stool softener (Colace) while taking narcotic pain medication to prevent constipation and straining. FOLLOW UP VISIT: - Scheduled to see Dr. Dhaliwal on Friday07/08/25 at 2:45pm Office number Pending Studies at Discharge: No Stand-Alone Forms: My [facility] Skilled Items Patient informed of condition?: Yes DNR: No Discharge Level of Care: Skilled Communicable Disease: No Discharge Prognosis: Stable Lines: None Urinary Catheter: No Medications and DC Order Prescriptions: New metoprolol tartrate 25 mg Tablet 37.5 mg PO BID Qty: 60 0RF aspirin 81 mg capsule 81 mg PO DAILY Qty: 30 0RF oxycodone-acetaminophen 5-325 mg tablet 1 tab PO Q6H PRN (Reason: pain) Qty: 12 0RF torsemide 20 mg tablet 20 mg PO BID17 4 Days Qty: 4 0RF insulin glargine 100 unit/mL (3 mL) insulin pen 10 unit subcut DAILY Qty: 15 0RF enoxaparin [Lovenox] 80 mg/0.8 mL syringe 90 mg subcut BID Qty: 8 0RF Continued pantoprazole 40 mg Tablet,Delayed Release (Dr/Ec) 40 mg PO QAM ascorbic acid (vitamin C) [Vitamin C] 1,000 mg Tablet 1,000 mg PO Q2D cyanocobalamin (vitamin B-12) [Vitamin B-12] 1,000 mcg Tablet 1,000 mcg PO QAM rosuvastatin 20 mg Tablet 20 mg PO QAM PreserVision AREDS-2 250-90-40-1 mg Capsule 2 tab PO QAM sildenafil 25 mg Tablet 20 mg PO UD PRN (Reason: sexual activity ) Rx Instructions: administer 30 minutes to 4 hours before activity Discontinued metformin 500 mg Tablet 500 mg PO QAM aspirin 325 mg Tablet 325 mg PO QAM losartan 25 mg Tablet 25 mg PO QAM Jardiance 25 mg Tablet 25 mg PO QAM Discharge Orders: Discharge Order (Routine); Ordered 07/06/25 Ordered By: Blanche Odell/Other Patient Handouts: Managing Type 2 Diabetes Admission Data Admit Date/Time: 06/20/25 12:25 Attending Provider: Arben Dhaliwal Admit Provider: Arben Dhaliwal Primary Care Provider: Mookie Reid [facility]; Claudia Damian; Molly Johnson; Usha Chapin; Tyler White; Jamey Mcneal; Germaine Patel; Abelardo Richard; Ciaran Dyer; Jonas Herrera; Gianni Hpoe Other Interventions: Discharge Summary Assessment (RN) Last Done: 07/06/25 13:16
== END 2025-07-06 13:54 | DRG 907 ==
LOC: ASU 08:16 → 3N 12:25 → 2S 06-21 09:57 → 1E 06-22 11:34 → 2N 06-27 12:21 → 3E 07-02 18:35